=== PATIENT | female | born 1940 | race Caucasian/White ===

== ENCOUNTER 2016-07-18 15:11 | Emergency (ER) | payer OTHER ==
--- NOTE | 2016-07-18 15:25 | PDOC ---
Rapid Medical Evaluation Time Seen by Provider: 07/18/16 15:15 Medical Evaluation: Allergies Allergy/AdvReac Type Severity Reaction Status Date / Time No Known Allergies Allergy Verified 05/12/16 00:09
[2016-07-18 16:29] VITALS: BMI 23.4
[2016-07-18 17:10] LABS: BASOPHIL 0.4 % (0-2.0); EOSINOPHIL 1.1 % (0-4.5); MCH 27.4 pg (25.7-33.7); MCHC 33.3 g/dl (32.0-36.0); MEAN CELL VOLUME 82.3 fl (80-96); MEAN PLT VOLUME 9.5 fl (7.5-11.1); PLATELET COUNT 266 K/MM3 (134-434); RDW 15.1 % (11.6-15.6)
[2016-07-18 17:24] LABS: INR 0.98 (0.82-1.09); PROTHROMBIN TIME (PATIENT) 10.8 SEC (9.98-11.88)
[2016-07-18 17:31] LABS: ALBUMIN 3.9 g/dl (3.4-5.0); CALCIUM 9.6 mg/dL (8.5-10.1); MAGNESIUM 1.9 mg/dL (1.8-2.4)
[2016-07-18 17:34] VITALS: PULSE 60
[2016-07-18 17:35] LABS: BILIRUBIN,TOTAL 0.9 mg/dL (0.2-1.0); TOT PROT 7.2 g/dl (6.4-8.2); TROPONIN I 0.02 ng/ml (0.00-0.05)
--- NOTE | 2016-07-18 18:36 | PDOC ---
History of Present Illness <Daniel Kessler - Last Filed: 07/18/16 18:50> - General History Source: Patient, Spouse, Old Records Exam Limitations: No Limitations - History of Present Illness Initial Comments: 07/18/16 18:47 The patient is a 76 year old female, with a significant past medical history of hypertension, hyperlipidemia, diabetes, coronary artery disease s/p stents, kidney stones and anxiety, who presents to the emergency department not feeling well. The patient reports that she feels off today but cannot articulate a specific complaint. The patient denies shortness of breath or chest pain. The patient denies fever, chills, cough, nausea, vomiting, diarrhea, melena/bpr or dysuria. The patient denies any recent illnesses. The patients primary language is Farsi, her is at the bedside translating. Allergies: None reported. Past Surgical History: Stents (March 2016). Social History: Non smoker. Denies alcohol or drug use. PCP: Dr. Wolf <Geovanna Guillaume - Last Filed: 07/18/16 19:03> - General Chief Complaint: Blood Pressure Problem Stated Complaint: NOT WELL Time Seen by Provider: 07/18/16 15:15 Past History - Past Medical History Cardiac Disorders: Yes (angina, CAD) Diabetes: Yes HTN: Yes Hypercholesterolemia: Yes Kidney Stones: Yes Suicide Attempt (Hx): No Thyroid Disease: Yes - Psycho/Social/Smoking Cessation Hx Anxiety: Yes (NO MEDS) Suicidal Ideation: No Smoking Status: No Smoking History: Never smoked Have you smoked in the past 12 months: No Number of Cigarettes Smoked Daily: 0 Information on smoking cessation initiated: No Hx Alcohol Use: No Drug/Substance Use Hx: No Substance Use Type: None Hx Substance Use Treatment: No <Daniel Kessler - Last Filed: 07/18/16 18:50> <Geovanna Guillaume - Last Filed: 07/18/16 19:03> - Past Medical History Allergies/Adverse Reactions: Allergies Allergy/AdvReac Type Severity Reaction Status Date / Time No Known Allergies Allergy Verified 07/18/16 16:29 Home Medications: Ambulatory Orders Acetaminophen [Tactinal] 325 mg PO DAILY 07/18/16 Aspirin [ASA -] 81 mg PO DAILY 07/18/16 Atorvastatin Ca [Lipitor] 80 mg PO HS 07/18/16 Glimepiride [Amaryl] 4 mg PO DAILY 07/18/16 Methimazole 10 mg PO DAILY 07/18/16 Metoprolol Tartrate [Lopressor -] 100 mg PO DAILY 07/18/16 Sitagliptin Phosphate [Januvia] 100 mg PO DAILY 07/18/16 Spironolactone 25 mg PO DAILY 07/18/16 Ticagrelor [Brilinta] 90 mg PO BID 07/18/16 Valsartan 160 mg PO BID 07/18/16 Review of Systems - Review of Systems Able to Perform ROS?: Yes Comments:: 07/18/16 18:46 GENERAL/CONSTITUTIONAL: No fever or chills. No weakness. HEAD, EYES, EARS, NOSE AND THROAT: No change in vision. No ear pain or discharge. No sore throat. CARDIOVASCULAR: No chest pain or shortness of breath. RESPIRATORY: No cough, wheezing, or hemoptysis. GASTROINTESTINAL: No nausea, vomiting, diarrhea or constipation. GENITOURINARY: No dysuria, frequency, or change in urination. MUSCULOSKELETAL: No joint or muscle swelling or pain. No neck or back pain. SKIN: No rash. NEUROLOGIC: No headache, vertigo, loss of consciousness, or change in strength/ sensation. ENDOCRINE: No increased thirst. No abnormal weight change. HEMATOLOGIC/LYMPHATIC: No anemia, easy bleeding, or history of blood clots. ALLERGIC/IMMUNOLOGIC: No hives or skin allergy. <Geovanna Guillaume - Last Filed: 07/18/16 19:03> *Physical Exam - Vital Signs Last Vital Signs Temp Pulse Resp BP Pulse Ox 97.9 F 60 14 157/69 100 07/18/16 17:34 07/18/16 17:34 07/18/16 17:34 07/18/16 17:34 07/18/16 17:34 <Daniel Kessler - Last Filed: 07/18/16 18:50> - Vital Signs Last Vital Signs Temp Pulse Resp BP Pulse Ox 97.9 F 60 14 157/69 100 07/18/16 17:34 07/18/16 17:34 07/18/16 17:34 07/18/16 17:34 07/18/16 17:34 - Physical Exam Comments: 07/18/16 18:36 GENERAL: Awake, alert, and fully oriented, in no acute distress. HEAD: No signs of trauma. EYES: PERRLA, EOMI, sclera anicteric, conjunctiva clear. ENT: Auricles normal inspection, hearing grossly normal, nares patent, oropharynx clear without exudates. Moist mucosa. NECK: Normal ROM, supple, no lymphadenopathy, JVD, or masses. LUNGS: Breath sounds equal, clear to auscultation bilaterally. No wheezes, and no crackles. HEART: Regular rate and rhythm, normal S1 and S2, no murmurs, rubs or gallops. ABDOMEN: Soft, nontender, normoactive bowel sounds. No guarding, no rebound. No masses. EXTREMITIES: Normal range of motion, no edema. No clubbing or cyanosis. No cords, erythema, or tenderness. NEUROLOGICAL: Cranial nerves II through XII intact. Normal speech, normal gait. SKIN: Warm, dry, normal turgor, no rashes or lesions noted. <Geovanna Guillaume - Last Filed: 07/18/16 19:03> ED Treatment Course - LABORATORY CBC & Chemistry Diagram: 07/18/16 16:51 07/18/16 16:51 - ADDITIONAL ORDERS Additional order review: Laboratory Results 07/18/16 07/18/16 16:51 16:51 INR 0.98 Sodium 136 Potassium 4.4 Chloride 102 Carbon Dioxide 26 Anion Gap 8 BUN 22 H Creatinine 1.0 Creat Clearance w eGFR 54.05 Random Glucose 235 H D Calcium 9.6 Magnesium 1.9 Total Bilirubin 0.9 D AST 24 ALT 26 Alkaline Phosphatase 104 Creatine Kinase 100 Troponin I 0.02 Total Protein 7.2 Albumin 3.9 07/18/16 16:51 RBC 4.60 MCV 82.3 MCHC 33.3 RDW 15.1 MPV 9.5 Neutrophils % 75.0 Lymphocytes % 18.0 D Monocytes % 5.5 Eosinophils % 1.1 Basophils % 0.4 - RADIOLOGY Radiology Studies Ordered: Category Date Time Status CHEST PA & LAT [RAD] Stat Radiology 07/18/16 16:33 Taken <Daniel Kessler - Last Filed: 07/18/16 18:50> - LABORATORY CBC & Chemistry Diagram: 07/18/16 16:51 07/18/16 16:51 - ADDITIONAL ORDERS Additional order review: Laboratory Results 07/18/16 07/18/16 16:51 16:51 INR 0.98 Sodium 136 Potassium 4.4 Chloride 102 Carbon Dioxide 26 Anion Gap 8 BUN 22 H Creatinine 1.0 Creat Clearance w eGFR 54.05 Random Glucose 235 H D Calcium 9.6 Magnesium 1.9 Total Bilirubin 0.9 D AST 24 ALT 26 Alkaline Phosphatase 104 Creatine Kinase 100 Troponin I 0.02 Total Protein 7.2 Albumin 3.9 07/18/16 16:51 RBC 4.60 MCV 82.3 MCHC 33.3 RDW 15.1 MPV 9.5 Neutrophils % 75.0 Lymphocytes % 18.0 D Monocytes % 5.5 Eosinophils % 1.1 Basophils % 0.4 <Geovanna Guillaume - Last Filed: 07/18/16 19:03> Medical Decision Making - Medical Decision Making 07/18/16 18:[address] Wolf at 18:10. Referred to answering service, awaiting callback. Maryann Sanchez returned call at 19:00, case discussed. <Goevanna Guillaume - Last Filed: 07/18/16 19:03> *DC/Admit/Observation/Transfer - Discharge Dispostion Admit: No - Attestations Physician Attestion: 07/18/16 18:36 I, Dr. Daniel Kessler, attest that this document has been prepared under my direction and personally reviewed by me in its entirety. I further attest, that it accurately reflects all work, treatment, procedures and medical decision -making performed by me. <Daniel Kessler - Last Filed: 07/18/16 18:50> - Attestations Scribe Attestion: 07/18/16 18:36 Documentation prepared by Geovanna Guillaume, acting as medical collections specialist for Daniel Kessler MD/DO. <Geovanna Guillaume - Last Filed: 07/18/16 19:03> Diagnosis at time of Disposition: Essential hypertension - Discharge Dispostion Disposition: HOME Condition at time of disposition: Good - Referrals Referrals: Brett Wolf MD [Primary Care Provider] - - Patient Instructions Printed Discharge Instructions: DI for High Blood Pressure Additional Instructions: Return to us if any problems at all.
[2016-07-18 19:08] VITALS: BP 141/64; TEMP 98.1
--- NOTE | 2016-07-20 22:03 | EKG ---
Test Reason : Blood Pressure : / mmHG Vent. Rate : 055 BPM Atrial Rate : 055 BPM P-R Int : 178 ms QRS Dur : 080 ms QT Int : 474 ms P-R-T Axes : 050 -48 064 degrees QTc Int : 453 ms SINUS BRADYCARDIA LEFT AXIS DEVIATION MINIMAL VOLTAGE CRITERIA FOR LVH, MAY BE NORMAL VARIANT ANTERIOR INFARCT , AGE UNDETERMINED MARKED T WAVE ABNORMALITY, CONSIDER ANTEROLATERAL ISCHEMIA ABNORMAL ECG WHEN COMPARED WITH ECG OF 16-APR-2015 19:41, ANTERIOR INFARCT IS NOW PRESENT NONSPECIFIC T WAVE ABNORMALITY NOW EVIDENT IN INFERIOR LEADS T WAVE INVERSION NOW EVIDENT IN ANTEROLATERAL LEADS Confirmed by MAU MCMILLAN MD ([id number]) on 07/20/2016 10:02:23 PM Referred By: Confirmed By:MAU MCMILLAN MD
== END 2016-07-18 19:08 | disposition home or self-care (01) ==
LOC: JER 15:11
DX: I10 Essential (primary) hypertension (principal); I25.119 Atherosclerotic heart disease of native coronary artery with unspecified angina pectoris; Z95.5 Presence of coronary angioplasty implant and graft; E11.9 Type 2 diabetes mellitus without complications; Z79.84 Long term (current) use of oral hypoglycemic drugs; E78.00 Pure hypercholesterolemia, unspecified; E07.9 Disorder of thyroid, unspecified; F41.9 Anxiety disorder, unspecified
CPT/HCPCS: 36415; 71020-TC; 80053; 82550; 83735; 84484; 85025; 85610; 93005; 93010; 99284-25

== ENCOUNTER 2016-11-02 16:50 | Inpatient (IN) | payer OTHER ==
[2016-11-02 17:30] LABS: BASOPHIL 0.9 % (0-2.0); EOSINOPHIL 1.4 % (0-4.5); MCHC 32.6 g/dl (32.0-36.0); MEAN CELL VOLUME 85.8 fl (80-96); MEAN PLT VOLUME 9.2 fl (7.5-11.1); NEUTROPHILS 69.7 % (42.8-82.8); PLATELET COUNT 265 K/MM3 (134-434); RDW 15.2 % (11.6-15.6); WHITE BLOOD COUNT 10.3 K/mm3 (4.0-10.0)
--- NOTE | 2016-11-02 17:30 | PDOC ---
History of Present Illness - General History Source: Patient Exam Limitations: No Limitations - History of Present Illness Initial Comments: 11/02/16 17:40 The patient is a 76 year old female with a significant past medical history of a cardiac catheterization with 2 stents (in March 2016 which showed an EF of 45%, occluded LAD, RCA stenosis), diabetes, HTN, HLD, kidney stones, thyroid disease who presents to the Emergency Department with increasing SOB, chills, and weakness today. She states the SOB first started a few days ago. She states the SOB increases with exacerbation, but is still present at rest. Patient denies chest pain, palpitations, fever, chills, nausea, vomiting, diarrhea. ROS is limited because patient only speaks farsi PCP: Dr. Wolf <Pj Paz - Last Filed: 11/02/16 19:24> <Delfina Kim - Last Filed: 11/02/16 21:18> - General Chief Complaint: Respiratory Stated Complaint: CHEST PAIN Time Seen by Provider: 11/02/16 17:10 Past History <Pj Paz - Last Filed: 11/02/16 19:24> - Past Medical History Cardiac Disorders: Yes (angina, CAD) Diabetes: Yes HTN: Yes Hypercholesterolemia: Yes Kidney Stones: Yes Suicide Attempt (Hx): No Thyroid Disease: Yes - Psycho/Social/Smoking Cessation Hx Anxiety: No Suicidal Ideation: No Smoking Status: No Smoking History: Never smoked Have you smoked in the past 12 months: No Number of Cigarettes Smoked Daily: 0 Hx Alcohol Use: No Drug/Substance Use Hx: No Substance Use Type: None Hx Substance Use Treatment: No <Delfina Kim - Last Filed: 11/02/16 21:18> - Past Medical History Allergies/Adverse Reactions: Allergies Allergy/AdvReac Type Severity Reaction Status Date / Time No Known Allergies Allergy Verified 11/02/16 17:01 Home Medications: Ambulatory Orders Aspirin [ASA -] 81 mg PO DAILY 07/18/16 Atorvastatin Ca [Lipitor] 80 mg PO HS 07/18/16 Glimepiride [Amaryl] 4 mg PO BID 07/18/16 Methimazole 10 mg PO ASDIR 07/18/16 Spironolactone 25 mg PO DAILY 07/18/16 Ticagrelor [Brilinta] 90 mg PO BID 07/18/16 Valsartan 160 mg PO BID 07/18/16 Amlodipine Besylate 5 mg PO DAILY 11/02/16 Gabapentin 100 mg PO BID 11/02/16 Isosorbide Mononitrate [Isosorbide Mononitrate ER] 30 mg PO DAILY 11/02/16 Metoprolol Succinate [Toprol Xl] 100 mg PO DAILY 11/02/16 Multivitamin [Poly-Vitamin] 1 each PO DAILY 11/02/16 Review of Systems - Review of Systems Able to Perform ROS?: Yes Comments:: 11/02/16 17:40 CONSTITUTIONAL: Present: chills. weakness Absent: fever, diaphoresis, malaise, loss of appetite HEENT: Absent: rhinorrhea, nasal congestion, throat pain, throat swelling, difficulty swallowing, mouth swelling, ear pain, eye pain, visual Changes CARDIOVASCULAR: Absent: chest pain, syncope, palpitations, irregular heart rate, lightheadedness , peripheral edema RESPIRATORY: Prsent: SOB Absent: cough, dyspnea with exertion, orthopnea, wheezing, stridor, hemoptysis GASTROINTESTINAL: Absent: abdominal pain, abdominal distension, nausea, vomiting, diarrhea, constipation, melena, hematochezia GENITOURINARY: Absent: dysuria, frequency, urgency, hesitancy, hematuria, flank pain, genital pain MUSCULOSKELETAL: Absent: myalgia, arthralgia, joint swelling SKIN: Absent: rash, itching, pallor HEMATOLOGIC/IMMUNOLOGIC: Absent: easy bleeding, easy bruising, lymphadenopathy, frequent infections ENDOCRINE: Absent: unexplained weight gain, unexplained weight loss, heat intolerance, cold intolerance NEUROLOGIC: Absent: headache, focal weakness or paresthesias, dizziness, unsteady gait, seizure, mental status changes, bladder or bowel incontinence PSYCHIATRIC: Absent: anxiety, depression, suicidal or homicidal ideation, hallucinations. <Pj Paz - Last Filed: 11/02/16 19:24> *Physical Exam - Vital Signs Last Vital Signs Temp Pulse Resp BP Pulse Ox 97.3 F L 57 L 20 137/63 100 11/02/16 16:53 11/02/16 16:53 11/02/16 16:53 11/02/16 16:53 11/02/16 16:53 - Physical Exam Comments: 11/02/16 17:41 GENERAL: Well developed, well nourished. Awake and alert. No acute distress. HEENT: Normocephalic, atraumatic. PERRLA, EOMI. No conjunctival pallor. Sclera are non- icteric. Moist mucous membranes. Oropharynx is clear. NECK: Supple. Full ROM. No significant JVD. Carotid pulses 2+ and symmetric, without bruits. No thyromegaly. No lymphadenopathy. CARDIOVASCULAR: Regular rate and rhythm. No murmurs, rubs, or gallops. Distal pulses are 2+ and symmetric. PULMONARY: No evidence of respiratory distress. Lungs clear to auscultation bilaterally. No wheezing, rales or rhonchi. ABDOMINAL: Soft. Non-tender. Non-distended. No rebound or guarding. No organomegaly. Normoactive bowel sounds. MUSCULOSKELETAL Normal range of motion at all joints. No bony deformities or tenderness. No CVA tenderness. EXTREMITIES: No cyanosis. No clubbing. No pitting edema. No calf tenderness. SKIN: Warm and dry. Normal capillary refill. No rashes. No jaundice. NEUROLOGICAL: Alert, awake, appropriate. Cranial nerves 2-12 intact. No deficits to light touch and temperature in face, upper extremities and lower extremities. No motor deficits in the in face, upper extremities and lower extremities. Normoreflexic in the upper and lower extremities. Normal speech. Toes are down-going bilaterally. Gait is normal without ataxia. PSYCHIATRIC: Cooperative. Good eye contact. Appropriate mood and affect. <Pj Paz - Last Filed: 11/02/16 19:24> - Vital Signs Last Vital Signs Temp Pulse Resp BP Pulse Ox 97.3 F L 57 L 20 137/63 100 11/02/16 16:53 11/02/16 16:53 11/02/16 16:53 11/02/16 16:53 11/02/16 16:53 <Delfina Kim - Last Filed: 11/02/16 21:18> Heart Score/ECG Review - ECG Intrepretation Comment:: 11/02/16 17:42 Sinus bradycardia, 55 bpm. Left axis deviation. Anterior infarct, age undetermined T wave abnormality, consider lateral ischemia Abnormal ECG. <Pj Paz - Last Filed: 11/02/16 19:24> ED Treatment Course - LABORATORY CBC & Chemistry Diagram: 11/02/16 17:15 11/02/16 17:15 - ADDITIONAL ORDERS Additional order review: 11/02/16 17:15 RBC 3.82 MCV 85.8 MCHC 32.6 RDW 15.2 MPV 9.2 Neutrophils % 69.7 Lymphocytes % 21.6 D Monocytes % 6.4 Eosinophils % 1.4 Basophils % 0.9 <Pj Paz - Last Filed: 11/02/16 19:24> - LABORATORY CBC & Chemistry Diagram: 11/02/16 17:15 11/02/16 17:15 - RADIOLOGY Radiology Studies Ordered: Category Date Time Status SANJAY [CHEST X-RAY PORTABLE*] [RAD] Stat Radiology 11/02/16 17:18 Ordered <Delfina Kim - Last Filed: 11/02/16 21:18> Medical Decision Making - Medical Decision Making 11/02/16 19:[address] Forrest. 11/02/16 19:24 Dr. Kim discussed case with REAL ESTATE LOAN PROCESSOR: Iveth Pa. She agreed with admission. <Pj Paz - Last Filed: 11/02/16 19:24> - Medical Decision Making 11/02/16 21:11 76-year-old female presented with her because of 2 days of shortness of breath and palpitations. She just is generally feeling with a general malaise She denies fever but states she has episodes of feeling flushed followed by chills. -upon presentation she denied any substernal chest pain, nausea, vomiting, diarrhea, cough Past medical history significant for a STEMI in 04/08/2016. She was admitted to [facility] and had cardiac catheterization that resulted in a cardiac stent. She had echo that showed an ejection fraction of 45% in March 2016. Echo at that time showed normal LV function and size. With trace tricuspid regurg and trace pulmonic valve regurg. She had a more recent echo recently that showed ejection fraction of 52% PCP Brett Wolf ekg today showed deep inverted T waves but this is chronic. first cardiac enzyme was negative -spoke w Dr Wolf who asked to have pt admitted to Dr Forrest, when Dr Forrest' s service was called the REAL ESTATE LOAN PROCESSOR Ember called back <Delfina Kim - Last Filed: 11/02/16 21:18> *DC/Admit/Observation/Transfer - Attestations Scribe Attestion: 11/02/16 17:42 Documentation prepared by Pj Paz, acting as medical tech for Delfina Kim MD. <Pj Paz - Last Filed: 11/02/16 19:24> - Discharge Dispostion Admit: Yes <Delfina Kim - Last Filed: 11/02/16 21:18> Diagnosis at time of Disposition: Dyspnea Qualifiers: Dyspnea type: unspecified Qualified Code(s): R06.00 - Dyspnea, unspecified
[2016-11-02 17:40] LABS: INR 0.96 (0.82-1.09); PROTHROMBIN TIME (PATIENT) 10.5 SEC (9.98-11.88)
[2016-11-02 17:42] LABS: ACTIVATED PTT 26.2 SECONDS (26.9-34.4)
[2016-11-02 17:53] LABS: ALBUMIN 3.8 g/dl (3.4-5.0); ANION GAP 13 (8-16); BILIRUBIN,TOTAL 0.9 mg/dL (0.2-1.0); CALCIUM 9.7 mg/dL (8.5-10.1); CO2 21 mmol/L (21-32); CREATININE 1.3 mg/dL (0.55-1.02); GLUCOSE,RANDOM 173 mg/dL (74-106); SGOT/AST 24 U/L (15-37); SGPT/ALT 28 U/L (12-78)
[2016-11-02 17:56] LABS: ALK PHOS 94 U/L (45-117); TROPONIN I < 0.02 ng/ml (0.00-0.05)
[2016-11-02] MEDS ORDERED: ASPIRIN 81 MG CHEWABLE TABLETS PO ONE (19:09)
[2016-11-02] MEDS ORDERED: FUROSEMIDE 40 MG/4 ML INJECTABLE VIAL IVPUSH ONE (19:21)
[2016-11-02] MEDS ORDERED: FUROSEMIDE 40 MG/4 ML INJECTABLE VIAL ONE (19:26)
[2016-11-02 20:13] LABS: URINE APPEARANCE CLEAR; URINE BILIRUBIN NEGATIVE (NEGATIVE); URINE BLOOD NEGATIVE (NEGATIVE); URINE COLOR COLORLESS; URINE GLUCOSE (UA) NEGATIVE (NEGATIVE); URINE KETONE NEGATIVE (NEGATIVE); URINE NITRITE NEGATIVE (NEGATIVE); URINE PROTEIN NEGATIVE (NEGATIVE); URINE UROBILINOGEN NEGATIVE E.U./dl (0.2-1.0)
[2016-11-02 20:14] LABS: URINE LEUK ESTERASE TRACE (NEGATIVE)
[2016-11-02 20:17] LABS: URINE BACTERIA RARE /hpf (NONE SEEN); URINE MUCUS RARE; URINE RBC <1 /hpf (0-3); URINE WBC 2 /hpf (3-5)
[2016-11-03 07:37] LABS: TROPONIN I < 0.02 ng/ml (0.00-0.05)
--- NOTE | 2016-11-03 08:44 | HP ---
Admitting History and Physical - Admission History of Present Illness: 76 year old female with a significant past medical history of a cardiac catheterization with 2 stents (in March 2016 which showed an EF of 45%, occluded LAD, RCA stenosis), diabetes, HTN, HLD, kidney stones, thyroid disease who presents to the Emergency Department with increasing SOB, chills, and weakness today. She states the SOB first started a few days ago. She states the SOB increases with exacerbation, but is still present at rest. Patient denies chest pain, palpitations, fever, chills, nausea, vomiting, diarrhea. - Past Medical History Cardiovascular: Yes: CAD, HTN, Hyperlipdemia, Other (LV DYSFUNCTIO--EF 45) Gastrointestinal: Yes: GERD Renal/: Yes: Renal Calculi Endocrine: Yes: Hyperthyroidism - Smoking History Smoking history: Never smoked Have you smoked in the past 12 months: No Aproximately how many cigarettes per day: 0 - Alcohol/Substance Use Hx Alcohol Use: No Home Medications - Allergies Allergies/Adverse Reactions: Allergies Allergy/AdvReac Type Severity Reaction Status Date / Time No Known Allergies Allergy Verified 11/02/16 17:01 - Home Medications Home Medications: Ambulatory Orders Aspirin [ASA -] 81 mg PO DAILY 07/18/16 Atorvastatin Ca [Lipitor] 80 mg PO HS 07/18/16 Glimepiride [Amaryl] 4 mg PO BID 07/18/16 Methimazole 10 mg PO ASDIR 07/18/16 Spironolactone 25 mg PO DAILY 07/18/16 Ticagrelor [Brilinta] 90 mg PO BID 07/18/16 Valsartan 160 mg PO BID 07/18/16 Amlodipine Besylate 5 mg PO DAILY 11/02/16 Gabapentin 100 mg PO BID 11/02/16 Isosorbide Mononitrate [Isosorbide Mononitrate ER] 30 mg PO DAILY 11/02/16 Metoprolol Succinate [Toprol Xl] 100 mg PO DAILY 11/02/16 Multivitamin [Poly-Vitamin] 1 each PO DAILY 11/02/16 Physical Examination Vital Signs: Vital Signs Temperature 97.8 F 11/03/16 06:45 Pulse Rate 59 L 11/03/16 08:26 Respiratory Rate 16 11/03/16 08:26 Blood Pressure 132/76 11/03/16 08:26 O2 Sat by Pulse Oximetry (%) 99 11/03/16 08:26 Neck: Yes: Supple Cardiovascular: Yes: Tachycardia, Murmur, S1, S2 Respiratory: Yes: Regular, CTA Bilaterally Gastrointestinal: Yes: Normal Bowel Sounds, Soft. No: Tenderness Edema: No Imaging - Results Chest X-ray: Image Reviewed Problem List - Problems (1) Dyspnea Assessment/Plan: IV LASIX GIVEN --FEELS BETTER ECHO CARDIO Code(s): R06.00 - DYSPNEA, UNSPECIFIED Qualifiers: Dyspnea type: unspecified Qualified Code(s): R06.00 - Dyspnea, unspecified (2) CHF (congestive heart failure) Assessment/Plan: ABOVE FOLLOW LABS Code(s): I50.9 - HEART FAILURE, UNSPECIFIED (3) Essential hypertension Code(s): I10 - ESSENTIAL (PRIMARY) HYPERTENSION (4) CAD (coronary artery disease) Assessment/Plan: FOLLOW CE EKG CARDIO Code(s): I25.10 - ATHSCL HEART DISEASE OF [place] CORONARY ARTERY W/O ANG PCTRS
[2016-11-03] MEDS: FUROSEMIDE 40 MG/4 ML INJECTABLE VIAL IVPB SCH (10:49)
[2016-11-03] MEDS: MULTIVITAMINS (DAILY MVI) TABLET (FP) PO SCH (10:49)
[2016-11-03] MEDS: amLODIPine BESYLATE 5 MG TABLET (FP) PO SCH (10:49)
[2016-11-03] MEDS: ASPIRIN 81 MG CHEWABLE TABLETS PO SCH (10:49)
[2016-11-03] MEDS: METOPROLOL SUCCINATE 100 MG TAB.SR.24H (FP) PO SCH (10:49)
[2016-11-03] MEDS: SPIRONOLACTONE 25 MG TABLET (FP) PO SCH (10:49)
[2016-11-03] MEDS: ISOSORBIDE MONONITRATE 30 MG TAB.SR.24H (FP) PO SCH (10:49)
[2016-11-03] MEDS: VALSARTAN 160 MG TABLET (UD) PO SCH ×2 (10:49→21:02)
[2016-11-03] MEDS: GABAPENTIN 100 MG CAPSULE (FP) PO SCH ×2 (10:49→21:01)
[2016-11-03] MEDS: TICAGRELOR 90 MG TABLET PO SCH ×2 (10:49→21:02)
[2016-11-03] MEDS: GLIMEPIRIDE 4 MG TABLET (FP) PO SCH ×2 (10:49→17:41)
[2016-11-03 13:53] VITALS: BMI 22.1
--- NOTE | 2016-11-03 14:03 | EKG ---
Test Reason : Blood Pressure : / mmHG Vent. Rate : 058 BPM Atrial Rate : 058 BPM P-R Int : 182 ms QRS Dur : 088 ms QT Int : 456 ms P-R-T Axes : 069 -40 053 degrees QTc Int : 447 ms SINUS BRADYCARDIA LEFT AXIS DEVIATION ANTEROSEPTAL INFARCT (CITED ON OR BEFORE 18-JUL-2016) T WAVE ABNORMALITY, CONSIDER LATERAL ISCHEMIA ABNORMAL ECG WHEN COMPARED WITH ECG OF 02-NOV-2016 21:01, Confirmed by JARRET ROBERTS MD ([id number]) on 11/03/2016 2:02:49 PM Referred By: DOC DE LA CRUZ Confirmed By:JARRET ROBERTS MD
--- NOTE | 2016-11-03 14:20 | EKG ---
Test Reason : Blood Pressure : / mmHG Vent. Rate : 063 BPM Atrial Rate : 063 BPM P-R Int : 164 ms QRS Dur : 070 ms QT Int : 458 ms P-R-T Axes : 077 -37 065 degrees QTc Int : 468 ms NORMAL SINUS RHYTHM LEFT AXIS DEVIATION ANTERIOR INFARCT (CITED ON OR BEFORE 18-JUL-2016) ABNORMAL ECG WHEN COMPARED WITH ECG OF 18-JUL-2016 16:28, T WAVE VARIATION Confirmed by JARRET ROBERTS MD ([id number]) on 11/03/2016 2:20:24 PM Referred By: Confirmed By:JARRET ROBERTS MD
--- NOTE | 2016-11-03 14:21 | EKG ---
Test Reason : Blood Pressure : / mmHG Vent. Rate : 055 BPM Atrial Rate : 055 BPM P-R Int : 154 ms QRS Dur : 072 ms QT Int : 468 ms P-R-T Axes : 049 -39 052 degrees QTc Int : 447 ms SINUS BRADYCARDIA LEFT AXIS DEVIATION ANTERIOR INFARCT (CITED ON OR BEFORE 18-JUL-2016) T WAVE ABNORMALITY, CONSIDER LATERAL ISCHEMIA ABNORMAL ECG WHEN COMPARED WITH ECG OF 18-JUL-2016 16:28, T WAVE VARIATION Confirmed by JARRET ROBERTS MD ([id number]) on 11/03/2016 2:20:58 PM Referred By: Confirmed By:JARRET ROBERTS MD
--- NOTE | 2016-11-03 14:39 | CON.CARD ---
Consult Consult Specialty:: Cardiology Reason for Consultation:: CHF - History of Present Illness Chief Complaint: MANUEL History of Present Illness: This is a 76 year old female with a PMH of HTN, HLD, kidney stones, thyroid disease, and known CAD. She is S/P a STEMI and cardiac cath at [facility] on 04/08/16 which showed occlusion of the LAD and RCA. The EF was 45%. She received 2 coronary stents. A more recent echocardiogram showed an EF of 52%. She presents now with worsening SOB, MANUEL, chills, and weakness. EKG reveals chronic deeply inverted T-waves. Cardiac enzymes X 2, negative. BNP 651 CXR 11/03/16 Showed no acute pathology and no change compared with 07/18/16. Presently comfortable and in NAD. 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) Gastrointestinal: Yes: GERD Renal/: Yes: Renal Calculi Endocrine: Yes: Hyperthyroidism - Alcohol/Substance Use Hx Alcohol Use: No - Smoking History Smoking history: Never smoked Have you smoked in the past 12 months: No Aproximately how many cigarettes per day: 0 Home Medications - Allergies Allergies/Adverse Reactions: Allergies Allergy/AdvReac Type Severity Reaction Status Date / Time No Known Allergies Allergy Verified 11/02/16 17:01 - Home Medications Home Medications: Ambulatory Orders Aspirin [ASA -] 81 mg PO DAILY 07/18/16 Atorvastatin Ca [Lipitor] 80 mg PO HS 07/18/16 Glimepiride [Amaryl] 4 mg PO BID 07/18/16 Methimazole 10 mg PO ASDIR 07/18/16 Spironolactone 25 mg PO DAILY 07/18/16 Ticagrelor [Brilinta] 90 mg PO BID 07/18/16 Valsartan 160 mg PO BID 07/18/16 Amlodipine Besylate 5 mg PO DAILY 11/02/16 Gabapentin 100 mg PO BID 11/02/16 Isosorbide Mononitrate [Isosorbide Mononitrate ER] 30 mg PO DAILY 11/02/16 Metoprolol Succinate [Toprol Xl] 100 mg PO DAILY 11/02/16 Multivitamin [Poly-Vitamin] 1 each PO DAILY 11/02/16 Review of Systems Unable to obtain ROS, reason: As per HPI Vital Signs: Vital Signs Temperature 99 F 11/03/16 13:44 Pulse Rate 66 11/03/16 13:44 Respiratory Rate 16 11/03/16 13:44 Blood Pressure 126/69 11/03/16 13:44 O2 Sat by Pulse Oximetry (%) 96 11/03/16 13:07 Constitutional: Yes: No Distress Neck: Yes: WNL Respiratory: Yes: CTA Bilaterally Cardiovascular: Yes: Regular Rate and Rhythm Heart Sounds: Yes: S1, S2 (No MRHG) Edema: No Neurological: Yes: Alert (Grossly non focal), Oriented - Other Data Labs, Other Data: INR, PTT INR 0.96 (0.82-1.09) 11/02/16 17:15 Troponin, BNP 11/03/16 11/03/16 06:51 12:00 Troponin I < 0.02 Cancelled Troponin, BNP 11/03/16 11/03/16 06:51 12:00 Troponin I < 0.02 Cancelled Assessment/Plan CAD History of CAD and NM No evidence for an acute coronary syndrome presently Continue secondary prevention including: Aspirin 81 mg daily/Atorvastatin 80 mg daily/Imudr 30 mg daily/Metoprolol Succinate 100 mg daily. HTN Continue Valsartan 160 mg PO BID/Amlodipine 5 mg PO daily/Spironolactone 25 mg daily SOB/Dyspnea No evidence for CHF or ACS Her dyspnea may be a side effect of the Ticagrelor as this is a well known and fairly common side effect of this particular P2Y12 antagonist (not a class effect). Would consider changing from Ticagrelor to PLavix 75 mg daily. Would not favor Prasugrel as its use is not recommended for > 75 years old. Continue Aspirin 81 mg daily (DAPT). Will Follow with you.
[2016-11-03] MEDS: METHIMAZOLE 10 MG TABLET (FP) PO SCH (17:40)
[2016-11-03] MEDS: ATORVASTATIN CA 80 MG TABLET (FP) PO SCH (21:01)
[2016-11-04] MEDS: GLIMEPIRIDE 4 MG TABLET (FP) PO SCH ×2 (06:29→16:30)
[2016-11-04 07:47] LABS: BASOPHIL 0.6 % (0-2.0); EOSINOPHIL 1.9 % (0-4.5); MCH 28.8 pg (25.7-33.7); MEAN CELL VOLUME 84.6 fl (80-96); MEAN PLT VOLUME 8.9 fl (7.5-11.1); NEUTROPHILS 58.8 % (42.8-82.8); PLATELET COUNT 278 K/MM3 (134-434); RDW 15.5 % (11.6-15.6); WHITE BLOOD COUNT 10.7 K/mm3 (4.0-10.0)
[2016-11-04 09:10] LABS: ALBUMIN 3.9 g/dl (3.4-5.0); ALK PHOS 91 U/L (45-117); ANION GAP 11 (8-16); BILIRUBIN,TOTAL 1.3 mg/dL (0.2-1.0); CALCIUM 9.4 mg/dL (8.5-10.1); CHOLESTEROL 195 mg/dL (50-200); CO2 26 mmol/L (21-32); CREATININE 1.4 mg/dL (0.55-1.02); GLUCOSE,RANDOM 79 mg/dL (74-106); LDL CHOLESTEROL (ONLY SJRH) 121 mg/dL (5-100); SGOT/AST 24 U/L (15-37); SGPT/ALT 25 U/L (12-78); TOT PROT 6.9 g/dl (6.4-8.2)
[2016-11-04] MEDS: FUROSEMIDE 40 MG/4 ML INJECTABLE VIAL IVPB SCH (11:16)
[2016-11-04] MEDS: SPIRONOLACTONE 25 MG TABLET (FP) PO SCH (11:16)
--- NOTE | 2016-11-04 13:17 | PN ---
Progress Note, Physician Chief Complaint: PALPITATIONS History of Present Illness: ORIGINALLY CAME IN WITH PALPITATIONS, DWAYNE IS +ORTHOSTATIC - Current Medication List Current Medications: Active Medications Amlodipine Besylate (Norvasc -) 5 mg PO DAILY [facility] Last Admin: 11/03/16 10:49 Dose: 5 mg Aspirin (Asa -) 81 mg PO DAILY [facility] Last Admin: 11/03/16 10:49 Dose: 81 mg Atorvastatin Calcium (Lipitor -) 80 mg PO HS [facility] Last Admin: 11/03/16 21:01 Dose: 80 mg Clopidogrel Bisulfate (Plavix -) 75 mg PO DAILY [facility] Gabapentin (Neurontin -) 100 mg PO BID [facility] Last Admin: 11/03/16 21:01 Dose: 100 mg [facility] Admin: 11/04/16 06:29 Dose: 4 mg Isosorbide Mononitrate (Imdur -) 30 mg PO DAILY [facility] Last Admin: 11/03/16 10:49 Dose: 30 mg Methimazole (Tapazole -) 10 mg PO DAILY [facility] Last Admin: 11/03/16 17:40 Dose: 10 mg Metoprolol Succinate (Toprol Xl -) 50 mg PO DAILY [facility] Multivitamins/Minerals/Vitamin C (Tab-A-Vit -) 1 tab PO DAILY [facility] Last Admin: 11/03/16 10:49 Dose: 1 tab Valsartan (Diovan -) 80 mg PO BID [facility] - Objective Vital Signs: Vital Signs Temperature 97.4 F L 11/04/16 05:00 Pulse Rate 67 11/04/16 12:10 Respiratory Rate 18 11/04/16 12:10 Blood Pressure 119/60 11/04/16 12:10 O2 Sat by Pulse Oximetry (%) 96 11/04/16 10:00 Constitutional: Yes: Well Nourished, No Distress, Calm Cardiovascular: Yes: Regular Rate and Rhythm Respiratory: Yes: Regular Gastrointestinal: Yes: Normal Bowel Sounds Extremities: Yes: WNL Edema: No Peripheral Pulses WNL: Yes Neurological: Yes: Alert Labs: CBC, BMP 11/04/16 05:40 11/04/16 05:40 INR, PTT INR 0.96 (0.82-1.09) 11/02/16 17:15 Problem List - Problems (1) Dyspnea Assessment/Plan: BRILINTA? SWITCH TO PLAVIX NO SIGNS OF CHF Code(s): R06.00 - DYSPNEA, UNSPECIFIED Qualifiers: Dyspnea type: unspecified Qualified Code(s): R06.00 - Dyspnea, unspecified (2) Dehydration Code(s): E86.0 - DEHYDRATION (3) Essential hypertension Code(s): I10 - ESSENTIAL (PRIMARY) HYPERTENSION (4) Orthostatic hypertension Assessment/Plan: + ORTHOSTATIC DECREASE METOPROLOL AND DIOVAN DC AMLODIPINE CARDIOLOGY CONSULT Code(s): I10 - ESSENTIAL (PRIMARY) HYPERTENSION Assessment/Plan + ORTHOSTATIC DECREASE METOPROLOL, AMLODIPINE AND DIOVAN D/C FUROSEMIDE AND SPIRONOLACTONE CARDIOLOGY CONSULT BRILINTA TO PLAVIX LABS IN AM
[2016-11-04] MEDS ORDERED: CLOPIDOGREL BISULFATE 75 MG TABLET (FP) ONE (13:51)
[2016-11-04] MEDS: amLODIPine BESYLATE 5 MG TABLET (FP) PO SCH (13:55)
[2016-11-04] MEDS: MULTIVITAMINS (DAILY MVI) TABLET (FP) PO SCH (13:55)
[2016-11-04] MEDS: METOPROLOL SUCCINATE 50 MG TAB.SR.24H (FP) PO SCH (13:55)
[2016-11-04] MEDS: ASPIRIN 81 MG CHEWABLE TABLETS PO SCH (13:55)
[2016-11-04] MEDS: VALSARTAN 80 MG TABLET (UD) PO SCH ×2 (13:55→21:39)
[2016-11-04] MEDS: ISOSORBIDE MONONITRATE 30 MG TAB.SR.24H (FP) PO SCH (13:55)
[2016-11-04] MEDS: GABAPENTIN 100 MG CAPSULE (FP) PO SCH ×2 (13:55→21:38)
[2016-11-04] MEDS: METHIMAZOLE 10 MG TABLET (FP) PO SCH (13:55)
[2016-11-04] MEDS: METOPROLOL SUCCINATE 100 MG TAB.SR.24H (FP) PO SCH (14:52)
[2016-11-04] MEDS: TICAGRELOR 90 MG TABLET PO SCH (14:52)
[2016-11-04] MEDS: VALSARTAN 160 MG TABLET (UD) PO SCH (14:52)
--- NOTE | 2016-11-04 15:17 | PN ---
Progress Note, Physician Chief Complaint: Cardiology Consult No complaints Telem NSR - Current Medication List Current Medications: Active Medications Amlodipine Besylate (Norvasc -) 5 mg PO DAILY [facility] Last Admin: 11/04/16 13:55 Dose: 5 mg Aspirin (Asa -) 81 mg PO DAILY [facility] Last Admin: 11/04/16 13:55 Dose: 81 mg Atorvastatin Calcium (Lipitor -) 80 mg PO HS [facility] Last Admin: 11/03/16 21:01 Dose: 80 mg Clopidogrel Bisulfate (Plavix -) 75 mg PO DAILY [facility] Last Admin: 11/04/16 13:55 Dose: 75 mg Gabapentin (Neurontin -) 100 mg PO BID [facility] Last Admin: 11/04/16 13:55 Dose: 100 mg Glimepiride (Amaryl -) 4 mg PO BIDAC [facility] Last Admin: 11/04/16 06:29 Dose: 4 mg Isosorbide Mononitrate (Imdur -) 30 mg PO DAILY [facility] Last Admin: 11/04/16 13:55 Dose: 30 mg Methimazole (Tapazole -) 10 mg PO DAILY [facility] Last Admin: 11/04/16 13:55 Dose: 10 mg Metoprolol Succinate (Toprol Xl -) 50 mg PO DAILY [facility] Last Admin: 11/04/16 13:55 Dose: 50 mg Multivitamins/Minerals/Vitamin C (Tab-A-Vit -) 1 tab PO DAILY [facility] Last Admin: 11/04/16 13:55 Dose: 1 tab Valsartan (Diovan -) 80 mg PO BID [facility] Last Admin: 11/04/16 13:55 Dose: 80 mg - Objective Vital Signs: Vital Signs Temperature 97.6 F 11/04/16 14:45 Pulse Rate 58 L 11/04/16 14:45 Respiratory Rate 18 11/04/16 14:45 Blood Pressure 111/56 11/04/16 14:45 O2 Sat by Pulse Oximetry (%) 96 11/04/16 10:00 Constitutional: Yes: Well Nourished, No Distress Eyes: Yes: Conjunctiva Clear, EOM Intact HENT: Yes: Atraumatic, Normocephalic Neck: Yes: Supple, Trachea Midline Cardiovascular: Yes: Regular Rate and Rhythm Respiratory: Yes: Regular, CTA Bilaterally Gastrointestinal: Yes: Normal Bowel Sounds Edema: No Peripheral Pulses WNL: Yes Labs: CBC, BMP 11/04/16 05:40 11/04/16 05:40 INR, PTT INR 0.96 (0.82-1.09) 11/02/16 17:15 - ....Imaging EKG: Image Reviewed Problem List - Problems (1) CAD (coronary artery disease) Code(s): I25.10 - ATHSCL HEART DISEASE OF [place] CORONARY ARTERY W/O ANG PCTRS (2) Dyspnea Code(s): R06.00 - DYSPNEA, UNSPECIFIED Qualifiers: Dyspnea type: unspecified Qualified Code(s): R06.00 - Dyspnea, unspecified Assessment/Plan 76 F with anterior wall STEMI 03/2016 sp LAD stenting. Repeat cath 09/2016 showed residual severe distal and small vessel disease not amenable to PCI. She has normal LVEF with mild apical wall motion abnormality on cath. Has orthostatic hypotension and stable angina. Rec: 1. DC aldactone 2. Plavix 300 mg today (loading is appropriate if switching from Brilinta to plavix). Start 75mg today. She already got 75 today but I would suggest loading anyway. 3. Reduce Amlodipine 2.5mg QD 4. Increase IMDUR 60mg QD once BP stabilizes.
[2016-11-04] MEDS ORDERED: amLODIPine BESYLATE 5 MG TABLET (FP) PO SCH (18:20)
[2016-11-04] MEDS ORDERED: CLOPIDOGREL BISULFATE 75 MG TABLET (FP) PO STA (18:21)
[2016-11-04] MEDS ORDERED: CLOPIDOGREL BISULFATE 75 MG TABLET (FP) PO ONE (18:21)
[2016-11-04] MEDS: ATORVASTATIN CA 80 MG TABLET (FP) PO SCH (21:39)
--- NOTE | 2016-11-05 00:44 | CONSULT ---
Consult Consult Specialty:: endocrine Referred by:: jose lockett Reason for Consultation:: diabetes mellitus/hyperthyroid - History of Present Illness Chief Complaint: weak and low bp History of Present Illness: 76 year old female with a significant past medical history of a cardiac catheterization with 2 stents (in March 2016 which showed an EF of 45%, occluded LAD, RCA stenosis), diabetes, HTN, HLD, kidney stones, thyroid disease who presents to the Emergency Department with increasing SOB, chills, and weakness today. She states the SOB first started after brillanta,and persisted, denies hypoglycemia,cough fever or chills 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) Gastrointestinal: Yes: GERD Renal/: Yes: Renal Calculi Endocrine: Yes: Hyperthyroidism - Alcohol/Substance Use Hx Alcohol Use: No - Smoking History Smoking history: Never smoked Have you smoked in the past 12 months: No Aproximately how many cigarettes per day: 0 Home Medications - Allergies Allergies/Adverse Reactions: Allergies Allergy/AdvReac Type Severity Reaction Status Date / Time No Known Allergies Allergy Verified 11/02/16 17:01 - Home Medications Home Medications: Ambulatory Orders Aspirin [ASA -] 81 mg PO DAILY 07/18/16 Atorvastatin Ca [Lipitor] 80 mg PO HS 07/18/16 Glimepiride [Amaryl] 4 mg PO BID 07/18/16 Methimazole 10 mg PO ASDIR 07/18/16 Spironolactone 25 mg PO DAILY 07/18/16 Ticagrelor [Brilinta] 90 mg PO BID 07/18/16 Valsartan 160 mg PO BID 07/18/16 Amlodipine Besylate 5 mg PO DAILY 11/02/16 Gabapentin 100 mg PO BID 11/02/16 Isosorbide Mononitrate [Isosorbide Mononitrate ER] 30 mg PO DAILY 11/02/16 Metoprolol Succinate [Toprol Xl] 100 mg PO DAILY 11/02/16 Multivitamin [Poly-Vitamin] 1 each PO DAILY 11/02/16 Review of Systems - Review of Systems Constitutional: reports: Loss of Appetite, Unintentional Wgt. Loss, Weakness Eyes: reports: No Symptoms HENT: reports: No Symptoms Neck: reports: No Symptoms Cardiovascular: reports: No Symptoms Respiratory: reports: No Symptoms Gastrointestinal: reports: Constipation Genitourinary: reports: No Symptoms Breasts: reports: No Symptoms Reported Musculoskeletal: reports: Muscle Cramps, Muscle Weakness Integumentary: reports: No Symptoms Neurological: reports: Dizziness, Weakness Endocrine: reports: Increased Thirst Hematology/Lymphatic: reports: No Symptoms Psychiatric: reports: No Symptoms Physical Exam Vital Signs: Vital Signs Temperature 98 F 11/04/16 21:24 Pulse Rate 58 L 11/04/16 21:26 Respiratory Rate 20 11/04/16 21:24 Blood Pressure 96/49 11/04/16 21:26 O2 Sat by Pulse Oximetry (%) 98 11/04/16 20:45 Constitutional: Yes: Anxious Eyes: Yes: EOM Intact HENT: Yes: Normocephalic Neck: Yes: Trachea Midline, Thyromegaly Cardiovascular: Yes: Regular Rate and Rhythm Respiratory: Yes: CTA Bilaterally Gastrointestinal: Yes: Normal Bowel Sounds ...Rectal Exam: Yes: Deferred Renal/: Yes: WNL Breast(s): Yes: WNL Musculoskeletal: Yes: Back Pain Extremities: Yes: WNL Edema: No Integumentary: Yes: WNL Neurological: Yes: WNL, Alert, Oriented Labs: CBC, BMP 11/04/16 05:40 11/04/16 05:40 Problem List - Problems (1) CHF (congestive heart failure) Code(s): I50.9 - HEART FAILURE, UNSPECIFIED (2) Orthostatic hypertension Code(s): I10 - ESSENTIAL (PRIMARY) HYPERTENSION (3) Dehydration Code(s): E86.0 - DEHYDRATION (4) Essential hypertension Code(s): I10 - ESSENTIAL (PRIMARY) HYPERTENSION (5) Diabetes mellitus Code(s): E11.9 - TYPE 2 DIABETES MELLITUS WITHOUT COMPLICATIONS (6) Thyroid nodule, ectopic, toxic Code(s): E05.30 - THYROTXCOSIS FROM ECTOPIC THYROID TISSUE W/O THYROTXC CRISIS Assessment/Plan Current Active Problems CAD (coronary artery disease) (Acute) CHF (congestive heart failure) (Acute) Dyspnea (Acute) Orthostatic hypertension (Acute) diabetes mellitus,niddm hyperthyrodism on oral methimazole 10mg daily Abnormal Lab Results 06/20/17 06/20/17 06/20/17 05:40 05:40 05:40 WBC 10.7 H BUN 51 H D Creatinine 1.4 H Hemoglobin A1c % 8.6 H D Total Bilirubin 1.3 H D Triglycerides 230 H D Total LDL Cholesterol 121 H Laboratory Results - last 24 hr 11/04/16 11/04/16 11/04/16 05:40 05:40 05:40 WBC 10.7 H RBC 4.12 Hgb 11.9 D Hct 34.9 MCV 84.6 MCHC 34.0 RDW 15.5 Plt Count 278 MPV 8.9 Neutrophils % 58.8 Lymphocytes % 30.0 D Monocytes % 8.7 Eosinophils % 1.9 Basophils % 0.6 Sodium 138 Potassium 3.9 Chloride 101 Carbon Dioxide 26 D Anion Gap 11 BUN 51 H D Creatinine 1.4 H Creat Clearance w eGFR 36.66 POC Glucometer Random Glucose 79 D Hemoglobin A1c % 8.6 H D Calcium 9.4 Total Bilirubin 1.3 H D AST 24 ALT 25 Alkaline Phosphatase 91 Total Protein 6.9 Albumin 3.9 Triglycerides 230 H D Cholesterol 195 Total LDL Cholesterol 121 H HDL Cholesterol 45 11/04/16 11/04/16 06:24 15:37 WBC RBC Hgb Hct MCV MCHC RDW Plt Count MPV Neutrophils % Lymphocytes % Monocytes % Eosinophils % Basophils % Sodium Potassium Chloride Carbon Dioxide Anion Gap BUN Creatinine Creat Clearance w eGFR POC Glucometer 94 160 Random Glucose Hemoglobin A1c % Calcium Total Bilirubin AST ALT Alkaline Phosphatase Total Protein Albumin Triglycerides Cholesterol Total LDL Cholesterol HDL Cholesterol plan: ck tsh free t4 bgm achs novolog insulin coverage cardiac input appreciated Current Medications Generic Name Dose Route Start Last Admin Trade Name Freq PRN Reason Stop Dose Admin Amlodipine Besylate 2.5 mg 11/04/16 18:20 Norvasc - PO DAILY [facility] Aspirin 81 mg 11/03/16 10:00 11/04/16 13:55 Asa - PO 81 mg DAILY [facility] Administration Atorvastatin Calcium 80 mg 11/03/16 22:00 11/04/16 21:39 Lipitor - PO 80 mg HS [facility] Administration Gabapentin 100 mg 11/03/16 10:00 11/04/16 21:38 Neurontin - PO 100 mg BID [facility] Administration Glimepiride 4 mg 11/03/16 10:00 11/04/16 16:30 Amaryl - PO Not Given BIDAC [facility] Isosorbide Mononitrate 30 mg 11/03/16 10:00 11/04/16 13:55 Imdur - PO 30 mg DAILY [facility] Administration Methimazole 10 mg 11/03/16 17:00 11/04/16 13:55 Tapazole - PO 10 mg DAILY [facility] Administration Metoprolol Succinate 50 mg 11/04/16 11:10 11/04/16 13:55 Toprol Xl - PO 50 mg DAILY [facility] Administration Multivitamins/Minerals/Vitamin C 1 tab 11/03/16 10:00 11/04/16 13:55 Tab-A-Vit - PO 1 tab DAILY [facility] Administration Valsartan 80 mg 11/04/16 11:11 11/04/16 21:39 Diovan - PO Not Given BID [facility]
[2016-11-05] MEDS: INSULIN SLIDING SCALE (NOVOLOG) 1 VIAL SQ SCH ×4 (06:46→21:31)
[2016-11-05] MEDS: GLIMEPIRIDE 4 MG TABLET (FP) PO SCH ×2 (06:46→17:28)
[2016-11-05 07:32] LABS: BASOPHIL 0.5 % (0-2.0); EOSINOPHIL 2.3 % (0-4.5); MCH 28.8 pg (25.7-33.7); MCHC 33.8 g/dl (32.0-36.0); MEAN CELL VOLUME 85.3 fl (80-96); MEAN PLT VOLUME 9.2 fl (7.5-11.1); NEUTROPHILS 54.1 % (42.8-82.8); PLATELET COUNT 250 K/MM3 (134-434); RDW 15.1 % (11.6-15.6); WHITE BLOOD COUNT 10.4 K/mm3 (4.0-10.0)
--- NOTE | 2016-11-05 08:22 | PN ---
Progress Note, Physician History of Present Illness: FEELS BETTER TODAY MEDS ADJUSTED - Current Medication List Current Medications: Active Medications Amlodipine Besylate (Norvasc -) 2.5 mg PO DAILY [facility] Aspirin (Asa -) 81 mg PO DAILY [facility] Last Admin: 11/04/16 13:55 Dose: 81 mg Atorvastatin Calcium (Lipitor -) 80 mg PO HS [facility] Last Admin: 11/04/16 21:39 Dose: 80 mg Gabapentin (Neurontin -) 100 mg PO BID [facility] Last Admin: 11/04/16 21:38 Dose: 100 mg Glimepiride (Amaryl -) 4 mg PO BIDAC [facility] Last Admin: 11/05/16 06:46 Dose: Not Given Insulin Aspart (Novolog Vial Sliding Scale -) 1 vial SQ ACHS [facility] PRN Reason: Protocol Last Admin: 11/05/16 06:46 Dose: Not Given Isosorbide Mononitrate (Imdur -) 30 mg PO DAILY [facility] Last Admin: 11/04/16 13:55 Dose: 30 mg Methimazole (Tapazole -) 10 mg PO DAILY [facility] Last Admin: 11/04/16 13:55 Dose: 10 mg Metoprolol Succinate (Toprol Xl -) 50 mg PO DAILY [facility] Last Admin: 11/04/16 13:55 Dose: 50 mg Multivitamins/Minerals/Vitamin C (Tab-A-Vit -) 1 tab PO DAILY [facility] Last Admin: 11/04/16 13:55 Dose: 1 tab Valsartan (Diovan -) 80 mg PO BID [facility] Last Admin: 11/04/16 21:39 Dose: Not Given - Objective Vital Signs: Vital Signs Temperature 97.8 F 11/05/16 05:45 Pulse Rate 51 L 11/05/16 05:45 Respiratory Rate 18 11/05/16 05:45 Blood Pressure 109/54 11/05/16 05:45 O2 Sat by Pulse Oximetry (%) 98 11/04/16 20:45 Cardiovascular: Yes: Regular Rate and Rhythm Respiratory: Yes: Regular, CTA Bilaterally Gastrointestinal: Yes: Normal Bowel Sounds, Soft Labs: CBC, BMP 11/05/16 05:45 INR, PTT INR 0.96 (0.82-1.09) 11/02/16 17:15 Problem List - Problems (1) Dyspnea Assessment/Plan: FEELS BETTER ECHO CARDIO NOTED--ON PLAVIX Code(s): R06.00 - DYSPNEA, UNSPECIFIED Qualifiers: Dyspnea type: unspecified Qualified Code(s): R06.00 - Dyspnea, unspecified (2) CHF (congestive heart failure) Assessment/Plan: ABOVE FOLLOW LABS MONITOR ON CURRENT MEDS Code(s): I50.9 - HEART FAILURE, UNSPECIFIED (3) Essential hypertension Assessment/Plan: MEDS ADJUSTED DUE TO ORTHOSTATIC BP Code(s): I10 - ESSENTIAL (PRIMARY) HYPERTENSION (4) CAD (coronary artery disease) Assessment/Plan: CE NEGATIVE EKG CARDIO ON BOARD--ON PLAVIX Code(s): I25.10 - ATHSCL HEART DISEASE OF [place] CORONARY ARTERY W/O ANG PCTRS
[2016-11-05 09:21] LABS: ALBUMIN 3.6 g/dl (3.4-5.0); ALK PHOS 82 U/L (45-117); ANION GAP 13 (8-16); BILIRUBIN,TOTAL 0.7 mg/dL (0.2-1.0); CO2 24 mmol/L (21-32); CREATININE 1.5 mg/dL (0.55-1.02); GLUCOSE,RANDOM 64 mg/dL (74-106); SGOT/AST 22 U/L (15-37); SGPT/ALT 25 U/L (12-78); THYROID STIMULATING HORMONE 1.18 uIU/ml (0.358-3.74); TOT PROT 6.6 g/dl (6.4-8.2)
[2016-11-05] MEDS: VALSARTAN 80 MG TABLET (UD) PO SCH (09:24)
[2016-11-05] MEDS: ASPIRIN 81 MG CHEWABLE TABLETS PO SCH (09:31)
[2016-11-05] MEDS: METHIMAZOLE 10 MG TABLET (FP) PO SCH (09:31)
[2016-11-05] MEDS: GABAPENTIN 100 MG CAPSULE (FP) PO SCH ×2 (09:31→21:26)
[2016-11-05] MEDS: MULTIVITAMINS (DAILY MVI) TABLET (FP) PO SCH (09:31)
[2016-11-05] MEDS ORDERED: CLOPIDOGREL BISULFATE 75 MG TABLET (FP) PO SCH (10:00)
[2016-11-05] MEDS: ISOSORBIDE MONONITRATE 30 MG TAB.SR.24H (FP) PO SCH (10:25)
[2016-11-05] MEDS: METOPROLOL SUCCINATE 50 MG TAB.SR.24H (FP) PO SCH (10:26)
[2016-11-05] MEDS: CLOPIDOGREL BISULFATE 75 MG TABLET (FP) PO SCH (11:32)
[2016-11-05] MEDS ORDERED: INSULIN (NOVOLOG) ASPART 100 UNITS/ML 10ML VIAL ONE (12:01)
--- NOTE | 2016-11-05 16:10 | PN ---
Progress Note, Physician Chief Complaint: No new complaints History of Present Illness: This is a 76 year old female with a PMH of HTN, HLD, kidney stones, thyroid disease, and known CAD. She is S/P a STEMI and cardiac cath at [facility] on 04/08/16 which showed occlusion of the LAD and RCA. The EF was 45%. She received 2 coronary stents. A more recent echocardiogram showed an EF of 52%. She presents now with worsening SOB, MANUEL, chills, and weakness. EKG reveals chronic deeply inverted T-waves. Cardiac enzymes X 2, negative. BNP 651 CXR 11/03/16 Showed no acute pathology and no change compared with 07/18/16. Remains comfortable and in NAD. Dyspnea improved off Ticagrelor. - Current Medication List Current Medications: Active Medications Amlodipine Besylate (Norvasc -) 2.[address] [facility] Last Admin: 11/05/16 10:25 Dose: Not Given Aspirin (Asa -) [address] [facility] Last Admin: 11/05/16 09:31 Dose: 81 mg Atorvastatin Calcium (Lipitor -) [address] [facility] Last Admin: 11/04/16 21:39 Dose: 80 mg Clopidogrel Bisulfate (Plavix -) [address] [facility] Last Admin: 11/05/16 11:32 Dose: 75 mg Gabapentin (Neurontin -) [address] [facility] Last Admin: 11/05/16 09:31 Dose: 100 mg Glimepiride (Amaryl -) [address] [facility] Last Admin: 11/05/16 06:46 Dose: Not Given Insulin Aspart (Novolog Vial Sliding Scale -) [address] [facility] PRN Reason: Protocol Last Admin: 11/05/16 12:03 Dose: 3 units Isosorbide Mononitrate (Imdur -) [address] [facility] Last Admin: 11/05/16 10:25 Dose: Not Given Methimazole (Tapazole -) [address] [facility] Last Admin: 11/05/16 09:31 Dose: 10 mg Metoprolol Succinate (Toprol Xl -) [address] [facility] Last Admin: 11/05/16 10:26 Dose: Not Given Multivitamins/Minerals/Vitamin C (Tab-A-Vit -) [address] [facility] Last Admin: 11/05/16 09:31 Dose: 1 tab Valsartan (Diovan -) 80 mg PO BID [facility] Last Admin: 11/05/16 09:24 Dose: Not Given - Objective Vital Signs: Vital Signs Temperature 97.9 F 11/05/16 14:00 Pulse Rate 63 11/05/16 14:00 Respiratory Rate 20 11/05/16 14:00 Blood Pressure 107/57 11/05/16 14:00 O2 Sat by Pulse Oximetry (%) 98 11/04/16 20:45 Constitutional: Yes: Well Nourished, No Distress Neck: Yes: WNL Cardiovascular: Yes: Regular Rate and Rhythm, S1, S2 (No MRHG) Respiratory: Yes: CTA Bilaterally Gastrointestinal: Yes: Normal Bowel Sounds, Soft Extremities: Yes: WNL Edema: No Neurological: Yes: Alert, Oriented (No MRHG) Labs: CBC, BMP 11/05/16 05:45 11/05/16 05:45 INR, PTT INR 0.96 (0.82-1.09) 11/02/16 17:15 Assessment/Plan CAD History of CAD and PR No evidence for an acute coronary syndrome presently Continue secondary prevention including: Aspirin 81 mg daily/Atorvastatin 80 mg daily/Imudr 30 mg daily/Metoprolol Succinate 100 mg daily. HTN BP low would DC amlodipine Would lower Valsartan to 80 mg daily (hold for today) Lower Metoprolol Succinate to 25 mg daily Continue Spironolactone 25 mg daily SOB/Dyspnea Improving off Ticagrelor (now on Plavix 75 mg daily) Will Follow with you.
[2016-11-05] MEDS: ATORVASTATIN CA 80 MG TABLET (FP) PO SCH (21:25)
--- NOTE | 2016-11-06 00:06 | PN ---
Progress Note, Physician Chief Complaint: improving ambulating,no chest pain History of Present Illness: diabetes mellitus,hyperthyroid,chf,ashd,hypertension,now improved less dyspnea - Current Medication List Current Medications: Active Medications Aspirin (Asa -) 81 mg PO DAILY [facility] Last Admin: 11/05/16 09:31 Dose: 81 mg Atorvastatin Calcium (Lipitor -) 80 mg PO HS [facility] Last Admin: 11/05/16 21:25 Dose: 80 mg Clopidogrel Bisulfate (Plavix -) 75 mg PO DAILY [facility] Last Admin: 11/05/16 11:32 Dose: 75 mg Gabapentin (Neurontin -) 100 mg PO BID [facility] Last Admin: 11/05/16 21:26 Dose: 100 mg Insulin Aspart (Novolog Vial Sliding Scale -) 1 vial SQ ACHS [facility] PRN Reason: Protocol Last Admin: 11/05/16 21:31 Dose: 3 units Isosorbide Mononitrate (Imdur -) 30 mg PO DAILY [facility] Last Admin: 11/05/16 10:25 Dose: Not Given Methimazole (Tapazole -) 10 mg PO DAILY [facility] Last Admin: 11/05/16 09:31 Dose: 10 mg Metoprolol Succinate (Toprol Xl -) 50 mg PO DAILY [facility] Last Admin: 11/05/16 10:26 Dose: Not Given Multivitamins/Minerals/Vitamin C (Tab-A-Vit -) 1 tab PO DAILY [facility] Last Admin: 11/05/16 09:31 Dose: 1 tab Valsartan (Diovan -) 80 mg PO DAILY [facility] - Objective Vital Signs: Vital Signs Temperature 97.6 F 11/05/16 21:22 Pulse Rate 68 11/05/16 22:46 Respiratory Rate 20 11/05/16 22:46 Blood Pressure 143/67 11/05/16 22:46 O2 Sat by Pulse Oximetry (%) 99 11/05/16 21:00 Constitutional: Yes: Well Nourished Eyes: Yes: EOM Intact HENT: Yes: Normocephalic Neck: Yes: WNL Cardiovascular: Yes: WNL Respiratory: Yes: WNL Gastrointestinal: Yes: WNL ...Rectal Exam: Yes: Deferred Genitourinary: Yes: WNL Edema: No Peripheral Pulses WNL: Yes Labs: CBC, BMP 11/05/16 05:45 11/05/16 05:45 INR, PTT INR 0.96 (0.82-1.09) 11/02/16 17:15 Problem List - Problems (1) CHF (congestive heart failure) Code(s): I50.9 - HEART FAILURE, UNSPECIFIED (2) Orthostatic hypertension Code(s): I10 - ESSENTIAL (PRIMARY) HYPERTENSION (3) Dehydration Code(s): E86.0 - DEHYDRATION (4) Essential hypertension Code(s): I10 - ESSENTIAL (PRIMARY) HYPERTENSION (5) Diabetes mellitus Code(s): E11.9 - TYPE 2 DIABETES MELLITUS WITHOUT COMPLICATIONS (6) Thyroid nodule, ectopic, toxic Code(s): E05.30 - THYROTXCOSIS FROM ECTOPIC THYROID TISSUE W/O THYROTXC CRISIS Assessment/Plan Current Active Problems CAD (coronary artery disease) (Acute) CHF (congestive heart failure) (Acute) Diabetes mellitus (Acute) Dyspnea (Acute) Orthostatic hypertension (Acute) Thyroid nodule, ectopic, toxic (Acute) Abnormal Lab Results 11/05/16 11/05/16 05:45 05:45 WBC 10.4 H BUN 66 H D Creatinine 1.5 H Random Glucose 64 L Laboratory Results - last 24 hr 11/05/16 11/05/16 11/05/16 05:13 05:45 05:45 WBC 10.4 H RBC 3.87 Hgb 11.1 Hct 33.0 MCV 85.3 MCHC 33.8 RDW 15.1 Plt Count 250 MPV 9.2 Neutrophils % 54.1 Lymphocytes % 35.0 Monocytes % 8.1 Eosinophils % 2.3 Basophils % 0.5 Sodium 136 Potassium 3.8 Chloride 99 Carbon Dioxide 24 Anion Gap 13 BUN 66 H D Creatinine 1.5 H Creat Clearance w eGFR 33.85 POC Glucometer 90 Random Glucose 64 L Calcium 9.0 Total Bilirubin 0.7 D AST 22 ALT 25 Alkaline Phosphatase 82 Total Protein 6.6 Albumin 3.6 TSH 1.18 D Free T4 1.00 D 11/05/16 11/05/16 11/05/16 11:49 15:44 17:23 WBC RBC Hgb Hct MCV MCHC RDW Plt Count MPV Neutrophils % Lymphocytes % Monocytes % Eosinophils % Basophils % Sodium Potassium Chloride Carbon Dioxide Anion Gap BUN Creatinine Creat Clearance w eGFR POC Glucometer 259 125 66 Random Glucose Calcium Total Bilirubin AST ALT Alkaline Phosphatase Total Protein Albumin TSH Free T4 11/05/16 11/05/16 17:53 21:29 WBC RBC Hgb Hct MCV MCHC RDW Plt Count MPV Neutrophils % Lymphocytes % Monocytes % Eosinophils % Basophils % Sodium Potassium Chloride Carbon Dioxide Anion Gap BUN Creatinine Creat Clearance w eGFR POC Glucometer 100 273 Random Glucose Calcium Total Bilirubin AST ALT Alkaline Phosphatase Total Protein Albumin TSH Free T4 plan: tapazole 5mg daily
[2016-11-06] MEDS: INSULIN SLIDING SCALE (NOVOLOG) 1 VIAL SQ SCH ×4 (06:49→21:19)
--- NOTE | 2016-11-06 08:11 | PN ---
Progress Note, Physician History of Present Illness: FEELS WEAK MEDS ADJUSTED - Current Medication List Current Medications: Active Medications Aspirin (Asa -) 81 mg PO DAILY [facility] Last Admin: 11/05/16 09:31 Dose: 81 mg Atorvastatin Calcium (Lipitor -) 80 mg PO HS [facility] Last Admin: 11/05/16 21:25 Dose: 80 mg Clopidogrel Bisulfate (Plavix -) 75 mg PO DAILY [facility] Last Admin: 11/05/16 11:32 Dose: 75 mg Gabapentin (Neurontin -) 100 mg PO BID [facility] Last Admin: 11/05/16 21:26 Dose: 100 mg Insulin Aspart (Novolog Vial Sliding Scale -) 1 vial SQ ACHS [facility] PRN Reason: Protocol Last Admin: 11/06/16 06:49 Dose: Not Given Isosorbide Mononitrate (Imdur -) 30 mg PO DAILY [facility] Last Admin: 11/05/16 10:25 Dose: Not Given Methimazole (Tapazole -) 5 mg PO DAILY [facility] Metoprolol Succinate (Toprol Xl -) 50 mg PO DAILY [facility] Last Admin: 11/05/16 10:26 Dose: Not Given Multivitamins/Minerals/Vitamin C (Tab-A-Vit -) 1 tab PO DAILY [facility] Last Admin: 11/05/16 09:31 Dose: 1 tab Valsartan (Diovan -) 80 mg PO DAILY [facility] - Objective Vital Signs: Vital Signs Temperature 97.7 F 11/06/16 07:55 Pulse Rate 62 11/06/16 07:55 Respiratory Rate 20 11/06/16 07:55 Blood Pressure 112/49 11/06/16 07:55 O2 Sat by Pulse Oximetry (%) 99 11/05/16 21:00 Cardiovascular: Yes: Regular Rate and Rhythm Respiratory: Yes: Regular, CTA Bilaterally Gastrointestinal: Yes: Normal Bowel Sounds, Soft Labs: CBC, BMP 11/05/16 05:45 11/05/16 05:45 INR, PTT INR 0.96 (0.82-1.09) 11/02/16 17:15 Problem List - Problems (1) Dyspnea Assessment/Plan: FEELS BETTER ECHO NOTED CARDIO NOTED--ON PLAVIX Code(s): R06.00 - DYSPNEA, UNSPECIFIED Qualifiers: Dyspnea type: unspecified Qualified Code(s): R06.00 - Dyspnea, unspecified (2) CHF (congestive heart failure) Assessment/Plan: ABOVE--OFF LASIX--ON ALDACTONE FOLLOW LABS MONITOR ON CURRENT MEDS Code(s): I50.9 - HEART FAILURE, UNSPECIFIED (3) Essential hypertension Assessment/Plan: MEDS ADJUSTED DUE TO ORTHOSTATIC BP DIOVAN 80 QD OFF NORVASC Code(s): I10 - ESSENTIAL (PRIMARY) HYPERTENSION (4) CAD (coronary artery disease) Assessment/Plan: CE NEGATIVE EKG CARDIO ON BOARD--ON PLAVIX Code(s): I25.10 - ATHSCL HEART DISEASE OF [place] CORONARY ARTERY W/O ANG PCTRS (5) Acute kidney injury superimposed on CKD Assessment/Plan: COMPONENT VOLUME DEPLETION OFF LASIX OBSERVE ON ALDACTONE--MAY NEED TO DC PENDING TODAYS LABS Code(s): N17.9 - ACUTE KIDNEY FAILURE, UNSPECIFIED N18.9 - CHRONIC KIDNEY DISEASE, UNSPECIFIED
[2016-11-06 08:54] LABS: BASOPHIL 0.7 % (0-2.0); EOSINOPHIL 1.9 % (0-4.5); MCH 28.6 pg (25.7-33.7); MCHC 33.5 g/dl (32.0-36.0); MEAN CELL VOLUME 85.5 fl (80-96); MEAN PLT VOLUME 8.9 fl (7.5-11.1); NEUTROPHILS 67.2 % (42.8-82.8); PLATELET COUNT 282 K/MM3 (134-434); RDW 14.8 % (11.6-15.6); WHITE BLOOD COUNT 11.1 K/mm3 (4.0-10.0)
[2016-11-06] MEDS: METHIMAZOLE 5 MG TABLET (FP) PO SCH (09:00)
[2016-11-06] MEDS: ISOSORBIDE MONONITRATE 30 MG TAB.SR.24H (FP) PO SCH (09:00)
[2016-11-06] MEDS: METOPROLOL SUCCINATE 50 MG TAB.SR.24H (FP) PO SCH (09:00)
[2016-11-06] MEDS: VALSARTAN 80 MG TABLET (UD) PO SCH (09:00)
[2016-11-06] MEDS: MULTIVITAMINS (DAILY MVI) TABLET (FP) PO SCH (09:00)
[2016-11-06] MEDS: GABAPENTIN 100 MG CAPSULE (FP) PO SCH ×2 (09:00→21:22)
[2016-11-06] MEDS: ASPIRIN 81 MG CHEWABLE TABLETS PO SCH (09:00)
[2016-11-06] MEDS: CLOPIDOGREL BISULFATE 75 MG TABLET (FP) PO SCH (09:00)
[2016-11-06 09:18] LABS: ALBUMIN 3.9 g/dl (3.4-5.0); ALK PHOS 99 U/L (45-117); ANION GAP 9 (8-16); BILIRUBIN,TOTAL 0.7 mg/dL (0.2-1.0); CALCIUM 9.7 mg/dL (8.5-10.1); CO2 26 mmol/L (21-32); CREATININE 1.3 mg/dL (0.55-1.02); GLUCOSE,RANDOM 165 mg/dL (74-106); SGOT/AST 22 U/L (15-37); SGPT/ALT 28 U/L (12-78); TOT PROT 7.2 g/dl (6.4-8.2)
--- NOTE | 2016-11-06 16:58 | PN ---
Progress Note, Physician Chief Complaint: No new complaints History of Present Illness: This is a 76 year old female with a PMH of HTN, HLD, kidney stones, thyroid disease, and known CAD. She is S/P a STEMI and cardiac cath at [facility] on 04/08/16 which showed occlusion of the LAD and RCA. The EF was 45%. She received 2 coronary stents. A more recent echocardiogram showed an EF of 52%. She presents now with worsening SOB, MANUEL, chills, and weakness. EKG reveals chronic deeply inverted T-waves. Cardiac enzymes X 2, negative. BNP 651 CXR 11/03/16 Showed no acute pathology and no change compared with 07/18/16. Remains comfortable and in NAD. Dyspnea improved off Ticagrelor. - Current Medication List Current Medications: Active Medications Aspirin (Asa -) 81 mg PO DAILY [facility] Last Admin: 11/06/16 09:00 Dose: 81 mg Atorvastatin Calcium (Lipitor -) 80 mg PO HS [facility] Last Admin: 11/05/16 21:25 Dose: 80 mg Clopidogrel Bisulfate (Plavix -) 75 mg PO DAILY [facility] Last Admin: 11/06/16 09:00 Dose: 75 mg Gabapentin (Neurontin -) 100 mg PO BID [facility] Last Admin: 11/06/16 09:00 Dose: 100 mg Insulin Aspart (Novolog Vial Sliding Scale -) 1 vial SQ ACHS [facility] PRN Reason: Protocol Last Admin: 11/06/16 16:39 Dose: Not Given Isosorbide Mononitrate (Imdur -) 30 mg PO DAILY [facility] Last Admin: 11/06/16 09:00 Dose: 30 mg Methimazole (Tapazole -) 5 mg PO DAILY [facility] Last Admin: 11/06/16 09:00 Dose: 5 mg Metoprolol Succinate (Toprol Xl -) 50 mg PO DAILY [facility] Last Admin: 11/06/16 09:00 Dose: 50 mg Multivitamins/Minerals/Vitamin C (Tab-A-Vit -) 1 tab PO DAILY [facility] Last Admin: 11/06/16 09:00 Dose: 1 tab Valsartan (Diovan -) 80 mg PO DAILY [facility] Last Admin: 11/06/16 09:00 Dose: 80 mg - Objective Vital Signs: Vital Signs Temperature 98.0 F 11/06/16 14:55 Pulse Rate 76 11/06/16 14:55 Respiratory Rate 20 11/06/16 14:55 Blood Pressure 117/60 11/06/16 14:55 O2 Sat by Pulse Oximetry (%) 98 11/06/16 08:00 Constitutional: Yes: Well Nourished Neck: Yes: WNL Cardiovascular: Yes: Regular Rate and Rhythm, S1, S2 (No MRHG) Respiratory: Yes: CTA Bilaterally Gastrointestinal: Yes: Soft Extremities: Yes: WNL Edema: No Neurological: Yes: Alert, Oriented (Grossly nonfocal) Labs: CBC, BMP 11/06/16 08:25 11/06/16 08:25 INR, PTT INR 0.96 (0.82-1.09) 11/02/16 17:15 Assessment/Plan CAD History of CAD and CO No evidence for an acute coronary syndrome presently Continue secondary prevention including: Aspirin 81 mg daily/Atorvastatin 80 mg daily/Imudr 30 mg daily/Metoprolol Succinate 50 mg daily. HTN BP was low, now 117/60 mmHg Hemodynamically stable SOB/Dyspnea Improved off Ticagrelor (now on Plavix 75 mg daily) Encourage ambulation Will Follow with you.
[2016-11-06] MEDS: ATORVASTATIN CA 80 MG TABLET (FP) PO SCH (21:22)
[2016-11-07] MEDS: INSULIN SLIDING SCALE (NOVOLOG) 1 VIAL SQ SCH ×3 (06:08→16:06)
--- NOTE | 2016-11-07 08:53 | DS ---
Physical Examination Vital Signs: Vital Signs Temperature 97.9 F 11/07/16 07:08 Pulse Rate 69 11/07/16 07:08 Respiratory Rate 20 11/07/16 07:08 Blood Pressure 107/59 11/07/16 07:08 O2 Sat by Pulse Oximetry (%) 95 11/07/16 07:03 Findings/Remarks: FEELS BETTER NO CP OR SOB Cardiovascular: Yes: Regular Rate and Rhythm Respiratory: Yes: Regular, CTA Bilaterally Gastrointestinal: Yes: Normal Bowel Sounds, Soft Labs: CBC, BMP 11/06/16 08:25 11/06/16 08:25 Discharge Summary Reason For Visit: PALPITATIONS,ESSENTIAL HYPERTENSION,DYSPNEA Current Active Problems Acute kidney injury superimposed on CKD (Acute) CAD (coronary artery disease) (Acute) CHF (congestive heart failure) (Acute) Diabetes mellitus (Acute) Dyspnea (Acute) Orthostatic hypertension (Acute) Thyroid nodule, ectopic, toxic (Acute) Hospital Course: 76 year old female with a significant past medical history of a cardiac catheterization with 2 stents (in March 2016 which showed an EF of 45%, occluded LAD, RCA stenosis), diabetes, HTN, HLD, kidney stones, thyroid disease who presents to the Emergency Department with increasing SOB, chills, and weakness today. She states the SOB first started a few days ago. She states the SOB increases with exacerbation, but is still present at rest. Patient denies chest pain, palpitations, fever, chills, nausea, vomiting, diarrhea. - Past Medical History Cardiovascular: Yes: CAD, HTN, Hyperlipdemia, Other (LV DYSFUNCTIO--EF 45) Gastrointestinal: Yes: GERD Renal/: Yes: Renal Calculi Endocrine: Yes: Hyperthyroidism - Problems (1) Dyspnea Assessment/Plan: FEELS BETTER ECHO NOTED CARDIO NOTED--ON PLAVIX Code(s): R06.00 - DYSPNEA, UNSPECIFIED Qualifiers: Dyspnea type: unspecified Qualified Code(s): R06.00 - Dyspnea, unspecified (2) CHF (congestive heart failure) Assessment/Plan: ABOVE--OFF LASIX--OFF ALDACTONE FOLLOW LABS MONITOR ON CURRENT MEDS Code(s): I50.9 - HEART FAILURE, UNSPECIFIED (3) Essential hypertension Assessment/Plan: MEDS ADJUSTED DUE TO ORTHOSTATIC BP DIOVAN 80 QD OFF NORVASC Code(s): I10 - ESSENTIAL (PRIMARY) HYPERTENSION (4) CAD (coronary artery disease) Assessment/Plan: CE NEGATIVE EKG CARDIO ON BOARD--ON PLAVIX Code(s): I25.10 - ATHSCL HEART DISEASE OF [place] CORONARY ARTERY W/O ANG PCTRS (5) Acute kidney injury superimposed on CKD Assessment/Plan: COMPONENT VOLUME DEPLETION OFF LASIX OBSERVE OFF ALDACTONE- Code(s): N17.9 - ACUTE KIDNEY FAILURE, UNSPECIFIED N18.9 - CHRONIC KIDNEY DISEASE, UNSPECIFIED Condition: Improved - Instructions Referrals: Brett Wolf MD [Primary Care Provider] - 1 Week Disposition: HOME - Home Medications Comprehensive Discharge Medication List: Ambulatory Orders Aspirin [ASA -] 81 mg PO DAILY 07/18/16 Atorvastatin Ca [Lipitor] 80 mg PO HS 07/18/16 Gabapentin 100 mg PO BID 11/02/16 Isosorbide Mononitrate [Isosorbide Mononitrate ER] 30 mg PO DAILY 11/02/16 Multivitamin [Poly-Vitamin] 1 each PO DAILY 11/02/16 Clopidogrel Bisulfate [Plavix -] 75 mg PO DAILY #30 tablet 11/07/16 Methimazole [Tapazole -] 5 mg PO DAILY #30 tablet 11/07/16 Metoprolol Succinate [Toprol XL -] 50 mg PO DAILY #30 tab 11/07/16 Sitagliptin Phosphate [Januvia -] 50 mg PO DAILY@0700 #30 tablet 11/07/16 Valsartan [Diovan] 80 mg PO DAILY #30 tablet 11/07/16
[2016-11-07] MEDS: MULTIVITAMINS (DAILY MVI) TABLET (FP) PO SCH (09:21)
[2016-11-07] MEDS: GABAPENTIN 100 MG CAPSULE (FP) PO SCH (09:21)
[2016-11-07] MEDS: ASPIRIN 81 MG CHEWABLE TABLETS PO SCH (09:21)
[2016-11-07] MEDS: CLOPIDOGREL BISULFATE 75 MG TABLET (FP) PO SCH (09:21)
[2016-11-07] MEDS: VALSARTAN 80 MG TABLET (UD) PO SCH (09:22)
[2016-11-07] MEDS: METHIMAZOLE 5 MG TABLET (FP) PO SCH (09:22)
[2016-11-07] MEDS: ISOSORBIDE MONONITRATE 30 MG TAB.SR.24H (FP) PO SCH (09:22)
[2016-11-07] MEDS: METOPROLOL SUCCINATE 50 MG TAB.SR.24H (FP) PO SCH (10:22)
--- NOTE | 2016-11-07 15:14 | PN ---
Progress Note, Physician Chief Complaint: No new complaints History of Present Illness: This is a 76 year old female with a PMH of HTN, HLD, kidney stones, thyroid disease, and known CAD. She is S/P a STEMI and cardiac cath at [facility] on 04/08/16 which showed occlusion of the LAD and RCA. The EF was 45%. She received 2 coronary stents. A more recent echocardiogram showed an EF of 52%. She presents now with worsening SOB, MANUEL, chills, and weakness. EKG reveals chronic deeply inverted T-waves. Cardiac enzymes X 2, negative. BNP 651 CXR 11/03/16 Showed no acute pathology and no change compared with 07/18/16. Remains comfortable and in NAD. Dyspnea resolved off Ticagrelor. Ambulating without complaints. - Current Medication List Current Medications: Active Medications Aspirin (Asa -) 81 mg PO DAILY [facility] Last Admin: 11/07/16 09:21 Dose: 81 mg Atorvastatin Calcium (Lipitor -) 80 mg PO HS [facility] Last Admin: 11/06/16 21:22 Dose: 80 mg Clopidogrel Bisulfate (Plavix -) 75 mg PO DAILY [facility] Last Admin: 11/07/16 09:21 Dose: 75 mg Gabapentin (Neurontin -) 100 mg PO BID [facility] Last Admin: 11/07/16 09:21 Dose: 100 mg Insulin Aspart (Novolog Vial Sliding Scale -) 1 vial SQ ACHS [facility] PRN Reason: Protocol Last Admin: 11/07/16 11:32 Dose: Not Given Isosorbide Mononitrate (Imdur -) 30 mg PO DAILY [facility] Last Admin: 11/07/16 09:22 Dose: 30 mg Methimazole (Tapazole -) 5 mg PO DAILY [facility] Last Admin: 11/07/16 09:22 Dose: 5 mg Metoprolol Succinate (Toprol Xl -) 50 mg PO DAILY [facility] Last Admin: 11/06/16 09:00 Dose: 50 mg Multivitamins/Minerals/Vitamin C (Tab-A-Vit -) 1 tab PO DAILY [facility] Last Admin: 11/07/16 09:21 Dose: 1 tab Sitagliptin Phosphate (Januvia -) 50 mg PO DAILY@0700 [facility] Valsartan (Diovan -) 80 mg PO DAILY [facility] Last Admin: 11/07/16 09:22 Dose: 80 mg - Objective Vital Signs: Vital Signs Temperature 97.9 F 11/07/16 07:08 Pulse Rate 69 11/07/16 07:08 Respiratory Rate 20 11/07/16 07:08 Blood Pressure 107/59 11/07/16 07:08 O2 Sat by Pulse Oximetry (%) 95 11/07/16 07:03 Constitutional: Yes: Well Nourished Neck: Yes: WNL Cardiovascular: Yes: Regular Rate and Rhythm, S1, S2 (No MRHG) Respiratory: Yes: CTA Bilaterally Gastrointestinal: Yes: Soft Edema: No Neurological: Yes: Alert, Oriented (Grossly non focal) Labs: CBC, BMP 11/06/16 08:25 11/06/16 08:25 INR, PTT INR 0.96 (0.82-1.09) 11/02/16 17:15 Assessment/Plan CAD History of CAD and MS No evidence for an acute coronary syndrome presently Continue secondary prevention including: Aspirin 81 mg daily/Atorvastatin 80 mg daily/Imudr 30 mg daily/Metoprolol Succinate 50 mg daily/Valsartan 80 mg dialy HTN BP was low, now 117/60 mmHg Hemodynamically stable SOB/Dyspnea Improved off Ticagrelor (now on Plavix 75 mg daily) Encourage ambulation Call us prn
[2016-11-07 18:05] VITALS: BP 128/61; PULSE 61; TEMP 98.4
[2016-11-08] MEDS ORDERED: sitaGLIPtin PHOSPHATE 50 MG TABLET PO SCH (07:00)
== END 2016-11-07 18:46 | disposition home or self-care (01) | DRG 204 ==
LOC: JER 16:50 → JERBED 19:08 → J4W 11-03 13:28
PROVIDERS: ADMIT Family Medicine; ATTEND Family Medicine
DX: R06.02 Shortness of breath (principal); N17.9 Acute kidney failure, unspecified; I13.0 Hypertensive heart and chronic kidney disease with heart failure and stage 1 through stage 4 chronic kidney disease, or unspecified chronic kidney disease; T50.995A Adverse effect of other drugs, medicaments and biological substances, initial encounter; Y92.89 Other specified places as the place of occurrence of the external cause; Z98.61 Coronary angioplasty status; E78.5 Hyperlipidemia, unspecified; I25.10 Atherosclerotic heart disease of native coronary artery without angina pectoris; K21.9 Gastro-esophageal reflux disease without esophagitis; I25.2 Old myocardial infarction; E05.90 Thyrotoxicosis, unspecified without thyrotoxic crisis or storm; E11.22 Type 2 diabetes mellitus with diabetic chronic kidney disease; N18.9 Chronic kidney disease, unspecified; I50.9 Heart failure, unspecified; R00.2 Palpitations
CPT/HCPCS: 36415; 71010-TC; 80053; 80061; 81003; 81015; 82550; 83036; 83721; 83880; 84439; 84443; 84484; 85025; 85610; 85730; 93005; 93010; 93306-TC; 97116-GP; 97161-GP; 99285-25

== ENCOUNTER 2016-11-24 21:36 | Emergency (ER) | payer OTHER ==
[2016-11-24 21:48] VITALS: BP 144/69; PULSE 58; TEMP 97.6; BMI 22.1
--- NOTE | 2016-11-24 22:24 | PDOC ---
History of Present Illness - General History Source: Patient Exam Limitations: No Limitations - History of Present Illness Initial Comments: 11/24/16 23:17 The patient is a 76 year old female with significant past medical history of cardiac catheterization with 2 stents (in March 2016 which showed an EF of 45 %, occluded LAD, RCA stenosis), diabetes, hypertension, hyperlipidemia, kidney stones, and thyroid disease who presents to the ED for 4 days of right-sided abdominal pain and difficulty urinating. Patient reports her pain starts in the right lower quadrant radiating to the right flank region. She reports dysuria and wherever she goes to the bathroom, she notes only few drops of urine. Denies hematuria. Denies nausea, vomiting, or diarrhea. Patient also reports a few days of right foot swelling, redness and pain. States she went to a physicians office yesterday, where she was given an injection to her right foot with slight improvement. The patient denies fever, chills, diaphoresis, cough, SOB, chest pain, and palpitations. Allergies: NKDA Social History: No alcohol, tobacco, or drug use reported. Past Surgical History: s/p cardiac stents x2 (03/2016) PCP: Dr. Brett Wolf <Ani Augustin - Last Filed: 11/25/16 04:13> <Daniel Kessler - Last Filed: 11/25/16 05:03> - General Chief Complaint: Pain, Acute Stated Complaint: RIGHT SIDE PAIN Time Seen by Provider: 11/24/16 22:23 Past History <Ani Augustin - Last Filed: 11/25/16 04:13> - Past Medical History Cardiac Disorders: Yes (angina, CAD,CATH WITH STENT) CVA: Yes (STEMI, 2 cardiac stents) Diabetes: Yes HTN: Yes Hypercholesterolemia: Yes Kidney Stones: Yes Suicide Attempt (Hx): No Thyroid Disease: Yes - Psycho/Social/Smoking Cessation Hx Anxiety: No Suicidal Ideation: No Smoking Status: No Smoking History: Never smoked Have you smoked in the past 12 months: No Number of Cigarettes Smoked Daily: 0 Hx Alcohol Use: No Drug/Substance Use Hx: No Substance Use Type: None Hx Substance Use Treatment: No <Daniel Kessler - Last Filed: 11/25/16 05:03> - Past Medical History Allergies/Adverse Reactions: Allergies Allergy/AdvReac Type Severity Reaction Status Date / Time No Known Allergies Allergy Verified 11/24/16 21:48 Home Medications: Ambulatory Orders Clopidogrel Bisulfate [Plavix -] 75 mg PO DAILY #30 tablet 11/07/16 Methimazole [Tapazole -] 5 mg PO DAILY #30 tablet 11/07/16 Metoprolol Succinate [Toprol XL -] 50 mg PO DAILY #30 tab 11/07/16 Sitagliptin Phosphate [Januvia -] 50 mg PO DAILY@0700 #30 tablet 11/07/16 Valsartan [Diovan] 80 mg PO DAILY #30 tablet 11/07/16 Review of Systems - Review of Systems Able to Perform ROS?: Yes Comments:: 11/24/16 23:17 CONSTITUTIONAL: Absent: fever, no chills, no fatigue EYES: Absent: visual changes ENT: Absent: ear pain, no sore throat CARDIOVASCULAR: Absent: chest pain, no palpitations RESPIRATORY: Absent: cough, no SOB GI: +right lower quadrant pain radiating to the right flank region Absent: no nausea , no vomiting, no constipation, no diarrhea GENITOURINARY: +dysuria, difficulty urinating Absent: no frequency, no hematuria MUSCULOSKELETAL: +right foot pain, swelling, and redness Absent: back pain SKIN: Absent: rash NEURO: Absent: headache <Bharrat,Ani - Last Filed: 11/25/16 04:13> *Physical Exam - Vital Signs Last Vital Signs Temp Pulse Resp BP Pulse Ox 97.6 F 58 L 18 144/69 99 11/24/16 21:46 11/24/16 21:46 11/24/16 21:46 11/24/16 21:46 11/24/16 21:46 - Physical Exam Comments: 11/24/16 23:18 GENERAL: Well-appearing, well-nourished. No apparent distress. HEENT: Normocephalic, atraumatic. PERRL, EOM intact. CARDIOVASCULAR: Normal S1, S2. Regular rate and rhythm. PULMONARY: Clear to auscultation bilaterally. ABDOMINAL: Soft. Non-tender. Non-distended. No rebound or guarding. No organomegaly. Normoactive bowel sounds. MUSCULOSKELETAL No CVA tenderness. EXTREMITIES: Normal ROM in all four extremities. No gross deformities. No cyanosis. No clubbing. No calf tenderness. Redness to both MTP joint, clean and intact, no discharge. Swelling and tenderness to right foot. Nontender and no swelling of the left foot. SKIN: Warm, dry. No rash NEUROLOGICAL: No focal neurological deficits. <Ani Augustin - Last Filed: 11/25/16 04:13> - Vital Signs Last Vital Signs Temp Pulse Resp BP Pulse Ox 97.6 F 58 L 18 144/69 99 11/24/16 21:46 11/24/16 21:46 11/24/16 21:46 11/24/16 21:46 11/24/16 21:46 <Daniel Kessler - Last Filed: 11/25/16 05:03> ED Treatment Course - LABORATORY CBC & Chemistry Diagram: 11/24/16 23:48 11/24/16 23:48 - RADIOLOGY Radiograph Interpretation: 11/25/16 04:13 Exam: Noncontrast CT abdomen and pelvis Reviewed by Imaging production support analyst: Findings: Segmental dependent atelectatic changes are noted in the lung bases. The liver, gallbladder, spleen and pancreas all have a normal unenhanced appearance. The adrenal glands are unremarkable. Renal hypodensities are noted on the left. Perinephric stranding is noted bilaterally and is likely chronic. There is mild fullness of the left ureter. No obstructing calculus is seen. The gastrointestinal tract does not appear obstructed. No thickened or dilated bowel is seen. The appendix has a normal appearance. Colonic diverticulosis is noted without evidence of diverticulitis. The uterus is in a neutral position. No adnexal masses are seen. The urinary bladder is unremarkable. No abdominal or pelvic adenopathy is seen. No lytic or blastic destructive osseous lesions are seen. Impression: No inflammatory process identified in the abdomen or pelvis. No abdominal mass, adenopathy or collection seen. No explanation seen for this patient's abdominal pain. <Ani Augustin - Last Filed: 11/25/16 04:13> - LABORATORY CBC & Chemistry Diagram: 11/24/16 23:48 11/24/16 23:48 <Daniel Kessler - Last Filed: 11/25/16 05:03> *DC/Admit/Observation/Transfer - Attestations Scribe Attestion: 11/24/16 23:18 Documentation prepared by Ani Augustin, acting as medical receptionist for Daniel Kessler MD/DO. <Ani Augustin - Last Filed: 11/25/16 04:13> - Discharge Dispostion Admit: No - Attestations Physician Attestion: 11/24/16 22:24 I, Dr. Daniel Kessler, attest that this document has been prepared under my direction and personally reviewed by me in its entirety. I further attest, that it accurately reflects all work, treatment, procedures and medical decision -making performed by me. <Daniel Kessler - Last Filed: 11/25/16 05:03> Diagnosis at time of Disposition: Right flank pain, Cellulitis of right foot - Discharge Dispostion Disposition: HOME Condition at time of disposition: Good - Referrals Referrals: Brett Wolf MD [Primary Care Provider] - - Patient Instructions Printed Discharge Instructions: DI for Cellulitis -- Adult, DI for Dysuria -- Adult Additional Instructions: Mrs Honeycutt- Sorry that you are going through this right now. You do have an infection in your foot. Keflex is the antibiotic and it is three times a day. Return to us if worse or new symptoms. See your doctor later this week. Best- Dr. Daniel Kessler
[2016-11-25 00:12] LABS: BASOPHIL 0.7 % (0-2.0); EOSINOPHIL 1.1 % (0-4.5); MCH 28.2 pg (25.7-33.7); MCHC 32.7 g/dl (32.0-36.0); MEAN CELL VOLUME 86.2 fl (80-96); NEUTROPHILS 67.2 % (42.8-82.8); PLATELET COUNT 228 K/MM3 (134-434); RDW 14.4 % (11.6-15.6); WHITE BLOOD COUNT 8.9 K/mm3 (4.0-10.0)
[2016-11-25 00:14] LABS: URINE APPEARANCE CLEAR; URINE BILIRUBIN NEGATIVE (NEGATIVE); URINE BLOOD NEGATIVE (NEGATIVE); URINE COLOR COLORLESS; URINE GLUCOSE (UA) NEGATIVE (NEGATIVE); URINE KETONE NEGATIVE (NEGATIVE); URINE LEUK ESTERASE NEGATIVE (NEGATIVE); URINE NITRITE NEGATIVE (NEGATIVE); URINE PROTEIN NEGATIVE (NEGATIVE); URINE UROBILINOGEN NEGATIVE E.U./dl (0.2-1.0)
[2016-11-25 00:29] LABS: INR 0.93 (0.82-1.09); PROTHROMBIN TIME (PATIENT) 10.2 SEC (9.98-11.88)
[2016-11-25 00:46] LABS: ALBUMIN 3.8 g/dl (3.4-5.0); ALK PHOS 82 U/L (45-117); ANION GAP 9 (8-16); BILIRUBIN,TOTAL 0.4 mg/dL (0.2-1.0); CALCIUM 9.1 mg/dL (8.5-10.1); CO2 26 mmol/L (21-32); CREATININE 0.9 mg/dL (0.55-1.02); GLUCOSE,RANDOM 74 mg/dL (74-106); SGOT/AST 21 U/L (15-37); SGPT/ALT 19 U/L (12-78); TOT PROT 7.1 g/dl (6.4-8.2)
[2016-11-25 02:08] LABS: ERYTHROCYTE SEDIMENTATION RATE 17 mm/hr (0-30)
[2016-11-25] MEDS ORDERED: SODIUM CHLORIDE 1,000 ML IV STA (02:20)
[2016-11-25] MEDS ORDERED: CEFAZOLIN 2 GM in DEXTROSE 5%-WATER - 50 ML IVPB ONE (02:20)
[2016-11-25] MEDS ORDERED: CEFAZOLIN (PRE-DOCKED) 100 ML IVPB ONE (02:56)
== END 2016-11-25 05:14 | disposition home or self-care (01) ==
LOC: JER 21:36
PROC: 3E0337Z Introduction of Electrolytic and Water Balance Substance into Peripheral Vein, Percutaneous Approach (ICD-10-PCS; principal; 2016-11-24)
PROC: 3E03329 Introduction of Other Anti-infective into Peripheral Vein, Percutaneous Approach (ICD-10-PCS; 2016-11-24)
DX: R10.31 Right lower quadrant pain (principal); L03.115 Cellulitis of right lower limb; I25.2 Old myocardial infarction; I10 Essential (primary) hypertension; Z95.5 Presence of coronary angioplasty implant and graft; E11.9 Type 2 diabetes mellitus without complications; Z79.84 Long term (current) use of oral hypoglycemic drugs; E78.5 Hyperlipidemia, unspecified; E78.00 Pure hypercholesterolemia, unspecified; Z87.442 Personal history of urinary calculi
CPT/HCPCS: 36415; 74176-TC; 80053; 81003; 85025; 85610; 85651; 87086; 96361; 96365; 99283-25

== ENCOUNTER 2016-12-06 13:29 | Observation (INO) | payer OTHER ==
[2016-12-06 13:45] VITALS: BMI 22.3
--- NOTE | 2016-12-06 14:17 | PDOC ---
Attending Attestation - Resident Resident Name: Con Leiva - ED Attending Attestation I have performed the following: I have examined & evaluated the patient, The case was reviewed & discussed with the resident, I agree w/resident's findings & plan, Exceptions are as noted - HPI HPI: 12/06/16 13:59 76y F hx of acs s/p cath, DM2,HL, HTN, presents with episode of CP this AM lasting approx 30 minutes that was pressure like associated with diaphoresis. Pt currently asymptomatic. Pts exam unremarkable. ekg unchanged from prior based on HEART score 4-6, moderate risk will observe in telemetry will notify dr. Forrest pt took asa prior to arrival - Physicial Exam PE: 12/07/16 18:00 see above - Medical Decision Making 12/07/16 18:00 see above Heart Score/ECG Review - ECG Impressions Comment:: 12/06/16 16:22 Twelve-lead EKG was performed and reviewed by me. There is normal sinus rhythm with a Rate of 47 left axis deviation abnormal r wave progression TWI in anterior leads suspect lead placement error on precordial leads no significant changes from prior ekgs
[2016-12-06 14:37] LABS: BASOPHIL 0.5 % (0-2.0); EOSINOPHIL 1.2 % (0-4.5); MCH 28.4 pg (25.7-33.7); MCHC 33.2 g/dl (32.0-36.0); MEAN CELL VOLUME 85.6 fl (80-96); MEAN PLT VOLUME 8.9 fl (7.5-11.1); NEUTROPHILS 64.2 % (42.8-82.8); PLATELET COUNT 250 K/MM3 (134-434); RDW 13.8 % (11.6-15.6); WHITE BLOOD COUNT 8.6 K/mm3 (4.0-10.0)
--- NOTE | 2016-12-06 14:46 | PDOC ---
History of Present Illness - General Chief Complaint: Chest Pain Stated Complaint: CHEST PAIN Time Seen by Provider: 12/06/16 13:44 - History of Present Illness Initial Comments: 12/06/16 14:49 76 yo F with h/o ACS, cardiac cath ( 04/02 occluded LAD, RCA stenosis), DMII, HLD, HTN, and hypothyroid who presents with chest pain. Pt. is [place] speaking. 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 Last cardiac Echo 56.7~EF () Complains of chest pain this morning around 1000 AM described as diffuse chest pressure lasting 30 minutes. Associated with diaphoresis, and palpitations. Denies back pain, pleuritic chest pain, neck/jaw/shoulder pain, cough, wheezing, fevers/chills, N/V, new onset numbness/tingling in extremities , edema, syncope, dizziness, abdominal complaints, or urinary symptoms/flank pain. Pt. reports medication adherence, including Imdur and 81 mg ASA QD. Took ASA 81 mg today. Currently, reports improvement/resolution of symptoms since admission. Maintains adequate fluid hydration 48 oz water daily. No change in appetite, although pt. reports losing 30 pounds in 6 months. Past History - Past Medical History Allergies/Adverse Reactions: Allergies Allergy/AdvReac Type Severity Reaction Status Date / Time No Known Allergies Allergy Verified 11/24/16 21:48 Home Medications: Ambulatory Orders Clopidogrel Bisulfate [Plavix -] 75 mg PO DAILY #30 tablet 11/07/16 Metoprolol Succinate [Toprol XL -] 50 mg PO DAILY #30 tab 11/07/16 Sitagliptin Phosphate [Januvia -] 50 mg PO DAILY@0700 #30 tablet 11/07/16 Valsartan [Diovan] 80 mg PO DAILY #30 tablet 11/07/16 Aspirin [ASA -] 81 mg PO DAILY 12/06/16 Atorvastatin Calcium 80 mg PO DAILY 12/06/16 Isosorbide Mononitrate [Imdur -] 30 mg PO DAILY 12/06/16 Methimazole 5 mg PO DAILY 12/06/16 Tramadol HCl 50 mg PO DAILY 12/06/16 Cardiac Disorders: Yes (angina, CAD,CATH WITH STENT) CVA: Yes (STEMI, 2 cardiac stents) Diabetes: Yes HTN: Yes Hypercholesterolemia: Yes Kidney Stones: Yes Suicide Attempt (Hx): No Thyroid Disease: Yes - Immunization History Immunization Up to Date: Yes - Psycho/Social/Smoking Cessation Hx Anxiety: No Suicidal Ideation: No Smoking Status: No Smoking History: Never smoked Have you smoked in the past 12 months: No Number of Cigarettes Smoked Daily: 0 Hx Alcohol Use: No Drug/Substance Use Hx: No Substance Use Type: None Hx Substance Use Treatment: No Review of Systems - Review of Systems Comments:: 12/06/16 14:59 GENERAL/CONSTITUTIONAL: No fever or chills. No weakness. HEAD, EYES, EARS, NOSE AND THROAT: No change in vision. No ear pain or discharge. No sore throat. CARDIOVASCULAR: No chest pain or shortness of breath RESPIRATORY: No cough, wheezing, or hemoptysis. GASTROINTESTINAL: No nausea, vomiting, diarrhea or constipation. GENITOURINARY: No dysuria, frequency, or change in urination. MUSCULOSKELETAL: No joint or muscle swelling or pain. No neck or back pain. SKIN: No rash NEUROLOGIC: No headache, vertigo, loss of consciousness, or change in strength/ sensation. ENDOCRINE: No increased thirst. No abnormal weight change HEMATOLOGIC/LYMPHATIC: No anemia, easy bleeding, or history of blood clots. ALLERGIC/IMMUNOLOGIC: No hives or skin allergy. *Physical Exam - Vital Signs Last Vital Signs Temp Pulse Resp BP Pulse Ox 97.7 F 51 L 16 166/75 100 12/06/16 13:44 12/06/16 14:00 12/06/16 14:00 12/06/16 14:00 12/06/16 14:00 - Physical Exam Comments: 12/06/16 15:00 GENERAL: Awake, alert, and fully oriented, in no acute distress HEAD: No signs of trauma, normocephalic, atraumatic EYES: PERRLA, EOMI, sclera anicteric, conjunctiva clear ENT: Auricles normal inspection, hearing grossly normal, nares patent, oropharynx clear without exudates. Moist mucosa NECK: Normal ROM, supple, no lymphadenopathy, JVD, or masses LUNGS: No distress, speaks full sentences, clear to auscultation bilaterally HEART: Regular rate and rhythm, normal S1 and S2, no murmurs, rubs or gallops, peripheral pulses normal and equal bilaterally. ABDOMEN: Soft, nontender, normoactive bowel sounds. No guarding, no rebound. No masses EXTREMITIES: Normal inspection, Normal range of motion, no edema. No clubbing or cyanosis. NEUROLOGICAL: Cranial nerves II through XII grossly intact. Normal speech, normal gait, no focal sensorimotor deficits SKIN: Warm, Dry, normal turgor, no rashes or lesions noted. Heart Score/ECG Review - History History: Moderately suspicious - Electrocardiogram EKG: Non specific repolarization disturbance - Age Age: >/= 65 - Risk Factors Risk Factors Heart Score: Yes Hx Hypercholesterolemia, Yes Hx Hypertension, Yes Hx Diabetes Based on the list above the patient has:: >/=3 risk factors or Hx atherosclerotic disease - Troponin Troponin: </= normal limit - Score Heart Score - Total: 6 - ECG Impressions Comment:: Sinus Bradycardia LAD ED Treatment Course - LABORATORY CBC & Chemistry Diagram: 12/06/16 13:54 12/06/16 13:54 - RADIOLOGY Radiology Studies Ordered: Category Date Time Status CHEST PA & LAT [RAD] Stat Radiology 12/06/16 13:44 Ordered Medical Decision Making - Medical Decision Making 12/06/16 15:21 76 yo F with h/o ACS, DMII, HTN, HLD, and hypothyroid who presents with chest pain. Pt. reports diffuse chest pressure and palpations this AM lasting 30 minutes that has since resolved. Denies any other asx symptoms. Took ASA Physical exam unremarkable. Ddx: ACS/ND, pneumonia, PE. Ed course: CBC, CMP PT/INR Trop, CKMB EKG CXR Heart score 4-6 12/06/16 15:29 CBC unremarkable Trop Negative 12/06/16 15:30 CXR- no acute pathology. 12/06/16 15:33 CK index- 1.[address] Forrest. Agree to admit pt. observation. 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 *DC/Admit/Observation/Transfer Diagnosis at time of Disposition: Bradycardia Chest pain Qualifiers: Chest pain type: unspecified Qualified Code(s): R07.9 - Chest pain, unspecified - Discharge Dispostion Condition at time of disposition: Guarded Admit: Yes - Referrals Referrals: Brett Wolf MD [Primary Care Provider] - - Attestations Physician Attestion: 12/06/16 17:18 I, Dr. Con Leiva, attest that this document has been prepared under my direction and personally reviewed by me in its entirety. I further attest, that it accurately reflects all work, treatment, procedures and medical decision -making performed by me.
[2016-12-06 14:55] LABS: INR 0.99 (0.82-1.09); PROTHROMBIN TIME (PATIENT) 10.9 SEC (9.98-11.88)
[2016-12-06 15:08] LABS: ALBUMIN 3.5 g/dl (3.4-5.0); ANION GAP 9 (8-16); CO2 25 mmol/L (21-32); CREATININE 1.1 mg/dL (0.55-1.02); GLUCOSE,RANDOM 92 mg/dL (74-106); MAGNESIUM 2.3 mg/dL (1.8-2.4); SGOT/AST 26 U/L (15-37); SGPT/ALT 22 U/L (12-78)
[2016-12-06 15:12] LABS: ALK PHOS 80 U/L (45-117); BILIRUBIN,TOTAL 0.7 mg/dL (0.2-1.0); TOT PROT 6.5 g/dl (6.4-8.2); TROPONIN I < 0.02 ng/ml (0.00-0.05)
[2016-12-06 19:17] LABS: TROPONIN I < 0.02 ng/ml (0.00-0.05)
[2016-12-06] MEDS ORDERED: HEPARIN NA (PORCINE) 5,000 UNITS/ML 1ML VIAL ONE (21:13)
[2016-12-06] MEDS: HEPARIN NA (PORCINE) 5,000 UNITS/ML 1ML VIAL SQ SCH (21:34)
[2016-12-07] MEDS: sitaGLIPtin PHOSPHATE 50 MG TABLET PO SCH (06:42)
[2016-12-07 08:13] LABS: BASOPHIL 0.4 % (0-2.0); EOSINOPHIL 2.4 % (0-4.5); MCH 28.7 pg (25.7-33.7); MCHC 33.6 g/dl (32.0-36.0); MEAN CELL VOLUME 85.5 fl (80-96); MEAN PLT VOLUME 9.1 fl (7.5-11.1); NEUTROPHILS 54.5 % (42.8-82.8); PLATELET COUNT 222 K/MM3 (134-434); RDW 13.7 % (11.6-15.6); WHITE BLOOD COUNT 7.2 K/mm3 (4.0-10.0)
[2016-12-07 08:51] LABS: ALBUMIN 3.3 g/dl (3.4-5.0); ALK PHOS 78 U/L (45-117); ANION GAP 7 (8-16); BILIRUBIN,TOTAL 0.4 mg/dL (0.2-1.0); CHOLESTEROL 164 mg/dL (50-200); CO2 28 mmol/L (21-32); CREATININE 0.9 mg/dL (0.55-1.02); GLUCOSE,RANDOM 118 mg/dL (74-106); LDL CHOLESTEROL (ONLY SJRH) 90 mg/dL (5-100); SGOT/AST 22 U/L (15-37); SGPT/ALT 20 U/L (12-78); TOT PROT 6.2 g/dl (6.4-8.2); TROPONIN I < 0.02 ng/ml (0.00-0.05)
[2016-12-07 10:36] LABS: THYROID STIMULATING HORMONE 5.73 uIU/ml (0.358-3.74)
--- NOTE | 2016-12-07 10:42 | HP ---
Admitting History and Physical - Admission History of Present Illness: 76 yo F with h/o ACS, cardiac cath ( 04/02 occluded LAD, RCA stenosis), DMII, HLD, HTN, and hypothyroid who presents with chest pain. Pt. is German speaking. Last cardiac Echo 56.7~EF (11/03) Complains of chest pain yesterday around 1000 AM described as diffuse chest pressure lasting 30 minutes. Associated with diaphoresis, and palpitations.Pt. reports medication adherence, including Imdur and 81 mg ASA QD. Took ASA 81 mg today. 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) Gastrointestinal: Yes: GERD Renal/: Yes: Renal Calculi Endocrine: Yes: Hyperthyroidism - Smoking History Smoking history: Never smoked Have you smoked in the past 12 months: No Aproximately how many cigarettes per day: 0 - Alcohol/Substance Use Hx Alcohol Use: No Home Medications - Allergies Allergies/Adverse Reactions: Allergies Allergy/AdvReac Type Severity Reaction Status Date / Time No Known Allergies Allergy Verified 11/24/16 21:48 - Home Medications Home Medications: Ambulatory Orders Clopidogrel Bisulfate [Plavix -] 75 mg PO DAILY #30 tablet 11/07/16 Metoprolol Succinate [Toprol XL -] 50 mg PO DAILY #30 tab 11/07/16 Sitagliptin Phosphate [Januvia -] 50 mg PO DAILY@0700 #30 tablet 11/07/16 Valsartan [Diovan] 80 mg PO DAILY #30 tablet 11/07/16 Aspirin [ASA -] 81 mg PO DAILY 12/06/16 Atorvastatin Calcium 80 mg PO DAILY 12/06/16 Isosorbide Mononitrate [Imdur -] 30 mg PO DAILY 12/06/16 Methimazole 5 mg PO DAILY 12/06/16 Tramadol HCl 50 mg PO DAILY 12/06/16 Review of Systems - Review of Systems Constitutional: reports: Diaphoresis Cardiovascular: reports: Chest Pain, Palpitations, Shortness of Breath Respiratory: reports: SOB, SOB on Exertion Gastrointestinal: reports: Abdominal Pain Neurological: reports: No Symptoms Physical Examination Vital Signs: Vital Signs Temperature 97.6 F 12/07/16 06:00 Pulse Rate 46 L 12/07/16 06:00 Respiratory Rate 18 12/07/16 06:00 Blood Pressure 179/76 12/07/16 06:00 O2 Sat by Pulse Oximetry (%) 98 12/07/16 07:00 Neck: Yes: Supple Cardiovascular: Yes: Regular Rate and Rhythm Respiratory: Yes: Regular, CTA Bilaterally Gastrointestinal: Yes: Normal Bowel Sounds, Soft, Tenderness (mild rt flank) Edema: No Labs: CBC, BMP 12/07/16 05:50 12/07/16 05:50 Problem List - Problems (1) Chest pain Assessment/Plan: FOLLOW CE CARDIO STRESS TEST ON ASA/LIPITOR/B-YG/ARB Code(s): R07.9 - CHEST PAIN, UNSPECIFIED Qualifiers: Chest pain type: unspecified Qualified Code(s): R07.9 - Chest pain, unspecified (2) CAD (coronary artery disease) Assessment/Plan: ABOVE Code(s): I25.10 - ATHSCL HEART DISEASE OF [place] CORONARY ARTERY W/O ANG PCTRS (3) Diabetes mellitus Assessment/Plan: BGM ENDO Code(s): E11.9 - TYPE 2 DIABETES MELLITUS WITHOUT COMPLICATIONS (4) Right flank pain Assessment/Plan: CT SCAN UA Code(s): R10.9 - UNSPECIFIED ABDOMINAL PAIN (5) Hyperthyroidism Assessment/Plan: ON TAPAZOL TSH Code(s): E05.90 - THYROTOXICOSIS, UNSP WITHOUT THYROTOXIC CRISIS OR STORM
[2016-12-07] MEDS: ASPIRIN 81 MG CHEWABLE TABLETS PO SCH (10:54)
[2016-12-07] MEDS: ATORVASTATIN CA 40 MG TABLET (FP) PO SCH (10:55)
[2016-12-07] MEDS: VALSARTAN 80 MG TABLET (UD) PO SCH (10:55)
[2016-12-07] MEDS: CLOPIDOGREL BISULFATE 75 MG TABLET (FP) PO SCH (10:55)
[2016-12-07] MEDS: HEPARIN NA (PORCINE) 5,000 UNITS/ML 1ML VIAL SQ SCH ×2 (10:55→22:30)
[2016-12-07] MEDS: ISOSORBIDE MONONITRATE 30 MG TAB.SR.24H (FP) PO SCH (10:55)
[2016-12-07] MEDS: METOPROLOL SUCCINATE 50 MG TAB.SR.24H (FP) PO SCH ×2 (10:55→11:04)
[2016-12-07] MEDS: traMADol HCL 50 MG TABLET PO SCH (10:56)
--- NOTE | 2016-12-07 14:00 | CON.CARD ---
Consult Consult Specialty:: cardiology Referred by:: Lon Reason for Consultation:: Chest pain - History of Present Illness Chief Complaint: Chest pain History of Present Illness: The patient is a 76-year-old female, who is quite frail, we've a history of hypertension, hyperlipidemia, urolithiasis, thyroid disease, coronary artery disease and myocardial infarction, status post cardiac catheterization 04/02 and 2 stents, ejection fraction 52%, Cardiac catheterization 10/01; ejection fraction 50%, mild apical hypokinesis, diffuse severe distal LAD disease, patent proximal and ostial LAD stents, small OM to 95% (not touched) proximal RCA 50%. The patient is now readmitted with chest pains. She reports squeezing and tightness in the retrosternal area associated with shortness of breath. The symptoms lasted approximately 20-30 minutes. The patient was at rest at that time. She walks slowly and complains of low back pains. She is currently comfortable and symptom free. 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) Gastrointestinal: Yes: GERD Renal/: Yes: Renal Calculi Musculoskeletal: Yes: Chronic low back pain Endocrine: Yes: Hyperthyroidism - Alcohol/Substance Use Hx Alcohol Use: No - Smoking History Smoking history: Never smoked Have you smoked in the past 12 months: No Aproximately how many cigarettes per day: 0 Home Medications - Allergies Allergies/Adverse Reactions: Allergies Allergy/AdvReac Type Severity Reaction Status Date / Time No Known Allergies Allergy Verified 11/24/16 21:48 - Home Medications Home Medications: Ambulatory Orders Clopidogrel Bisulfate [Plavix -] 75 mg PO DAILY #30 tablet 11/07/16 Metoprolol Succinate [Toprol XL -] 50 mg PO DAILY #30 tab 11/07/16 Sitagliptin Phosphate [Januvia -] 50 mg PO DAILY@0700 #30 tablet 11/07/16 Valsartan [Diovan] 80 mg PO DAILY #30 tablet 11/07/16 Aspirin [ASA -] 81 mg PO DAILY 12/06/16 Atorvastatin Calcium 80 mg PO DAILY 12/06/16 Isosorbide Mononitrate [Imdur -] 30 mg PO DAILY 12/06/16 Methimazole 5 mg PO DAILY 12/06/16 Tramadol HCl 50 mg PO DAILY 12/06/16 Review of Systems - Review of Systems Constitutional: reports: No Symptoms Eyes: reports: No Symptoms HENT: reports: No Symptoms Neck: reports: No Symptoms Cardiovascular: reports: Chest Pain Respiratory: reports: SOB on Exertion Gastrointestinal: reports: No Symptoms Genitourinary: reports: No Symptoms Breasts: reports: No Symptoms Reported Musculoskeletal: reports: Back Pain Integumentary: reports: No Symptoms Neurological: reports: No Symptoms Endocrine: reports: No Symptoms Hematology/Lymphatic: reports: No Symptoms Psychiatric: reports: No Symptoms - Risk Factors Known Risk Factors: Yes: Hypercholesterolemia, Hypertension, Prior [place] /Emb Stroke Vital Signs: Vital Signs Temperature 98.6 F 12/07/16 10:00 Pulse Rate 68 12/07/16 10:00 Respiratory Rate 18 12/07/16 10:00 Blood Pressure 140/58 12/07/16 10:00 O2 Sat by Pulse Oximetry (%) 99 12/07/16 10:00 Constitutional: Yes: No Distress, Thin Eyes: Yes: WNL HENT: Yes: WNL Neck: Yes: WNL, Supple Respiratory: Yes: WNL Gastrointestinal: Yes: WNL Renal/: Yes: WNL Cardiovascular: Yes: Regular Rate and Rhythm JVD: No Carotid Bruit: No PMI: Non-Displaced Heart Sounds: Yes: S1, S2 Murmur: Yes: Systolic Murmur, Grade 2 Musculoskeletal: Yes: Back Pain Extremities: Yes: WNL Edema: No Integumentary: Yes: WNL Neurological: Yes: WNL ...Motor Strength: WNL Psychiatric: Yes: WNL - Other Data Labs, Other Data: CBC, BMP 12/07/16 05:50 12/07/16 05:50 INR, PTT INR 0.99 (0.82-1.09) 12/06/16 13:54 Troponin, BNP 12/06/16 12/07/16 18:33 05:50 Troponin I < 0.02 < 0.02 Troponin, BNP 12/06/16 12/07/16 18:33 05:50 Troponin I < 0.02 < 0.02 Assessment/Plan 76-year-old female with known coronary artery disease and prior LAD stents, now presenting with recurrent chest pains. There is no evidence of ischemia nor acute coronary syndrome. The patient is in sinus rhythm. The blood pressure is moderately elevated. The patient is asymptomatic. I will attempt to maximize her medical regimen at this point. Increase Diovan from 80-160 mg daily. Increase Imdur from 30-60 mg daily. Continue Toprol-XL as currently. The patient is well beta blocked. Continue to up titrate Diovan and Imdur as needed and as tolerated. There is no need for further cardiac workup at this point. There is no need for cardiac monitoring. The patient is stable. Will follow with you.
[2016-12-07 14:55] LABS: URINE APPEARANCE CLEAR; URINE BILIRUBIN NEGATIVE (NEGATIVE); URINE BLOOD NEGATIVE (NEGATIVE); URINE COLOR LTYELLOW; URINE GLUCOSE (UA) NEGATIVE (NEGATIVE); URINE KETONE NEGATIVE (NEGATIVE); URINE NITRITE NEGATIVE (NEGATIVE); URINE UROBILINOGEN NEGATIVE mg/dL (0.2-1.0)
[2016-12-07 14:59] LABS: URINE LEUK ESTERASE 2+ (NEGATIVE); URINE PROTEIN 1+ (NEGATIVE)
[2016-12-07 15:05] LABS: URINE HYALINE CAST 1 /lpf; URINE MUCUS RARE; URINE RBC 1 /hpf (0-3); URINE WBC 12 /hpf (3-5)
--- NOTE | 2016-12-07 23:30 | CONSULT ---
Consult Consult Specialty:: endocrine Reason for Consultation:: weight loss,hyperthyroid - History of Present Illness Chief Complaint: chest pain,weight loss History of Present Illness: 76 yo F with h/o ACS, cardiac cath ( 04/02 occluded LAD, RCA stenosis), DMII, HLD, HTN, and hyperthyroidism, who presents with chest pain. Complains of chest pain this morning around 1000 AM described as diffuse chest pressure lasting 30 minutes. Associated with diaphoresis, and palpitations. Denies back pain, pleuritic chest pain, neck/jaw/shoulder pain, cough, wheezing, fevers/ chills, N/V, new onset numbness/tingling in extremitie.has poor appetite,rt flank pain,nausea,constipation. 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) Gastrointestinal: Yes: GERD Renal/: Yes: Renal Calculi Musculoskeletal: Yes: Chronic low back pain Endocrine: Yes: Hyperthyroidism - Alcohol/Substance Use Hx Alcohol Use: No - Smoking History Smoking history: Never smoked Have you smoked in the past 12 months: No Aproximately how many cigarettes per day: 0 Home Medications - Allergies Allergies/Adverse Reactions: Allergies Allergy/AdvReac Type Severity Reaction Status Date / Time No Known Allergies Allergy Verified 11/24/16 21:48 - Home Medications Home Medications: Ambulatory Orders Clopidogrel Bisulfate [Plavix -] 75 mg PO DAILY #30 tablet 11/07/16 Metoprolol Succinate [Toprol XL -] 50 mg PO DAILY #30 tab 11/07/16 Sitagliptin Phosphate [Januvia -] 50 mg PO DAILY@0700 #30 tablet 11/07/16 Valsartan [Diovan] 80 mg PO DAILY #30 tablet 11/07/16 Aspirin [ASA -] 81 mg PO DAILY 12/06/16 Atorvastatin Calcium 80 mg PO DAILY 12/06/16 Isosorbide Mononitrate [Imdur -] 30 mg PO DAILY 12/06/16 Methimazole 5 mg PO DAILY 12/06/16 Tramadol HCl 50 mg PO DAILY 12/06/16 Review of Systems - Review of Systems Constitutional: reports: Lethargy, Weakness Eyes: reports: No Symptoms HENT: reports: No Symptoms Neck: reports: No Symptoms Cardiovascular: reports: No Symptoms Respiratory: reports: SOB, SOB on Exertion Gastrointestinal: reports: Bloating, Constipation Genitourinary: reports: No Symptoms Breasts: reports: No Symptoms Reported Musculoskeletal: reports: Decreased ROM, Muscle Pain, Muscle Cramps, Muscle Weakness Integumentary: reports: No Symptoms Neurological: reports: Headache Physical Exam Vital Signs: Vital Signs Temperature 98.0 F 12/07/16 17:00 Pulse Rate 51 L 12/07/16 17:00 Respiratory Rate 18 12/07/16 17:00 Blood Pressure 130/63 12/07/16 17:00 O2 Sat by Pulse Oximetry (%) 99 12/07/16 10:00 Constitutional: Yes: Anxious Eyes: Yes: EOM Intact HENT: Yes: Normocephalic Neck: Yes: Thyromegaly Cardiovascular: Yes: Regular Rate and Rhythm Respiratory: Yes: CTA Bilaterally Gastrointestinal: Yes: Normal Bowel Sounds ...Rectal Exam: Yes: Deferred Renal/: Yes: WNL Breast(s): Yes: WNL Musculoskeletal: Yes: WNL Extremities: Yes: WNL Edema: No Peripheral Pulses WNL: Yes Neurological: Yes: Alert, Oriented Labs: CBC, BMP 12/07/16 05:50 12/07/16 05:50 Problem List - Problems (1) Hyperthyroidism Code(s): E05.90 - THYROTOXICOSIS, UNSP WITHOUT THYROTOXIC CRISIS OR STORM (2) Acute kidney injury superimposed on CKD Code(s): N17.9 - ACUTE KIDNEY FAILURE, UNSPECIFIED N18.9 - CHRONIC KIDNEY DISEASE, UNSPECIFIED (3) CAD (coronary artery disease) Code(s): I25.10 - ATHSCL HEART DISEASE OF [place] CORONARY ARTERY W/O ANG PCTRS (4) Type 2 diabetes mellitus with diabetic nephropathy Code(s): E11.21 - TYPE 2 DIABETES MELLITUS WITH DIABETIC NEPHROPATHY Assessment/Plan Current Active Problems Bradycardia (Acute) Chest pain (Acute) Hyperthyroidism (Acute) Type 2 diabetes mellitus with diabetic nephropathy (Acute) Abnormal Lab Results 12/07/16 12/07/16 12/07/16 05:50 05:50 14:40 Anion Gap 7 L Random Glucose 118 H D Hemoglobin A1c % 7.0 H D Creatine Kinase 198 H D CK-MB (CK-2) 4.365 H Total Protein 6.2 L Albumin 3.3 L Triglycerides 177 H D TSH 5.73 H D Urine Protein 1+ H Ur Leukocyte Esterase 2+ H Laboratory Results - last 24 hr 12/07/16 12/07/16 12/07/16 05:45 05:50 05:50 WBC 7.2 RBC 3.79 Hgb 10.9 Hct 32.4 MCV 85.5 MCH 28.7 MCHC 33.6 RDW 13.7 Plt Count 222 MPV 9.1 Neutrophils % 54.5 Lymphocytes % 35.3 D Monocytes % 7.4 Eosinophils % 2.4 D Basophils % 0.4 Sodium 142 Potassium 3.8 Chloride 107 Carbon Dioxide 28 Anion Gap 7 L BUN 17 Creatinine 0.9 Creat Clearance w eGFR > 60 POC Glucometer 127 Random Glucose 118 H D Hemoglobin A1c % Calcium 9.0 Total Bilirubin 0.4 D AST 22 ALT 20 Alkaline Phosphatase 78 Creatine Kinase 198 H D Creatine Kinase Index 2.2 CK-MB (CK-2) 4.365 H Troponin I < 0.02 Total Protein 6.2 L Albumin 3.3 L Triglycerides 177 H D Cholesterol 164 Total LDL Cholesterol 90 HDL Cholesterol 44 TSH 5.73 H D Urine Color Urine Appearance Urine pH Ur Specific [place] Urine Protein Urine Glucose (UA) Urine Ketones Urine Blood Urine Nitrite Urine Bilirubin Urine Urobilinogen Ur Leukocyte Esterase Urine RBC Urine WBC Ur Epithelial Cells Hyaline Casts Urine Mucus 12/07/16 12/07/16 12/07/16 05:50 05:50 14:40 WBC RBC Hgb Hct MCV MCH MCHC RDW Plt Count MPV Neutrophils % Lymphocytes % Monocytes % Eosinophils % Basophils % Sodium Potassium Chloride Carbon Dioxide Anion Gap BUN Creatinine Creat Clearance w eGFR POC Glucometer Random Glucose Hemoglobin A1c % 7.0 H D Calcium Total Bilirubin AST ALT Alkaline Phosphatase Creatine Kinase Creatine Kinase Index CK-MB (CK-2) Troponin I Total Protein Albumin Triglycerides Cholesterol Total LDL Cholesterol HDL Cholesterol TSH Cancelled Urine Color Ltyellow Urine Appearance Clear Urine pH 5.0 Ur Specific [place] 1.020 Urine Protein 1+ H Urine Glucose (UA) Negative Urine Ketones Negative Urine Blood Negative Urine Nitrite Negative Urine Bilirubin Negative Urine Urobilinogen Negative Ur Leukocyte Esterase 2+ H Urine RBC 1 Urine WBC 12 Ur Epithelial Cells Rare Hyaline Casts 1 Urine Mucus Rare 12/07/16 17:47 WBC RBC Hgb Hct MCV MCH MCHC RDW Plt Count MPV Neutrophils % Lymphocytes % Monocytes % Eosinophils % Basophils % Sodium Potassium Chloride Carbon Dioxide Anion Gap BUN Creatinine Creat Clearance w eGFR POC planGlucometer 112 Random Glucose Hemoglobin A1c % Calcium Total Bilirubin AST ALT Alkaline Phosphatase Creatine Kinase Creatine Kinase Index CK-MB (CK-2) Troponin I Total Protein Albumin Triglycerides Cholesterol Total LDL Cholesterol HDL Cholesterol TSH Urine Color Urine Appearance Urine pH Ur Specific [place] Urine Protein Urine Glucose (UA) Urine Ketones Urine Blood Urine Nitrite Urine Bilirubin Urine Urobilinogen Ur Leukocyte Esterase Urine RBC Urine WBC Ur Epithelial Cells Hyaline Casts Urine Mucus plan: dc methimazole hypothyroid indice continue bgm with novolog insulin coverage januvia 50mg daily
[2016-12-08] MEDS: INSULIN SLIDING SCALE (NOVOLOG) 1 VIAL SQ SCH ×3 (06:12→17:35)
[2016-12-08] MEDS: sitaGLIPtin PHOSPHATE 50 MG TABLET PO SCH (06:12)
[2016-12-08 07:37] LABS: ANION GAP 8 (8-16); CALCIUM 9.4 mg/dL (8.5-10.1); CO2 27 mmol/L (21-32); CREATININE 0.9 mg/dL (0.55-1.02); GLUCOSE,RANDOM 125 mg/dL (74-106)
[2016-12-08 07:40] LABS: TROPONIN I < 0.02 ng/ml (0.00-0.05)
--- NOTE | 2016-12-08 08:20 | PN ---
Progress Note, Physician History of Present Illness: no cp - Current Medication List Current Medications: Active Medications Aspirin (Asa -) 81 mg PO DAILY [facility] Last Admin: 12/07/16 10:54 Dose: 81 mg Atorvastatin Calcium (Lipitor -) 80 mg PO DAILY [facility] Last Admin: 12/07/16 10:55 Dose: 80 mg Clopidogrel Bisulfate (Plavix -) 75 mg PO DAILY [facility] Last Admin: 12/07/16 10:55 Dose: 75 mg Heparin Sodium (Porcine) (Heparin -) 5,000 unit SQ BID [facility] Last Admin: 12/07/16 22:30 Dose: 5,000 unit Insulin Aspart (Novolog Vial Sliding Scale -) 1 vial SQ TIDAC [facility] PRN Reason: Protocol Last Admin: 12/08/16 06:12 Dose: Not Given Isosorbide Mononitrate (Imdur -) 30 mg PO DAILY [facility] Last Admin: 12/07/16 10:55 Dose: 30 mg Metoprolol Succinate (Toprol Xl -) 50 mg PO DAILY [facility] Last Admin: 12/07/16 11:04 Dose: 50 mg Sitagliptin Phosphate (Januvia -) 50 mg PO DAILY@0700 [facility] Last Admin: 12/08/16 06:12 Dose: Not Given Tramadol HCl (Ultram -) 50 mg PO DAILY [facility] Last Admin: 12/07/16 10:56 Dose: 50 mg Valsartan (Diovan -) 80 mg PO DAILY [facility] Last Admin: 12/07/16 10:55 Dose: 80 mg - Objective Vital Signs: Vital Signs Temperature 97.8 F 12/08/16 06:13 Pulse Rate 48 L 12/08/16 06:13 Respiratory Rate 20 12/08/16 06:13 Blood Pressure 176/48 12/08/16 06:13 O2 Sat by Pulse Oximetry (%) 99 12/07/16 21:00 Cardiovascular: Yes: Regular Rate and Rhythm Respiratory: Yes: Regular, CTA Bilaterally Gastrointestinal: Yes: Normal Bowel Sounds, Soft Labs: CBC, BMP 12/07/16 05:50 12/08/16 05:35 INR, PTT INR 0.99 (0.82-1.09) 12/06/16 13:54 Problem List - Problems (1) Chest pain Assessment/Plan: FOLLOW CE CARDIO STRESS TEST ON ASA/LIPITOR/B-YG/ARB Code(s): R07.9 - CHEST PAIN, UNSPECIFIED Qualifiers: Chest pain type: precordial pain Qualified Code(s): R07.2 - Precordial pain (2) CAD (coronary artery disease) Assessment/Plan: ABOVE Code(s): I25.10 - ATHSCL HEART DISEASE OF [place] CORONARY ARTERY W/O ANG PCTRS (3) Diabetes mellitus Assessment/Plan: BGM ENDO Code(s): E11.9 - TYPE 2 DIABETES MELLITUS WITHOUT COMPLICATIONS (4) Right flank pain Assessment/Plan: CT SCAN noted from 2 weeks ago UA Code(s): R10.9 - UNSPECIFIED ABDOMINAL PAIN (5) Hyperthyroidism Assessment/Plan: ON TAPAZOL TSH Code(s): E05.90 - THYROTOXICOSIS, UNSP WITHOUT THYROTOXIC CRISIS OR STORM
--- NOTE | 2016-12-08 09:15 | EKG ---
Test Reason : Blood Pressure : / mmHG Vent. Rate : 051 BPM Atrial Rate : 051 BPM P-R Int : 168 ms QRS Dur : 082 ms QT Int : 476 ms P-R-T Axes : 055 -44 051 degrees QTc Int : 438 ms SINUS BRADYCARDIA LEFT AXIS DEVIATION MODERATE VOLTAGE CRITERIA FOR LVH, MAY BE NORMAL VARIANT ANTEROSEPTAL INFARCT (CITED ON OR BEFORE 18-JUL-2016) T WAVE ABNORMALITY, CONSIDER LATERAL ISCHEMIA ABNORMAL ECG WHEN COMPARED WITH ECG OF 06-DEC-2016 18:26, T WAVE INVERSION MORE EVIDENT IN LATERAL LEADS Confirmed by ALLA THOMAS MD ([id number]) on 12/08/2016 9:15:19 AM Referred By: Selam TURNER Confirmed By:ALLA THOMAS MD
--- NOTE | 2016-12-08 09:24 | EKG ---
Test Reason : Blood Pressure : / mmHG Vent. Rate : 047 BPM Atrial Rate : 047 BPM P-R Int : 170 ms QRS Dur : 080 ms QT Int : 476 ms P-R-T Axes : 063 -41 022 degrees QTc Int : 421 ms SINUS BRADYCARDIA LEFT AXIS DEVIATION ANTERIOR INFARCT (CITED ON OR BEFORE 18-JUL-2016) T WAVE ABNORMALITY, CONSIDER LATERAL ISCHEMIA ABNORMAL ECG WHEN COMPARED WITH ECG OF 03-NOV-2016 09:08, QUESTIONABLE CHANGE IN INITIAL FORCES OF SEPTAL LEADS Confirmed by ALLA THOMAS MD ([id number]) on 12/08/2016 9:24:13 AM Referred By: Confirmed By:ALLA THOMAS MD
[2016-12-08] MEDS ORDERED: METHIMAZOLE 5 MG TABLET (FP) PO SCH (10:00)
[2016-12-08] MEDS ORDERED: DEXTROSE 5% IVPB ONE (10:00)
[2016-12-08] MEDS ORDERED: WATER IVPB ONE (10:00)
[2016-12-08] MEDS ORDERED: DIPYRIDAMOLE STRESS TEST IVPB ONE (10:00)
[2016-12-08] MEDS: VALSARTAN 80 MG TABLET (UD) PO SCH (11:24)
[2016-12-08] MEDS: ASPIRIN 81 MG CHEWABLE TABLETS PO SCH (11:24)
[2016-12-08] MEDS: traMADol HCL 50 MG TABLET PO SCH (11:25)
[2016-12-08] MEDS: ISOSORBIDE MONONITRATE 30 MG TAB.SR.24H (FP) PO SCH (11:27)
[2016-12-08] MEDS: ATORVASTATIN CA 40 MG TABLET (FP) PO SCH (11:27)
[2016-12-08] MEDS: CLOPIDOGREL BISULFATE 75 MG TABLET (FP) PO SCH (11:27)
[2016-12-08] MEDS: HEPARIN NA (PORCINE) 5,000 UNITS/ML 1ML VIAL SQ SCH ×2 (11:28→21:31)
[2016-12-08] MEDS: METOPROLOL SUCCINATE 50 MG TAB.SR.24H (FP) PO SCH (13:09)
[2016-12-08] MEDS ORDERED: METOPROLOL SUCCINATE 50 MG TAB.SR.24H (FP) PO SCH ×2 (14:56→14:58)
--- NOTE | 2016-12-08 14:57 | PN ---
Progress Note, Physician Chief Complaint: no new complaints tele neg History of Present Illness: The patient is a 76-year-old female, who is quite frail, we've a history of hypertension, hyperlipidemia, urolithiasis, thyroid disease, coronary artery disease and myocardial infarction, status post cardiac catheterization 04/02 and 2 stents, ejection fraction 52%, Cardiac catheterization 10/01; ejection fraction 50%, mild apical hypokinesis, diffuse severe distal LAD disease, patent proximal and ostial LAD stents, small OM to 95% (not touched) proximal RCA 50%. The patient is now readmitted with chest pains. She reports squeezing and tightness in the retrosternal area associated with shortness of breath. The symptoms lasted approximately 20-30 minutes. The patient was at rest at that time. She walks slowly and complains of low back pains. She is currently comfortable and symptom free. - Current Medication List Current Medications: Active Medications Aspirin (Asa -) 81 mg PO DAILY [facility] Last Admin: 12/08/16 11:24 Dose: 81 mg Atorvastatin Calcium (Lipitor -) 80 mg PO DAILY [facility] Last Admin: 12/08/16 11:27 Dose: 80 mg Clopidogrel Bisulfate (Plavix -) 75 mg PO DAILY [facility] Last Admin: 12/08/16 11:27 Dose: 75 mg Heparin Sodium (Porcine) (Heparin -) 5,000 unit SQ BID [facility] Last Admin: 12/08/16 11:28 Dose: 5,000 unit Insulin Aspart (Novolog Vial Sliding Scale -) 1 vial SQ TIDAC [facility] PRN Reason: Protocol Last Admin: 12/08/16 11:29 Dose: Not Given Isosorbide Mononitrate (Imdur -) 30 mg PO DAILY [facility] Last Admin: 12/08/16 11:27 Dose: 30 mg Metoprolol Succinate (Toprol Xl -) 50 mg PO DAILY [facility] Last Admin: 12/07/16 11:04 Dose: 50 mg Sitagliptin Phosphate (Januvia -) 50 mg PO DAILY@0700 [facility] Last Admin: 12/08/16 06:12 Dose: Not Given Tramadol HCl (Ultram -) 50 mg PO DAILY [facility] Last Admin: 12/08/16 11:25 Dose: 50 mg Valsartan (Diovan -) 80 mg PO DAILY [facility] Last Admin: 12/08/16 11:24 Dose: 80 mg - Objective Vital Signs: Vital Signs Temperature 98.3 F 12/08/16 10:00 Pulse Rate 52 L 12/08/16 10:00 Respiratory Rate 20 12/08/16 10:00 Blood Pressure 159/52 12/08/16 10:00 O2 Sat by Pulse Oximetry (%) 97 12/08/16 10:00 Constitutional: Yes: Well Nourished, No Distress, Calm Eyes: Yes: Conjunctiva Clear, EOM Intact HENT: Yes: Atraumatic, Normocephalic Neck: Yes: Supple, Trachea Midline Cardiovascular: Yes: Regular Rate and Rhythm Respiratory: Yes: Regular, CTA Bilaterally Gastrointestinal: Yes: Normal Bowel Sounds Musculoskeletal: Yes: WNL Extremities: Yes: WNL Edema: No Peripheral Pulses WNL: Yes Labs: CBC, BMP 12/07/16 05:50 12/08/16 05:35 INR, PTT INR 0.99 (0.82-1.09) 12/06/16 13:54 Problem List - Problems (1) Chest pain Assessment/Plan: the patient is awaiting results of a nuclear stress test. continue medical management for now. Imdur increased to 60 mg daily, metoprolol xl to 100 mg daily, valsartan to 160 mg daily. if cp recurrs add ranexa 500 mg bid. Code(s): R07.9 - CHEST PAIN, UNSPECIFIED Qualifiers: Chest pain type: precordial pain Qualified Code(s): R07.2 - Precordial pain
[2016-12-08] MEDS ORDERED: ISOSORBIDE MONONITRATE 30 MG TAB.SR.24H (FP) PO ONE (15:00)
[2016-12-08] MEDS ORDERED: VALSARTAN 80 MG TABLET (UD) PO ONE (15:15)
[2016-12-08] MEDS ORDERED: INSULIN (NOVOLOG) ASPART 100 UNITS/ML 10ML VIAL ONE (17:39)
[2016-12-09] MEDS: sitaGLIPtin PHOSPHATE 50 MG TABLET PO SCH (06:21)
--- NOTE | 2016-12-09 08:22 | DS ---
Physical Examination Vital Signs: Vital Signs Temperature 98.0 F 12/09/16 05:56 Pulse Rate 52 L 12/09/16 05:56 Respiratory Rate 20 12/09/16 05:56 Blood Pressure 142/68 12/09/16 05:56 O2 Sat by Pulse Oximetry (%) 98 12/08/16 21:00 Findings/Remarks: NO CP Cardiovascular: Yes: Regular Rate and Rhythm Respiratory: Yes: Regular, CTA Bilaterally Gastrointestinal: Yes: Normal Bowel Sounds, Soft Labs: CBC, BMP 12/07/16 05:50 12/08/16 05:35 Discharge Summary Reason For Visit: BRADYCARDIA/CHEST PAIN Current Active Problems Bradycardia (Acute) Chest pain (Acute) Hyperthyroidism (Acute) Type 2 diabetes mellitus with diabetic nephropathy (Acute) Hospital Course: 76 yo F with h/o ACS, cardiac cath ( 04/02 occluded LAD, RCA stenosis), DMII, HLD, HTN, and hypothyroid who presents with chest pain. Pt. is Irish speaking. Last cardiac Echo 56.7~EF (11/03) Complains of chest pain yesterday around 1000 AM described as diffuse chest pressure lasting 30 minutes. Associated with diaphoresis, and palpitations.Pt. reports medication adherence, including Imdur and 81 mg ASA QD. Took ASA 81 mg today. 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) Gastrointestinal: Yes: GERD Renal/: Yes: Renal Calculi Endocrine: Yes: Hyperthyroidism - Smoking History Smoking history: Never smoked - Problems (1) Chest pain Assessment/Plan: CE NEGATIVE CARDIO STRESS TEST NOTED--QUESTIONABLE SMALL AREA--PT DOING BETTER WITH MEDS ON ASA/LIPITOR/B-YG/ARB Code(s): R07.9 - CHEST PAIN, UNSPECIFIED Qualifiers: Chest pain type: precordial pain Qualified Code(s): R07.2 - Precordial pain (2) CAD (coronary artery disease) Assessment/Plan: ABOVE [place] HOME ON MEDICAL MANAGEMENT--CARDIO FOLLOW UP Code(s): I25.10 - ATHSCL HEART DISEASE OF [place] CORONARY ARTERY W/O ANG PCTRS (3) Diabetes mellitus Assessment/Plan: [facility] Code(s): E11.9 - TYPE 2 DIABETES MELLITUS WITHOUT COMPLICATIONS (4) Right flank pain Assessment/Plan: RESOLVED CT SCAN noted from 2 weeks ago UA Code(s): R10.9 - UNSPECIFIED ABDOMINAL PAIN (5) Hyperthyroidism Assessment/Plan: ON TAPAZOL TSH Code(s): E05.90 - THYROTOXICOSIS, UNSP WITHOUT THYROTOXIC CRISIS OR STORM Condition: Stable - Instructions Referrals: Brett Wolf MD [Primary Care Provider] - 1 Week Disposition: HOME - Home Medications Comprehensive Discharge Medication List: Ambulatory Orders Clopidogrel Bisulfate [Plavix -] 75 mg PO DAILY #30 tablet 11/07/16 Metoprolol Succinate [Toprol XL -] 50 mg PO DAILY #30 tab 11/07/16 Sitagliptin Phosphate [Januvia -] 50 mg PO DAILY@0700 #30 tablet 11/07/16 Aspirin [ASA -] 81 mg PO DAILY 12/06/16 Atorvastatin Calcium 80 mg PO DAILY 12/06/16 Isosorbide Mononitrate [Imdur -] 30 mg PO DAILY 12/06/16 Methimazole 5 mg PO DAILY 12/06/16 Tramadol HCl 50 mg PO DAILY 12/06/16 Isosorbide Mononitrate [Imdur -] 60 mg PO DAILY #30 tab 12/09/16 Valsartan [Diovan] 160 mg PO DAILY #30 tablet 12/09/16
[2016-12-09] MEDS: traMADol HCL 50 MG TABLET PO SCH (09:08)
[2016-12-09] MEDS: CLOPIDOGREL BISULFATE 75 MG TABLET (FP) PO SCH (09:09)
[2016-12-09] MEDS: HEPARIN NA (PORCINE) 5,000 UNITS/ML 1ML VIAL SQ SCH (09:09)
[2016-12-09] MEDS: ATORVASTATIN CA 40 MG TABLET (FP) PO SCH (09:09)
[2016-12-09] MEDS: ASPIRIN 81 MG CHEWABLE TABLETS PO SCH (09:09)
[2016-12-09] MEDS ORDERED: ISOSORBIDE MONONITRATE 60 MG TAB.SR.24H (FP) PO SCH (10:00)
[2016-12-09] MEDS ORDERED: VALSARTAN 160 MG TABLET (UD) PO SCH (10:00)
[2016-12-09 10:21] VITALS: BP 160/72; PULSE 60; TEMP 98.5
--- NOTE | 2016-12-10 12:57 | EKG ---
Test Reason : Blood Pressure : / mmHG Vent. Rate : 058 BPM Atrial Rate : 058 BPM P-R Int : 192 ms QRS Dur : 076 ms QT Int : 436 ms P-R-T Axes : 061 -46 007 degrees QTc Int : 428 ms POOR DATA QUALITY, INTERPRETATION MAY BE ADVERSELY AFFECTED SINUS BRADYCARDIA LEFT ANTERIOR FASCICULAR BLOCK MINIMAL VOLTAGE CRITERIA FOR LVH, MAY BE NORMAL VARIANT ANTERIOR INFARCT (CITED ON OR BEFORE 18-JUL-2016) T WAVE ABNORMALITY, CONSIDER LATERAL ISCHEMIA ABNORMAL ECG WHEN COMPARED WITH ECG OF 06-DEC-2016 13:48, NO SIGNIFICANT CHANGE WAS FOUND Confirmed by LUPIS DIEGO, NAA ([id number]) on 12/10/2016 12:56:50 PM Referred By: Confirmed By:ANA BAUGH MD
== END 2016-12-09 11:28 | disposition home or self-care (01) ==
LOC: JER 13:29 → JERBED 17:36 → J4W 12-07 00:29
PROVIDERS: ADMIT Family Medicine; ATTEND Family Medicine
PROC: 3E013VG Introduction of Insulin into Subcutaneous Tissue, Percutaneous Approach (ICD-10-PCS; principal; 2016-12-06)
PROC: 3E013GC Introduction of Other Therapeutic Substance into Subcutaneous Tissue, Percutaneous Approach (ICD-10-PCS; 2016-12-06)
DX: R07.9 Chest pain, unspecified (principal); R00.1 Bradycardia, unspecified; I10 Essential (primary) hypertension; I25.10 Atherosclerotic heart disease of native coronary artery without angina pectoris; I25.2 Old myocardial infarction; E11.9 Type 2 diabetes mellitus without complications; E78.5 Hyperlipidemia, unspecified; E05.90 Thyrotoxicosis, unspecified without thyrotoxic crisis or storm; K21.9 Gastro-esophageal reflux disease without esophagitis; Z95.5 Presence of coronary angioplasty implant and graft; Z79.82 Long term (current) use of aspirin; Z87.412 Personal history of vulvar dysplasia; R10.9 Unspecified abdominal pain
CPT/HCPCS: 36415; 71020-TC; 78452-TC; 80048; 80053; 80061; 81003; 81015; 82550; 82553; 83036; 83721; 83735; 84443; 84484; 85025; 85610; 93005; 93010; 93017; 99285-25; A9502; G0378; J1644

== ENCOUNTER 2017-04-08 22:38 | Emergency (ER) | payer OTHER ==
--- NOTE | 2017-04-08 23:16 | PDOC ---
History of Present Illness - General Stated Complaint: PALPITATIONS Time Seen by Provider: 04/08/17 22:53 History Source: Patient, Family, Hospital Housekeeper Used Exam Limitations: Language Barrier - History of Present Illness Initial Comments: 04/08/17 23:11 76yo Female patient w/PmHx: NIDDM, HTN, HLD, CAD s/p stents, Anxiety, Thyroid disease, Renal colic presents to ED c/o Heart palpitations, low blood sugar (106 ) per patient at home. Patient states she ate food to bring levels up. She reports symptoms began around 12 noon today and continues, so she had her niece call 911. Upon EMS arrival patient [id number]. Patient denies CP, Abd pain, back pain, n/v/d, fever, cough, congestion, rash, diff breathing or any other complaints at this time. PCP- Dr. Wolf. Presenting Symptoms: Other (Palpitations) Timing/Duration: reports: constant Severity/Quality: denies: mild, moderate, severe, aching, burning, dull, ingestion, pressure, sharp, stabbing, tearing, tightness, other Past History - Travel Traveled outside of the country in the last 30 days: No Close contact w/someone who was outside of country & ill: No - Past Medical History Allergies/Adverse Reactions: Allergies Allergy/AdvReac Type Severity Reaction Status Date / Time No Known Allergies Allergy Verified 04/08/17 23:11 Home Medications: Ambulatory Orders Clopidogrel Bisulfate [Plavix -] 75 mg PO DAILY #30 tablet 11/07/16 Metoprolol Succinate [Toprol XL -] 50 mg PO DAILY #30 tab 11/07/16 Sitagliptin Phosphate [Januvia -] 50 mg PO DAILY@0700 #30 tablet 11/07/16 Aspirin [ASA -] 81 mg PO DAILY 12/06/16 Atorvastatin Calcium 80 mg PO DAILY 12/06/16 Isosorbide Mononitrate [Imdur -] 30 mg PO DAILY 12/06/16 Methimazole 5 mg PO DAILY 12/06/16 Tramadol HCl 50 mg PO DAILY 12/06/16 Isosorbide Mononitrate [Imdur -] 60 mg PO DAILY #30 tab 12/09/16 Valsartan [Diovan] 160 mg PO DAILY #30 tablet 12/09/16 Cardiac Disorders: Yes (angina, CAD,CATH WITH STENT) CVA: Yes (STEMI, 2 cardiac stents) Diabetes: Yes HTN: Yes Hypercholesterolemia: Yes Kidney Stones: Yes Thyroid Disease: Yes - Immunization History Immunization Up to Date: Yes - Suicide/Smoking/Psychosocial Hx Smoking Status: No Smoking History: Never smoked Have you smoked in the past 12 months: No Number of Cigarettes Smoked Daily: 0 Hx Alcohol Use: No Drug/Substance Use Hx: No Substance Use Type: None Hx Substance Use Treatment: No Cardiac Specific PMH - Complaint Specific PMHX Cardiac Stent: Yes Review of Systems - Review of Systems Able to Perform ROS?: Yes Is the patient limited Chilean proficient: No Constitutional: No: Chills, Fever Respiratory: No: Cough, Shortness of Breath, Wheezing Cardiac (ROS): Yes: Palpitations. No: Chest Pain, Irregular Heart Rate, Chest Tightness ABD/GI: No: Constipated, Diarrhea, Nausea, Poor Appetite, Poor Fluid Intake, Vomiting, Abdominal cramping : No: Dysuria, Hematuria Musculoskeletal: No: Back Pain, Muscle Weakness Integumentary: No: Rash Neurological: No: Headache, Ataxia, Dizziness All Other Systems: Reviewed and Negative *Physical Exam - Vital Signs Last Vital Signs Temp Pulse Resp BP Pulse Ox 98.3 F 58 L 18 191/68 97 04/08/17 22:53 04/08/17 22:53 04/09/17 04:43 04/08/17 22:53 04/09/17 04:43 - Physical Exam General Appearance: Yes: Nourished, Appropriately Dressed. No: Apparent Distress, Mild Distress, Moderate Distress, Severe Distress Neck: positive: Trachea midline, Supple. negative: Normal Thyroid, Lymphadenopathy (R), Lymphadenopathy (L), Tender lateral, Tender midline Respiratory/Chest: positive: Lungs Clear, Normal Breath Sounds. negative: Chest Tender, Respiratory Distress, Accessory Muscle Use, Labored Respiration, Rapid RR, Rhonchi, Stridor, Wheezing Cardiovascular: positive: Regular Rhythm, Regular Rate Gastrointestinal/Abdominal: positive: Normal Bowel Sounds, Soft, Protuberent. negative: Distended, Guarding, Rebound, Tenderness Musculoskeletal: positive: Normal Inspection. negative: CVA Tenderness Extremity: positive: Normal Capillary Refill, Normal Inspection, Normal Range of Motion. 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 NML intact, Fully Oriented, Alert, Normal Mood/ Affect, Normal Response, Motor Strength 09/19 ED Treatment Course - LABORATORY CBC & Chemistry Diagram: 04/08/17 23:13 04/09/17 05:21 - ADDITIONAL ORDERS Additional order review: Laboratory Results 04/09/17 04/08/17 04/08/17 05:21 23:15 23:13 PT with INR 11.00 INR 0.97 Sodium 139 Potassium 3.2 L Chloride 102 Carbon Dioxide 28 Anion Gap 9 BUN 21 H Creatinine 1.0 Creat Clearance w eGFR 54.05 Random Glucose 159 H D Calcium 8.6 Total Bilirubin 0.7 AST 18 ALT 26 Alkaline Phosphatase 113 Creatine Kinase 111 Troponin I < 0.02 B-Natriuretic Peptide Total Protein 6.6 Albumin 3.6 TSH Urine Color Lt. yellow Urine Appearance Clear Urine pH 5.5 Ur Specific [place] 1.015 Urine Protein 1+ H Urine Glucose (UA) 1+ H Urine Ketones Negative Urine Blood Trace-inta Urine Nitrite Negative Urine Bilirubin Negative Urine Urobilinogen 0.2 Urine Bacteria Rare Urine Mucus Rare 04/08/17 23:13 PT with INR INR Sodium 138 Potassium 3.8 Chloride 102 Carbon Dioxide 27 Anion Gap 9 BUN 23 H D Creatinine 1.0 Creat Clearance w eGFR 54.05 Random Glucose 236 H D Calcium 8.9 Total Bilirubin 0.6 AST 20 D ALT 28 D Alkaline Phosphatase 119 H D Creatine Kinase 141 Troponin I < 0.02 B-Natriuretic Peptide 889.42 H Total Protein 6.9 Albumin 3.8 TSH 2.01 D Urine Color Urine Appearance Urine pH Ur Specific [place] Urine Protein Urine Glucose (UA) Urine Ketones Urine Blood Urine Nitrite Urine Bilirubin Urine Urobilinogen Urine Bacteria Urine Mucus 04/08/17 23:13 RBC 4.24 MCV 82.2 MCHC 34.0 RDW 15.1 MPV 9.9 Neutrophils % 79.9 Lymphocytes % 13.9 D Monocytes % 5.5 Eosinophils % 0.4 Basophils % 0.3 - RADIOLOGY Radiology Studies Ordered: Category Date Time Status CHEST X-RAY PORTABLE* [RAD] Stat Radiology 04/08/17 22:53 Taken - Medications Given in the ED: ED Medications Discontinued Medications Generic Name Dose Route Start Last Admin Trade Name Freq PRN Reason Stop Dose Admin Furosemide 60 mg 04/09/17 01:26 04/09/17 01:42 Lasix - PO 04/09/17 01:27 60 mg ONCE ONE Administration *DC/Admit/Observation/Transfer Diagnosis at time of Disposition: Heart palpitations, Anxiety - Discharge Dispostion Disposition: HOME Condition at time of disposition: Improved Admit: No - Referrals Referrals: Brett Wolf MD [Primary Care Provider] - - Patient Instructions Printed Discharge Instructions: DI for Arrhythmias Additional Instructions: Follow up with Dr. Wolf this week for further evaluation. Call to schedule appointment. Return if symptoms worsen or any concerns for further evaluation. Print Language: KHMER - Post Discharge Activity
[2017-04-08 23:28] VITALS: BP 191/68; PULSE 58; TEMP 98.3; BMI 20.1
[2017-04-08 23:49] LABS: ALBUMIN 3.8 g/dl (3.4-5.0); ANION GAP 9 (8-16); BILIRUBIN,TOTAL 0.6 mg/dL (0.2-1.0); CALCIUM 8.9 mg/dL (8.5-10.1); CO2 27 mmol/L (21-32); GLUCOSE,RANDOM 236 mg/dL (74-106); SGOT/AST 20 U/L (15-37); SGPT/ALT 28 U/L (12-78); TOT PROT 6.9 g/dl (6.4-8.2)
[2017-04-08 23:51] LABS: ALK PHOS 119 U/L (45-117); CPK 141 IU/L (26-192); TROPONIN I < 0.02 ng/ml (0.00-0.05)
--- NOTE | 2017-04-08 23:55 | PDOC ---
*Physical Exam - Vital Signs Last Vital Signs Temp Pulse Resp BP Pulse Ox 98.3 F 58 L 18 191/68 97 04/08/17 22:53 04/08/17 22:53 04/08/17 22:53 04/08/17 22:53 04/08/17 22:53 - Physical Exam Comments: 04/08/17 23:54 The patient was examined by [ANOOP Gonzales] under my direct supervision. I personally evaluated the patient. I concur with the above findings and the plan of care. ED Treatment Course - LABORATORY CBC & Chemistry Diagram: 04/08/17 23:13 04/08/17 23:13 - ADDITIONAL ORDERS Additional order review: Laboratory Results 04/08/17 23:13 Sodium 138 Potassium 3.8 Chloride 102 Carbon Dioxide 27 Anion Gap 9 BUN 23 H D Creatinine 1.0 Creat Clearance w eGFR 54.05 Random Glucose 236 H D Calcium 8.9 Total Bilirubin 0.6 AST 20 D ALT 28 D Alkaline Phosphatase 119 H D Creatine Kinase 141 Troponin I < 0.02 B-Natriuretic Peptide 889.42 H Total Protein 6.9 Albumin 3.8 *DC/Admit/Observation/Transfer - Referrals Referrals: Brett Wolf MD [Primary Care Provider] - - Patient Instructions - Post Discharge Activity
[2017-04-09 00:02] LABS: INR 0.97 (0.82-1.09)
[2017-04-09 00:24] LABS: BASOPHIL 0.3 % (0-2.0); EOSINOPHIL 0.4 % (0-4.5); MEAN CELL VOLUME 82.2 fl (80-96); MEAN PLT VOLUME 9.9 fl (7.5-11.1); NEUTROPHILS 79.9 % (42.8-82.8); PLATELET COUNT 214 K/MM3 (134-434); RDW 15.1 % (11.6-15.6); WHITE BLOOD COUNT 11.5 K/mm3 (4.0-10.0)
[2017-04-09 00:39] LABS: PH,URINE 5.5 (5.0-8.0); URINE APPEARANCE CLEAR; URINE BILIRUBIN NEGATIVE (NEGATIVE); URINE BLOOD TRACE-INTA (NEGATIVE); URINE COLOR LT. YELLOW; URINE GLUCOSE (UA) 1+ (NEGATIVE); URINE KETONE NEGATIVE (NEGATIVE); URINE NITRITE NEGATIVE (NEGATIVE); URINE UROBILINOGEN 0.2 mg/dL (0.2-1.0)
[2017-04-09 00:44] LABS: URINE PROTEIN 1+ (NEGATIVE)
[2017-04-09 00:46] LABS: URINE BACTERIA RARE /hpf (NONE SEEN); URINE MUCUS RARE; URINE RBC 4 /hpf (0-3); URINE WBC 1 /hpf (3-5)
[2017-04-09] MEDS ORDERED: FUROSEMIDE 20 MG TABLET (FP) PO ONE (01:26)
[2017-04-09] MEDS ORDERED: FUROSEMIDE 40 MG TABLET (FP) ONE (01:44)
[2017-04-09 02:51] LABS: THYROID STIMULATING HORMONE 2.01 uIU/ml (0.358-3.74)
[2017-04-09 06:03] LABS: ALBUMIN 3.6 g/dl (3.4-5.0); ANION GAP 9 (8-16); BILIRUBIN,TOTAL 0.7 mg/dL (0.2-1.0); CALCIUM 8.6 mg/dL (8.5-10.1); CO2 28 mmol/L (21-32); GLUCOSE,RANDOM 159 mg/dL (74-106); SGOT/AST 18 U/L (15-37); SGPT/ALT 26 U/L (12-78); TOT PROT 6.6 g/dl (6.4-8.2)
[2017-04-09 06:06] LABS: ALK PHOS 113 U/L (45-117); CPK 111 IU/L (26-192); TROPONIN I < 0.02 ng/ml (0.00-0.05)
[2017-04-09] MEDS ORDERED: POTASSIUM CHLORIDE TABS 20 MEQ TABLET.ER (FP) PO ONE ×2 (06:42→06:49)
[2017-04-09 11:10] LABS: URINE LEUK ESTERASE Negative (NEGATIVE)
--- NOTE | 2017-04-09 22:03 | EKG ---
Test Reason : Blood Pressure : / mmHG Vent. Rate : 059 BPM Atrial Rate : 059 BPM P-R Int : 148 ms QRS Dur : 078 ms QT Int : 454 ms P-R-T Axes : 021 -45 -05 degrees QTc Int : 449 ms SINUS BRADYCARDIA LEFT ANTERIOR FASCICULAR BLOCK MINIMAL VOLTAGE CRITERIA FOR LVH, MAY BE NORMAL VARIANT ANTERIOR INFARCT (CITED ON OR BEFORE 18-JUL-2016) T WAVE ABNORMALITY, CONSIDER LATERAL ISCHEMIA ABNORMAL ECG WHEN COMPARED WITH ECG OF 07-DEC-2016 09:44, QUESTIONABLE CHANGE IN INITIAL FORCES OF SEPTAL LEADS Confirmed by MAU MCMILLAN MD ([id number]) on 04/09/2017 10:02:41 PM Referred By: Confirmed By:MAU MCMILLAN MD
== END 2017-04-09 07:50 | disposition home or self-care (01) ==
LOC: JER 22:38
DX: R00.2 Palpitations (principal); F41.9 Anxiety disorder, unspecified; I25.2 Old myocardial infarction; I25.10 Atherosclerotic heart disease of native coronary artery without angina pectoris; I10 Essential (primary) hypertension; Z95.5 Presence of coronary angioplasty implant and graft; E78.00 Pure hypercholesterolemia, unspecified; Z79.84 Long term (current) use of oral hypoglycemic drugs; E07.9 Disorder of thyroid, unspecified; E87.6 Hypokalemia
CPT/HCPCS: 36415; 71010-TC; 80053; 81003; 81015; 82550; 83880; 84443; 84484; 85025; 85610; 93005; 93010; 99283-25

== ENCOUNTER 2017-05-26 14:15 | Emergency (ER) | payer OTHER ==
[2017-05-26 14:26] VITALS: BP 140/61; PULSE 60; TEMP 98.6; BMI 23.8
--- NOTE | 2017-05-26 14:29 | PDOC ---
Rapid Medical Evaluation Chief Complaint: Cold Symptoms Time Seen by Provider: 05/26/17 14:24 Medical Evaluation: Allergies Allergy/AdvReac Type Severity Reaction Status Date / Time No Known Allergies Allergy Verified 05/26/17 14:23 Vital Signs Temp Pulse Resp BP Pulse Ox 98.6 F 60 20 140/61 05/26/17 14:24 05/26/17 14:24 05/26/17 14:24 05/26/17 14:24 05/26/17 14:27 The patient presents with a chief complaint of: Cough and cold like symptoms for 3 days. States she has seen a little bit of blood when coughing. Endorses occasional bloody nose I have performed a brief in-person evaluation of this patient; Pertinent physical exam findings: CTAB, RRR I have ordered the following: CXR The patient will proceed to the ED for further evaluation. Discharge Disposition - Referrals Referrals: Brett Wolf MD [Primary Care Provider] - - Patient Instructions - Post Discharge Activity
--- NOTE | 2017-05-26 14:59 | PDOC ---
History of Present Illness - General Chief Complaint: Cold Symptoms Stated Complaint: Cold Symptoms Time Seen by Provider: 05/26/17 14:24 History Source: Patient Exam Limitations: No Limitations - History of Present Illness Initial Comments: 05/26/17 14:54 76 yr female with c/o cough for 3 days no fever no chills, no shortness of breath no chest pain. Severity: reports: mild Past History - Past Medical History Allergies/Adverse Reactions: Allergies Allergy/AdvReac Type Severity Reaction Status Date / Time No Known Allergies Allergy Verified 05/26/17 14:23 Home Medications: Ambulatory Orders Clopidogrel Bisulfate [Plavix -] 75 mg PO DAILY #30 tablet 11/07/16 Metoprolol Succinate [Toprol XL -] 50 mg PO DAILY #30 tab 11/07/16 Sitagliptin Phosphate [Januvia -] 50 mg PO DAILY@0700 #30 tablet 11/07/16 Aspirin [ASA -] 81 mg PO DAILY 12/06/16 Atorvastatin Calcium 80 mg PO DAILY 12/06/16 Isosorbide Mononitrate [Imdur -] 30 mg PO DAILY 12/06/16 Methimazole 5 mg PO DAILY 12/06/16 Tramadol HCl 50 mg PO DAILY 12/06/16 Isosorbide Mononitrate [Imdur -] 60 mg PO DAILY #30 tab 12/09/16 Valsartan [Diovan] 160 mg PO DAILY #30 tablet 12/09/16 Benzonatate [Tessalon Pearls -] 100 mg PO TID PRN #21 capsule 05/26/17 Cardiac Disorders: Yes (angina, CAD,CATH WITH STENT) CVA: Yes (STEMI, 2 cardiac stents) COPD: No Diabetes: Yes HTN: Yes Hypercholesterolemia: Yes Kidney Stones: Yes Thyroid Disease: Yes - Immunization History Immunization Up to Date: Yes - Suicide/Smoking/Psychosocial Hx Smoking Status: No Smoking History: Never smoked Have you smoked in the past 12 months: No Number of Cigarettes Smoked Daily: 0 Hx Alcohol Use: No Drug/Substance Use Hx: No Substance Use Type: None Hx Substance Use Treatment: No Respiratory Specific PMHX - Complaint Specific PMHX Angina: No Bronchitis: No Pneumonia: No Pulmonary Embolus: No TB (Tuberculosis): No Review of Systems - Review of Systems Able to Perform ROS?: Yes Is the patient limited Slovak proficient: No Constitutional: No: Symptoms Reported HEENTM: No: Symptoms Reported Respiratory: Yes: Cough *Physical Exam - Vital Signs Last Vital Signs Temp Pulse Resp BP Pulse Ox 98.6 F 60 20 140/61 05/26/17 14:24 05/26/17 14:24 05/26/17 14:24 05/26/17 14:24 - Physical Exam General Appearance: Yes: Nourished, Appropriately Dressed HEENT: positive: EOMI, BONNIE Neck: positive: Supple. negative: Tender, Lymphadenopathy (R), Lymphadenopathy (L) Respiratory/Chest: positive: Lungs Clear, Normal Breath Sounds. 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 NML intact, Fully Oriented, Alert, Normal Mood/ Affect, Normal Response, Motor Strength 09/19 ED Treatment Course - LABORATORY CBC & Chemistry Diagram: 05/26/17 13:13 05/26/17 15:13 Medical Decision Making - Medical Decision Making 05/26/17 15:00 cc: cough no fever no chills no shortness of breath or chest pain cxr ordered no wheezing or rhonchi pt is afebrile non toxic 05/26/17 16:35 labs are WNL except elevated LFT's I have discussed with pt and she will review with her doctor this week pt has no elevated WBC is afebrile will dc home with supportive care, tessalon for cough and strict follow up with PMD pt and her agree with plan of care *DC/Admit/Observation/Transfer Diagnosis at time of Disposition: Cough in adult, Viral respiratory illness - Discharge Dispostion Disposition: HOME Condition at time of disposition: Good - Prescriptions Prescriptions: Benzonatate [Tessalon Pearls -] 100 mg PO TID PRN #21 capsule PRN Reason: Cough - Referrals Referrals: Brett Wolf MD [Primary Care Provider] - - Patient Instructions Printed Discharge Instructions: DI for Viral Upper Respiratory Infection -- Adult Additional Instructions: drink pleanty of water to stay well hydrated you must follow with your doctor in 24-48hrs for follow up to have your liver enzymes re-checked take tessalon for cough as directed increase vitamin c and zinc intake in your diet to boost immune system get pleanty of rest return to ER for any worsening symptoms, chest pain shortness of breath - Post Discharge Activity
[2017-05-26 15:46] LABS: BASO % 0.5 % (0-2.0); HEMATOCRIT 32.1 % (32.4-45.2); HEMOGLOBIN 10.4 GM/dL (10.7-15.3); LYMPH % 24.1 % (8-40); MCH 27.4 pg (25.7-33.7); MCHC 32.4 g/dl (32.0-36.0); MEAN CELL VOLUME 84.6 fl (80-96); MEAN PLT VOLUME 9.4 fl (7.5-11.1); MONO % 9.9 % (3.8-10.2); NEUT % 64.5 % (42.8-82.8); PLATELET COUNT 279 K/MM3 (134-434); RBC 3.79 M/mm3 (3.60-5.2); RDW 14.8 % (11.6-15.6); WHITE BLOOD COUNT 9.4 K/mm3 (4.0-10.0)
[2017-05-26] MEDS ORDERED: CYCLOBENZAPRINE HCL 10 MG TABLET (FP) ONE (16:02)
[2017-05-26] MEDS ORDERED: KETOROLAC TROMETHAMINE 60 MG/2 ML VIAL ONE (16:02)
[2017-05-26 16:07] LABS: INR 0.9 (0.82-1.09); PROTHROMBIN TIME (PATIENT) 10.2 SEC (9.98-11.88)
[2017-05-26 16:10] LABS: ACTIVATED PTT 28.3 SECONDS (26.9-34.4)
[2017-05-26 16:16] LABS: ALBUMIN 3.3 g/dl (3.4-5.0); ALK PHOS 248 U/L (45-117); ANION GAP 9 (8-16); BILIRUBIN,TOTAL 0.4 mg/dL (0.2-1.0); BLOOD UREA NITROGEN 23 mg/dL (7-18); CALCIUM 9.2 mg/dL (8.5-10.1); CHLORIDE 101 mmol/L (98-107); CO2 29 mmol/L (21-32); CREATININE 1.1 mg/dL (0.55-1.02); GLUCOSE,RANDOM 209 mg/dL (74-106); POTASSIUM 4.1 mmol/L (3.5-5.1); SGOT/AST 52 U/L (15-37); SGPT/ALT 84 U/L (12-78); SODIUM 139 mmol/L (136-145); TOT PROT 6.8 g/dl (6.4-8.2)
== END 2017-05-26 16:42 | disposition home or self-care (01) ==
LOC: JERFT 14:15
DX: J06.9 Acute upper respiratory infection, unspecified (principal); B97.89 Other viral agents as the cause of diseases classified elsewhere; I25.2 Old myocardial infarction; I25.119 Atherosclerotic heart disease of native coronary artery with unspecified angina pectoris; I10 Essential (primary) hypertension; Z95.5 Presence of coronary angioplasty implant and graft; E11.9 Type 2 diabetes mellitus without complications; Z79.84 Long term (current) use of oral hypoglycemic drugs; E78.00 Pure hypercholesterolemia, unspecified; Z79.01 Long term (current) use of anticoagulants
CPT/HCPCS: 36415; 71046-TC; 80053; 85025; 85610; 85730; 99281-25

== ENCOUNTER 2017-06-21 13:25 | Observation (INO) | payer OTHER ==
--- NOTE | 2017-06-21 13:31 | PDOC ---
History of Present Illness - General Stated Complaint: SYNCOPE Time Seen by Provider: 06/21/17 13:31 - History of Present Illness Initial Comments: 76 y/o F with h/o ACS, cardiac cath (04/02 occluded LAD, RCA stenosis), DMII, HLD, HTN, and hypothyroidism presenting with one episode of slight nausea, diaphoresis, and blurry vision 2 hours before presentation to the ED that resolved within minutes after drinking some orange juice. Patient denies chest pain, nausea, vomiting, shoulder pain, SOB, paresthesias, or actual syncope. Denies fevers, chills, diarrhea, or recent sick symptoms. Her PCP is Dr. Brett Kearns. 06/21/17 13:36 Past History - Past Medical History Allergies/Adverse Reactions: Allergies Allergy/AdvReac Type Severity Reaction Status Date / Time No Known Allergies Allergy Verified 06/21/17 14:00 Home Medications: Ambulatory Orders Clopidogrel Bisulfate [Plavix -] 75 mg PO DAILY #30 tablet 11/07/16 Metoprolol Succinate [Toprol XL -] 50 mg PO DAILY #30 tab 11/07/16 Sitagliptin Phosphate [Januvia -] 50 mg PO DAILY@0700 #30 tablet 11/07/16 Aspirin [ASA -] 81 mg PO DAILY 12/06/16 Atorvastatin Calcium 80 mg PO DAILY 12/06/16 Valsartan [Diovan] 160 mg PO DAILY #30 tablet 12/09/16 Glimepiride 4 mg PO DAILY 06/21/17 Hydralazine HCl 25 mg PO TID 06/21/17 Isosorbide Mononitrate [Isosorbide Mononitrate ER] 120 mg PO DAILY 06/21/17 Levothyroxine Sodium [Levo-T] 25 mcg PO DAILY 06/21/17 Linaclotide [Linzess] 145 mcg PO DAILY 06/21/17 Cardiac Disorders: Yes (angina, CAD,CATH WITH STENT) CVA: Yes (STEMI, 2 cardiac stents) COPD: No Diabetes: Yes HTN: Yes Hypercholesterolemia: Yes Kidney Stones: Yes Thyroid Disease: Yes - Immunization History Immunization Up to Date: Yes - Suicide/Smoking/Psychosocial Hx Smoking Status: No Smoking History: Never smoked Have you smoked in the past 12 months: No Number of Cigarettes Smoked Daily: 0 Hx Alcohol Use: No Drug/Substance Use Hx: No Substance Use Type: None Hx Substance Use Treatment: No Review of Systems - Review of Systems Constitutional: Yes: Diaphoresis, Weakness. No: Chills, Fever HEENTM: Yes: Blurred Vision Respiratory: No: Cough, Shortness of Breath, Stridor, Wheezing, Productive cough Cardiac (ROS): No: Chest Pain, Edema, Irregular Heart Rate, Chest Tightness ABD/GI: Yes: Nausea. No: Diarrhea, Vomiting : No: Dysuria, Discharge, Frequency Musculoskeletal: Yes: Gout, Joint Pain Integumentary: No: Erythema, Flushing, Lesions, Lumps Neurological: Yes: Weakness. No: Headache, Numbness, Paresthesia, Tremors Psychiatric: No: Anxiety, Depression Endocrine: No: Excessive Sweating, Intolerance to Heat *Physical Exam - Physical Exam General Appearance: Yes: Nourished, Appropriately Dressed. No: Apparent Distress HEENT: positive: EOMI, BONNIE Neck: positive: Trachea midline, Normal Thyroid, Supple. negative: Tender, Rigid Respiratory/Chest: positive: Lungs Clear, Normal Breath Sounds. negative: Chest Tender, Respiratory Distress, Accessory Muscle Use Cardiovascular: positive: Regular Rhythm, Regular Rate Gastrointestinal/Abdominal: positive: Normal Bowel Sounds, Flat, Soft. negative : Tender Musculoskeletal: positive: Normal Inspection Extremity: positive: Normal Capillary Refill, Normal Inspection, Normal Range of Motion. negative: Tender Integumentary: positive: Normal Color, Dry, Warm Neurologic: positive: Fully Oriented, Alert, Normal Mood/Affect, Normal Response , Motor Strength 5/5 ED Treatment Course - LABORATORY CBC & Chemistry Diagram: 06/21/17 14:15 06/21/17 14:15 Medical Decision Making - Medical Decision Making 76 year old with significant cardiac history presenting 2 hours after episode of weakness, nausea, and diaphoresis that lasted one minute then resolved with orange juice administration. Given significant cardiac history ACS is of obvious concern. Will get [facility] labs, cardiac enzymes, ekg, chest xray and re- evaluate. 06/21/17 14:07 Patient's troponin still pending but Heart score 5 without troponin elevation and patient has an abdnormal myocardial perfusion scan from 12/01 demonstrating subtle inferior wall ischemia. EKg demonstrating V6 and AVF wave inversions which are new from EKG dated 04/03 but similar to EKG from 12/01 so she may have some active ischemia. 06/21/17 14:58 Labs back, troponin negative, Creatinine 1.1 slightly elevated from previous value of 0.9. Spoke to Dr. Schaefer regarding admission and will do tele obs for troponin rule out and further cardiac workup. 06/21/17 15:20 *DC/Admit/Observation/Transfer Diagnosis at time of Disposition: Anginal equivalent - Discharge Dispostion Condition at time of disposition: Stable Admit: Yes - Referrals Referrals: Brett Wolf MD [Primary Care Provider] - - Patient Instructions - Post Discharge Activity
--- NOTE | 2017-06-21 13:33 | PDOC ---
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 No loss of consciousness. Denies cp, SOB, N/V. - Physicial Exam PE: GENERAL: Awake, alert, and fully oriented, in no acute distress HEAD: No signs of trauma EYES: PERRLA, EOMI, sclera anicteric, conjunctiva clear ENT: Auricles normal inspection, hearing grossly normal, nares patent, oropharynx clear without exudates. Moist mucosa NECK: Normal ROM, supple, no lymphadenopathy, JVD, or masses LUNGS: Breath sounds equal, clear to auscultation bilaterally. No wheezes, and no crackles HEART: Regular rate and rhythm, normal S1 and S2, no murmurs, rubs or gallops ABDOMEN: Soft, nontender, normoactive bowel sounds. No guarding, no rebound. No masses EXTREMITIES: Normal range of motion, no edema. No clubbing or cyanosis. No cords, erythema, or tenderness NEUROLOGICAL: Cranial nerves II through XII grossly intact. Normal speech, normal gait SKIN: Warm, Dry, normal turgor, no rashes or lesions noted. - Medical Decision Making Pt with multiple cardiac risk factors presents with near syncopal event. Will plan for placement on obs and eval by cardio given her past history.
[2017-06-21 14:02] VITALS: BMI 21.9
[2017-06-21 14:28] LABS: BASO % 0.5 % (0-2.0); EOS % 1.4 % (0-4.5); HEMATOCRIT 31.4 % (32.4-45.2); HEMOGLOBIN 10.2 GM/dL (10.7-15.3); LYMPH % 19.1 % (8-40); MCH 26.9 pg (25.7-33.7); MCHC 32.4 g/dl (32.0-36.0); MEAN CELL VOLUME 83.2 fl (80-96); MEAN PLT VOLUME 8.5 fl (7.5-11.1); MONO % 7.1 % (3.8-10.2); NEUT % 71.9 % (42.8-82.8); PLATELET COUNT 209 K/MM3 (134-434); RBC 3.78 M/mm3 (3.60-5.2); RDW 15.4 % (11.6-15.6); WHITE BLOOD COUNT 8.6 K/mm3 (4.0-10.0)
[2017-06-21 15:12] LABS: ALBUMIN 3.4 g/dl (3.4-5.0); ANION GAP 7 (8-16); BILIRUBIN,TOTAL 0.5 mg/dL (0.2-1.0); BLOOD UREA NITROGEN 22 mg/dL (7-18); CALCIUM 8.1 mg/dL (8.5-10.1); CHLORIDE 103 mmol/L (98-107); CO2 28 mmol/L (21-32); CREATININE 1.1 mg/dL (0.55-1.02); GLUCOSE,RANDOM 182 mg/dL (74-106); SGOT/AST 32 U/L (15-37); SGPT/ALT 45 U/L (12-78); SODIUM 138 mmol/L (136-145); TOT PROT 6.5 g/dl (6.4-8.2)
[2017-06-21 15:15] LABS: ALK PHOS 132 U/L (45-117)
[2017-06-21] MEDS ORDERED: ACETAMINOPHEN 325 MG TABLET (FP) PO PRN (15:32)
[2017-06-21 16:34] LABS: URINE APPEARANCE CLEAR; URINE BILIRUBIN NEGATIVE (NEGATIVE); URINE BLOOD NEGATIVE (NEGATIVE); URINE COLOR LTYELLOW; URINE GLUCOSE (UA) NEGATIVE (NEGATIVE); URINE KETONE NEGATIVE (NEGATIVE); URINE LEUK ESTERASE NEGATIVE (NEGATIVE); URINE NITRITE NEGATIVE (NEGATIVE); URINE UROBILINOGEN NEGATIVE mg/dL (0.2-1.0)
[2017-06-21 16:42] LABS: URINE PROTEIN 1+ (NEGATIVE)
[2017-06-21 16:50] LABS: EPI CELLS RARE /HPF (FEW); URINE MUCUS RARE
[2017-06-21] MEDS: hydrALAZINE HCL 25 MG TABLET (FP) PO SCH (22:41)
[2017-06-21] MEDS: ATORVASTATIN CA 80 MG TABLET (FP) PO SCH (22:41)
[2017-06-22 06:33] LABS: HEMATOCRIT 33.2 % (32.4-45.2); HEMOGLOBIN 10.9 GM/dL (10.7-15.3); MCH 27.2 pg (25.7-33.7); MCHC 32.8 g/dl (32.0-36.0); MEAN CELL VOLUME 82.9 fl (80-96); MEAN PLT VOLUME 8.7 fl (7.5-11.1); PLATELET COUNT 249 K/MM3 (134-434); RBC 4.01 M/mm3 (3.60-5.2); RDW 14.8 % (11.6-15.6)
[2017-06-22] MEDS: LEVOTHYROXINE NA 25 MCG TABLET (FP) PO SCH (06:40)
[2017-06-22] MEDS: hydrALAZINE HCL 25 MG TABLET (FP) PO SCH ×3 (06:40→21:11)
[2017-06-22] MEDS: GLIMEPIRIDE 4 MG TABLET (FP) PO SCH (06:40)
[2017-06-22] MEDS: sitaGLIPtin PHOSPHATE 50 MG TABLET PO SCH (06:40)
[2017-06-22 07:09] LABS: ALBUMIN 3.6 g/dl (3.4-5.0); ANION GAP 10 (8-16); BLOOD UREA NITROGEN 20 mg/dL (7-18); CALCIUM 8.7 mg/dL (8.5-10.1); CHLORIDE 106 mmol/L (98-107); CHOLESTEROL 192 mg/dL (50-200); CO2 26 mmol/L (21-32); GLUCOSE,RANDOM 89 mg/dL (74-106); POTASSIUM 3.9 mmol/L (3.5-5.1); SGPT/ALT 42 U/L (12-78); SODIUM 142 mmol/L (136-145); TRIGLYCERIDES 185 mg/dL (35-160)
[2017-06-22 07:12] LABS: ALK PHOS 131 U/L (45-117); BILIRUBIN,TOTAL 0.6 mg/dL (0.2-1.0); CREATININE 0.9 mg/dL (0.55-1.02); HDL CHOLESTEROL 57 mg/dL (40-60); LDL CHOLESTEROL (ONLY SJRH) 106 mg/dL (5-100); SGOT/AST 29 U/L (15-37); TOT PROT 6.7 g/dl (6.4-8.2)
[2017-06-22] MEDS: VALSARTAN 80 MG TABLET (UD) PO SCH (09:36)
[2017-06-22] MEDS: CLOPIDOGREL BISULFATE 75 MG TABLET (FP) PO SCH (09:36)
[2017-06-22] MEDS: ASPIRIN COATED 81 MG TABLET.EC PO SCH (09:36)
[2017-06-22] MEDS: ISOSORBIDE MONONITRATE 60 MG TAB.SR.24H (FP) PO SCH (09:36)
--- NOTE | 2017-06-22 12:51 | EKG ---
Test Reason : Blood Pressure : / mmHG Vent. Rate : 055 BPM Atrial Rate : 055 BPM P-R Int : 166 ms QRS Dur : 090 ms QT Int : 474 ms P-R-T Axes : 078 -42 -23 degrees QTc Int : 453 ms SINUS BRADYCARDIA LEFT AXIS DEVIATION MINIMAL VOLTAGE CRITERIA FOR LVH, MAY BE NORMAL VARIANT POSSIBLE LATERAL INFARCT (CITED ON OR BEFORE 18-JUL-2016) T WAVE ABNORMALITY, CONSIDER ANTERIOR ISCHEMIA ABNORMAL ECG WHEN COMPARED WITH ECG OF 08-APR-2017 23:08, T WAVE VARIATION Confirmed by JARRET ROBERTS MD ([id number]) on 06/22/2017 12:51:24 PM Referred By: Confirmed By:JARRET ROBERTS MD
--- NOTE | 2017-06-22 13:47 | PN ---
Progress Note, Physician Chief Complaint: AWAKE ALERT C/O RIGHT LEG SWELLING AND PAIN ACUTE GOUT ATTACK - Current Medication List Current Medications: Active Medications Acetaminophen (Tylenol -) 650 mg PO Q6H PRN PRN Reason: SEVERE PAIN Aspirin (Ecotrin -) 81 mg PO DAILY [facility] Last Admin: 06/22/17 09:36 Dose: 81 mg Atorvastatin Calcium (Lipitor -) 80 mg PO HS [facility] Last Admin: 06/21/17 22:41 Dose: 80 mg Clopidogrel Bisulfate (Plavix -) 75 mg PO DAILY [facility] Last Admin: 06/22/17 09:36 Dose: 75 mg Glimepiride (Amaryl -) 4 mg PO DAILY@0700 [facility] Last Admin: 06/22/17 06:40 Dose: 4 mg Hydralazine HCl (Apresoline -) 25 mg PO TID [facility] Last Admin: 06/22/17 13:01 Dose: 25 mg Isosorbide Mononitrate (Imdur -) 120 mg PO DAILY [facility] Last Admin: 06/22/17 09:36 Dose: 120 mg Levothyroxine Sodium (Synthroid -) 25 mcg PO DAILY@0700 [facility] Last Admin: 06/22/17 06:40 Dose: 25 mcg Metoprolol Succinate (Toprol Xl -) 50 mg PO DAILY [facility] Last Admin: 06/22/17 09:36 Dose: 50 mg Sitagliptin Phosphate (Januvia -) 50 mg PO DAILY@0700 [facility] Last Admin: 06/22/17 06:40 Dose: 50 mg Valsartan (Diovan -) 160 mg PO DAILY [facility] Last Admin: 06/22/17 09:36 Dose: 160 mg - Objective Vital Signs: Vital Signs Temperature 97.4 F L 06/22/17 09:00 Pulse Rate 64 06/22/17 09:00 Respiratory Rate 22 06/22/17 09:00 Blood Pressure 156/72 06/22/17 09:00 O2 Sat by Pulse Oximetry (%) 96 06/22/17 09:00 Constitutional: Yes: Mild Distress Eyes: Yes: WNL HENT: Yes: WNL Neck: Yes: WNL Cardiovascular: Yes: WNL Respiratory: Yes: WNL Gastrointestinal: Yes: WNL Genitourinary: Yes: WNL Musculoskeletal: Yes: Joint Swelling Extremities: Yes: Deformity Edema: Yes Edema: RLE: 1+ Peripheral Pulses WNL: Yes Wound/Incision: Yes: Open to air Neurological: Yes: WNL ...Motor Strength: WNL Psychiatric: Yes: WNL Labs: CBC, BMP 06/22/17 06:20 06/22/17 06:20 Problem List - Problems (1) Acute gout Code(s): M10.9 - GOUT, UNSPECIFIED Qualifiers: Gout site: foot Encounter type: initial encounter Laterality: right (2) Anginal equivalent Code(s): I20.8 - OTHER FORMS OF ANGINA PECTORIS (3) CAD (coronary artery disease) Code(s): I25.10 - ATHSCL HEART DISEASE OF [place] CORONARY ARTERY W/O ANG PCTRS (4) CHF (congestive heart failure) Code(s): I50.9 - HEART FAILURE, UNSPECIFIED Qualifiers: Congestive heart failure type: unspecified Congestive heart failure chronicity: unspecified Qualified Code(s): I50.9 - Heart failure, unspecified (5) Type 2 diabetes mellitus with diabetic nephropathy Code(s): E11.21 - TYPE 2 DIABETES MELLITUS WITH DIABETIC NEPHROPATHY Qualifiers: Diabetes mellitus fdc insulin use: unspecified 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
--- NOTE | 2017-06-22 14:46 | CON.CARD ---
Consult Consult Specialty:: Cardiology Reason for Consultation:: Nausea, dizziness - History of Present Illness History of Present Illness: 76 y/o F with CAD and stable angina sp LAD and RCA stenting with residual distal disease, DMII, HLD, HTN, and hypothyroidism admitted with transient nausea and blurry vision, without diaphoresis, chest pain or syncope. symptoms resolved within minutes after drinking some orange juice. She has recent ecacerbation of her gout. Patient denies chest pain, nausea, vomiting, shoulder pain, SOB, or actual syncope. - History Source History Provided By: Patient Limitations to Obtaining History: No Limitations 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) Gastrointestinal: Yes: GERD Renal/: Yes: Renal Calculi Musculoskeletal: Yes: Chronic low back pain Endocrine: Yes: Hyperthyroidism - Alcohol/Substance Use Hx Alcohol Use: No - Smoking History Smoking history: Never smoked Have you smoked in the past 12 months: No Aproximately how many cigarettes per day: 0 Home Medications - Allergies Allergies/Adverse Reactions: Allergies Allergy/AdvReac Type Severity Reaction Status Date / Time No Known Allergies Allergy Verified 06/21/17 14:00 - Home Medications Home Medications: Ambulatory Orders Clopidogrel Bisulfate [Plavix -] 75 mg PO DAILY #30 tablet 11/07/16 Metoprolol Succinate [Toprol XL -] 50 mg PO DAILY #30 tab 11/07/16 Sitagliptin Phosphate [Januvia -] 50 mg PO DAILY@0700 #30 tablet 11/07/16 Aspirin [ASA -] 81 mg PO DAILY 12/06/16 Atorvastatin Calcium 80 mg PO DAILY 12/06/16 Valsartan [Diovan] 160 mg PO DAILY #30 tablet 12/09/16 Glimepiride 4 mg PO DAILY 06/21/17 Hydralazine HCl 25 mg PO TID 06/21/17 Isosorbide Mononitrate [Isosorbide Mononitrate ER] 120 mg PO DAILY 06/21/17 Levothyroxine Sodium [Levo-T] 25 mcg PO DAILY 06/21/17 Linaclotide [Linzess] 145 mcg PO DAILY 06/21/17 Review of Systems - Review of Systems Constitutional: reports: Unintentional Wgt. Loss Eyes: reports: No Symptoms HENT: reports: No Symptoms Neck: reports: No Symptoms Cardiovascular: reports: No Symptoms Respiratory: reports: No Symptoms Gastrointestinal: reports: No Symptoms. denies: Abdominal Pain, Bloating, Constipation, Diarrhea Genitourinary: denies: Burning, Discharge Breasts: reports: No Symptoms Reported Vital Signs: Vital Signs Temperature 97.8 F 06/22/17 14:34 Pulse Rate 67 06/22/17 14:34 Respiratory Rate 20 06/22/17 14:34 Blood Pressure 149/67 06/22/17 14:34 O2 Sat by Pulse Oximetry (%) 96 06/22/17 09:00 Constitutional: Yes: Well Nourished, No Distress Eyes: Yes: Conjunctiva Clear, EOM Intact HENT: Yes: Atraumatic, Normocephalic Neck: Yes: Supple, Trachea Midline Respiratory: Yes: Regular, CTA Bilaterally Gastrointestinal: Yes: Normal Bowel Sounds, Soft Renal/: Yes: WNL Cardiovascular: Yes: Regular Rate and Rhythm JVD: No Carotid Bruit: No PMI: Non-Displaced Heart Sounds: Yes: S1, S2 Murmur: No: Systolic Murmur, Diastolic Murmur Edema: No - Other Data Labs, Other Data: CBC, BMP 06/22/17 06:20 06/22/17 06:20 Troponin, BNP 06/21/17 14:15 Troponin I < 0.02 Troponin, BNP 06/21/17 14:15 Troponin I < 0.02 NSR LAHB old AWMI unchanged from prior. Imaging - Results Chest X-ray: Report Reviewed Problem List - Problems (1) Acute gout Code(s): M10.9 - GOUT, UNSPECIFIED Qualifiers: Gout site: foot Encounter type: initial encounter Laterality: right (2) Anxiety Code(s): F41.9 - ANXIETY DISORDER, UNSPECIFIED (3) CAD (coronary artery disease) Code(s): I25.10 - ATHSCL HEART DISEASE OF [place] CORONARY ARTERY W/O ANG PCTRS Assessment/Plan ADMITTED WITH TRANSIENT NAUSEA AND BLURRY VISION. Symptoms lasted only minutes and resolved after drinking OJ. Has active gout. ECG shows no acute changes. She has stable CAD with preserved EF and stable angina. Continue current cardiac ,medications Can DC telemetry. Possible hypoglycemic episode.
[2017-06-22 15:20] LABS: URIC ACID 6.2 mg/dL (2.6-7.2)
[2017-06-22] MEDS: INSULIN SLIDING SCALE (NOVOLOG) 1 VIAL SQ SCH ×2 (17:30→21:11)
[2017-06-22] MEDS ORDERED: COLCHICINE 0.6 MG TABLET (FP) PO SCH (19:45)
[2017-06-22] MEDS: ATORVASTATIN CA 80 MG TABLET (FP) PO SCH ×2 (21:11→21:16)
[2017-06-23] MEDS: sitaGLIPtin PHOSPHATE 50 MG TABLET PO SCH (06:37)
[2017-06-23] MEDS: hydrALAZINE HCL 25 MG TABLET (FP) PO SCH ×3 (06:37→21:17)
[2017-06-23] MEDS: LEVOTHYROXINE NA 25 MCG TABLET (FP) PO SCH (06:37)
[2017-06-23] MEDS: GLIMEPIRIDE 4 MG TABLET (FP) PO SCH (06:37)
[2017-06-23] MEDS: INSULIN SLIDING SCALE (NOVOLOG) 1 VIAL SQ SCH ×4 (06:37→21:18)
[2017-06-23] MEDS ORDERED: COLCHICINE 0.6 MG TABLET (FP) PO ONE (08:39)
--- NOTE | 2017-06-23 08:41 | PN ---
Progress Note, Physician History of Present Illness: FOOT PAIN LEG HEAVINESS - Current Medication List Current Medications: Active Medications Acetaminophen (Tylenol -) 650 mg PO Q6H PRN PRN Reason: SEVERE PAIN Last Admin: 06/22/17 19:59 Dose: 650 mg Aspirin (Ecotrin -) 81 mg PO DAILY [facility] Last Admin: 06/22/17 09:36 Dose: 81 mg Atorvastatin Calcium (Lipitor -) 80 mg PO HS [facility] Last Admin: 06/22/17 21:16 Dose: Not Given Clopidogrel Bisulfate (Plavix -) 75 mg PO DAILY [facility] Last Admin: 06/22/17 09:36 Dose: 75 mg Colchicine (Colcrys -) 1.2 mg PO ONCE ONE Stop: 06/23/17 08:40 Colchicine (Colcrys -) 0.6 mg PO DAILY [facility] Gabapentin (Neurontin -) 100 mg PO BID [facility] Glimepiride (Amaryl -) 4 mg PO DAILY@0700 [facility] Last Admin: 06/23/17 06:37 Dose: 4 mg Hydralazine HCl (Apresoline -) 25 mg PO TID [facility] Last Admin: 06/23/17 06:37 Dose: 25 mg Insulin Aspart (Novolog Vial Sliding Scale -) 1 vial SQ ACHS [facility] PRN Reason: Protocol Last Admin: 06/23/17 06:37 Dose: Not Given Isosorbide Mononitrate (Imdur -) 120 mg PO DAILY [facility] Last Admin: 06/22/17 09:36 Dose: 120 mg Levothyroxine Sodium (Synthroid -) 25 mcg PO DAILY@0700 [facility] Last Admin: 06/23/17 06:37 Dose: 25 mcg Metoprolol Succinate (Toprol Xl -) 50 mg PO DAILY [facility] Last Admin: 06/22/17 09:36 Dose: 50 mg Prednisone (Deltasone -) 40 mg PO DAILY [facility] Sitagliptin Phosphate (Januvia -) 50 mg PO DAILY@0700 [facility] Last Admin: 06/23/17 06:37 Dose: 50 mg Valsartan (Diovan -) 160 mg PO DAILY [facility] Last Admin: 06/22/17 09:36 Dose: 160 mg - Objective Vital Signs: Vital Signs Temperature 97.6 F 06/23/17 06:00 Pulse Rate 58 L 06/23/17 06:00 Respiratory Rate 18 06/23/17 06:00 Blood Pressure 148/75 06/23/17 06:00 O2 Sat by Pulse Oximetry (%) 96 06/22/17 09:00 Cardiovascular: Yes: Regular Rate and Rhythm Respiratory: Yes: Regular, CTA Bilaterally Gastrointestinal: Yes: Normal Bowel Sounds, Soft Extremities: Yes: Erythema, Other (SWELLING OF RIGHT TOE) Labs: CBC, BMP 06/22/17 06:20 06/22/17 06:20 Problem List - Problems (1) Abnormal EKG Assessment/Plan: CARDIO ON BOARD Code(s): R94.31 - ABNORMAL ELECTROCARDIOGRAM [ECG] [EKG] (2) Acute gout Assessment/Plan: COLCHICINE PREDNISONE MONITOR BGM Code(s): M10.9 - GOUT, UNSPECIFIED Qualifiers: Gout site: foot Encounter type: initial encounter Laterality: right (3) CAD (coronary artery disease) Assessment/Plan: SAME MEDS MONITOR Code(s): I25.10 - ATHSCL HEART DISEASE OF [place] CORONARY ARTERY W/O ANG PCTRS (4) Hyperthyroidism Assessment/Plan: ENDO Code(s): E05.90 - THYROTOXICOSIS, UNSP WITHOUT THYROTOXIC CRISIS OR STORM (5) Leg pain Assessment/Plan: OBSERVE ON MEDS DUPLEX Code(s): M79.606 - PAIN IN LEG, UNSPECIFIED
[2017-06-23] MEDS: GABAPENTIN 100 MG CAPSULE (FP) PO SCH ×3 (08:58→21:17)
[2017-06-23] MEDS: predniSONE 20 MG TABLET (UD) PO SCH ×2 (08:58→09:26)
[2017-06-23] MEDS: VALSARTAN 80 MG TABLET (UD) PO SCH (08:59)
[2017-06-23] MEDS: CLOPIDOGREL BISULFATE 75 MG TABLET (FP) PO SCH (08:59)
[2017-06-23] MEDS: ASPIRIN COATED 81 MG TABLET.EC PO SCH (08:59)
[2017-06-23] MEDS: ISOSORBIDE MONONITRATE 60 MG TAB.SR.24H (FP) PO SCH (08:59)
[2017-06-23] MEDS: VALSARTAN 160 MG TABLET (UD) PO SCH (09:26)
--- NOTE | 2017-06-23 10:03 | CONSULT ---
Consult Consult Specialty:: Rheumatology - History of Present Illness History of Present Illness: 76 y/o female who has poor Belgian, (she speaks Assyrian). (history from her niece and the chart). She has medical history of probable gout, CAD and stable angina, s/p angioplasty, DMII, HLD, HTN, and hypothyroidism admitted with episode of slight nausea, diaphoresis, and blurry vision 2 hours before presentation to the ED that resolved within minutes after drinking some orange juice. Patient denies chest pain, nausea, vomiting, SOB, paresthesias, or actual syncope. Gout. The patient has a 1 year history of chronic pain in the right 1st metatarsoal joint. Apparently she goes to a clinic where she gets treated with steroid injection that last about 3 weeks. She does not take analgesics. At the present time she continues having pain in the same joint. Laboratory work-up revealed ESR 27, gluicose 85, HgbA1C 8.1, creatinine 0.9, eGFR >60 and uric acid 6.2. The patient is on Plavix (not a candidate for NSAIDs) - History Source History Provided By: Family Member, Medical Record 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) Gastrointestinal: Yes: GERD Renal/: Yes: Renal Calculi Musculoskeletal: Yes: Chronic low back pain Endocrine: Yes: Hyperthyroidism - Alcohol/Substance Use Hx Alcohol Use: No - Smoking History Smoking history: Never smoked Have you smoked in the past 12 months: No Aproximately how many cigarettes per day: 0 Home Medications - Allergies Allergies/Adverse Reactions: Allergies Allergy/AdvReac Type Severity Reaction Status Date / Time No Known Allergies Allergy Verified 06/21/17 14:00 - Home Medications Home Medications: Ambulatory Orders Clopidogrel Bisulfate [Plavix -] 75 mg PO DAILY #30 tablet 11/07/16 Metoprolol Succinate [Toprol XL -] 50 mg PO DAILY #30 tab 11/07/16 Sitagliptin Phosphate [Januvia -] 50 mg PO DAILY@0700 #30 tablet 11/07/16 Aspirin [ASA -] 81 mg PO DAILY 12/06/16 Atorvastatin Calcium 80 mg PO DAILY 12/06/16 Valsartan [Diovan] 160 mg PO DAILY #30 tablet 12/09/16 Glimepiride 4 mg PO DAILY 06/21/17 Hydralazine HCl 25 mg PO TID 06/21/17 Isosorbide Mononitrate [Isosorbide Mononitrate ER] 120 mg PO DAILY 06/21/17 Levothyroxine Sodium [Levo-T] 25 mcg PO DAILY 06/21/17 Linaclotide [Linzess] 145 mcg PO DAILY 06/21/17 Review of Systems - Review of Systems Eyes: reports: No Symptoms HENT: reports: No Symptoms Neck: reports: No Symptoms Respiratory: reports: SOB Gastrointestinal: reports: No Symptoms Musculoskeletal: reports: Other (See HPI) Endocrine: reports: No Symptoms Physical Exam Vital Signs: Vital Signs Temperature 97.6 F 06/23/17 06:00 Pulse Rate 58 L 06/23/17 08:54 Respiratory Rate 18 06/23/17 08:54 Blood Pressure 150/66 06/23/17 08:54 O2 Sat by Pulse Oximetry (%) 96 06/22/17 09:00 Constitutional: Yes: Mild Distress Eyes: Yes: WNL HENT: Yes: WNL Neck: Yes: WNL Cardiovascular: Yes: WNL Respiratory: Yes: WNL Gastrointestinal: Yes: WNL Musculoskeletal: Yes: Other (Tenderness and swelling of tehright 1st MTP. 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 Rule out gout. Plan: X rays of the feet. I prescribed Prednisone 40 mg/d with tapering schedule. (the patient is on Plavix, not a candidate for NSAIDs). Continue Colchicine 0.6 mg/d. Will follow. Code(s): M10.9 - GOUT, UNSPECIFIED Qualifiers: Gout site: foot Encounter type: initial encounter Laterality: right
[2017-06-23] MEDS: ATORVASTATIN CA 80 MG TABLET (FP) PO SCH (21:17)
--- NOTE | 2017-06-24 01:21 | CONSULT ---
Consult Consult Specialty:: endocrine Referred by:: dr.annabi garcia Reason for Consultation:: thyroid disease /diabetes mellitus - History of Present Illness Chief Complaint: sudden onset weakness and nausea nearly passed out History of Present Illness: 76 y/o F with h/o ACS, cardiac cath (04/02 occluded LAD, RCA stenosis), DMII, HLD, HTN, and hypothyroidism presenting with one episode of slight nausea, diaphoresis, and blurry vision 2 hours before presentation to the ED that resolved within minutes after drinking some orange juice. Patient denies chest pain, states after [employer] th[employer] she just ate few minuet later felt this weakness and blurred vision and nausea which was relieved with food. 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) Gastrointestinal: Yes: GERD Renal/: Yes: Renal Calculi Musculoskeletal: Yes: Chronic low back pain Endocrine: Yes: Hyperthyroidism - Alcohol/Substance Use Hx Alcohol Use: No - Smoking History Smoking history: Never smoked Have you smoked in the past 12 months: No Aproximately how many cigarettes per day: 0 Home Medications - Allergies Allergies/Adverse Reactions: Allergies Allergy/AdvReac Type Severity Reaction Status Date / Time No Known Allergies Allergy Verified 06/21/17 14:00 - Home Medications Home Medications: Ambulatory Orders Clopidogrel Bisulfate [Plavix -] 75 mg PO DAILY #30 tablet 11/07/16 Metoprolol Succinate [Toprol XL -] 50 mg PO DAILY #30 tab 11/07/16 Sitagliptin Phosphate [Januvia -] 50 mg PO DAILY@0700 #30 tablet 11/07/16 Aspirin [ASA -] 81 mg PO DAILY 12/06/16 Atorvastatin Calcium 80 mg PO DAILY 12/06/16 Valsartan [Diovan] 160 mg PO DAILY #30 tablet 12/09/16 Glimepiride 4 mg PO DAILY 06/21/17 Hydralazine HCl 25 mg PO TID 06/21/17 Isosorbide Mononitrate [Isosorbide Mononitrate ER] 120 mg PO DAILY 06/21/17 Levothyroxine Sodium [Levo-T] 25 mcg PO DAILY 06/21/17 Linaclotide [Linzess] 145 mcg PO DAILY 06/21/17 Review of Systems - Review of Systems Constitutional: reports: Lethargy, Weakness Eyes: reports: Blurred Vision HENT: reports: No Symptoms Neck: reports: No Symptoms Cardiovascular: reports: Shortness of Breath Respiratory: reports: Exercise Intolerance, SOB on Exertion Gastrointestinal: reports: Bloating, Constipation Genitourinary: reports: No Symptoms Breasts: reports: No Symptoms Reported Musculoskeletal: reports: Decreased ROM, Extremity Pain, Joint Pain, Joint Swelling, Muscle Cramps, Muscle Weakness Neurological: reports: Dizziness, Numbness, Tremors, Weakness Endocrine: reports: Increased Hunger Physical Exam Vital Signs: Vital Signs Temperature 97.6 F 06/23/17 21:00 Pulse Rate 57 L 06/23/17 21:00 Respiratory Rate 20 06/23/17 21:00 Blood Pressure 135/68 06/23/17 21:00 O2 Sat by Pulse Oximetry (%) 99 06/23/17 21:00 Constitutional: Yes: Anxious Eyes: Yes: EOM Intact HENT: Yes: Normocephalic Neck: Yes: Trachea Midline Cardiovascular: Yes: Regular Rate and Rhythm Respiratory: Yes: CTA Bilaterally Gastrointestinal: Yes: Normal Bowel Sounds ...Rectal Exam: Yes: Deferred Renal/: Yes: WNL Breast(s): Yes: WNL Musculoskeletal: Yes: WNL Extremities: Yes: WNL Edema: No Neurological: Yes: Alert, Oriented ...Motor Strength: WNL Psychiatric: Yes: Alert Labs: CBC, BMP 06/22/17 06:20 06/22/17 06:20 Problem List - Problems (1) Diabetes Code(s): E11.9 - TYPE 2 DIABETES MELLITUS WITHOUT COMPLICATIONS (2) 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 Code(s): E05.20 - THYROTXCOSIS W TOXIC MULTINOD GOITER W/O THYROTOXIC CRISIS (3) Abnormal EKG Code(s): R94.31 - ABNORMAL ELECTROCARDIOGRAM [ECG] [EKG] (4) Acute gout Code(s): M10.9 - GOUT, UNSPECIFIED Qualifiers: Gout site: foot Encounter type: initial encounter Laterality: right (5) Anginal equivalent Code(s): I20.8 - OTHER FORMS OF ANGINA PECTORIS (6) Anxiety Code(s): F41.9 - ANXIETY DISORDER, UNSPECIFIED (7) Bradycardia Code(s): R00.1 - BRADYCARDIA, UNSPECIFIED Assessment/Plan Current Active Problems Abnormal EKG (Acute) Acute gout (Acute) Anginal equivalent (Acute) Leg pain (Acute) hypothyroidism sp i131 therapy diabetes mellitus hypoglycemia episode? vs tia symptoms Laboratory Results - last 24 hr 06/23/17 06/23/17 06/23/17 06:23 11:05 17:15 POC Glucometer 92 149 247 06/23/17 21:16 POC Glucometer 192 Laboratory Tests 06/22/17 06/22/17 06/22/17 06:20 06:20 17:19 Sodium 142 Potassium 3.9 Chloride 106 Carbon Dioxide 26 Anion Gap 10 BUN 20 H Creatinine 0.9 Creat Clearance w eGFR > 60 POC Glucometer 79 Hemoglobin A1c % 8.1 H Triglycerides 185 H Cholesterol 192 Total LDL Cholesterol 106 H HDL Cholesterol 57 06/22/17 06/23/17 06/23/17 20:59 06:23 11:05 Sodium Potassium Chloride Carbon Dioxide Anion Gap BUN Creatinine Creat Clearance w eGFR POC Glucometer 89 92 149 Hemoglobin A1c % Triglycerides Cholesterol Total LDL Cholesterol HDL Cholesterol 06/23/17 06/23/17 17:15 21:16 Sodium Potassium Chloride Carbon Dioxide Anion Gap BUN Creatinine Creat Clearance w eGFR POC Glucometer 247 192 Hemoglobin A1c % Triglycerides Cholesterol Total LDL Cholesterol HDL Cholesterol plan: bgm qid novolog scale check tsh,free t4 contin januvia 50mg daily
[2017-06-24 05:44] VITALS: PULSE 58
[2017-06-24] MEDS: INSULIN SLIDING SCALE (NOVOLOG) 1 VIAL SQ SCH ×2 (06:22→11:47)
[2017-06-24] MEDS: sitaGLIPtin PHOSPHATE 50 MG TABLET PO SCH (06:22)
[2017-06-24] MEDS: GLIMEPIRIDE 4 MG TABLET (FP) PO SCH (06:22)
[2017-06-24] MEDS: hydrALAZINE HCL 25 MG TABLET (FP) PO SCH (06:22)
[2017-06-24] MEDS: LEVOTHYROXINE NA 25 MCG TABLET (FP) PO SCH (06:22)
--- NOTE | 2017-06-24 08:52 | DS ---
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 (Acute) Condition: Improved - Instructions Referrals: Brett Wolf MD [Primary Care Provider] - 1 Week Disposition: HOME - Home Medications Comprehensive Discharge Medication List: Ambulatory Orders Clopidogrel Bisulfate [Plavix -] 75 mg PO DAILY #30 tablet 11/07/16 Metoprolol Succinate [Toprol XL -] 50 mg PO DAILY #30 tab 11/07/16 Sitagliptin Phosphate [Januvia -] 50 mg PO DAILY@0700 #30 tablet 11/07/16 Aspirin [ASA -] 81 mg PO DAILY 12/06/16 Atorvastatin Calcium 80 mg PO DAILY 12/06/16 Valsartan [Diovan] 160 mg PO DAILY #30 tablet 12/09/16 Glimepiride 4 mg PO DAILY 06/21/17 Hydralazine HCl 25 mg PO TID 06/21/17 Isosorbide Mononitrate [Isosorbide Mononitrate ER] 120 mg PO DAILY 06/21/17 Levothyroxine Sodium [Levo-T] 25 mcg PO DAILY 06/21/17 Linaclotide [Linzess] 145 mcg PO DAILY 06/21/17 Colchicine [Colcrys -] 0.6 mg PO DAILY #30 tablet 06/24/17 Gabapentin [Neurontin -] 100 mg PO BID #60 capsule 06/24/17 Prednisone 5 mg PO BID #15 tab.ds.pk 06/24/17
[2017-06-24] MEDS: ISOSORBIDE MONONITRATE 60 MG TAB.SR.24H (FP) PO SCH (09:47)
[2017-06-24] MEDS: GABAPENTIN 100 MG CAPSULE (FP) PO SCH (09:47)
[2017-06-24] MEDS: CLOPIDOGREL BISULFATE 75 MG TABLET (FP) PO SCH (09:47)
[2017-06-24] MEDS: VALSARTAN 160 MG TABLET (UD) PO SCH (09:48)
[2017-06-24] MEDS: ASPIRIN COATED 81 MG TABLET.EC PO SCH (09:48)
[2017-06-24] MEDS: predniSONE 20 MG TABLET (UD) PO SCH (09:48)
[2017-06-24] MEDS ORDERED: COLCHICINE 0.6 MG TABLET (FP) PO SCH (10:00)
[2017-06-24 12:00] VITALS: BP 173/72; TEMP 97.8
[2017-06-26] MEDS ORDERED: predniSONE 20 MG TABLET (UD) PO SCH (10:00)
[2017-06-29] MEDS ORDERED: predniSONE 10 MG TABLET (UD) PO SCH (10:00)
[2017-07-02] MEDS ORDERED: predniSONE 5 MG TABLET (UD) PO SCH (10:00)
--- NOTE | 2017-07-02 13:29 | EKG ---
Test Reason : Blood Pressure : / mmHG Vent. Rate : 063 BPM Atrial Rate : 063 BPM P-R Int : 168 ms QRS Dur : 086 ms QT Int : 428 ms P-R-T Axes : 067 -46 032 degrees QTc Int : 437 ms NORMAL SINUS RHYTHM LEFT ANTERIOR FASCICULAR BLOCK MINIMAL VOLTAGE CRITERIA FOR LVH, MAY BE NORMAL VARIANT ANTEROSEPTAL INFARCT , AGE UNDETERMINED T WAVE ABNORMALITY, CONSIDER LATERAL ISCHEMIA ABNORMAL ECG WHEN COMPARED WITH ECG OF 21-JUN-2017 14:09, NO SIGNIFICANT CHANGE WAS FOUND Confirmed by JARRET ROBERTS MD ([id number]) on 06/22/2017 5:36:40 PM Also confirmed by JARRET ROBERTS MD ([id number]), non linear editor NEERU HOLLIS ([id number]) on 07/02/2017 1:28:46 PM Referred By: Confirmed By:JARRET ROBERTS MD
== END 2017-06-24 12:35 | disposition home or self-care (01) ==
LOC: JER 13:25 → JERBED 15:27 → INTOOBSV 15:53 → UNDOADMOB 15:53 → JERBED 15:53 → J4W 21:57 → JERBED 21:57 → J4W 21:57
PROVIDERS: ADMIT Family Medicine; ATTEND Family Medicine
DX: I20.8 Other forms of angina pectoris (principal); I10 Essential (primary) hypertension; I25.10 Atherosclerotic heart disease of native coronary artery without angina pectoris; I50.9 Heart failure, unspecified; E11.21 Type 2 diabetes mellitus with diabetic nephropathy; E78.5 Hyperlipidemia, unspecified; E03.9 Hypothyroidism, unspecified; E05.20 Thyrotoxicosis with toxic multinodular goiter without thyrotoxic crisis or storm; M10.9 Gout, unspecified; F41.9 Anxiety disorder, unspecified; R94.31 Abnormal electrocardiogram [ECG] [EKG]; R00.1 Bradycardia, unspecified; M79.606 Pain in leg, unspecified; M54.5 Low back pain; G89.29 Other chronic pain; K21.9 Gastro-esophageal reflux disease without esophagitis; Z98.61 Coronary angioplasty status; Z79.82 Long term (current) use of aspirin; Z79.84 Long term (current) use of oral hypoglycemic drugs
CPT/HCPCS: 36415; 71045-TC-FY; 73630-TC-LT; 73630-TC-RT-FY; 80053; 80061; 81003; 81015; 82550; 82962; 83036; 83721; 84439; 84443; 84484; 84550; 85025; 85027; 85651; 86140; 87086; 93005; 93010; 93970-TC; 99285-25; G0378

== ENCOUNTER 2017-06-28 23:11 | Emergency (ER) | payer OTHER ==
[2017-06-28 23:26] VITALS: BP 129/73; PULSE 63; TEMP 97.9; BMI 23.4
== END 2017-06-29 01:18 | disposition left against medical advice (07) ==
LOC: JER 23:11
DX: Z53.21 Procedure and treatment not carried out due to patient leaving prior to being seen by health care provider (principal)
CPT/HCPCS: 99281-25

== ENCOUNTER 2017-07-05 10:07 | Inpatient (IN) | payer OTHER ==
[2017-07-05 10:29] VITALS: BMI 21.9
[2017-07-05] MEDS ORDERED: DIPHTH,PERTUSS(ACELL),TET 0.5 ML DISP.SYRIN IM ONE (11:05)
--- NOTE | 2017-07-05 11:11 | PDOC ---
History of Present Illness - General History Source: Patient Exam Limitations: No Limitations <Nirmal Pepe - Last Filed: 07/05/17 15:11> - History of Present Illness Initial Comments: 07/05/17 11:28 76 y/o F with a PMH of ACS, DM, HLD, HTN, and arthritis who presents to the ED s /p fall today. Patient slipped and fell onto her head. Patient has a laceration on the back of her head. She complains of a headache and left sided ear pain. Patient is currently on Aspirin and Plavix. Patient denies LOC or dizziness. Denies neck pain. Denies chest pain, SOB. Denies nausea, vomiting, diarrhea. Denies fever, chills. Last tetanus is unknown. PCP: Dr. Brett Wolf <Lindsey Sousa - Last Filed: 07/05/17 15:23> - General Chief Complaint: Injury Stated Complaint: HEAD INJURY Time Seen by Provider: 07/05/17 10:42 Past History - Past Medical History Cardiac Disorders: Yes (angina, CAD,CATH WITH STENT) CVA: Yes (STEMI, 2 cardiac stents) COPD: No Diabetes: Yes HTN: Yes Hypercholesterolemia: Yes Kidney Stones: Yes Thyroid Disease: Yes - Immunization History Immunization Up to Date: Yes - Suicide/Smoking/Psychosocial Hx Smoking Status: No Smoking History: Never smoked Have you smoked in the past 12 months: No Number of Cigarettes Smoked Daily: 0 Hx Alcohol Use: No Drug/Substance Use Hx: No Substance Use Type: None Hx Substance Use Treatment: No <Nirmal Pepe - Last Filed: 07/05/17 15:11> <Lindsey Sousa - Last Filed: 07/05/17 15:23> - Past Medical History Allergies/Adverse Reactions: Allergies Allergy/AdvReac Type Severity Reaction Status Date / Time No Known Allergies Allergy Verified 07/05/17 10:25 Home Medications: Ambulatory Orders Clopidogrel Bisulfate [Plavix -] 75 mg PO DAILY #30 tablet 11/07/16 Metoprolol Succinate [Toprol XL -] 50 mg PO DAILY #30 tab 11/07/16 Sitagliptin Phosphate [Januvia -] 50 mg PO DAILY@0700 #30 tablet 11/07/16 Aspirin [ASA -] 81 mg PO DAILY 12/06/16 Atorvastatin Calcium 80 mg PO DAILY 12/06/16 Valsartan [Diovan] 160 mg PO DAILY #30 tablet 12/09/16 Glimepiride 4 mg PO DAILY 06/21/17 Hydralazine HCl 25 mg PO TID 06/21/17 Isosorbide Mononitrate [Isosorbide Mononitrate ER] 120 mg PO DAILY 06/21/17 Levothyroxine Sodium [Levo-T] 25 mcg PO DAILY 06/21/17 Linaclotide [Linzess] 145 mcg PO DAILY 06/21/17 Colchicine [Colcrys -] 0.6 mg PO DAILY #30 tablet 06/24/17 Gabapentin [Neurontin -] 100 mg PO BID #60 capsule 06/24/17 Prednisone 5 mg PO BID #15 tab.ds.pk 06/24/17 Review of Systems - Review of Systems Comments:: 07/05/17 11:28 GENERAL/CONSTITUTIONAL: No fever or chills. No weakness. HEAD, EYES, EARS, NOSE AND THROAT: (+) left sided head laceration. No change in vision. No ear pain or discharge. No sore throat. CARDIOVASCULAR: No chest pain or shortness of breath. RESPIRATORY: No cough, wheezing, or hemoptysis. GASTROINTESTINAL: No nausea, vomiting, diarrhea or constipation. GENITOURINARY: No dysuria, frequency, or change in urination. MUSCULOSKELETAL: No joint or muscle swelling or pain. No neck or back pain. SKIN: No rash NEUROLOGIC: (+) headache. No vertigo, loss of consciousness, or change in strength/sensation. ENDOCRINE: No increased thirst. No abnormal weight change. HEMATOLOGIC/LYMPHATIC: No anemia, easy bleeding, or history of blood clots. ALLERGIC/IMMUNOLOGIC: No hives or skin allergy. <Lindsey Sousa - Last Filed: 07/05/17 15:23> *Physical Exam - Vital Signs Last Vital Signs Temp Pulse Resp BP Pulse Ox 98 F 60 19 154/68 99 07/05/17 10:25 07/05/17 10:25 07/05/17 10:25 07/05/17 10:25 07/05/17 10:25 <Nirmal Pepe - Last Filed: 07/05/17 15:11> - Vital Signs Last Vital Signs Temp Pulse Resp BP Pulse Ox 98 F 60 19 154/68 99 07/05/17 10:25 07/05/17 10:25 07/05/17 10:25 07/05/17 10:25 07/05/17 10:25 - Physical Exam Comments: 07/05/17 11:28 GENERAL: Patient is awake, alert and in no acute distress. Speech is clear and appropriate. HEAD: Small 0.5 cm superficial linear laceration on superior and posterior occiput. HEENT: No espinoza signs, no raccoon eyes. Left TM is clear with no blood. No ear injury or evidence of cauliflower ear. Pupils are equal round and reactive to light, extraocular movements are intact. The tympanic membranes are clear, no hemotympanum. No facial deformity. No facial bone tenderness or step-off. No nasal septal hematoma. The oropharynx is clear. NECK: The trachea is midline, there is no stridor. There is no midline cervical spine tenderness, full range of motion of neck. CHEST: Non-tender, no ecchymosis or abrasions. Equal chest wall expansion bilaterally. No flail segments. Lungs are clear to auscultation bilaterally. CARDIOVASCULAR: S1-S2, regular rate and rhythm. No murmurs or rubs. ABDOMEN: Soft, nontender, nondistended. Bowel sounds are normoactive. There is no abdominal or flank ecchymosis. BACK/PELVIS: There is no midline thoracic or lumbosacral spine tenderness or step-off. Pelvis is stable and nontender. EXTREMITIES: There is no extremity deformity or joint swelling. No focal bony tenderness throughout. 2+ distal pulses throughout. NEURO: Alert and oriented x3. Cranial nerves II through XII are intact. 5 out of 5 motor strength x4 extremities. No gross sensory deficits. Finger-nose- finger is intact. No pronator drift. Gait is stable. SKIN: No abrasions, hematomas. PSYCH: Affect is appropriate <Lindsey Sousa - Last Filed: 07/05/17 15:23> Procedures - Laceration/Wound Repair Upper Head Wound Length: to 2.5 cm Wound Explored: clean Wound's Depth, Shape: superficial Anesthesia: 1% Lidocaine Amount of Anesthetic (ccs): 1 Wound Debrided: minimal Wound Repaired With: [place] Number of Sutures: 2 Progress: 07/05/17 14:15 Wound irrigated with 400 of NS under high pressure. 1 cc of 1% lidocaine without epi infused locally. 2 kristina placed. <Nirmal Pepe - Last Filed: 07/05/17 15:11> ED Treatment Course - LABORATORY CBC & Chemistry Diagram: 07/05/17 14:42 07/05/17 14:42 - RADIOLOGY Radiology Studies Ordered: Category Date Time Status CERVICAL SPINE CT W/O CONTR [CT] Stat CT Scan 07/05/17 11:[address] WITHOUT CONTRAST [CT] Stat CT Scan 07/05/17 11:05 Ordered <MyNirmal - Last Filed: 07/05/17 15:11> - LABORATORY CBC & Chemistry Diagram: 07/05/17 14:42 07/05/17 14:42 - RADIOLOGY Radiograph Interpretation: 07/05/17 15:[address] Kenneth Ayala Impression: Small subacute subdural hematomas are seen along the left frontoparietal convexity, left posterior interhemispheric fissure and left tentorium. There is a small amount of acute subarachnoid blood along the left frontoparietal convexity laterally. A stable presumably benign 1 cm partially calcified soft tissue lesion is seen abutting the left lateral border of the septum pellucidum as discussed above. Periodic CT surveillance studies are suggested. C-spine CT reported by Dr. Kenneth Ayala Impression: NO fracture is identified. - Medications Given in the ED: ED Medications Discontinued Medications Generic Name Dose Route Start Last Admin Trade Name Freq PRN Reason Stop Dose Admin Oxycodone/Acetaminophen 1 combo 07/05/17 11:05 07/05/17 11:23 Percocet 5/325 - PO 07/05/17 11:06 1 combo ONCE ONE Administration <Lindsey Sousa - Last Filed: 07/05/17 15:23> Medical Decision Making - Critical Care Time Total Critical Care Time (minutes): 35 Critical Care Statement: The care of this patient involved high complexity decision making to prevent further life threatening deterioration of the patient 's condition and/or to evaluate & treat vital organ system(s) failure or risk of failure. - Medical Decision Making 07/05/17 11:21 A portion of this note was documented by scribe services under my direction. I have reviewed the details of the note, within reason, and agree with the documentation with the following case summary and management plan written by me. Patient treated in the ED. Nursing notes are reviewed and incorporated into the medical decision-making. Vital signs reviewed. Peripheral IV access obtained by the nurse, laboratory studies are drawn and sent, reviewed and interpreted by myself. Vital Signs Temp Pulse Resp BP Pulse Ox 98 F 60 19 154/68 99 07/05/17 10:25 07/05/17 10:25 07/05/17 10:25 07/05/17 10:25 07/05/17 10:25 76 yo F c/ pmh HTN, DM, HLD, arthritis, CAD on plavix, aspirin p/w mechanical fall. The patient had slipped on ice and fell and his back of head. Sustained a very superficial 0.5 cm superior posterior occiput. Last tetanus is unknown. Takes aspirin and plvix. Complains about headache and left ear pain. Left ear has no evidence of injury, cauliflower, hemotympanum. Patient will need a boostrix update. Head CT to r/o ICH, skull fracture. CT c-spine Pain control Likely staple repair required. 07/05/17 15:08 Small acute subdural hematoma and small amount of acute cerebral hemorrhage, secondary to trauma. CBC, BMP 07/05/17 14:[address] Chandra (neurosurgery). No platelet transfusions at this time. Repeat Head CT in 24 hours. Case discussed with Dr. Forrest. He accepts patient and requests ICU admission. Case discussed with Dr. Gomez who accepts patient to ICU. Case discussed in detail with admitting physician including history, physical exam and ancillary studies. Admitting physician has assumed care for the patient, will follow all pending diagnostics and will complete the evaluation and treatment. <Nirmal Pepe - Last Filed: 07/05/17 15:11> *DC/Admit/Observation/Transfer - Discharge Dispostion Admit: Yes <Nirmal Pepe - Last Filed: 07/05/17 15:11> - Attestations Scribe Attestion: 07/05/17 11:29 Documentation prepared by Lindsey Sousa, acting as medical dermatologist for Nirmal Pepe MD. <Lindsey Sousa - Last Filed: 07/05/17 15:23> Diagnosis at time of Disposition: Traumatic intracranial hemorrhage Qualifiers: Encounter type: initial encounter Loss of consciousness presence/duration: without LOC Qualified Code(s): S06.300A - Unspecified focal traumatic brain injury without loss of consciousness, initial encounter - Discharge Dispostion Condition at time of disposition: Stable - Referrals Referrals: Brett Wolf MD [Primary Care Provider] - - Patient Instructions - Post Discharge Activity
[2017-07-05 14:53] LABS: BASO % 0.3 % (0-2.0); EOS % 1.1 % (0-4.5); HEMATOCRIT 30.8 % (32.4-45.2); HEMOGLOBIN 9.8 GM/dL (10.7-15.3); LYMPH % 17.3 % (8-40); MCH 26.3 pg (25.7-33.7); MCHC 31.7 g/dl (32.0-36.0); MEAN PLT VOLUME 9.2 fl (7.5-11.1); MONO % 5.8 % (3.8-10.2); NEUT % 75.5 % (42.8-82.8); PLATELET COUNT 256 K/MM3 (134-434); RBC 3.71 M/mm3 (3.60-5.2); WHITE BLOOD COUNT 16.3 K/mm3 (4.0-10.0)
[2017-07-05 15:06] LABS: INR 0.81 (0.82-1.09); PROTHROMBIN TIME (PATIENT) 9.1 SEC (9.98-11.88)
[2017-07-05 15:09] LABS: ACTIVATED PTT 26.2 SECONDS (26.9-34.4)
[2017-07-05 15:18] LABS: ALBUMIN 3.1 g/dl (3.4-5.0); ANION GAP 11 (8-16); BILIRUBIN,TOTAL 0.3 mg/dL (0.2-1.0); BLOOD UREA NITROGEN 28 mg/dL (7-18); CALCIUM 8.3 mg/dL (8.5-10.1); CHLORIDE 109 mmol/L (98-107); CO2 24 mmol/L (21-32); CREATININE 0.8 mg/dL (0.55-1.02); GLUCOSE,RANDOM 75 mg/dL (74-106); POTASSIUM 3.5 mmol/L (3.5-5.1); SGOT/AST 30 U/L (15-37); SGPT/ALT 94 U/L (12-78); SODIUM 144 mmol/L (136-145); TOT PROT 5.8 g/dl (6.4-8.2)
[2017-07-05 15:19] LABS: ALK PHOS 111 U/L (45-117)
[2017-07-05 15:35] LABS: URINE APPEARANCE CLEAR; URINE BILIRUBIN NEGATIVE (NEGATIVE); URINE BLOOD NEGATIVE (NEGATIVE); URINE COLOR LTYELLOW; URINE GLUCOSE (UA) NEGATIVE (NEGATIVE); URINE KETONE NEGATIVE (NEGATIVE); URINE LEUK ESTERASE TRACE (NEGATIVE); URINE NITRITE NEGATIVE (NEGATIVE); URINE UROBILINOGEN NEGATIVE mg/dL (0.2-1.0)
[2017-07-05 15:37] LABS: URINE PROTEIN 1+ (NEGATIVE)
[2017-07-05] MEDS: SODIUM CHLORIDE 1,000 ML IV SCH (16:31)
[2017-07-06] MEDS ORDERED: ACETAMINOPHEN 325 MG TABLET (FP) PO PRN (06:58)
[2017-07-06] MEDS: sitaGLIPtin PHOSPHATE 50 MG TABLET PO SCH (07:10)
[2017-07-06] MEDS: LEVOTHYROXINE NA 25 MCG TABLET (FP) PO SCH (07:15)
[2017-07-06] MEDS: GLIMEPIRIDE 4 MG TABLET (FP) PO SCH (07:15)
[2017-07-06] MEDS ORDERED: HEMOQUE TEST 1 EACH EACH ONE (07:43)
[2017-07-06] MEDS: INSULIN SLIDING SCALE (NOVOLOG) 1 VIAL SQ SCH ×4 (07:48→21:09)
[2017-07-06 08:30] LABS: BASO % 0.6 % (0-2.0); HEMATOCRIT 33.3 % (32.4-45.2); HEMOGLOBIN 10.5 GM/dL (10.7-15.3); LYMPH % 21.7 % (8-40); MCH 26.2 pg (25.7-33.7); MCHC 31.5 g/dl (32.0-36.0); MEAN CELL VOLUME 83.3 fl (80-96); MEAN PLT VOLUME 8.7 fl (7.5-11.1); MONO % 7.4 % (3.8-10.2); NEUT % 69.3 % (42.8-82.8); PLATELET COUNT 270 K/MM3 (134-434); RBC 3.99 M/mm3 (3.60-5.2); RDW 15.2 % (11.6-15.6); WHITE BLOOD COUNT 15.9 K/mm3 (4.0-10.0)
[2017-07-06 08:55] LABS: ALBUMIN 3.4 g/dl (3.4-5.0); ANION GAP 8 (8-16); BLOOD UREA NITROGEN 19 mg/dL (7-18); CALCIUM 8.7 mg/dL (8.5-10.1); CHLORIDE 108 mmol/L (98-107); CO2 28 mmol/L (21-32); CREATININE 0.8 mg/dL (0.55-1.02); GLUCOSE,RANDOM 73 mg/dL (74-106); POTASSIUM 3.4 mmol/L (3.5-5.1); SGOT/AST 46 U/L (15-37); SGPT/ALT 116 U/L (12-78); SODIUM 144 mmol/L (136-145)
[2017-07-06 08:59] LABS: ALK PHOS 128 U/L (45-117); BILIRUBIN,TOTAL 0.7 mg/dL (0.2-1.0); TOT PROT 6.5 g/dl (6.4-8.2)
[2017-07-06] MEDS: predniSONE 5 MG TABLET (UD) PO SCH ×2 (09:13→22:06)
[2017-07-06] MEDS: ISOSORBIDE MONONITRATE 60 MG TAB.SR.24H (FP) PO SCH (09:13)
[2017-07-06] MEDS: COLCHICINE 0.6 MG TABLET (FP) PO SCH (09:13)
[2017-07-06] MEDS: GABAPENTIN 100 MG CAPSULE (FP) PO SCH ×2 (09:14→21:15)
[2017-07-06] MEDS ORDERED: PATIENT'S OWN MEDICATION (NON-FORMULARY) (Linaclotide [Linzess] 145 MCG) PO SCH (10:00)
[2017-07-06] MEDS: VALSARTAN 160 MG TABLET (UD) PO SCH (11:02)
--- NOTE | 2017-07-06 12:58 | HP ---
Admitting History and Physical - Primary Care Physician PCP: Brett Wolf - Admission History of Present Illness: 76 y/o F with a PMH of ACS, DM, HLD, HTN, and arthritis who presents to the ED s /p fall today. Patient slipped and fell onto her head. Patient has a laceration on the back of her head. She complains of a headache and left sided ear pain. Patient is currently on Aspirin and Plavix. Patient denies LOC or dizziness. Denies neck pain. Denies chest pain, SOB. Denies nausea, vomiting, diarrhea. Denies fever, chills. Last tetanus is unknown. 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) Gastrointestinal: Yes: GERD Renal/: Yes: Renal Calculi Musculoskeletal: Yes: Chronic low back pain Endocrine: Yes: Hyperthyroidism - Smoking History Smoking history: Never smoked Have you smoked in the past 12 months: No Aproximately how many cigarettes per day: 0 - Alcohol/Substance Use Hx Alcohol Use: No Home Medications - Allergies Allergies/Adverse Reactions: Allergies Allergy/AdvReac Type Severity Reaction Status Date / Time No Known Allergies Allergy Verified 07/05/17 10:25 - Home Medications Home Medications: Ambulatory Orders Clopidogrel Bisulfate [Plavix -] 75 mg PO DAILY #30 tablet 11/07/16 Metoprolol Succinate [Toprol XL -] 50 mg PO DAILY #30 tab 11/07/16 Sitagliptin Phosphate [Januvia -] 50 mg PO DAILY@0700 #30 tablet 11/07/16 Aspirin [ASA -] 81 mg PO DAILY 12/06/16 Atorvastatin Calcium 80 mg PO DAILY 12/06/16 Valsartan [Diovan] 160 mg PO DAILY #30 tablet 12/09/16 Glimepiride 4 mg PO DAILY 06/21/17 Hydralazine HCl 25 mg PO TID 06/21/17 Isosorbide Mononitrate [Isosorbide Mononitrate ER] 120 mg PO DAILY 06/21/17 Levothyroxine Sodium [Levo-T] 25 mcg PO DAILY 06/21/17 Linaclotide [Linzess] 145 mcg PO DAILY 06/21/17 Colchicine [Colcrys -] 0.6 mg PO DAILY #30 tablet 06/24/17 Gabapentin [Neurontin -] 100 mg PO BID #60 capsule 06/24/17 Prednisone 5 mg PO BID #15 tab.ds.pk 06/24/17 Review of Systems - Review of Systems Neurological: reports: Headache (left sided) Physical Examination Vital Signs: Vital Signs Temperature 98 F 07/06/17 07:39 Pulse Rate 75 07/06/17 12:00 Respiratory Rate 18 07/06/17 12:00 Blood Pressure 145/69 07/06/17 12:00 O2 Sat by Pulse Oximetry (%) 99 07/06/17 12:00 Constitutional: Yes: Calm HENT: Yes: Other (kristina seen in left occipital area) Cardiovascular: Yes: Regular Rate and Rhythm, S1, S2 Respiratory: Yes: CTA Bilaterally Gastrointestinal: Yes: Normal Bowel Sounds, Soft Edema: No Neurological: Yes: Alert, Oriented Labs: CBC, BMP 07/06/17 08:20 07/06/17 08:20 Imaging - Results Cat Scan: Report Reviewed (left tentorial acute sudural hematoma) Problem List - Problems (1) Traumatic intracranial hemorrhage Assessment/Plan: neurochecks icu monitiring POLO consult aspirin and plavix held PT eval Code(s): S06.309A - UNSP FOCAL TBI W LOC OF UNSP DURATION, INIT Qualifiers: Encounter type: initial encounter Loss of consciousness presence/duration: without LOC Qualified Code(s): S06.300A - Unspecified focal traumatic brain injury without loss of consciousness, initial encounter (2) CAD (coronary artery disease) Assessment/Plan: hold blood thinner for now BB and statin Code(s): I25.10 - ATHSCL HEART DISEASE OF [place] CORONARY ARTERY W/O ANG PCTRS (3) Diabetes mellitus Assessment/Plan: bgm [id number] diabetic diet amaryl Code(s): E11.9 - TYPE 2 DIABETES MELLITUS WITHOUT COMPLICATIONS Qualifiers: Diabetes mellitus type: type 2 (4) CHF (congestive heart failure) Assessment/Plan: BB and ARB Code(s): I50.9 - HEART FAILURE, UNSPECIFIED Qualifiers: Qualified Code(s): I50.9 - Heart failure, unspecified
[2017-07-06] MEDS ORDERED: POTASSIUM CHLORIDE TABS 20 MEQ TABLET.ER (FP) PO ONE ×2 (13:00→14:08)
[2017-07-06] MEDS: POTASSIUM CHLORIDE TABS 20 MEQ TABLET.ER (FP) PO ONE ×2 (13:02→14:11)
[2017-07-06] MEDS ORDERED: hydrALAZINE HCL 25 MG TABLET (FP) ONE (14:08)
[2017-07-06] MEDS: hydrALAZINE HCL 25 MG TABLET (FP) PO SCH ×2 (14:11→21:15)
--- NOTE | 2017-07-06 16:39 | PN ---
Progress Note (short form) - Note Progress Note: Patient seen and examined on arrival in the ICU. Patient arrived to ICU after mechanically slipping on ice. On ASA/Plavix. She was found to have acute SAH in the frontal sulci, as well as L posterior subdural hematoma. She currently has no complaints, denies headache, N, V, CP, SOB, or weakness. Patient is hemodynamically stable. Full neurological exam performed and shows no deficits. Full ICU consult to follow. Will monitor.
[2017-07-06] MEDS: SODIUM CHLORIDE 1,000 ML IV SCH (17:15)
[2017-07-06] MEDS ORDERED: PT OWN MED DRAWER 7, Y5N ONE ×2 (20:49→21:12)
[2017-07-06] MEDS ORDERED: ATORVASTATIN CA 80 MG TABLET (FP) PO SCH (22:00)
--- NOTE | 2017-07-06 23:23 | EKG ---
Test Reason : Blood Pressure : / mmHG Vent. Rate : 056 BPM Atrial Rate : 056 BPM P-R Int : 150 ms QRS Dur : 090 ms QT Int : 456 ms P-R-T Axes : 068 -46 030 degrees QTc Int : 440 ms SINUS BRADYCARDIA LEFT ANTERIOR FASCICULAR BLOCK MINIMAL VOLTAGE CRITERIA FOR LVH, MAY BE NORMAL VARIANT T WAVE ABNORMALITY, CONSIDER ANTEROLATERAL ISCHEMIA ABNORMAL ECG WHEN COMPARED WITH ECG OF 22-JUN-2017 13:59, NO SIGNIFICANT CHANGE WAS FOUND Confirmed by JARRET ROBERTS MD ([id number]) on 07/06/2017 11:23:12 PM Referred By: Confirmed By:JARRET ROBERTS MD
[2017-07-07] MEDS ORDERED: QUEtiapine FUMARATE 25 MG TABLET (FP) PO ONE (00:09)
--- NOTE | 2017-07-07 05:52 | CONSULT ---
Consult Consult Specialty:: pulm crititcal care Referred by:: jose biswas Reason for Consultation:: SAH - History of Present Illness Chief Complaint: s/p fall History of Present Illness: This is a 76 y/o F with a PMH of CHF, CAD, angina s/p stentx2 (on home Aspirin and Plavix), DM, HLD, HTN, and arthritis who presented to the ED s/p fall on . Patient slipped and fell onto her head. Patient has a laceration on the back of her head. She complained of a headache and left sided ear pain. Patient denied LOC or dizziness, neck pain, chest pain, SOB. No nausea, vomiting, diarrhea, fever, chills. PCP is Dr. Brett Wolf. Head CT:small acute SDHs seen along left frontoparietal convexity laterally and L posterior interhemispheric fissure and left tenorium, C-spine: negative, Repeat H CT unchanged. Upon arrival to ICU pt is alert oriented x4, but restless and trying to get up out of bed frequently with difficulty sleeping. Neuro exams are unremarkable and pt is without deficits. - History Source History Provided By: Medical Record Limitations to Obtaining History: Other (questionable dmentia) - Past Medical History IMPREGNATOR HELPER: No: Alzheimer's, CVA, Dementia, Migraine, Multiple Sclerosis, Peripheral Neuropathy, Parkinson's, Seizure, Syncope, TIA, Vertigo, Other Cardio/Vascular: Yes: CAD, HTN, Hyperlipdemia, Other (LV DYSFUNCTIO--EF 45) Gastrointestinal: Yes: GERD Hepatobiliary: No: Cirrhosis, Cholelithiasis, Cholecystitis, Choledocholithiasis , Hepatitis A, Hepatitis B, Hepatitis C, Other Renal/: Yes: Renal Calculi Reproductive: No: Ectopic , Endometriosis, Fibroids, PID, Polycystic Ovary Syndrome, Postmenopausal, Other Heme/Onc: No: Anemia, B12 Deficiency, Bleeding Disorder, Cancer, Current Chemotherapy, Current Radiation Therapy, Hemochromatosis, Hypercoaguable State, Myeloproliferative Synd, Sickle Cell Disease, Sickle Cell Trait, Thrombocytopenia, Other Infectious Disease: No: AIDS, C-Diff, Herpes Zoster, HIV, MRSA, STD's, Tuberculosis, VREF, Other Psych: No: Addictions, Anxiety, Bipolar, Depression, Panic, Psychosis, Schizophrenia, Other Musculoskeletal: Yes: Chronic low back pain Rheumatology: No: Fibromyalgia, Gout, Lupus, Rheumatoid Arthritis, Sarcoidosis, Vasculitis, Other ENT: No: Allergic Rhinitis, Sinusitis, Other Endocrine: Yes: Hyperthyroidism. No: [place]'s Disease, [place]'s Disease, Diabetes Insipidus, Diabetes Mellitus, Hyperparathyroidism, Hypothyroidism, Osteopenia, SIADH, Other Dermatology: No: Basal Cell, Cellulitis, Eczema, Melanoma, Psoriasis, Squamous Cell, Other - Past Surgical History Past Surgical History: No: None, AAA Repair, AICD, Amputation, Appendectomy, Arthrosocopy, AV Fistula/Graft, Bariatric Surgery, Breast Biopsy, Bypass, CABG, Carotid Endarterectomy, Cataract Removal, Cholecystectomy, Colectomy, Colonoscopy, Colostomy, Craniotomy, , Cystectomy, Hernia Repair, Hysterectomy, Ileal Conduit, Ileosotomy, Joint Replacement, Kidney Transplant, Laminectomy, Liver Transplant, Mastectomy, Nephrectomy, Oopherectomy, Orchiectomy, Permanent Pacemaker, Prostatectomy, Splenectomy, Stent, Thoracotomy , TURP, Tonsillectomy, Tubal Ligation, Upper Endoscopy, Valve Replacement, Vasectomy, Vein Stripping/Ligation - Alcohol/Substance Use Hx Alcohol Use: No History of Substance Use: reports: None - Smoking History Smoking history: Never smoked Have you smoked in the past 12 months: No Aproximately how many cigarettes per day: 0 - Social History Usual Living Arrangement: With Spouse ADL: Family Assistance Occupation: retired History of Recent Travel: No Home Medications - Allergies Allergies/Adverse Reactions: Allergies Allergy/AdvReac Type Severity Reaction Status Date / Time No Known Allergies Allergy Verified 07/05/17 10:25 - Home Medications Home Medications: Ambulatory Orders Clopidogrel Bisulfate [Plavix -] 75 mg PO DAILY #30 tablet 11/07/16 Metoprolol Succinate [Toprol XL -] 50 mg PO DAILY #30 tab 11/07/16 Sitagliptin Phosphate [Januvia -] 50 mg PO DAILY@0700 #30 tablet 11/07/16 Aspirin [ASA -] 81 mg PO DAILY 12/06/16 Atorvastatin Calcium 80 mg PO DAILY 12/06/16 Valsartan [Diovan] 160 mg PO DAILY #30 tablet 12/09/16 Glimepiride 4 mg PO DAILY 06/21/17 Isosorbide Mononitrate [Isosorbide Mononitrate ER] 120 mg PO DAILY 06/21/17 Levothyroxine Sodium [Levo-T] 25 mcg PO DAILY 06/21/17 Linaclotide [Linzess] 145 mcg PO DAILY 06/21/17 Colchicine [Colcrys -] 0.6 mg PO DAILY #30 tablet 06/24/17 Gabapentin [Neurontin -] 100 mg PO BID #60 capsule 06/24/17 Family Disease History - Family Disease History Family History: Unremarkable Review of Systems - Review of Systems Constitutional: reports: No Symptoms Eyes: reports: No Symptoms HENT: reports: No Symptoms Neck: reports: No Symptoms Cardiovascular: reports: No Symptoms Respiratory: reports: No Symptoms Gastrointestinal: reports: No Symptoms Genitourinary: reports: No Symptoms Breasts: reports: No Symptoms Reported Musculoskeletal: reports: No Symptoms Integumentary: reports: No Symptoms Neurological: reports: No Symptoms Endocrine: reports: No Symptoms Hematology/Lymphatic: reports: No Symptoms Psychiatric: reports: No Symptoms Physical Exam Vital Signs: Vital Signs Temperature 98.4 F 07/07/17 02:00 Pulse Rate 61 07/07/17 02:00 Respiratory Rate 18 07/07/17 02:00 Blood Pressure 130/61 07/07/17 02:00 O2 Sat by Pulse Oximetry (%) 95 07/06/17 20:31 Constitutional: Yes: Well Nourished, No Distress, Calm, Other (poor attention span) Eyes: Yes: WNL, Conjunctiva Clear, EOM Intact, PERRL HENT: No: WNL, Atraumatic, Normocephalic, Drooling, Epistaxis, Hoarseness, Nasal Congestion (head lac), Pharyngeal Erythema, Rhinnorhea, Thrush, Tonsillar Exudate, Other Neck: Yes: WNL, Supple, Trachea Midline. No: Decreased ROM, Lymphadenopathy, Rigid, Tenderness, Thyromegaly, Other Cardiovascular: Yes: WNL, Regular Rate and Rhythm Respiratory: Yes: WNL, Regular, CTA Bilaterally Gastrointestinal: Yes: WNL, Normal Bowel Sounds, Soft ...Rectal Exam: Yes: Deferred Renal/: Yes: WNL Breast(s): Yes: WNL Musculoskeletal: Yes: WNL Extremities: Yes: WNL Edema: No Peripheral Pulses WNL: Yes Integumentary: Yes: WNL Wound/Incision: Yes: Clean/Dry Neurological: Yes: WNL, Alert, Oriented (restless and has short attention span) ...Motor Strength: WNL Psychiatric: Yes: WNL, Alert, Oriented, Other (? dementia) Labs: CBC, BMP 07/06/17 08:20 07/06/17 08:20 Imaging - Results Chest X-ray: Report Reviewed (clear) Cat Scan: Report Reviewed (Head CT:small acute SDHs seen along left frontoparietal convexity laterally and L posterior interhemispheric fissure and left tenorium C-spine: negative) EKG: Report Reviewed (NSR no ST changes) Problem List - Problems (1) Traumatic intracranial hemorrhage Code(s): S06.309A - UNSP FOCAL TBI W LOC OF UNSP DURATION, INIT Qualifiers: Encounter type: initial encounter Loss of consciousness presence/duration: without LOC Qualified Code(s): S06.300A - Unspecified focal traumatic brain injury without loss of consciousness, initial encounter (2) Anxiety Code(s): F41.9 - ANXIETY DISORDER, UNSPECIFIED (3) CAD (coronary artery disease) Code(s): I25.10 - ATHSCL HEART DISEASE OF [place] CORONARY ARTERY W/O ANG PCTRS Assessment/Plan this is a 76 y/o F with a PMH of CHF, CAD, angina s/p stentx2 (on home Aspirin and Plavix), DM, HLD, HTN, and arthritis who presented to the ED s/p mechanical fall on 07/06/17. Patient slipped and fell onto her head. Patient has a laceration on the back of her head. She complained of a headache and left sided ear pain. Patient denied LOC or dizziness, neck pain, chest pain, SOB. No nausea , vomiting, diarrhea, fever, chills. PCP is Dr. Brett Wolf. Head CT: small acute SDHs seen along left frontoparietal convexity laterally and L posterior interhemispheric fissure and left tenorium, C-spine: negative, Repeat H CT unchanged. Upon arrival to ICU pt is alert oriented x4, but restless and trying to get up out of bed frequently with difficulty sleeping. Neuro checks are unremarkable and pt is without deficits. small acute SDHs CHF CAD s/p Stents DM type 2 Plan -frequent neurochecks -NeuroSrgy consult -Repeat Head CT -aspirin and plavix held for now -PT eval -BB, ARB and statin -bgm -hgba1c -diabetic diet -amaryl -Eval for baseline dementia Anuradha Biswas, ACNP-BC Pulm Critical Care
[2017-07-07] MEDS ORDERED: PT OWN MED DRAWER 7, Y5N ONE (06:33)
[2017-07-07] MEDS: INSULIN SLIDING SCALE (NOVOLOG) 1 VIAL SQ SCH ×4 (06:34→21:37)
[2017-07-07] MEDS: LEVOTHYROXINE NA 25 MCG TABLET (FP) PO SCH (06:34)
[2017-07-07] MEDS: sitaGLIPtin PHOSPHATE 50 MG TABLET PO SCH (06:34)
[2017-07-07] MEDS: hydrALAZINE HCL 25 MG TABLET (FP) PO SCH ×3 (06:34→21:37)
[2017-07-07 06:49] LABS: CHOLESTEROL 154 mg/dL (50-200); LDL CHOLESTEROL (ONLY SJRH) 75 mg/dL (5-100); TRIGLYCERIDES 65 mg/dL (35-160)
[2017-07-07 06:50] LABS: CHLORIDE 108 mmol/L (98-107); POTASSIUM 4.2 mmol/L (3.5-5.1); SODIUM 143 mmol/L (136-145)
[2017-07-07 06:51] LABS: HDL CHOLESTEROL 63 mg/dL (40-60)
[2017-07-07 07:05] LABS: ALBUMIN 3.1 g/dl (3.4-5.0); ALK PHOS 126 U/L (45-117); ANION GAP 8 (8-16); BILIRUBIN,TOTAL 0.7 mg/dL (0.2-1.0); BLOOD UREA NITROGEN 20 mg/dL (7-18); CALCIUM 8.2 mg/dL (8.5-10.1); CO2 27 mmol/L (21-32); CREATININE 0.9 mg/dL (0.55-1.02); GLUCOSE,RANDOM 95 mg/dL (74-106); SGOT/AST 49 U/L (15-37); SGPT/ALT 106 U/L (12-78); TOT PROT 5.7 g/dl (6.4-8.2)
--- NOTE | 2017-07-07 07:51 | EKG ---
Test Reason : Blood Pressure : / mmHG Vent. Rate : 061 BPM Atrial Rate : 061 BPM P-R Int : 172 ms QRS Dur : 090 ms QT Int : 416 ms P-R-T Axes : 064 -42 027 degrees QTc Int : 418 ms NORMAL SINUS RHYTHM LEFT AXIS DEVIATION MINIMAL VOLTAGE CRITERIA FOR LVH, MAY BE NORMAL VARIANT ANTERIOR INFARCT , AGE UNDETERMINED ABNORMAL ECG WHEN COMPARED WITH ECG OF 05-JUL-2017 16:11, T WAVE VARIATION Confirmed by JARRET ROBERTS MD ([id number]) on 07/06/2017 11:15:32 PM Referred By: Confirmed By:JARRET ROBERTS MD
--- NOTE | 2017-07-07 08:07 | PN ---
Progress Note, Physician History of Present Illness: 76 y/o F with a PMH of ACS (STEMI s/p cath and stent x2, on ASA and Plavix), DM , HLD, HTN, thyroid disease, and arthritis who slipped and fell on 07/06 and hit her head, no LOC or subsequent sxs except RESENDIZ and ear pain, CT showed small acute subdural hematoma and small amount of acute cerebral hemorrhage, secondary to trauma, also laceration on the back of her head. Last tetanus is unknown. SUBJECTIVE: Patient feeling well, no longer has headache, notes only right toe pain (from stated gout) and bilateral leg pain (from SCDs). 24 HOUR IN/OUT: Intake: 750cc Output: 500cc Net: 250cc BM: None - Current Medication List Current Medications: Active Medications Acetaminophen (Tylenol -) 650 mg PO Q4H PRN PRN Reason: PAIN LEVEL 4 - 6 Atorvastatin Calcium (Lipitor -) 80 mg PO HS [facility] Last Admin: 07/06/17 21:15 Dose: 80 mg Chlorhexidine Gluconate (Hibiclens For Decolonization -) 1 applic TP [facility] Colchicine (Colcrys -) 0.6 mg PO DAILY [facility] Last Admin: 07/06/17 09:13 Dose: 0.6 mg Gabapentin (Neurontin -) 100 mg PO BID [facility] Last Admin: 07/06/17 21:15 Dose: 100 mg Glimepiride (Amaryl -) 4 mg PO DAILY@0700 [facility] Last Admin: 07/06/17 07:15 Dose: 4 mg Hydralazine HCl (Apresoline -) 25 mg PO TID [facility] Last Admin: 07/07/17 06:34 Dose: 25 mg Insulin Aspart (Novolog Vial Sliding Scale -) 1 vial SQ ACHS [facility] PRN Reason: Protocol Last Admin: 07/07/17 06:34 Dose: Not Given Isosorbide Mononitrate (Imdur -) 120 mg PO DAILY [facility] Last Admin: 07/06/17 09:13 Dose: 120 mg Levothyroxine Sodium (Synthroid -) 25 mcg PO DAILY@0700 [facility] Last Admin: 07/07/17 06:34 Dose: 25 mcg Metoprolol Succinate (Toprol Xl -) 50 mg PO DAILY [facility] Last Admin: 07/06/17 09:14 Dose: 50 mg Mupirocin (Bactroban Ointment (For Decolonization) -) 1 applic NS BID [facility] Stop: 07/12/17 09:59 Non-Formulary Medication (Linaclotide [Linzess]) 145 mcg PO DAILY [facility] Prednisone (Deltasone -) 5 mg PO BID [facility] Stop: 07/08/17 09:59 Last Admin: 07/06/17 22:06 Dose: 5 mg Prednisone (Deltasone -) 5 mg PO DAILY [facility] Stop: 07/11/17 09:59 Sitagliptin Phosphate (Januvia -) 50 mg PO DAILY@0700 [facility] Last Admin: 07/07/17 06:34 Dose: 50 mg Valsartan (Diovan -) 160 mg PO DAILY [facility] Last Admin: 07/06/17 11:02 Dose: Not Given - Objective Vital Signs: Vital Signs Temperature 98.4 F 07/07/17 02:00 Pulse Rate 56 L 07/07/17 06:00 Respiratory Rate 14 07/07/17 06:00 Blood Pressure 133/53 07/07/17 06:00 O2 Sat by Pulse Oximetry (%) 95 07/06/17 20:31 Constitutional: Yes: Well Nourished, No Distress, Calm Eyes: Yes: Conjunctiva Clear, EOM Intact HENT: Yes: Normocephalic, Other (0.5 cm occipital scalp laceration which is CDI with kristina) Neck: Yes: Supple, Trachea Midline Cardiovascular: Yes: Regular Rate and Rhythm Respiratory: Yes: Regular, CTA Bilaterally Gastrointestinal: Yes: Normal Bowel Sounds, Soft Musculoskeletal: Yes: Joint Swelling (right hallux MTP mild swelling and pain on ROM which patient states is consistent with her normal gout). No: Back Pain Extremities: Yes: Other (mild pain on ROM of right shoulder). No: Cold, Cyanosis, Deformity, Erythema Edema: No Peripheral Pulses: Left Radial: 2+, Right Radial: 2+, Left Doralis Pedis: 2+, Right Dorsalis Pedis: 2+ Integumentary: Yes: WNL Neurological: Yes: Alert, Oriented, Tingling (stated unchanged chronic). No: Aphasia, Confusion, Dysarthria, Facial Droop, Loss of Sensation, Numbness, Tremors, Unsteady Gait, Weakness ...Motor Strength: WNL Psychiatric: Yes: WNL, Alert, Oriented Labs: CBC, BMP 07/07/17 05:30 INR, PTT INR 0.81 (0.82-1.09) L 07/05/17 14:42 - ....Imaging X-ray: Report Reviewed, Image Reviewed, Other (No acutre fracture, subluxation, or other bony deformity. Humeral head is positioned more superiorly in the glenoid fossa than prior XR which could indicate rotator cuff injury.) Assessment/Plan This is a 76 y/o F with a PMH of CHF, CAD, angina s/p stentx2 (on home Aspirin and Plavix), DM, HLD, HTN, and arthritis who presented to the ED s/p mechanical fall on 07/06/17. Patient slipped and fell onto her head. Patient has a laceration on the back of her head. She complained of a headache and left sided ear pain. Patient denied LOC or dizziness, neck pain, chest pain, SOB. No nausea , vomiting, diarrhea, fever, chills. PCP is Dr. Brett Wolf. Head CT: small acute SDHs seen along left frontoparietal convexity laterally and L posterior interhemispheric fissure and left tenorium, C-spine: negative, Repeat Head CT unchanged. Upon arrival to ICU pt is alert oriented x4, but restless and trying to get up out of bed frequently with difficulty sleeping. Neuro checks are unremarkable and pt is without deficits. NEURO #Traumatic ICH. Small SDH with possible small SAH. Asymptomatic except stated chronic BLE tingling -Frequent neurochecks -If change in neuro status repeat head CT -Neurosurgery and neurology consulting -Hold aspirin and plavix (patient's RANJIT stents placed in 09/2016) -Consider evaluation for baseline dementia CARDIAC #CAD, h/o stents and cardiac cath. -Beta litzy, ARB, statin -Cardiology consulting #CHF, stable. -Avoid fluid overload GI #Abnormal LFTs. Improving today. GGT 224. -Avoid Tylenol -Continue to monitor CMP -Abdominal US ENDO #Diabetes mellitus. -BGM -HbA1c -Diabetic diet ID #Leukocytosis, improving. Most likely stress response or glucocorticoids. -Monitor CBCD PPX -PT eval, order is in -SCDs DISPO Patient appropriate for transfer to floor
[2017-07-07 08:10] LABS: BASO % 0.4 % (0-2.0); EOS % 0.2 % (0-4.5); HEMATOCRIT 30.2 % (32.4-45.2); HEMOGLOBIN 9.9 GM/dL (10.7-15.3); LYMPH % 14.1 % (8-40); MCH 26.7 pg (25.7-33.7); MCHC 32.6 g/dl (32.0-36.0); MEAN CELL VOLUME 81.9 fl (80-96); MEAN PLT VOLUME 9.4 fl (7.5-11.1); MONO % 4.2 % (3.8-10.2); NEUT % 81.1 % (42.8-82.8); PLATELET COUNT 232 K/MM3 (134-434); RBC 3.68 M/mm3 (3.60-5.2); RDW 14.7 % (11.6-15.6); WHITE BLOOD COUNT 15.8 K/mm3 (4.0-10.0)
--- NOTE | 2017-07-07 08:12 | PN ---
Progress Note, Physician History of Present Illness: pt states felt confused yesterday better this am - Current Medication List Current Medications: Active Medications Acetaminophen (Tylenol -) 650 mg PO Q4H PRN PRN Reason: PAIN LEVEL 4 - 6 Atorvastatin Calcium (Lipitor -) 80 mg PO HS [facility] Last Admin: 07/06/17 21:15 Dose: 80 mg Chlorhexidine Gluconate (Hibiclens For Decolonization -) 1 applic TP HS [facility] Colchicine (Colcrys -) 0.6 mg PO DAILY [facility] Last Admin: 07/06/17 09:13 Dose: 0.6 mg Gabapentin (Neurontin -) 100 mg PO BID [facility] Last Admin: 07/06/17 21:15 Dose: 100 mg Glimepiride (Amaryl -) 4 mg PO DAILY@0700 [facility] Last Admin: 07/06/17 07:15 Dose: 4 mg Hydralazine HCl (Apresoline -) 25 mg PO TID [facility] Last Admin: 07/07/17 06:34 Dose: 25 mg Insulin Aspart (Novolog Vial Sliding Scale -) 1 vial SQ ACHS [facility] PRN Reason: Protocol Last Admin: 07/07/17 06:34 Dose: Not Given Isosorbide Mononitrate (Imdur -) 120 mg PO DAILY [facility] Last Admin: 07/06/17 09:13 Dose: 120 mg Levothyroxine Sodium (Synthroid -) 25 mcg PO DAILY@0700 [facility] Last Admin: 07/07/17 06:34 Dose: 25 mcg Metoprolol Succinate (Toprol Xl -) 50 mg PO DAILY [facility] Last Admin: 07/06/17 09:14 Dose: 50 mg Mupirocin (Bactroban Ointment (For Decolonization) -) 1 applic NS BID [facility] Stop: 07/12/17 09:59 Non-Formulary Medication (Linaclotide [Linzess]) 145 mcg PO DAILY [facility] Prednisone (Deltasone -) 5 mg PO BID [facility] Stop: 07/08/17 09:59 Last Admin: 07/06/17 22:06 Dose: 5 mg Prednisone (Deltasone -) 5 mg PO DAILY [facility] Stop: 07/11/17 09:59 Sitagliptin Phosphate (Januvia -) 50 mg PO DAILY@0700 [facility] Last Admin: 07/07/17 06:34 Dose: 50 mg Valsartan (Diovan -) 160 mg PO DAILY [facility] Last Admin: 07/06/17 11:02 Dose: Not Given - Objective Vital Signs: Vital Signs Temperature 98.4 F 07/07/17 02:00 Pulse Rate 56 L 07/07/17 06:00 Respiratory Rate 14 07/07/17 06:00 Blood Pressure 133/53 07/07/17 06:00 O2 Sat by Pulse Oximetry (%) 95 07/06/17 20:31 Cardiovascular: Yes: Regular Rate and Rhythm Respiratory: Yes: Regular, CTA Bilaterally Gastrointestinal: Yes: Normal Bowel Sounds, Soft Neurological: Yes: Alert, Oriented. No: Pre-Existing Deficit Labs: CBC, BMP 07/07/17 05:30 INR, PTT INR 0.81 (0.82-1.09) L 07/05/17 14:42 Problem List - Problems (1) Traumatic intracranial hemorrhage Assessment/Plan: neurochecks icu monitiring POLO consult aspirin and plavix held PT eval ct of head Code(s): S06.309A - UNSP FOCAL TBI W LOC OF UNSP DURATION, INIT Qualifiers: Encounter type: initial encounter Loss of consciousness presence/duration: without LOC Qualified Code(s): S06.300A - Unspecified focal traumatic brain injury without loss of consciousness, initial encounter (2) Abnormal LFTs Assessment/Plan: dc tylenol monitor us Code(s): R94.5 - ABNORMAL RESULTS OF LIVER FUNCTION STUDIES (3) Leukocytosis Assessment/Plan: maybe steroid/stress monitor Code(s): D72.829 - ELEVATED WHITE BLOOD CELL COUNT, UNSPECIFIED (4) CAD (coronary artery disease) Assessment/Plan: off asa and plavix cardio Code(s): I25.10 - ATHSCL HEART DISEASE OF [place] CORONARY ARTERY W/O ANG PCTRS (5) CHF (congestive heart failure) Assessment/Plan: stable Code(s): I50.9 - HEART FAILURE, UNSPECIFIED Qualifiers: Qualified Code(s): I50.9 - Heart failure, unspecified (6) Diabetes mellitus Assessment/Plan: bgm with ss Code(s): E11.9 - TYPE 2 DIABETES MELLITUS WITHOUT COMPLICATIONS Qualifiers: Diabetes mellitus type: type 2
[2017-07-07] MEDS: COLCHICINE 0.6 MG TABLET (FP) PO SCH (09:32)
[2017-07-07] MEDS: GABAPENTIN 100 MG CAPSULE (FP) PO SCH ×2 (09:32→21:37)
[2017-07-07] MEDS: ISOSORBIDE MONONITRATE 60 MG TAB.SR.24H (FP) PO SCH (09:33)
[2017-07-07] MEDS: predniSONE 5 MG TABLET (UD) PO SCH (09:35)
[2017-07-07] MEDS ORDERED: QUEtiapine FUMARATE 25 MG TABLET (FP) PO SCH (10:00)
[2017-07-07] MEDS ORDERED: MUPIROCIN 2% TOPICAL OINTMENT FOR DECOLONIZATION NS SCH ×2 (10:00→22:00)
[2017-07-07] MEDS: GLIMEPIRIDE 4 MG TABLET (FP) PO SCH (10:52)
[2017-07-07] MEDS: VALSARTAN 160 MG TABLET (UD) PO SCH (10:57)
--- NOTE | 2017-07-07 11:50 | CON.CARD ---
Consult Consult Specialty:: Cardiology Referred by:: Dr Forrest Reason for Consultation:: cad sdh - History of Present Illness Chief Complaint: fall History of Present Illness: She is a 76 y/o F with a PMH of CHF, CAD, angina s/p stentx2 (on home Aspirin and Plavix), DM, HLD, HTN, and arthritis who presented to the ED s/p fall on . Patient slipped and fell onto her head. She denied LOC or dizziness, neck pain, chest pain, SOB. No nausea, vomiting, diarrhea, fever, chills. Head CT:small acute SDHs seen along left frontoparietal convexity laterally and L posterior interhemispheric fissure and left tenorium, C-spine: negative, Repeat Head CT unchanged. Asa and Plavix have been held. 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 No: [place]'s Disease, [place]'s Disease, Diabetes Insipidus, Diabetes Mellitus, Hyperparathyroidism, Hypothyroidism, Osteopenia, SIADH, Other Dermatology: No: Basal Cell, Cellulitis, Eczema, Melanoma, Psoriasis, Squamous Cell, Other - Past Surgical History Past Surgical History: No: None, AAA Repair, AICD, Amputation, Appendectomy, Arthrosocopy, AV Fistula/Graft, Bariatric Surgery, Breast Biopsy, Bypass, CABG, Carotid Endarterectomy, Cataract Removal, Cholecystectomy, Colectomy, Colonoscopy, Colostomy, Craniotomy, , Cystectomy, Hernia Repair, Hysterectomy, Ileal Conduit, Ileosotomy, Joint Replacement, Kidney Transplant, Laminectomy, Liver Transplant, Mastectomy, Nephrectomy, Oopherectomy, Orchiectomy, Permanent Pacemaker, Prostatectomy, Splenectomy, Stent, Thoracotomy , TURP, Tonsillectomy, Tubal Ligation, Upper Endoscopy, Valve Replacement, Vasectomy, Vein Stripping/Ligation - Alcohol/Substance Use Hx Alcohol Use: No History of Substance Use: reports: None - Smoking History Smoking history: Never smoked Have you smoked in the past 12 months: No Aproximately how many cigarettes per day: 0 - Social History Usual Living Arrangement: With Spouse ADL: Family Assistance Occupation: retired History of Recent Travel: No Home Medications - Allergies Allergies/Adverse Reactions: Allergies Allergy/AdvReac Type Severity Reaction Status Date / Time No Known Allergies Allergy Verified 07/05/17 10:25 - Home Medications Home Medications: Ambulatory Orders Clopidogrel Bisulfate [Plavix -] 75 mg PO DAILY #30 tablet 11/07/16 Metoprolol Succinate [Toprol XL -] 50 mg PO DAILY #30 tab 11/07/16 Sitagliptin Phosphate [Januvia -] 50 mg PO DAILY@0700 #30 tablet 11/07/16 Aspirin [ASA -] 81 mg PO DAILY 12/06/16 Atorvastatin Calcium 80 mg PO DAILY 12/06/16 Valsartan [Diovan] 160 mg PO DAILY #30 tablet 12/09/16 Glimepiride 4 mg PO DAILY 06/21/17 Isosorbide Mononitrate [Isosorbide Mononitrate ER] 120 mg PO DAILY 06/21/17 Levothyroxine Sodium [Levo-T] 25 mcg PO DAILY 06/21/17 Linaclotide [Linzess] 145 mcg PO DAILY 06/21/17 Colchicine [Colcrys -] 0.6 mg PO DAILY #30 tablet 06/24/17 Gabapentin [Neurontin -] 100 mg PO BID #60 capsule 06/24/17 Vital Signs: Vital Signs Temperature 98.5 F 07/07/17 10:00 Pulse Rate 65 07/07/17 10:00 Respiratory Rate 14 07/07/17 10:00 Blood Pressure 153/65 07/07/17 10:00 O2 Sat by Pulse Oximetry (%) 95 02/19/18 20:31 Constitutional: Yes: Well Nourished, No Distress Eyes: Yes: Conjunctiva Clear, EOM Intact HENT: Yes: Atraumatic, Normocephalic Neck: Yes: Supple, Trachea Midline Respiratory: Yes: CTA Bilaterally Gastrointestinal: Yes: Normal Bowel Sounds, Soft - Other Data Labs, Other Data: CBC, BMP 07/07/17 05:30 07/07/17 05:30 INR, PTT INR 0.81 (0.82-1.09) L 07/05/17 14:42 Imaging - Results EKG: Report Reviewed (nsr lvh by voltage. no st or t wave changes.) Problem List - Problems (1) CAD (coronary artery disease) Assessment/Plan: She has known CAD but is stable without symptoms and has a traumatic SDH that is being managed conservatively. Hold dual antiplatelet therapy until stable from neurologic point of view, would restart asa without plavix if last stent was greater than 6-12 months ago. No need for inpatient cardiac workup at this point. Continue her other cardiac medications. follow as outpatient with her outpatient elastic yarn twister helper. Code(s): I25.10 - ATHSCL HEART DISEASE OF [place] CORONARY ARTERY W/O ANG PCTRS Qualifiers: Coronary Disease-Associated Artery/Lesion type: [place] artery [place] vs. transplanted heart: [place] heart Associated angina: without angina Qualified Code(s): I25.10 - Atherosclerotic heart disease of [place] coronary artery without angina pectoris
--- NOTE | 2017-07-07 12:58 | EKG ---
Test Reason : Blood Pressure : / mmHG Vent. Rate : 060 BPM Atrial Rate : 060 BPM P-R Int : 160 ms QRS Dur : 090 ms QT Int : 426 ms P-R-T Axes : 066 -41 044 degrees QTc Int : 426 ms NORMAL SINUS RHYTHM LEFT AXIS DEVIATION MINIMAL VOLTAGE CRITERIA FOR LVH, MAY BE NORMAL VARIANT ANTEROSEPTAL INFARCT (CITED ON OR BEFORE 06-JUL-2017) T WAVE ABNORMALITY, CONSIDER LATERAL ISCHEMIA ABNORMAL ECG Confirmed by Jonathan Kessler MD ([id number]) on 07/07/2017 12:57:38 PM Referred By: Nathaniel VALDOVINOS Confirmed By:Jonathan Kessler MD
[2017-07-07] MEDS ORDERED: INSULIN (NOVOLOG) ASPART 100 UNITS/ML 10ML VIAL ONE (21:20)
[2017-07-07] MEDS ORDERED: CHLORHEXIDINE GLUCONATE 4% CLEANSER FOR DECOLONIZATION TP SCH ×2 (22:00)
[2017-07-07] MEDS ORDERED: predniSONE 5 MG TABLET (UD) PO SCH (22:00)
[2017-07-07] MEDS ORDERED: ATORVASTATIN CA 80 MG TABLET (FP) PO SCH (22:00)
[2017-07-08] MEDS ORDERED: PT OWN MED DRAWER 7, Y5N ONE (06:28)
[2017-07-08] MEDS: hydrALAZINE HCL 25 MG TABLET (FP) PO SCH (06:43)
[2017-07-08] MEDS: INSULIN SLIDING SCALE (NOVOLOG) 1 VIAL SQ SCH ×2 (06:44→11:58)
[2017-07-08] MEDS ORDERED: LEVOTHYROXINE NA 25 MCG TABLET (FP) PO SCH (07:00)
[2017-07-08] MEDS ORDERED: GLIMEPIRIDE 4 MG TABLET (FP) PO SCH (07:00)
[2017-07-08] MEDS ORDERED: sitaGLIPtin PHOSPHATE 50 MG TABLET PO SCH (07:00)
[2017-07-08 08:31] LABS: HEMATOCRIT 30.1 % (32.4-45.2); HEMOGLOBIN 9.7 GM/dL (10.7-15.3); MCH 26.3 pg (25.7-33.7); MCHC 32.1 g/dl (32.0-36.0); MEAN PLT VOLUME 9.4 fl (7.5-11.1); PLATELET COUNT 230 K/MM3 (134-434); RBC 3.67 M/mm3 (3.60-5.2); RDW 14.8 % (11.6-15.6); WHITE BLOOD COUNT 12.9 K/mm3 (4.0-10.0)
[2017-07-08 09:00] LABS: ANION GAP 15 (8-16); BLOOD UREA NITROGEN 22 mg/dL (7-18); CALCIUM 9.1 mg/dL (8.5-10.1); CHLORIDE 105 mmol/L (98-107); CO2 22 mmol/L (21-32); GLUCOSE,RANDOM 179 mg/dL (74-106); MAGNESIUM 2.5 mg/dL (1.8-2.4); POTASSIUM 3.8 mmol/L (3.5-5.1); SODIUM 142 mmol/L (136-145)
[2017-07-08 09:04] LABS: ALK PHOS 116 U/L (45-117); BILIRUBIN,TOTAL 0.7 mg/dL (0.2-1.0); PHOSPHOROUS 4.5 mg/dL (2.5-4.9); SGOT/AST 33 U/L (15-37); SGPT/ALT 82 U/L (12-78); TOT PROT 5.9 g/dl (6.4-8.2)
[2017-07-08 09:50] VITALS: BP 131/51; PULSE 58; TEMP 98
[2017-07-08] MEDS ORDERED: ISOSORBIDE MONONITRATE 60 MG TAB.SR.24H (FP) PO SCH (10:00)
[2017-07-08] MEDS ORDERED: VALSARTAN 160 MG TABLET (UD) PO SCH (10:00)
[2017-07-08] MEDS ORDERED: COLCHICINE 0.6 MG TABLET (FP) PO SCH (10:00)
[2017-07-08] MEDS ORDERED: PATIENT'S OWN MEDICATION (NON-FORMULARY) (Linaclotide [Linzess] 145 MCG) PO SCH (10:00)
--- NOTE | 2017-07-08 10:02 | CONSULT ---
Consult - text type - Consultation Consultation Note: Neurology History of Present Illness 76 y/o F with a PMH of ACS, DM, HLD, HTN, and arthritis who presents to the ED s /p fall. Patient slipped and fell onto her head. Patient has a laceration on the back of her head. She complained of a headache and left sided ear pain. Patient denied LOC or dizziness. Denies neck pain. Denies chest pain, SOB. Denies nausea, vomiting, diarrhea. Denies fever, chills. Last tetanus is unknown. She was seen in the ER and found to have SDH on the L. Dr. Stewart consulted but not available. I received consult request and covering. Repeat CT head X 2 reviewed and SDH stable. Clinically, she is awake, alert, interactive, no focal deficits. Past History - Past Medical History Cardiac Disorders: Yes (angina, CAD,CATH WITH STENT) CVA: Yes (STEMI, 2 cardiac stents) COPD: No Diabetes: Yes HTN: Yes Hypercholesterolemia: Yes Kidney Stones: Yes Thyroid Disease: Yes - Immunization History Immunization Up to Date: Yes - Suicide/Smoking/Psychosocial Hx Smoking Status: No Smoking History: Never smoked Have you smoked in the past 12 months: No Number of Cigarettes Smoked Daily: 0 Hx Alcohol Use: No Drug/Substance Use Hx: No Substance Use Type: None Hx Substance Use Treatment: No - Past Medical History Allergies/Adverse Reactions: Allergies Allergy/AdvReac Type Severity Reaction Status Date / Time No Known Allergies Allergy Verified 07/05/17 10:25 Active Medications Atorvastatin Calcium (Lipitor -) 80 mg PO HS [facility] Last Admin: 07/07/17 21:36 Dose: 80 mg Colchicine (Colcrys -) 0.6 mg PO DAILY [facility] Gabapentin (Neurontin -) 100 mg PO BID [facility] Last Admin: 07/07/17 21:37 Dose: 100 mg Glimepiride (Amaryl -) 4 mg PO DAILY@0700 [facility] Last Admin: 07/08/17 06:43 Dose: 4 mg Hydralazine HCl (Apresoline -) 25 mg PO TID [facility] Last Admin: 07/08/17 06:43 Dose: 25 mg Insulin Aspart (Novolog Vial Sliding Scale -) 1 vial SQ ACHS [facility] PRN Reason: Protocol Last Admin: 07/08/17 06:44 Dose: Not Given Isosorbide Mononitrate (Imdur -) 120 mg PO DAILY [facility] Levothyroxine Sodium (Synthroid -) 25 mcg PO DAILY@0700 [facility] Last Admin: 07/08/17 06:43 Dose: 25 mcg Metoprolol Succinate (Toprol Xl -) 50 mg PO DAILY [facility] Non-Formulary Medication (Linaclotide [Linzess]) 145 mcg PO DAILY [facility] Prednisone (Deltasone -) 5 mg PO BID [facility] Stop: 07/08/17 09:59 Last Admin: 07/07/17 21:37 Dose: 5 mg Prednisone (Deltasone -) 5 mg PO DAILY [facility] Stop: 07/11/17 09:59 Sitagliptin Phosphate (Januvia -) 50 mg PO DAILY@0700 [facility] Last Admin: 07/08/17 06:43 Dose: 50 mg Valsartan (Diovan -) 160 mg PO DAILY [facility] Review of Systems GENERAL/CONSTITUTIONAL: No fever or chills. No weakness. HEAD, EYES, EARS, NOSE AND THROAT: (+) left sided head laceration. No change in vision. No ear pain or discharge. No sore throat. CARDIOVASCULAR: No chest pain or shortness of breath. RESPIRATORY: No cough, wheezing, or hemoptysis. GASTROINTESTINAL: No nausea, vomiting, diarrhea or constipation. GENITOURINARY: No dysuria, frequency, or change in urination. MUSCULOSKELETAL: No joint or muscle swelling or pain. No neck or back pain. SKIN: No rash NEUROLOGIC: (+) headache. No vertigo, loss of consciousness, or change in strength/sensation. ENDOCRINE: No increased thirst. No abnormal weight change. HEMATOLOGIC/LYMPHATIC: No anemia, easy bleeding, or history of blood clots. ALLERGIC/IMMUNOLOGIC: No hives or skin allergy. *Physical Exam Vital Signs Temperature 98 F 07/08/17 09:49 Pulse Rate 58 L 07/08/17 09:49 Respiratory Rate 16 07/08/17 09:49 Blood Pressure 131/51 07/08/17 09:49 O2 Sat by Pulse Oximetry (%) 97 07/07/17 22:00 GENERAL: Patient is awake, alert and in no acute distress. Speech is clear and appropriate. HEAD: Small 0.5 cm superficial linear laceration on superior and posterior occiput. HEENT: No espinoza signs, no raccoon eyes. Left TM is clear with no blood. No ear injury or evidence of cauliflower ear. Pupils are equal round and reactive to light, extraocular movements are intact. The tympanic membranes are clear, no hemotympanum. No facial deformity. No facial bone tenderness or step-off. No nasal septal hematoma. The oropharynx is clear. NECK: The trachea is midline, there is no stridor. There is no midline cervical spine tenderness, full range of motion of neck. CHEST: Non-tender, no ecchymosis or abrasions. Equal chest wall expansion bilaterally. No flail segments. Lungs are clear to auscultation bilaterally. CARDIOVASCULAR: S1-S2, regular rate and rhythm. No murmurs or rubs. ABDOMEN: Soft, nontender, nondistended. Bowel sounds are normoactive. There is no abdominal or flank ecchymosis. BACK/PELVIS: There is no midline thoracic or lumbosacral spine tenderness or step-off. Pelvis is stable and nontender. EXTREMITIES: There is no extremity deformity or joint swelling. No focal bony tenderness throughout. 2+ distal pulses throughout. NEURO: Alert and oriented x3. Cranial nerves II through XII are intact. 5 out of 5 motor strength x4 extremities. No gross sensory deficits. Finger-nose- finger is intact. No pronator drift. Gait is stable. PSYCH: Affect is appropriate CBCD WBC 12.9 K/mm3 (4.0-10.0) H 07/08/17 08:10 RBC 3.67 M/mm3 (3.60-5.2) 07/08/17 08:10 Hgb 9.7 GM/dL (10.7-15.3) L 07/08/17 08:10 Hct 30.1 % (32.4-45.2) L 07/08/17 08:10 MCV 82.0 fl (80-96) 07/08/17 08:10 MCHC 32.1 g/dl (32.0-36.0) 07/08/17 08:10 RDW 14.8 % (11.6-15.6) 07/08/17 08:10 Plt Count 230 K/MM3 (134-434) 07/08/17 08:10 MPV 9.4 fl (7.5-11.1) 07/08/17 08:10 CMP Sodium 142 mmol/L (136-145) 07/08/17 08:10 Potassium 3.8 mmol/L (3.5-5.1) 07/08/17 08:10 Chloride 105 mmol/L (98-107) 07/08/17 08:10 Carbon Dioxide 22 mmol/L (21-32) 07/08/17 08:10 Anion Gap 15 (8-16) 07/08/17 08:10 BUN 22 mg/dL (7-18) H 07/08/17 08:10 Creatinine 1.0 mg/dL (0.55-1.02) 07/08/17 08:10 Creat Clearance w eGFR 54.05 (>60) 07/08/17 08:10 Calcium 9.1 mg/dL (8.5-10.1) 07/08/17 08:10 Total Bilirubin 0.7 mg/dL (0.2-1.0) 07/08/17 08:10 AST 33 U/L (15-37) 07/08/17 08:10 ALT 82 U/L (12-78) H 07/08/17 08:10 Alkaline Phosphatase 116 U/L (45-117) 07/08/17 08:10 Total Protein 5.9 g/dl (6.4-8.2) L 07/08/17 08:10 Albumin 3.0 g/dl (3.4-5.0) L 07/08/17 08:10 - RADIOLOGY Radiograph Interpretation: Head CT Impression: Small subacute subdural hematomas are seen along the left frontoparietal convexity, left posterior interhemispheric fissure and left tentorium. There is a small amount of acute subarachnoid blood along the left frontoparietal convexity laterally. A stable presumably benign 1 cm partially calcified soft tissue lesion is seen abutting the left lateral border of the septum pellucidum as discussed above. Periodic CT surveillance studies are suggested. C-spine CT Impression: NO fracture is identified. Medical Decision Making 76 y/o F with a PMH of ACS, DM, HLD, HTN, and arthritis who presents to the ED s /p fall. Patient slipped and fell onto her head. Patient has a laceration on the back of her head. She complained of a headache and left sided ear pain. Patient denied LOC or dizziness. Denies neck pain. Denies chest pain, SOB. Denies nausea, vomiting, diarrhea. Denies fever, chills. Last tetanus is unknown. She was seen in the ER and found to have SDH on the L. Dr. Stewart consulted but not available. I received consult request and covering. Repeat CT head X 2 reviewed and SDH stable. Clinically, she is awake, alert, interactive, no focal deficits. At this time remains stable, recommend tight blood pressure control to avoid any further progression of bleeding, continue Imdur and Diovan. Blood products will resorb with time. Not currently on antiplatelet regiment. Would hold for 1 week and then can restart. Do not want to expose her to increased risk of NC, CVA, etc. and therefore do not want to hold for extended period of time. Discussed with her fall precautions in detail. She was in agreement.
[2017-07-08] MEDS: GABAPENTIN 100 MG CAPSULE (FP) PO SCH (10:46)
--- NOTE | 2017-07-08 11:00 | DS ---
Physical Examination Vital Signs: Vital Signs Temperature 98 F 07/08/17 09:49 Pulse Rate 58 L 07/08/17 09:49 Respiratory Rate 16 07/08/17 09:49 Blood Pressure 131/51 07/08/17 09:49 O2 Sat by Pulse Oximetry (%) 97 07/07/17 22:00 Findings/Remarks: AWAKE ALERT CHART REVIEWED READY TO GO HOME WITH HOME HEALTH AID Constitutional: Yes: No Distress Eyes: Yes: WNL HENT: Yes: WNL Neck: Yes: WNL Cardiovascular: Yes: WNL Respiratory: Yes: WNL Gastrointestinal: Yes: WNL Renal/: Yes: WNL Musculoskeletal: Yes: WNL Extremities: Yes: WNL Edema: No Peripheral Pulses WNL: Yes Integumentary: Yes: WNL Wound/Incision: Yes: Clean/Dry Neurological: Yes: WNL ...Motor Strength: WNL Psychiatric: Yes: WNL Labs: CBC, BMP 07/08/17 08:10 07/08/17 08:10 Discharge Summary Reason For Visit: INTRACRANIAL HEMMORRAGE Current Active Problems Abnormal LFTs (Acute) Leukocytosis (Acute) Traumatic intracranial hemorrhage (Acute) Procedures: Principal: CT HEAD X 2 Hospital Course: ADMITTED WITH SDH, MONITORED AND WORKED UP WITH NEURO AND CARDIO PT EVAL DONE DC HOME STRICT FOLLOW UP UA AND C+S NOW, F/U OUTPATIENT NO FEVERS Condition: Stable - Instructions Diet, Activity, Other Instructions: LOW SALT LOW FAT PT OUTPATIENT [facility] FOLLOW URINE C+S OUTPATIENT SEE DR MANCIA IN 3 DAYS HOLD PLAVIX AND ASA FOR 7 DAYS THEN RESTART Referrals: Brett Wolf MD [Primary Care Provider] - Disposition: VNS/HOME HEALTH CARE - Home Medications Comprehensive Discharge Medication List: Ambulatory Orders Clopidogrel Bisulfate [Plavix -] 75 mg PO DAILY #30 tablet 11/07/16 Metoprolol Succinate [Toprol XL -] 50 mg PO DAILY #30 tab 11/07/16 Sitagliptin Phosphate [Januvia -] 50 mg PO DAILY@0700 #30 tablet 11/07/16 Aspirin [ASA -] 81 mg PO DAILY 12/06/16 Atorvastatin Calcium 80 mg PO DAILY 12/06/16 Valsartan [Diovan] 160 mg PO DAILY #30 tablet 12/09/16 Glimepiride 4 mg PO DAILY 06/21/17 Isosorbide Mononitrate [Isosorbide Mononitrate ER] 120 mg PO DAILY 06/21/17 Levothyroxine Sodium [Levo-T] 25 mcg PO DAILY 06/21/17 Linaclotide [Linzess] 145 mcg PO DAILY 06/21/17 Colchicine [Colcrys -] 0.6 mg PO DAILY #30 tablet 06/24/17 Gabapentin [Neurontin -] 100 mg PO BID #60 capsule 06/24/17
[2017-07-09] MEDS ORDERED: predniSONE 5 MG TABLET (UD) PO SCH ×2 (10:00)
== END 2017-07-08 13:47 | disposition home health service (06) | DRG 87 ==
LOC: JER 10:07 → JERBED 15:43 → JICU 07-06 15:20 → J5S 07-07 18:30
PROVIDERS: ADMIT Family Medicine; ATTEND Family Medicine
PROC: 0HQ0XZZ Repair Scalp Skin, External Approach (ICD-10-PCS; principal; 2017-07-05)
DX: S06.6X0A Traumatic subarachnoid hemorrhage without loss of consciousness, initial encounter (principal); S06.5X0A Traumatic subdural hemorrhage without loss of consciousness, initial encounter; I25.10 Atherosclerotic heart disease of native coronary artery without angina pectoris; E11.9 Type 2 diabetes mellitus without complications; I50.9 Heart failure, unspecified; I11.0 Hypertensive heart disease with heart failure; M19.90 Unspecified osteoarthritis, unspecified site; S01.01XA Laceration without foreign body of scalp, initial encounter; W00.0XXA Fall on same level due to ice and snow, initial encounter; Y93.29 Activity, other involving ice and snow; Y92.89 Other specified places as the place of occurrence of the external cause; Y99.8 Other external cause status; E78.5 Hyperlipidemia, unspecified; I25.2 Old myocardial infarction; Z95.5 Presence of coronary angioplasty implant and graft; M54.5 Low back pain; E05.90 Thyrotoxicosis, unspecified without thyrotoxic crisis or storm; D72.829 Elevated white blood cell count, unspecified; R74.8 Abnormal levels of other serum enzymes; Z79.84 Long term (current) use of oral hypoglycemic drugs
CPT/HCPCS: 36415; 70450-TC; 71045-TC-FY; 72125-TC; 73030-TC-LT-FY; 76705-TC; 80053; 80061; 81003; 81015; 82550; 82962; 82977; 83036; 83721; 83735; 84100; 84443; 84484; 85025; 85027; 85610; 85730; 86850; 86900; 86901; 87086; 90715; 93005; 93010; 97116-GP; 97161-GP; 99285-25

== ENCOUNTER 2017-10-08 12:11 | Observation (INO) | payer OTHER ==
[2017-10-08 12:31] VITALS: BMI 25.5
[2017-10-08] MEDS ORDERED: ASPIRIN 81 MG CHEWABLE TABLETS PO ONE (12:44)
--- NOTE | 2017-10-08 12:45 | PDOC ---
Attending Attestation - Resident Resident Name: Julio Griffin - ED Attending Attestation I have performed the following: I have examined & evaluated the patient, The case was reviewed & discussed with the resident, I agree w/resident's findings & plan, Exceptions are as noted - HPI HPI: 10/08/17 12:46 77y F hx of CAD s/p pci, dm, htn, gout, presents with chest pain that started last night, resolved this morning with sl NTG by EMS, also gien ASA by EMS. No associated sob leg swelling. EMS reports pts vitals noted for bradycardia to the 40s with slightly hypertensive bp and normal mentation. exam: generally: no acute distress, alert cardiac: bradycardic, no m/r/g pulm: cta, no wheezing/rales/rhonchi, speaking complete setnences abd: soft nontender ddx includes acs, pt als onotably darin down to low 40s but mentating well and with htn - pt on monitor, pacer at the ready ekg noted for TWI in [place] lateral leads, unchanged form prior. will ck labs, will r/o acs anticipate observation for further monitoring and card eval for bradycardia and chest pain risk stratification - Physicial Exam PE: 10/26/17 17:27 see above - Medical Decision Making 10/26/17 17:27 see above
[2017-10-08 13:36] LABS: BASO % 0.6 % (0-2.0); HEMATOCRIT 30.6 % (32.4-45.2); LYMPH % 23.7 % (8-40); MCHC 32.8 g/dl (32.0-36.0); MEAN CELL VOLUME 79.2 fl (80-96); MEAN PLT VOLUME 8.9 fl (7.5-11.1); MONO % 5.5 % (3.8-10.2); NEUT % 69.2 % (42.8-82.8); PLATELET COUNT 222 K/MM3 (134-434); RBC 3.86 M/mm3 (3.60-5.2); RDW 17.7 % (11.6-15.6); WHITE BLOOD COUNT 7.5 K/mm3 (4.0-10.0)
--- NOTE | 2017-10-08 13:41 | PDOC ---
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 Onset was at rest last night. Patient is not aware of any modifying factors. Endorses associated shortness of breath. Patient was given 4 baby aspirin and SL nitro by EMS, and pain resolved. EMS reports bradycardia to the 40s in the field, but patient's BP was stable and not altered. Patient denies recent travel, leg swelling, and history of blood clots. Patient reports no pain at this time. <Julio Griffin - Last Filed: 10/08/17 15:43> - General Chief Complaint: Chest Pain Stated Complaint: CHEST PAIN Time Seen by Provider: 10/08/17 12:32 Past History <Lexii Ceballos - Last Filed: 10/08/17 15:25> - Past Medical History Cardiac Disorders: Yes (angina, CAD,CATH WITH STENT) CVA: Yes (STEMI, 2 cardiac stents) COPD: No Diabetes: Yes HTN: Yes Hypercholesterolemia: Yes Kidney Stones: Yes Thyroid Disease: Yes - Immunization History Immunization Up to Date: Yes - Suicide/Smoking/Psychosocial Hx Smoking Status: No Smoking History: Never smoked Have you smoked in the past 12 months: No Number of Cigarettes Smoked Daily: 0 Information on smoking cessation initiated: No Hx Alcohol Use: No Drug/Substance Use Hx: No Substance Use Type: None Hx Substance Use Treatment: No <Julio Griffin - Last Filed: 10/08/17 15:43> - Past Medical History Allergies/Adverse Reactions: Allergies Allergy/AdvReac Type Severity Reaction Status Date / Time No Known Allergies Allergy Verified 07/05/17 10:25 Home Medications: Ambulatory Orders Metoprolol Succinate [Toprol XL -] 50 mg PO DAILY #30 tab 11/07/16 Sitagliptin Phosphate [Januvia -] 50 mg PO DAILY@0700 #30 tablet 11/07/16 Atorvastatin Calcium 80 mg PO DAILY 12/06/16 Valsartan [Diovan] 160 mg PO DAILY #30 tablet 12/09/16 Glimepiride 4 mg PO DAILY 06/21/17 Isosorbide Mononitrate [Isosorbide Mononitrate ER] 120 mg PO DAILY 06/21/17 Levothyroxine Sodium [Levo-T] 25 mcg PO DAILY 06/21/17 Linaclotide [Linzess] 145 mcg PO DAILY 06/21/17 Colchicine [Colcrys -] 0.6 mg PO DAILY #30 tablet 06/24/17 Gabapentin [Neurontin -] 100 mg PO BID #60 capsule 06/24/17 Acetaminophen [Tylenol .Regular Strength -] 650 mg PO Q4H PRN tablet 07/08/17 Aspirin [ASA -] 81 mg PO DAILY #0 tablet 07/08/17 Clopidogrel Bisulfate [Plavix -] 75 mg PO DAILY #30 tablet 07/08/17 Mupirocin Ointment [Bactroban Ointment (For Decolonization) -] 1 applic NS BID # 90 applic 07/08/17 predniSONE [Deltasone -] 5 mg PO DAILY tablet 07/08/17 Review of Systems - Review of Systems Comments:: 10/08/17 13:38 GENERAL/CONSTITUTIONAL: No fever or chills. No weakness. HEAD, EYES, EARS, NOSE AND THROAT: No change in vision. No sore throat. CARDIOVASCULAR: Positive for chest pain and shortness of breath RESPIRATORY: No cough, wheezing, or hemoptysis. GASTROINTESTINAL: No nausea, vomiting, diarrhea or constipation. GENITOURINARY: No dysuria, frequency, or change in urination. MUSCULOSKELETAL: No joint or muscle swelling or pain. No neck or back pain. SKIN: No rash NEUROLOGIC: No headache, vertigo, loss of consciousness, or change in strength/ sensation. HEMATOLOGIC/LYMPHATIC: No anemia, easy bleeding, or history of blood clots. ALLERGIC/IMMUNOLOGIC: No hives or skin allergy. <Julio Griffin - Last Filed: 10/08/17 15:43> *Physical Exam - Vital Signs Last Vital Signs Temp Pulse Resp BP Pulse Ox 97.9 F 44 L 20 172/63 100 10/08/17 12:22 10/08/17 12:22 10/08/17 12:22 10/08/17 12:22 10/08/17 12:22 <Lexii Ceballos - Last Filed: 10/08/17 15:25> - Vital Signs Last Vital Signs Temp Pulse Resp BP Pulse Ox 97.9 F 44 L 20 172/63 100 10/08/17 12:22 10/08/17 12:22 10/08/17 12:22 10/08/17 12:22 10/08/17 12:22 - Physical Exam Comments: 10/08/17 13:39 GENERAL: Awake, alert, and fully oriented, in no acute distress HEAD: No signs of trauma, normocephalic, atraumatic EYES: PERRLA, EOMI, sclera anicteric, conjunctiva clear ENT: Auricles normal inspection, hearing grossly normal, nares patent, oropharynx clear without exudates. Moist mucosa NECK: Normal ROM, supple, no lymphadenopathy, JVD, or masses LUNGS: No distress, speaks full sentences, clear to auscultation bilaterally HEART: Bradycardic, normal S1 and S2, no murmurs, rubs or gallops, peripheral pulses normal and equal bilaterally. ABDOMEN: Soft, nontender, normoactive bowel sounds. No guarding, no rebound. No masses EXTREMITIES: Normal inspection, Normal range of motion, no edema. No clubbing or cyanosis. NEUROLOGICAL: Cranial nerves II through XII grossly intact. Normal speech, no focal sensorimotor deficits SKIN: Warm, Dry, normal turgor, no rashes or lesions noted. <Julio Griffin - Last Filed: 10/08/17 15:43> Heart Score/ECG Review - History History: Moderately suspicious - Electrocardiogram EKG: Non specific repolarization disturbance - Age Age: >/= 65 - Risk Factors Risk Factors Heart Score: Yes Hx Hypercholesterolemia, Yes Hx Hypertension, Yes Hx Diabetes Based on the list above the patient has:: >/=3 risk factors or Hx atherosclerotic disease - Troponin Troponin: </= normal limit - Score Heart Score - Total: 6 <Julio Griffin - Last Filed: 10/08/17 15:43> ED Treatment Course - LABORATORY CBC & Chemistry Diagram: 10/08/17 13:25 10/08/17 13:24 - ADDITIONAL ORDERS Additional order review: Laboratory Results 10/08/17 10/08/17 13:25 13:24 PT with INR 10.20 INR 0.90 Sodium 136 Potassium 4.1 Chloride 103 Carbon Dioxide 25 Anion Gap 8 BUN 19 H Creatinine 1.0 Creat Clearance w eGFR 53.91 Random Glucose 212 H Calcium 8.5 Magnesium 2.1 Total Bilirubin 0.6 AST 16 ALT 20 Alkaline Phosphatase 73 Creatine Kinase 142 Troponin I < 0.02 Total Protein 6.0 L Albumin 3.2 L 10/08/17 13:25 RBC 3.86 MCV 79.2 L MCHC 32.8 RDW 17.7 H MPV 8.9 Neutrophils % 69.2 Lymphocytes % 23.7 Monocytes % 5.5 Eosinophils % 1.0 Basophils % 0.6 - Medications Given in the ED: ED Medications Discontinued Medications Generic Name Dose Route Start Last Admin Trade Name Verna PRN Reason Stop Dose Admin Aspirin 162 mg 10/08/17 12:44 10/08/17 13:44 Asa - PO 10/08/17 12:45 Not Given ONCE ONE <Lexii Ceballos - Last Filed: 10/08/17 15:25> - LABORATORY CBC & Chemistry Diagram: 10/08/17 13:25 10/08/17 13:24 - RADIOLOGY Radiology Studies Ordered: Category Date Time Status CXRPORT [CHEST X-RAY PORTABLE*] [RAD] Stat Radiology 10/08/17 12:45 Taken <Julio Griffin - Last Filed: 10/08/17 15:43> Medical Decision Making - Medical Decision Making 10/08/17 15:00 Dr. Zazueta was paged and notified via phone service. Second page was placed at 15: 26. <Lexii Ceballos - Last Filed: 10/08/17 15:25> - Medical Decision Making 10/08/17 13:39 Patient is 77F with history of CAD s/p stenting, DM, HTN here today complaining of chest pain. Vital signs notable for bradycardia. EKG shows sinus bradycardia with rate of 44. No st elevations/depressions. T wave inversions in II, III, aVF, V3-V6. Similar t wave inversions noted in prior EKGs. Left axis deviation. Normal MI/QRS/QTc intervals. History and bradycardia concerning for ischemia. Do not suspect PE at this time given history, EKG and exam. Will evaluate with cardiac workup. Patient will be admitted. 10/08/17 14:18 CXR shows no acute cardiopulmonary process. 10/08/17 14:19 Laboratory Tests 10/08/17 10/08/17 13:24 13:25 WBC 7.5 Hgb 10.0 L D Plt Count 222 Random Glucose 212 H Troponin I < 0.02 CBC normal. Trop undetectable. CMP shows elevated glucose. 10/08/17 15:42 Admitted to tele via Dr Zazueta <Julio Griffin - Last Filed: 10/08/17 15:43> *DC/Admit/Observation/Transfer <Lexii Ceballos - Last Filed: 10/08/17 15:25> - Discharge Dispostion Decision to Admit order: Yes <Julio Griffin - Last Filed: 10/08/17 15:43> Diagnosis at time of Disposition: Chest pain - Discharge Dispostion Condition at time of disposition: Stable - Referrals Referrals: Brett Wolf MD [Primary Care Provider] - - Patient Instructions - Post Discharge Activity
[2017-10-08 14:03] LABS: ALBUMIN 3.2 g/dl (3.4-5.0); ANION GAP 8 (8-16); BLOOD UREA NITROGEN 19 mg/dL (7-18); CALCIUM 8.5 mg/dL (8.5-10.1); CHLORIDE 103 mmol/L (98-107); CO2 25 mmol/L (21-32); GLUCOSE,RANDOM 212 mg/dL (74-106); MAGNESIUM 2.1 mg/dL (1.8-2.4); POTASSIUM 4.1 mmol/L (3.5-5.1); SGOT/AST 16 U/L (15-37); SGPT/ALT 20 U/L (12-78); SODIUM 136 mmol/L (136-145)
[2017-10-08 14:07] LABS: ALK PHOS 73 U/L (45-117); BILIRUBIN,TOTAL 0.6 mg/dL (0.2-1.0)
[2017-10-08 14:55] LABS: INR 0.9 (0.82-1.09); PROTHROMBIN TIME (PATIENT) 10.2 SEC (9.7-13.0)
--- NOTE | 2017-10-08 16:21 | HP ---
Admitting History and Physical - Primary Care Physician PCP: Brett Wolf - Admission Chief Complaint: chest pain History of Present Illness: 77y F hx of CAD s/p pci, dm, htn, gout, presents with chest pain that started last night, resolved this morning with sl NTG by EMS, also gien ASA by EMS. No associated sob leg swelling. 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 No: Pablo's Disease, Marlin's Disease, Diabetes Insipidus, Diabetes Mellitus, Hyperparathyroidism, Hypothyroidism, Osteopenia, SIADH, Other - Smoking History Smoking history: Never smoked Have you smoked in the past 12 months: No Aproximately how many cigarettes per day: 0 - Alcohol/Substance Use Hx Alcohol Use: No History of Substance Use: reports: None - Social History ADL: Family Assistance Occupation: retired History of Recent Travel: No Home Medications - Allergies Allergies/Adverse Reactions: Allergies Allergy/AdvReac Type Severity Reaction Status Date / Time No Known Allergies Allergy Verified 07/05/17 10:25 - Home Medications Home Medications: Ambulatory Orders Metoprolol Succinate [Toprol XL -] 50 mg PO DAILY #30 tab 11/07/16 Sitagliptin Phosphate [Januvia -] 50 mg PO DAILY@0700 #30 tablet 11/07/16 Atorvastatin Calcium 80 mg PO DAILY 12/06/16 Valsartan [Diovan] 160 mg PO DAILY #30 tablet 12/09/16 Glimepiride 4 mg PO DAILY 06/21/17 Isosorbide Mononitrate [Isosorbide Mononitrate ER] 120 mg PO DAILY 06/21/17 Levothyroxine Sodium [Levo-T] 25 mcg PO DAILY 06/21/17 Linaclotide [Linzess] 145 mcg PO DAILY 06/21/17 Colchicine [Colcrys -] 0.6 mg PO DAILY #30 tablet 06/24/17 Gabapentin [Neurontin -] 100 mg PO BID #60 capsule 06/24/17 Acetaminophen [Tylenol .Regular Strength -] 650 mg PO Q4H PRN tablet 07/08/17 Aspirin [ASA -] 81 mg PO DAILY #0 tablet 07/08/17 Clopidogrel Bisulfate [Plavix -] 75 mg PO DAILY #30 tablet 07/08/17 Mupirocin Ointment [Bactroban Ointment (For Decolonization) -] 1 applic NS BID # 90 applic 07/08/17 predniSONE [Deltasone -] 5 mg PO DAILY tablet 07/08/17 Physical Examination Vital Signs: Vital Signs Temperature 97.9 F 10/08/17 12:22 Pulse Rate 44 L 10/08/17 12:22 Respiratory Rate 20 10/08/17 12:22 Blood Pressure 172/63 10/08/17 12:22 O2 Sat by Pulse Oximetry (%) 100 10/08/17 12:22 Labs: CBC, BMP 10/08/17 13:25 10/08/17 13:24 Problem List - Problems (1) Chest pain Assessment/Plan: tele trend CE echo r/o wall motion abnormality asa,plavix given bradycardia will hold metoprolol stress test Code(s): R07.9 - CHEST PAIN, UNSPECIFIED Qualifiers: (2) Abnormal EKG Assessment/Plan: cardiac monitoring trend CE serial EKG Code(s): R94.31 - ABNORMAL ELECTROCARDIOGRAM [ECG] [EKG] (3) Bradycardia Assessment/Plan: hold BB for now Code(s): R00.1 - BRADYCARDIA, UNSPECIFIED (4) CAD (coronary artery disease) Assessment/Plan: s/p stents asa plavix Code(s): I25.10 - ATHSCL HEART DISEASE OF [place] CORONARY ARTERY W/O ANG PCTRS Qualifiers: Coronary Disease-Associated Artery/Lesion type: redding artery [place] vs. transplanted heart: redding heart Associated angina: without angina Qualified Code(s): I25.10 - Atherosclerotic heart disease of [place] coronary artery without angina pectoris (5) Diabetes Assessment/Plan: glimerpiride sliding scale [id number] Code(s): E11.9 - TYPE 2 DIABETES MELLITUS WITHOUT COMPLICATIONS Qualifiers: Diabetes mellitus type: type 2 (6) CHF (congestive heart failure) Assessment/Plan: diovan and imdur Code(s): I50.9 - HEART FAILURE, UNSPECIFIED Qualifiers: Qualified Code(s): I50.9 - Heart failure, unspecified
[2017-10-08] MEDS ORDERED: ATORVASTATIN CA 80 MG TABLET (FP) PO SCH (22:00)
[2017-10-09] MEDS: INSULIN SLIDING SCALE (NOVOLOG) 1 VIAL SQ SCH ×3 (02:07→12:18)
[2017-10-09] MEDS: HEPARIN NA (PORCINE) 5,000 UNITS/ML 1ML VIAL SQ SCH ×2 (02:10→09:54)
[2017-10-09 06:26] VITALS: TEMP 98.1
[2017-10-09 06:28] LABS: HEMATOCRIT 30.8 % (32.4-45.2); HEMOGLOBIN 10.1 GM/dL (10.7-15.3); MCH 25.9 pg (25.7-33.7); MCHC 32.8 g/dl (32.0-36.0); PLATELET COUNT 212 K/MM3 (134-434); RBC 3.91 M/mm3 (3.60-5.2); WHITE BLOOD COUNT 6.6 K/mm3 (4.0-10.0)
[2017-10-09] MEDS ORDERED: sitaGLIPtin PHOSPHATE 50 MG TABLET PO SCH (07:00)
[2017-10-09] MEDS ORDERED: LEVOTHYROXINE NA 25 MCG TABLET (FP) PO SCH (07:00)
[2017-10-09] MEDS ORDERED: GLIMEPIRIDE 4 MG TABLET (FP) PO SCH (07:00)
[2017-10-09] MEDS ORDERED: LEVOTHYROXINE NA 75 MCG TABLET (FP) PO SCH (07:00)
[2017-10-09 07:05] LABS: ALBUMIN 3.2 g/dl (3.4-5.0); ANION GAP 6 (8-16); BLOOD UREA NITROGEN 19 mg/dL (7-18); CALCIUM 8.4 mg/dL (8.5-10.1); CHLORIDE 108 mmol/L (98-107); CO2 28 mmol/L (21-32); GLUCOSE,RANDOM 145 mg/dL (74-106); MAGNESIUM 2.1 mg/dL (1.8-2.4); POTASSIUM 3.7 mmol/L (3.5-5.1); SGOT/AST 15 U/L (15-37); SODIUM 142 mmol/L (136-145)
[2017-10-09 07:12] LABS: ALK PHOS 69 U/L (45-117); BILIRUBIN,TOTAL 0.5 mg/dL (0.2-1.0); N-TERMINAL BNP 678.45 pg/ml (5-450); PHOSPHOROUS 3.5 mg/dL (2.5-4.9); SGPT/ALT 18 U/L (12-78); TOT PROT 5.7 g/dl (6.4-8.2)
--- NOTE | 2017-10-09 08:18 | CON.CARD ---
Consult Consult Specialty:: Cardiology Referred by:: Dr. Bean Reason for Consultation:: Chest pain - History of Present Illness Chief Complaint: Chest pain History of Present Illness: 77 year old woman h/o CAD with chronic angina s/p stent x 2 in past LAD and RCA , CHF, HTN, DMII, HLD h/o fall 07/06/17 with resultant SDH admitted with chest pain and sob and sinus bradycardia. Pt seen and examined today in nad. denies any current symptoms. states she had an episode of chest pain and sob yesterday prompting her to come to the ED. denies any pnd, orthopnea, or LE edema. No lightheadedness, dizziness, syncope, or near syncope. 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 No: Pablo's Disease, [place]'s Disease, Diabetes Insipidus, Diabetes Mellitus, Hyperparathyroidism, Hypothyroidism, Osteopenia, SIADH, Other - Past Surgical History Past Surgical History: Yes: Stent - Alcohol/Substance Use Hx Alcohol Use: No History of Substance Use: reports: None - Smoking History Smoking history: Never smoked Have you smoked in the past 12 months: No Aproximately how many cigarettes per day: 0 - Social History Usual Living Arrangement: With Spouse ADL: Family Assistance Occupation: retired History of Recent Travel: No Home Medications - Allergies Allergies/Adverse Reactions: Allergies Allergy/AdvReac Type Severity Reaction Status Date / Time No Known Allergies Allergy Verified 07/05/17 10:25 - Home Medications Home Medications: Ambulatory Orders Metoprolol Succinate [Toprol XL -] 50 mg PO DAILY #30 tab 11/07/16 Sitagliptin Phosphate [Januvia -] 50 mg PO DAILY@0700 #30 tablet 11/07/16 Atorvastatin Calcium 80 mg PO DAILY 12/06/16 Valsartan [Diovan] 160 mg PO DAILY #30 tablet 12/09/16 Levothyroxine Sodium [Levo-T] 25 mcg PO DAILY 06/21/17 Acetaminophen [Tylenol .Regular Strength -] 650 mg PO Q4H PRN tablet 07/08/17 Aspirin [ASA -] 81 mg PO DAILY #0 tablet 07/08/17 Clopidogrel Bisulfate [Plavix -] 75 mg PO DAILY #30 tablet 07/08/17 Family Disease History - Family Disease History Family History: Denies Review of Systems - Review of Systems Constitutional: denies: No Symptoms, Chills, Diaphoresis, Fever, Lethargy, Loss of Appetite, Malaise, Night Sweats, Unintentional Wgt. Loss, Weakness, Other Eyes: denies: No Symptoms, Blind Spots, Blurred Vision, Double Vision, Eye Pain , Floaters, Photophobia, Recent Change in Vision, Other HENT: denies: No Symptoms, Difficult Swallowing, Ear Discharge, Ear Pain, Epistaxis, Gingival Bleeding, Hearing Loss, Mouth Swelling, Nasal Congestion, Ocular Prosthesis, Throat Pain, Toothache, Ringing in Ears, Other Neck: denies: No Symptoms, Decreased ROM, Lumps, Pain on Movement, Stiffness, Swollen Glands, Tenderness, Other Cardiovascular: reports: Chest Pain, Shortness of Breath. denies: No Symptoms, Edema, Palpitations, Other Respiratory: reports: SOB, SOB on Exertion. denies: No Symptoms, Cough, Exercise Intolerance, Hemoptysis, Orthopnea, PND, Snoring, Wheezing, Other Gastrointestinal: denies: No Symptoms, Abdominal Pain, Bloating, Constipation, Diarrhea, Dysphagia, Indigestion, Melena, Nausea, Rectal Bleeding, Vomiting, Vomiting Blood, Other Genitourinary: denies: No Symptoms, Burning, Discharge, Dysuria, Flank Pain, Frequency, Hematuria, Incontinence, Lesions, Menses, Pain, Testicular Mass, Testicular Pain, Testicular Swelling, Urgency, Vaginal Bleeding, Other Breasts: denies: No Symptoms Reported, See HPI, Breast Implants, Discharge from Nipple, Lumps, Pain, Skin Changes, Other Musculoskeletal: denies: No Symptoms, Back Pain, Crepitus, Decreased ROM, Extremity Pain, Joint Pain, Joint Swelling, Muscle Pain, Muscle Cramps, Muscle Weakness, Other Integumentary: denies: No Symptoms, Blister, Bruising, Change in Color, Eczema, Erythema, Incision, Lesions, Lump, Pallor, Pruritis, Rash, Wound, Other Neurological: denies: No Symptoms, Change in LOC, Change in Speech, Confusion, Dizziness, Headache, Incoordination, Numbness, Parasthesia, Pre-Existing Deficit , Seizure, Syncope, Tremors, Unsteady Gait, Weakness, Other Endocrine: denies: No Symptoms, Excessive Sweating, Flushing, Increased Hunger, Increased Thirst, Intolerance to Cold, Intolerance to Heat, Unexplained Weight Gain, Unexplained Weight Loss, Other Hematology/Lymphatic: denies: No Symptoms, Easily Bruised, Excessive Bleeding, Swollen Glands, Other Psychiatric: denies: No Symptoms, Altered Sleep Pattern, Anxiety, Depression, Hallucinations, Panic, Paranoia, Suicidal, Other - Risk Factors Known Risk Factors: Yes: Diabetes Mellitus, Hypercholesterolemia, Hypertension Vital Signs: Vital Signs Temperature 98.1 F 10/09/17 06:03 Pulse Rate 56 L 10/09/17 06:03 Respiratory Rate 16 10/09/17 06:03 Blood Pressure 159/68 10/09/17 06:03 O2 Sat by Pulse Oximetry (%) 97 10/09/17 02:03 Constitutional: Yes: Well Nourished, No Distress, Calm Eyes: Yes: WNL, Conjunctiva Clear, EOM Intact, PERRL HENT: Yes: WNL, Atraumatic, Normocephalic Neck: Yes: WNL, Supple, Trachea Midline Respiratory: Yes: WNL, Regular, CTA Bilaterally. No: Wheezes Gastrointestinal: Yes: WNL, Normal Bowel Sounds, Soft. No: Distention, Tenderness Renal/: Yes: WNL Cardiovascular: Yes: Bradycardia. No: Regular Rate and Rhythm, Tachycardia, Pulse Irregular, Gallop, Rub, Varicosities JVD: No Carotid Bruit: No PMI: Non-Displaced Heart Sounds: Yes: S1, S2. No: Split S2, S3, S4, Clicks, Rub Murmur: No: Systolic Murmur, Diastolic Murmur Musculoskeletal: Yes: WNL Extremities: Yes: WNL Edema: No Peripheral Pulses WNL: Yes Peripheral Pulses: 2+ Right Dorsalis Pedis Integumentary: Yes: WNL Neurological: Yes: WNL, Alert, Oriented, Cran Nerves II-XII Intact ...Motor Strength: WNL Psychiatric: Yes: WNL, Alert, Oriented - Other Data Labs, Other Data: CBC, BMP 10/09/17 06:00 10/09/17 06:00 INR, PTT INR 0.90 (0.82-1.09) 10/08/17 13:25 Troponin, BNP 10/08/17 10/08/17 10/09/17 13:24 20:20 06:00 Troponin I < 0.02 < 0.02 < 0.02 B-Natriuretic Peptide 678.45 H Troponin, BNP 10/08/17 10/08/17 10/09/17 13:24 20:20 06:00 Troponin I < 0.02 < 0.02 < 0.02 B-Natriuretic Peptide 678.45 H EKG-Sinus bradycardia 44bpm, LAD, LVH, T inversions V3-V6, III, AVF, no sig changes from past EKGS Echo: Report Reviewed Prior Cardiac Procedures: PTCA with Stent Imaging - Results Chest X-ray: Report Reviewed, Image Reviewed EKG: Report Reviewed, Image Reviewed Other: Report Reviewed, Image Reviewed (tele-sinus darin 40-50s, no other sig arrhythmias recorded) Assessment/Plan 77 year old woman h/o CAD with chronic angina s/p stent x 2 in past LAD and RCA , CHF, HTN, DMII, HLD h/o fall 07/06/17 with resultant SDH admitted with chest pain and sob. Pt seen and examined today in nad. denies any current symptoms. states she had an episode of chest pain and sob yesterday prompting her to come to the ED. denies any pnd, orthopnea, or LE edema. No lightheadedness, dizziness , syncope, or near syncope. Chest pain/SOB -h/o CAD and stents LAD and RCA -cardiac enzymes wnl -ekg not significantly changed from past ekgs -echo today 10/09/17 showed apical and apical anterior mild to moderate hypokinesis with low normal overall LV function LVEF 50%, mild mr -wall motion abnl on echo c/ow scar seen on nuclear stress test 11/2016 -Nuclear stress test 12/08/16-apical scar, no ischemia, normal LVEF -would favor optimizing medical management for known underlying CAD and chronic angina -cont ASA and Plavix and statin -Imdur was added for antianginal therapy -plan to resume bblocker at reduced dose and close outpatient f/up for HR monitoring -HTN control -there is low utility in repeating a stress test at this time as the one above was done less than a year ago and showed apical infarct with no clear ischemia, would favor medical management for now and likely close outpatient f/up Bradycardia-sinus bradycardia, does not appear symptomatic -reduce Metoprolol dose -monitor TFTs -close outpatient fup with event monitor
[2017-10-09] MEDS ORDERED: PT OWN MED DRAWER 7, Y5N ONE (09:19)
[2017-10-09] MEDS ORDERED: CLOPIDOGREL BISULFATE 75 MG TABLET (FP) PO SCH (10:00)
[2017-10-09] MEDS ORDERED: VALSARTAN 160 MG TABLET (UD) PO SCH (10:00)
[2017-10-09] MEDS ORDERED: ISOSORBIDE MONONITRATE 60 MG TAB.SR.24H (FP) PO SCH (10:00)
[2017-10-09] MEDS ORDERED: ASPIRIN 81 MG CHEWABLE TABLETS PO SCH (10:00)
--- NOTE | 2017-10-09 10:54 | DS ---
Physical Examination Vital Signs: Vital Signs Temperature 98.1 F 10/09/17 06:03 Pulse Rate 56 L 10/09/17 06:03 Respiratory Rate 16 10/09/17 06:03 Blood Pressure 159/68 10/09/17 06:03 O2 Sat by Pulse Oximetry (%) 97 10/09/17 02:03 Constitutional: Yes: No Distress Eyes: Yes: WNL HENT: Yes: WNL Neck: Yes: WNL Cardiovascular: Yes: Bradycardia Respiratory: Yes: WNL Gastrointestinal: Yes: WNL Renal/: Yes: WNL Musculoskeletal: Yes: WNL Extremities: Yes: WNL Edema: No Peripheral Pulses WNL: Yes Integumentary: Yes: WNL Wound/Incision: Yes: Clean/Dry Neurological: Yes: WNL ...Motor Strength: WNL Psychiatric: Yes: WNL Labs: CBC, BMP 10/09/17 06:00 10/09/17 06:00 Discharge Summary Reason For Visit: CHEST PAIN Current Active Problems Chest pain (Acute) BRADYCARDIA DM Procedures: Principal: ECHO Hospital Course: ADMITTED CHEST PAIN.ANGINA,BRADYCARDIA, CARDIAC WORKUP COMPLETED WILL NEED OUTPATIENT HOLTER PER CARDIO Condition: Stable - Instructions Diet, Activity, Other Instructions: SEE DR JONO MARTINEZ NEEDS HOLTER MONITOR OUTPATIENT LOW SALT/ADA Referrals: Brett Wolf MD [Primary Care Provider] - Disposition: VNS/HOME HEALTH CARE - Home Medications Comprehensive Discharge Medication List: Ambulatory Orders Metoprolol Succinate [Toprol XL -] 50 mg PO DAILY #30 tab 11/07/16 Sitagliptin Phosphate [Januvia -] 50 mg PO DAILY@0700 #30 tablet 11/07/16 Atorvastatin Calcium 80 mg PO DAILY 12/06/16 Valsartan [Diovan] 160 mg PO DAILY #30 tablet 12/09/16 Levothyroxine Sodium [Levo-T] 25 mcg PO DAILY 06/21/17 Acetaminophen [Tylenol .Regular Strength -] 650 mg PO Q4H PRN tablet 07/08/17 Aspirin [ASA -] 81 mg PO DAILY #0 tablet 07/08/17 Clopidogrel Bisulfate [Plavix -] 75 mg PO DAILY #30 tablet 07/08/17
[2017-10-09] MEDS ORDERED: METOPROLOL TARTRATE 25 MG TABLET (FP) PO SCH (11:00)
--- NOTE | 2017-10-09 11:20 | EKG ---
Test Reason : Blood Pressure : / mmHG Vent. Rate : 044 BPM Atrial Rate : 044 BPM P-R Int : 180 ms QRS Dur : 082 ms QT Int : 488 ms P-R-T Axes : 074 -40 006 degrees QTc Int : 417 ms MARKED SINUS BRADYCARDIA LEFT AXIS DEVIATION MINIMAL VOLTAGE CRITERIA FOR LVH, MAY BE NORMAL VARIANT ANTERIOR INFARCT (CITED ON OR BEFORE 06-JUL-2017) MARKED T WAVE ABNORMALITY, CONSIDER LATERAL ISCHEMIA ABNORMAL ECG WHEN COMPARED WITH ECG OF 07-JUL-2017 09:03, QUESTIONABLE CHANGE IN INITIAL FORCES OF SEPTAL LEADS T WAVE INVERSION NOW EVIDENT IN INFERIOR LEADS Confirmed by TRACI MURGUIA MD ([id number]) on 10/09/2017 11:20:05 AM Referred By: Confirmed By:TRACI MURGUIA MD
[2017-10-09 14:28] VITALS: BP 173/63; PULSE 51
[2017-10-10 06:06] LABS: SERUM IRON SATURATION 8 % (15-55); TOTAL IRON BINDING CAPACITY 326 ug/dL (250-450); UIBC 299 ug/dL (118-369)
--- NOTE | 2017-10-10 08:53 | EKG ---
Test Reason : Blood Pressure : / mmHG Vent. Rate : 052 BPM Atrial Rate : 052 BPM P-R Int : 150 ms QRS Dur : 092 ms QT Int : 448 ms P-R-T Axes : -07 -48 017 degrees QTc Int : 416 ms SINUS BRADYCARDIA LEFT ANTERIOR FASCICULAR BLOCK MODERATE VOLTAGE CRITERIA FOR LVH, MAY BE NORMAL VARIANT ANTEROSEPTAL INFARCT (CITED ON OR BEFORE 06-JUL-2017) T WAVE ABNORMALITY, CONSIDER LATERAL ISCHEMIA ABNORMAL ECG WHEN COMPARED WITH ECG OF 08-OCT-2017 12:26, QUESTIONABLE CHANGE IN INITIAL FORCES OF SEPTAL LEADS Confirmed by ANA BAUGH MD ([id number]) on 10/10/2017 8:53:18 AM Referred By: Confirmed By:ANA BAUGH MD
== END 2017-10-09 17:10 | disposition home or self-care (01) ==
LOC: JER 12:11 → JERBED 15:43 → INTOOBSV 15:43 → UNDOADMOB 15:43 → JERBED 16:41 → J4S 10-09 00:47 → JERBED 10-09 00:47
PROVIDERS: ADMIT Student in an Organized Health Care Education/Training Program; ATTEND Student in an Organized Health Care Education/Training Program
PROC: 3E013GC Introduction of Other Therapeutic Substance into Subcutaneous Tissue, Percutaneous Approach (ICD-10-PCS; principal; 2017-10-08)
DX: R07.9 Chest pain, unspecified (principal); R94.31 Abnormal electrocardiogram [ECG] [EKG]; R00.1 Bradycardia, unspecified; I10 Essential (primary) hypertension; I50.9 Heart failure, unspecified; I25.10 Atherosclerotic heart disease of native coronary artery without angina pectoris; I25.2 Old myocardial infarction; E11.9 Type 2 diabetes mellitus without complications; E78.5 Hyperlipidemia, unspecified; K21.9 Gastro-esophageal reflux disease without esophagitis; M10.9 Gout, unspecified; Z79.82 Long term (current) use of aspirin; Z79.84 Long term (current) use of oral hypoglycemic drugs; Z95.5 Presence of coronary angioplasty implant and graft; Z87.442 Personal history of urinary calculi
CPT/HCPCS: 36415; 71045-TC-FY; 80053; 82550; 82728; 82962; 83036; 83540; 83550; 83735; 83880; 84100; 84443; 84484; 85025; 85027; 85610; 93005; 93010; 93306-TC; 96372; 99285-25; G0378; J1644

== ENCOUNTER 2017-10-26 19:53 | Emergency (ER) | payer OTHER ==
--- NOTE | 2017-10-26 19:59 | PDOC ---
Rapid Medical Evaluation Chief Complaint: Chest Pain Time Seen by Provider: 10/26/17 19:56 Medical Evaluation: Allergies Allergy/AdvReac Type Severity Reaction Status Date / Time No Known Allergies Allergy Verified 07/05/17 10:25 10/26/17 19:56 I have performed a brief in-person evaluation of this patient. The patient presents with a chief complaint of: chest pain since yesterday, states worse today. Reports pain with shortness of breath Pertinent physical exam findings: NAD lungs clear bilaterally, non tender mid chest mild tenderness in mid epigastric area I have ordered the following: ekg, labs The patient will proceed to the ED for further evaluation
[2017-10-26 20:01] VITALS: TEMP 98.2; BMI 17.9
--- NOTE | 2017-10-26 20:34 | PDOC ---
History of Present Illness - General Chief Complaint: Chest Pain Stated Complaint: CHEST PAIN Time Seen by Provider: 10/26/17 19:56 - History of Present Illness Initial Comments: 10/26/17 20:44 Ms. Honeycutt is a 77 yo female w/ pmh of CAD (s/p stenting), DM, HTN, HLD who presents to ED for evaluation of elevated blood pressure at home earlier today. She reports she otherwise feels her normal self however checked her blood pressure at home and saw that it was elevated to 280's. She is here for evaluation of this blood pressure. The patient denies chest pain, shortness of breath, headache and dizziness. Denies fever, chills, nausea, vomit, diarrhea and constipation. Denies dysuria, frequency, urgency and hematuria. Allergies: NKDA Past History - Past Medical History Allergies/Adverse Reactions: Allergies Allergy/AdvReac Type Severity Reaction Status Date / Time No Known Allergies Allergy Verified 10/26/17 20:00 Home Medications: Ambulatory Orders Sitagliptin Phosphate [Januvia -] 50 mg PO DAILY@0700 #30 tablet 11/07/16 Atorvastatin Calcium 80 mg PO DAILY 12/06/16 Valsartan [Diovan] 160 mg PO DAILY #30 tablet 12/09/16 Levothyroxine Sodium [Levo-T] 25 mcg PO DAILY 06/21/17 Acetaminophen [Tylenol .Regular Strength -] 650 mg PO Q4H PRN tablet 07/08/17 Aspirin [ASA -] 81 mg PO DAILY #0 tablet 07/08/17 Clopidogrel Bisulfate [Plavix -] 75 mg PO DAILY #30 tablet 07/08/17 Aspirin [ASA -] 81 mg PO DAILY tab.chew 10/09/17 Atorvastatin Ca [Lipitor] 80 mg PO HS tablet 10/09/17 Clopidogrel Bisulfate [Plavix -] 75 mg PO DAILY tablet 10/09/17 Glimepiride [Amaryl -] 4 mg PO DAILY@0700 tablet 10/09/17 Isosorbide Mononitrate [Imdur -] 120 mg PO DAILY #30 tab.sr.24h 10/09/17 Levothyroxine [Synthroid -] 25 mcg PO DAILY@0700 tablet 10/09/17 Levothyroxine [Synthroid -] 50 mcg PO DAILY@0700 tablet 10/09/17 Metoprolol Tartrate [Lopressor -] 12.5 mg PO BID #60 tablet 10/09/17 Sitagliptin Phosphate [Januvia -] 50 mg PO DAILY@0700 tablet 10/09/17 Valsartan [Diovan] 160 mg PO DAILY tablet 10/09/17 Anemia: No Asthma: No Cancer: Yes Cardiac Disorders: Yes (angina, CAD,CATH WITH STENT) CVA: Yes (STEMI, 2 cardiac stents) COPD: No CHF: No Diabetes: Yes HTN: Yes Hypercholesterolemia: Yes Kidney Stones: Yes Thyroid Disease: Yes - Surgical History Abdominal Surgery: Yes Appendectomy: No Cardiac Surgery: No Neurologic Surgery: No - Immunization History Immunization Up to Date: Yes - Suicide/Smoking/Psychosocial Hx Smoking Status: No Smoking History: Never smoked Have you smoked in the past 12 months: No Number of Cigarettes Smoked Daily: 0 Information on smoking cessation initiated: No Hx Alcohol Use: No Drug/Substance Use Hx: No Substance Use Type: None Hx Substance Use Treatment: No Review of Systems - Review of Systems Comments:: 10/26/17 20:46 GENERAL/CONSTITUTIONAL: No fever or chills. No weakness. HEAD, EYES, EARS, NOSE AND THROAT: No change in vision. No ear pain or discharge. No sore throat. CARDIOVASCULAR: No chest pain or shortness of breath RESPIRATORY: No cough, wheezing, or hemoptysis. GASTROINTESTINAL: No nausea, vomiting, diarrhea or constipation. GENITOURINARY: No dysuria, frequency, or change in urination. MUSCULOSKELETAL: No joint or muscle swelling or pain. No neck or back pain. SKIN: No rash NEUROLOGIC: No headache, vertigo, loss of consciousness, or change in strength/ sensation. ENDOCRINE: No increased thirst. No abnormal weight change HEMATOLOGIC/LYMPHATIC: No anemia, easy bleeding, or history of blood clots. ALLERGIC/IMMUNOLOGIC: No hives or skin allergy. *Physical Exam - Vital Signs Last Vital Signs Temp Pulse Resp BP Pulse Ox 98.2 F 48 L 15 189/76 98 10/26/17 19:56 10/26/17 19:56 10/26/17 19:56 10/26/17 19:56 10/26/17 19:56 - Physical Exam Comments: 10/26/17 20:46 GENERAL: Awake, alert, and fully oriented, in no acute distress HEAD: No signs of trauma, normocephalic, atraumatic EYES: PERRLA, EOMI, sclera anicteric, conjunctiva clear ENT: Auricles normal inspection, hearing grossly normal, nares patent, oropharynx clear without exudates. Moist mucosa NECK: Normal ROM, supple, no lymphadenopathy, JVD, or masses LUNGS: No distress, speaks full sentences, clear to auscultation bilaterally HEART: Regular rate and rhythm, normal S1 and S2, no murmurs, rubs or gallops, peripheral pulses normal and equal bilaterally. ABDOMEN: Soft, nontender, normoactive bowel sounds. No guarding, no rebound. No masses EXTREMITIES: Normal inspection, Normal range of motion, no edema. No clubbing or cyanosis. NEUROLOGICAL: Cranial nerves II through XII grossly intact. Normal speech, normal gait, no focal sensorimotor deficits SKIN: Warm, Dry, normal turgor, no rashes or lesions noted. ED Treatment Course - LABORATORY CBC & Chemistry Diagram: 10/26/17 20:17 10/26/17 20:17 Medical Decision Making - Medical Decision Making 10/26/17 21:50 Ms. Honeycutt is a 77 yo female w/ pmh as described who presents for evaluation of elevated BP at home. Patient labs grossly unconcerning as below. Patient reportedly feels at baseline. EKG unconcerning. BP in ER remains steady at 150' s systolic. Discussed need to have home BP cuff checked. No concern for acute process at this time. Discharging with instructions to f/u with PCP for further evaluation. Laboratory Results - last 24 hr 10/26/17 10/26/17 10/26/17 20:17 20:17 20:17 WBC 9.5 D RBC 4.25 Hgb 11.2 D Hct 34.0 MCV 80.1 MCH 26.3 MCHC 32.9 RDW 17.9 H Plt Count 287 D MPV 8.9 Absolute Neuts (auto) 5.8 Neutrophils % 60.8 Lymphocytes % 28.1 Monocytes % 8.2 Eosinophils % 2.3 D Basophils % 0.6 Nucleated RBC % 0 PT with INR 10.40 INR 0.92 PTT (Actin FS) 26.5 L Sodium 136 Potassium 3.9 Chloride 101 Carbon Dioxide 28 Anion Gap 7 L BUN 20 H Creatinine 1.0 Creat Clearance w eGFR 53.91 Random Glucose 103 Calcium 8.7 Total Bilirubin 0.7 D AST 23 ALT 31 Alkaline Phosphatase 106 Troponin I < 0.02 Total Protein 6.9 Albumin 3.6 *DC/Admit/Observation/Transfer Diagnosis at time of Disposition: Hypertension Qualifiers: Hypertension type: unspecified Qualified Code(s): I10 - Essential (primary) hypertension - Discharge Dispostion Disposition: HOME - Referrals Referrals: Brett Wolf MD [Primary Care Provider] - - Patient Instructions Printed Discharge Instructions: High Blood Pressure Additional Instructions: Please follow-up with primary care provider for further evaluation. You may need to have your home Blood pressure cuff checked for accuracy. Return to ER if any headache, fever, chills, altered mental status, or other concerning symptoms. - Post Discharge Activity
[2017-10-26 20:41] VITALS: BP 146/60; PULSE 51
[2017-10-26 20:44] LABS: ALBUMIN 3.6 g/dl (3.4-5.0); ANION GAP 7 (8-16); BILIRUBIN,TOTAL 0.7 mg/dL (0.2-1.0); BLOOD UREA NITROGEN 20 mg/dL (7-18); CALCIUM 8.7 mg/dL (8.5-10.1); CHLORIDE 101 mmol/L (98-107); CO2 28 mmol/L (21-32); GLUCOSE,RANDOM 103 mg/dL (74-106); POTASSIUM 3.9 mmol/L (3.5-5.1); SGOT/AST 23 U/L (15-37); SGPT/ALT 31 U/L (12-78); SODIUM 136 mmol/L (136-145); TOT PROT 6.9 g/dl (6.4-8.2)
[2017-10-26 20:45] LABS: BASO % 0.6 % (0-2.0); EOS % 2.3 % (0-4.5); HEMOGLOBIN 11.2 GM/dL (10.7-15.3); LYMPH % 28.1 % (8-40); MCH 26.3 pg (25.7-33.7); MCHC 32.9 g/dl (32.0-36.0); MEAN CELL VOLUME 80.1 fl (80-96); MEAN PLT VOLUME 8.9 fl (7.5-11.1); MONO % 8.2 % (3.8-10.2); NEUT % 60.8 % (42.8-82.8); PLATELET COUNT 287 K/MM3 (134-434); RBC 4.25 M/mm3 (3.60-5.2); RDW 17.9 % (11.6-15.6); WHITE BLOOD COUNT 9.5 K/mm3 (4.0-10.0)
[2017-10-26 20:47] LABS: ALK PHOS 106 U/L (45-117)
[2017-10-26 20:55] LABS: INR 0.92 (0.82-1.09); PROTHROMBIN TIME (PATIENT) 10.4 SEC (9.7-13.0)
[2017-10-26 20:58] LABS: ACTIVATED PTT 26.5 SECONDS (26.9-34.4)
--- NOTE | 2017-10-26 21:52 | PDOC ---
Attending Attestation - Resident Resident Name: Anatoliy Mccormick - ED Attending Attestation I have performed the following: I have examined & evaluated the patient, The case was reviewed & discussed with the resident, I agree w/resident's findings & plan, Exceptions are as noted - Physicial Exam PE: 10/26/17 21:51 Physical Exam General Appearance: Yes: Appropriately Dressed. No: Apparent Distress, Intoxicated HEENT: positive: EOMI, BONNIE, Normal ENT Inspection, Normal Voice, TMs Normal, Pharynx Normal. negative: Pale Conjunctivae, Photophobia, Scleral Icterus (R), Scleral Icterus (L) Neck: positive: Trachea midline, Normal Thyroid, Supple. negative: Tender, Rigid, Carotid bruit, Stridor, Lymphadenopathy (R), Lymphadenopathy (L), Thyromegaly Respiratory/Chest: positive: Lungs Clear, Normal Breath Sounds. negative: Chest Tender, Respiratory Distress, Accessory Muscle Use, Labored Respiration, RES, Crackles, Rales, Rhonchi, Stridor, Wheezing, Dullness Cardiovascular: positive: Regular Rhythm, Regular Rate, S1, S2. negative: Edema , JVD, Murmur, Bradycardia, Tachycardia Vascular Pulses: Dorsalis-Pedis (R): 2+, Doralis-Pedis (L): 2+ Gastrointestinal/Abdominal: positive: Normal Bowel Sounds, Flat, Soft. negative : Tender, Organomegaly, Pulsatile Mass, Increased Bowel Sounds, Decreased BS, Distended, Guarding, Rebound, Hernia, Hepatomegaly, Spleenomegaly Lymphatic: negative: Adenopathy, Tenderness Musculoskeletal: positive: Normal Inspection. negative: CVA Tenderness, Decreased Range of Motion Extremity: positive: Normal Capillary Refill, Normal Inspection, Normal Range of Motion, Pelvis Stable. negative: Tender, Pedal Edema, Swelling, Erythema Integumentary: positive: Normal Color, Dry, Warm. negative: Cyanotic, Erythema , Jaundice, Rash Neurologic: positive: script reader II-XII NML intact, Fully Oriented, Alert, Normal Mood/ Affect, Motor Strength 5/5. negative: EOM Palsy, Facial Droop, Sensory Deficit <Eduardo Dan - Last Filed: 10/26/17 21:51> - HPI HPI: 10/26/17 21:56 The patient is a a 77 year old female with a past medical history of CAD (s/p stenting), DM, HTN, HLD who presents to ED for evaluation of elevated blood pressure at home earlier today. She reports she otherwise feels her normal self however, checked her blood pressure at home and saw that it was elevated to 280' s. She is here for evaluation of this blood pressure. - Medical Decision Making Documentation prepared by Bakari Pappas, acting as medical policy specialist for Eduardo Dan DO. <Bakari Pappas - Last Filed: 10/26/17 21:57>
--- NOTE | 2017-10-27 12:18 | EKG ---
Test Reason : Blood Pressure : / mmHG Vent. Rate : 051 BPM Atrial Rate : 051 BPM P-R Int : 174 ms QRS Dur : 080 ms QT Int : 456 ms P-R-T Axes : 061 -49 -28 degrees QTc Int : 420 ms SINUS BRADYCARDIA LEFT ANTERIOR FASCICULAR BLOCK MODERATE VOLTAGE CRITERIA FOR LVH, MAY BE NORMAL VARIANT ANTEROSEPTAL INFARCT (CITED ON OR BEFORE 06-JUL-2017) T WAVE ABNORMALITY, CONSIDER INFEROLATERAL ISCHEMIA ABNORMAL ECG Confirmed by MD ROMI, JESSICA ([id number]) on 10/27/2017 12:17:56 PM Referred By: Confirmed By:JESSICA LLANOS MD
== END 2017-10-26 22:19 | disposition home or self-care (01) ==
LOC: JER 19:53
DX: I10 Essential (primary) hypertension (principal); E11.9 Type 2 diabetes mellitus without complications; E78.00 Pure hypercholesterolemia, unspecified; E07.9 Disorder of thyroid, unspecified; Z86.73 Personal history of transient ischemic attack (TIA), and cerebral infarction without residual deficits; I20.9 Angina pectoris, unspecified
CPT/HCPCS: 36415; 71045-TC-FY; 80053; 84484; 85025; 85610; 85730; 93005; 93010; 99282-25

== ENCOUNTER 2017-10-28 12:02 | Emergency (ER) | payer OTHER ==
[2017-10-28 12:16] VITALS: BMI 24.7
[2017-10-28] MEDS ORDERED: VALSARTAN 160 MG TABLET (UD) PO ONE (15:01)
--- NOTE | 2017-10-28 15:05 | PDOC ---
History of Present Illness <Nirmal Stevenson - Last Filed: 10/28/17 15:16> - History of Present Illness Initial Comments: 10/28/17 14:59 "The patient is a 77 year old female with a significant PMH of NIDDM, CAD, STEMI (s/p cath & stents x3), HTN and hyperlipidemia who presents to the emergency department for evaluation of blood sugar and an episode of palpitations earlier today. She reports checking her blood sugar today and noting it to be 199, which concerned her. At the same time, pt began to feel her heart race. She denies CP/SOB. States that the palpitations have since resolved. The patient denies any palpitations or pain at presentation. The patient states she has been compliant with her medications. Pt does not use insulin. The patient denies chest pain, shortness of breath, headache and dizziness. Denies fever, chills, nausea, vomit, diarrhea and constipation. Denies dysuria, frequency, urgency and hematuria. Allergies: NKA Past surgical history: Abdominal surgery. Stent placement. Social history: No reported cigarette, alcohol, or drug use. PCP: Dr. Wolf " <Chadd Moreland - Last Filed: 10/28/17 16:43> - General Chief Complaint: Palpitations Stated Complaint: PALPITATIONS Time Seen by Provider: 10/28/17 13:54 Past History <Nirmal Stevenson - Last Filed: 10/28/17 15:16> - Past Medical History Anemia: No Asthma: No Cancer: Yes Cardiac Disorders: Yes (angina, CAD,CATH WITH STENT) CVA: Yes (STEMI, 2 cardiac stents) COPD: No CHF: No Diabetes: Yes HTN: Yes Hypercholesterolemia: Yes Kidney Stones: Yes Thyroid Disease: Yes - Surgical History Abdominal Surgery: Yes Appendectomy: No Cardiac Surgery: No Neurologic Surgery: No - Immunization History Immunization Up to Date: Yes - Suicide/Smoking/Psychosocial Hx Smoking Status: No Smoking History: Never smoked Have you smoked in the past 12 months: No Number of Cigarettes Smoked Daily: 0 Hx Alcohol Use: No Drug/Substance Use Hx: No Substance Use Type: None Hx Substance Use Treatment: No <Chadd Moreland - Last Filed: 10/28/17 16:43> - Past Medical History Allergies/Adverse Reactions: Allergies Allergy/AdvReac Type Severity Reaction Status Date / Time No Known Allergies Allergy Verified 10/26/17 20:00 Home Medications: Ambulatory Orders Sitagliptin Phosphate [Januvia -] 50 mg PO DAILY@0700 #30 tablet 11/07/16 Atorvastatin Calcium 80 mg PO DAILY 12/06/16 Valsartan [Diovan] 160 mg PO DAILY #30 tablet 12/09/16 Levothyroxine Sodium [Levo-T] 25 mcg PO DAILY 06/21/17 Acetaminophen [Tylenol .Regular Strength -] 650 mg PO Q4H PRN tablet 07/08/17 Aspirin [ASA -] 81 mg PO DAILY #0 tablet 07/08/17 Clopidogrel Bisulfate [Plavix -] 75 mg PO DAILY #30 tablet 07/08/17 Aspirin [ASA -] 81 mg PO DAILY tab.chew 10/09/17 Atorvastatin Ca [Lipitor] 80 mg PO HS tablet 10/09/17 Clopidogrel Bisulfate [Plavix -] 75 mg PO DAILY tablet 10/09/17 Glimepiride [Amaryl -] 4 mg PO DAILY@0700 tablet 10/09/17 Isosorbide Mononitrate [Imdur -] 120 mg PO DAILY #30 tab.sr.24h 10/09/17 Levothyroxine [Synthroid -] 25 mcg PO DAILY@0700 tablet 10/09/17 Levothyroxine [Synthroid -] 50 mcg PO DAILY@0700 tablet 10/09/17 Metoprolol Tartrate [Lopressor -] 12.5 mg PO BID #60 tablet 10/09/17 Sitagliptin Phosphate [Januvia -] 50 mg PO DAILY@0700 tablet 10/09/17 Valsartan [Diovan] 160 mg PO DAILY tablet 10/09/17 Review of Systems - Review of Systems Comments:: 10/28/17 15:01 "GENERAL/CONSTITUTIONAL: No fever or chills. No weakness. HEAD, EYES, EARS, NOSE AND THROAT: No change in vision. No ear pain or discharge. No sore throat. CARDIOVASCULAR: + palpitations, No chest pain or shortness of breath. RESPIRATORY: No cough, wheezing, or hemoptysis. GASTROINTESTINAL: No nausea, vomiting, diarrhea or constipation. GENITOURINARY: No dysuria, frequency, or change in urination. MUSCULOSKELETAL: No joint or muscle swelling or pain. No neck or back pain. SKIN: No rash NEUROLOGIC: No headache, vertigo, loss of consciousness, or change in strength/ sensation. ENDOCRINE: No increased thirst. No abnormal weight change. HEMATOLOGIC/LYMPHATIC: No anemia, easy bleeding, or history of blood clots. ALLERGIC/IMMUNOLOGIC: No hives or skin allergy. " <Chadd Moreland - Last Filed: 10/28/17 16:43> *Physical Exam - Vital Signs Last Vital Signs Temp Pulse Resp BP Pulse Ox 98.3 F 48 L 20 167/69 99 10/28/17 12:10 10/28/17 12:10 10/28/17 12:10 10/28/17 15:07 10/28/17 12:10 <Nirmal Stevenson - Last Filed: 10/28/17 15:16> - Vital Signs Last Vital Signs Temp Pulse Resp BP Pulse Ox 98.3 F 48 L 20 194/71 99 10/28/17 12:10 10/28/17 12:10 10/28/17 12:10 10/28/17 12:10 10/28/17 12:10 - Physical Exam Comments: 10/28/17 15:04 "GENERAL: Awake, alert, and fully oriented, in no acute distress. HEAD: No signs of trauma EYES: PERRLA, EOMI, sclera anicteric, conjunctiva clear ENT: Auricles normal inspection, hearing grossly normal, nares patent, oropharynx clear without exudates. Moist mucosa NECK: Nontender, no stepoffs, Normal ROM, supple, no lymphadenopathy, JVD, or masses LUNGS: Breath sounds equal, clear to auscultation bilaterally. No wheezes, and no crackles HEART: Regular rate and rhythm, normal S1 and S2, no murmurs, rubs or gallops ABDOMEN: Soft, nontender, normoactive bowel sounds. No guarding, no rebound. No masses EXTREMITIES: Normal range of motion, no edema. No clubbing or cyanosis. No cords , erythema, or tenderness NEUROLOGICAL: Cranial nerves II through XII intact. 5/5 strength and sensation in all extremities, Normal speech, normal gait, normal cerebellar function SKIN: Warm, Dry, normal turgor, no rashes or lesions noted. " <Chadd Moreland - Last Filed: 10/28/17 16:43> Heart Score/ECG Review - ECG Impressions Comment:: 10/28/17 16:41 NSR, no MARIO/STDs, TWI in leads V3-V6 seen on prior EKG, intervals wnl, rate 46 <Chadd Moreland - Last Filed: 10/28/17 16:43> ED Treatment Course - LABORATORY CBC & Chemistry Diagram: 10/28/17 14:55 10/28/17 14:55 - Medications Given in the ED: ED Medications Discontinued Medications Generic Name Dose Route Start Last Admin Trade Name Verna PRN Reason Stop Dose Admin Valsartan 160 mg 10/28/17 15:01 10/28/17 15:09 Diovan - PO 10/28/17 15:02 160 mg ONCE ONE Administration <Nirmal Stevenson - Last Filed: 10/28/17 15:16> - LABORATORY CBC & Chemistry Diagram: 10/28/17 14:55 10/28/17 14:55 <Chadd Moreland - Last Filed: 10/28/17 16:43> Medical Decision Making - Medical Decision Making 10/28/17 15:04 77 F with palpitations, now resolved, in the context of having a mildly elevated fingerstick of 199 at home. Pt does not have any complaints currently, though her BP was elevated in triage. Suspect anxiety related, though will check labs to r/o end organ damage. BP now improved to 160s systolic without intervention. - Labs, trop - EKG 10/28/17 16:41 Labs wnl EKG unchanged. Pt's BP improved. Pt is well appearing, with normal vitals. Clinically stable for DC at this time. I discussed the physical exam findings, ancillary test results and final diagnoses with the patient. I answered all of the patient's questions. The patient was satisfied with the care received and felt comfortable with the discharge plan and treatment plan. The patient agrees to follow up with the primary care physician within 24-72 hours. <Chadd Moreland - Last Filed: 10/28/17 16:43> *DC/Admit/Observation/Transfer - Attestations Scribe Attestion: 10/28/17 15:16 Documentation prepared by Nirmal Stevensno, acting as caregivers non medical for Chadd Moreland MD. <Nirmal Stevenson - Last Filed: 10/28/17 15:16> - Attestations Physician Attestion: 10/28/17 16:43 I, Dr. Chadd Moreland MD, attest that this document has been prepared under my direction and personally reviewed by me in its entirety. I further attest, that it accurately reflects all work, treatment, procedures and medical decision -making performed by me. <Chadd Moreland - Last Filed: 10/28/17 16:43> Diagnosis at time of Disposition: Hypertension - Discharge Dispostion Disposition: HOME - Referrals Referrals: Brett Wolf MD [Primary Care Provider] - - Patient Instructions Printed Discharge Instructions: High Blood Pressure Additional Instructions: Your blood pressure was high today. Please follow up with your primary doctor to have this re-checked. Uncontrolled blood pressure can lead to severe kidney or heart disease. If you experience any chest pain, shortness of breath, or any other concerning symptoms, return to the ER immediately. - Post Discharge Activity
[2017-10-28] MEDS ORDERED: VALSARTAN 80 MG TABLET (UD) ONE (15:08)
[2017-10-28 15:11] LABS: BASO % 0.8 % (0-2.0); EOS % 1.9 % (0-4.5); HEMATOCRIT 33.6 % (32.4-45.2); LYMPH % 32.8 % (8-40); MCH 26.3 pg (25.7-33.7); MCHC 32.7 g/dl (32.0-36.0); MEAN CELL VOLUME 80.3 fl (80-96); MEAN PLT VOLUME 8.4 fl (7.5-11.1); MONO % 7.4 % (3.8-10.2); NEUT % 57.1 % (42.8-82.8); PLATELET COUNT 259 K/MM3 (134-434); RBC 4.19 M/mm3 (3.60-5.2); WHITE BLOOD COUNT 6.1 K/mm3 (4.0-10.0)
--- NOTE | 2017-10-28 16:21 | EKG ---
Test Reason : Blood Pressure : / mmHG Vent. Rate : 046 BPM Atrial Rate : 046 BPM P-R Int : 192 ms QRS Dur : 080 ms QT Int : 484 ms P-R-T Axes : 070 -44 030 degrees QTc Int : 423 ms SINUS BRADYCARDIA LEFT AXIS DEVIATION MINIMAL VOLTAGE CRITERIA FOR LVH, MAY BE NORMAL VARIANT ANTERIOR INFARCT (CITED ON OR BEFORE 06-JUL-2017) MARKED T WAVE ABNORMALITY, CONSIDER LATERAL ISCHEMIA ABNORMAL ECG WHEN COMPARED WITH ECG OF 26-OCT-2017 20:00, QUESTIONABLE CHANGE IN INITIAL FORCES OF SEPTAL LEADS T WAVE INVERSION LESS EVIDENT IN INFERIOR LEADS T WAVE INVERSION MORE EVIDENT IN LATERAL LEADS Confirmed by ANA BAUGH MD ([id number]) on 10/28/2017 4:20:35 PM Referred By: Confirmed By:ANA BAUGH MD
[2017-10-28 16:28] LABS: ALBUMIN 3.3 g/dl (3.4-5.0); ANION GAP 10 (8-16); BILIRUBIN,TOTAL 0.8 mg/dL (0.2-1.0); BLOOD UREA NITROGEN 19 mg/dL (7-18); CALCIUM 9.1 mg/dL (8.5-10.1); CHLORIDE 103 mmol/L (98-107); CO2 27 mmol/L (21-32); GLUCOSE,RANDOM 187 mg/dL (74-106); LIPASE 163 U/L (73-393); POTASSIUM 3.6 mmol/L (3.5-5.1); SGOT/AST 16 U/L (15-37); SGPT/ALT 24 U/L (12-78); SODIUM 140 mmol/L (136-145); TOT PROT 6.4 g/dl (6.4-8.2)
[2017-10-28 16:29] LABS: ALK PHOS 92 U/L (45-117)
[2017-10-28 17:19] VITALS: BP 166/67; PULSE 52; TEMP 98.4
== END 2017-10-28 17:19 | disposition home or self-care (01) ==
LOC: JER 12:02
DX: I10 Essential (primary) hypertension (principal)
CPT/HCPCS: 36415; 80053; 82550; 83690; 84484; 85025; 93005; 93010; 99284-25

== ENCOUNTER 2017-11-04 21:57 | Inpatient (IN) | payer OTHER ==
[2017-11-04 22:09] VITALS: BMI 25.6
--- NOTE | 2017-11-04 22:41 | PDOC ---
History of Present Illness - General History Source: Patient <JarretEduardo espinoza - Last Filed: 11/05/17 00:21> - General History Source: Patient, Old Records Exam Limitations: No Limitations - History of Present Illness Initial Comments: 11/04/17 22:46 The patient is a 77 year old male with a past medical history of NIDDM, CAD, STEMI (s/p cath & stents x3), HTN, hyperlipidemia, and recent discharge from [facility] (today) after 2 day admission for cardiac cath who presents with chest pain, dizziness, and abdominal discomfort for 1 day. The patient states that she was discharged from [facility] today and began to experience her symptoms once she got home this afternoon. She endorses association decreased appetite, nausea, and vomiting but denies syncope, headache or shortness of breath. She reports that she is not currently experiencing any symptoms. <Bakari Pappas - Last Filed: 11/05/17 00:25> - General Chief Complaint: Pain, Acute Stated Complaint: ABD PAIN Time Seen by Provider: 11/04/17 22:40 Past History - Past Medical History Anemia: No Asthma: No Cancer: Yes Cardiac Disorders: Yes (angina, CAD,CATH WITH STENT) CVA: Yes (STEMI, 2 cardiac stents) COPD: No CHF: No Diabetes: Yes HTN: Yes Hypercholesterolemia: Yes Kidney Stones: Yes Thyroid Disease: Yes - Surgical History Abdominal Surgery: Yes Appendectomy: No Cardiac Surgery: No Neurologic Surgery: No - Immunization History Immunization Up to Date: Yes - Suicide/Smoking/Psychosocial Hx Smoking Status: No Smoking History: Never smoked Have you smoked in the past 12 months: No Number of Cigarettes Smoked Daily: 0 Information on smoking cessation initiated: No Hx Alcohol Use: No Drug/Substance Use Hx: No Substance Use Type: None Hx Substance Use Treatment: No <Eduardo Dan - Last Filed: 11/05/17 00:21> <Bakari Pappas - Last Filed: 11/05/17 00:25> - Past Medical History Allergies/Adverse Reactions: Allergies Allergy/AdvReac Type Severity Reaction Status Date / Time No Known Allergies Allergy Verified 11/04/17 22:07 Home Medications: Ambulatory Orders Aspirin 81 mg PO DAILY 11/04/17 Atorvastatin Ca [Lipitor] 80 mg PO HS 11/04/17 Duloxetine HCl [Cymbalta] 30 mg PO BID 11/04/17 Ergocalciferol (Vitamin D2) [Vitamin D2] 50,000 unit PO WEEKLY 11/04/17 Glimepiride [Amaryl -] 4 mg PO BID 11/04/17 Isosorbide Mononitrate [Imdur -] 120 mg PO DAILY 11/04/17 Methimazole [Tapazole -] 10 mg PO DAILY 11/04/17 Metoprolol Succinate [Toprol Xl] 100 mg PO DAILY 11/04/17 Nitroglycerin 0.4 mg SL PRN 11/04/17 Ranolazine [Ranexa] 1,000 mg PO BID 11/04/17 Sitagliptin Phosphate [Januvia] 100 mg PO DAILY 11/04/17 Spironolactone [Aldactone] 25 mg PO DAILY 11/04/17 Ticagrelor [Brilinta] 90 mg PO BID 11/04/17 Valsartan [Diovan] 160 mg PO BID 11/04/17 Review of Systems - Review of Systems Able to Perform ROS?: Yes Comments:: 11/04/17 22:46 CONSTITUTIONAL: (+) Nausea, vomiting, decreased appetite Absent: fever, no chills, no fatigue EYES: Absent: visual changes ENT: Absent: ear pain, no sore throat CARDIOVASCULAR: (+) Chest pain Absent: no palpitations RESPIRATORY: Absent: cough, no SOB GI: (+) Abdominal pain Absent: no nausea, no vomiting, no constipation, no diarrhea GENITOURINARY: Absent: dysuria, no frequency, no hematuria MUSCULOSKELETAL: Absent: back pain, no arthralgia, no myalgia SKIN: Absent: rash NEURO: (+) Dizziness <Bakari Pappas - Last Filed: 11/05/17 00:25> *Physical Exam - Vital Signs Last Vital Signs Temp Pulse Resp BP Pulse Ox 97.6 F 47 L 18 115/65 99 11/04/17 22:07 11/04/17 22:07 11/04/17 22:07 11/04/17 22:07 11/04/17 22:07 <Eduardo Dan - Last Filed: 11/05/17 00:21> - Vital Signs Last Vital Signs Temp Pulse Resp BP Pulse Ox 97.6 F 47 L 18 115/65 99 11/04/17 22:07 11/04/17 22:07 11/04/17 22:07 11/04/17 22:07 11/04/17 22:07 - Physical Exam Comments: 11/04/17 22:46 GENERAL: Well-appearing, well-nourished. No apparent distress. HEENT: Normocephalic, atraumatic. PERRL, EOM intact. CARDIOVASCULAR: Normal S1, S2. Regular rate and rhythm. PULMONARY: Clear to auscultation bilaterally. ABDOMEN: Soft, non-distended, non-tender. EXTREMITIES: Normal ROM in all four extremities. No gross deformities. SKIN: Warm, dry. No rash NEUROLOGICAL: No focal neurological deficits. <Bakari Pappas - Last Filed: 11/05/17 00:25> Heart Score/ECG Review - ECG Impressions Comment:: 11/04/17 22:47 Sinus bradycardia Left axis deviation Moderate voltage criteria for LVH may be normal variant Inferior infarct, age undetermined Anterior infarct, age undetermined T wave abnormality, consider lateral ischemia Abnormal ECH <Bakari Pappas - Last Filed: 11/05/17 00:25> ED Treatment Course - LABORATORY CBC & Chemistry Diagram: 11/04/17 22:40 11/04/17 22:40 <Eduardo Dan - Last Filed: 11/05/17 00:21> - LABORATORY CBC & Chemistry Diagram: 11/04/17 22:40 11/04/17 22:40 <Bakari Pappas - Last Filed: 11/05/17 00:25> Medical Decision Making - Medical Decision Making 11/05/17 00:21 scribe noteDrFrancheska Dan: The scribe's documentation has been prepared under my direction and personally reviewed by me in its entirery. I confirm that the note above accurately reflects all work, treatment, procedures, and medical decision making performed by me. <Eduardo Dan - Last Filed: 11/05/17 00:21> - Medical Decision Making 11/05/17 00:24 The patient has been asymptomatic since she presented however, troponin shows 10.7. I contacted [facility] ED and was informed that patients troponins were tracking down there. Her last one on discharge from [facility] was 2.9. Patient remains asymptomatic however, status post catheterization, I will admit for further evaluation. <Bakari Pappas - Last Filed: 11/05/17 00:25> *DC/Admit/Observation/Transfer - Discharge Dispostion Decision to Admit order: Yes <Eduardo Dan - Last Filed: 11/05/17 00:21> - Attestations Scribe Attestion: 11/04/17 22:47 Documentation prepared by Bakari Pappas, acting as medical records auditor for Eduardo Dan DO. <Bakari Pappas - Last Filed: 11/05/17 00:25> Diagnosis at time of Disposition: NSTEMI (non-ST elevated myocardial infarction) - Discharge Dispostion Condition at time of disposition: Stable - Referrals Referrals: Brett Wolf MD [Primary Care Provider] - - Patient Instructions - Post Discharge Activity
[2017-11-04 23:14] LABS: BASO % 0.3 % (0-2.0); EOS % 0.3 % (0-4.5); HEMATOCRIT 28.1 % (32.4-45.2); HEMOGLOBIN 9.1 GM/dL (10.7-15.3); LYMPH % 12.7 % (8-40); MCHC 32.3 g/dl (32.0-36.0); MEAN CELL VOLUME 80.4 fl (80-96); MEAN PLT VOLUME 9.3 fl (7.5-11.1); MONO % 6.7 % (3.8-10.2); PLATELET COUNT 296 K/MM3 (134-434); RDW 17.7 % (11.6-15.6); WHITE BLOOD COUNT 12.6 K/mm3 (4.0-10.0)
[2017-11-04 23:27] LABS: INR 0.97 (0.82-1.09)
[2017-11-04 23:49] LABS: ALBUMIN 3.3 g/dl (3.4-5.0); ANION GAP 7 (8-16); BILIRUBIN,TOTAL 1.3 mg/dL (0.2-1.0); BLOOD UREA NITROGEN 26 mg/dL (7-18); CALCIUM 8.9 mg/dL (8.5-10.1); CHLORIDE 101 mmol/L (98-107); CO2 28 mmol/L (21-32); CREATININE 1.1 mg/dL (0.55-1.02); GLUCOSE,RANDOM 158 mg/dL (74-106); MAGNESIUM 2.1 mg/dL (1.8-2.4); POTASSIUM 4.1 mmol/L (3.5-5.1); SGOT/AST 76 U/L (15-37); SGPT/ALT 36 U/L (12-78); SODIUM 136 mmol/L (136-145); TOT PROT 6.3 g/dl (6.4-8.2)
[2017-11-04 23:52] LABS: ALK PHOS 98 U/L (45-117)
[2017-11-05] MEDS ORDERED: TICAGRELOR 90 MG TABLET PO ONE (00:32)
[2017-11-05] MEDS ORDERED: TICAGRELOR 90 MG TABLET PO SCH ×2 (00:35→10:00)
[2017-11-05] MEDS ORDERED: TICAGRELOR 90 MG TABLET PO STA (00:37)
--- NOTE | 2017-11-05 04:20 | PN ---
Teaching Attending Note Name of Resident: Rico Christie ATTENDING PHYSICIAN STATEMENT I saw and evaluated the patient. I reviewed the resident's note and discussed the case with the resident. I agree with the resident's findings and plan as documented. SUBJECTIVE: Patient is a 77 year old man with a past medical history of NIDDM, CAD, STEMI (s /p cath & stents x3), HTN, hyperlipidemia, and discharged from [facility] today after cardiac catheterization 2 days ago, now presents with chest pain, dizziness, and abdominal discomfort for 1 day. The patient states that she was discharged from [facility] today and began to experience her symptoms once she got home this afternoon. She has decreased appetite, nausea, and vomiting but denies syncope, headache or shortness of breath. Chest pain resolved in the ER but her troponin was 10 - the snap attacher said to just watch her and not start anticoagulation. Patient on Brilinta and asprin. OBJECTIVE: Alert and in no acute distress. Vital Signs Period Temp Pulse Resp BP Sys/Pabon Pulse Ox Last 24 Hr 97.6 F-98.1 F 47-60 18-18 112-115/55-65 98-99 HEENT: No Jaundice, eye redness or discharge, PERRLA, EOMI. Normocephalic, atraumatic. External ears are normal and hearing is grossly intact. No nasal discharge. Neck: Supple, nontender. No palpable adenopathy or thyromegaly. No JVD Chest: Good effort. Clear to auscultation and percussion. Heart: Regular. No S3, rub or murmur Abdomen: Not distended, soft, nontender and no HSM. No rebound or guarding. Normoactive bowel sounds. Ext: Right groin ecchymosis at site of cardiac cath access. Peripheral pulses intact. No leg edema. Skin: Warm and dry. No petechiae, rash or ecchymosis. Neuro: Alert. Oriented x3. CN 2-12 grossly intact. Sensation grossly intact in all four extremities and DTR are symmetric. Home Medications Medication Instructions Recorded Aspirin 81 mg PO DAILY 11/04/17 Atorvastatin Ca [Lipitor] 80 mg PO HS 11/04/17 Duloxetine HCl [Cymbalta] 30 mg PO BID 11/04/17 Ergocalciferol (Vitamin D2) 50,000 unit PO WEEKLY 11/04/17 [Vitamin D2] Glimepiride [Amaryl -] 4 mg PO BID 11/04/17 Isosorbide Mononitrate [Imdur -] 120 mg PO DAILY 11/04/17 Methimazole [Tapazole -] 10 mg PO DAILY 11/04/17 Metoprolol Succinate [Toprol Xl] 100 mg PO DAILY 11/04/17 Nitroglycerin 0.4 mg SL PRN 11/04/17 Ranolazine [Ranexa] 1,000 mg PO BID 11/04/17 Sitagliptin Phosphate [Januvia] 100 mg PO DAILY 11/04/17 Spironolactone [Aldactone] 25 mg PO DAILY 11/04/17 Ticagrelor [Brilinta] 90 mg PO BID 11/04/17 Valsartan [Diovan] 160 mg PO BID 11/04/17 Abnormal Lab Results 11/04/17 11/04/17 22:40 22:40 WBC 12.6 H D RBC 3.50 L Hgb 9.1 L D Hct 28.1 L D RDW 17.7 H Anion Gap 7 L BUN 26 H Creatinine 1.1 H Random Glucose 158 H Total Bilirubin 1.3 H D AST 76 H Creatine Kinase 226 H CK-MB (CK-2) 6.16 H Troponin I 10.70 H* Total Protein 6.3 L Albumin 3.3 L ASSESSMENT AND PLAN: 1. NSTEMI? - Her EKG shows T wave inversion in AVL, AF and V3 to V6, slighly better than the on from 3 days ago when she was in our ER. However elevated troponin may be due to stent placement post cath. She is now painfree. Will montior on telemetry and will be seen by cardiology. Will continue her cardiac medications. 2. Groin Ecchymosis - Monitor closely and follow CBC. 3. Leukocytosis - may be due to stress. Will check urinalysis to rule out infection. No indication for antibiotics at this time. 4. Anemia - May reflect recent blood loss during cath. Check stool guaiac and iron studies and treat with iron if deficient. 5. JUVENAL - May be due to dehydration. If it fails to correct with liberal oral fluids, ten will do basic nephrologic work up. Avoid NSAIDS and aminoglycosides. 6. DVT prophylaxis - Heparin 5000u sq tid. 7. Advance directives - Full code
--- NOTE | 2017-11-05 04:25 | HP ---
CHIEF COMPLAINT: Chest pain, dizziness PCP: Dr. Wolf HISTORY OF PRESENT ILLNESS: Patient is primarily Farsi speaking and demented. history taken from medical record and with the help of [employer] site interpreter #[id number] The patient is a 77 yo f w/ PMH DM, CAD, STEMI s/p stenting, dementia, HTN who comes into the ED c/o a 1 day history of chest pain as well as dizziness for the past 1 day. The patient was recently discharged from [facility] yesterday aftera 2 days stay for cardiac cath. Later in the afternoon, the patient began to experience 10/10 chest pain behind her left breast. The patient states that the pain was sharp in nature, did not radiate, and got better once she laid down. The episode lasted approx 10 minutes and resolved spontaneously. These symptoms were associated with SOB, nausea and two episodes of vomiting which was yellow in color. During the interview, the patient states that her symptoms have since resolved. The patient denies syncope, headache, abdominal pain. ER course was notable for: (1) Troponin 10.7, WBC 12.6, Hb 9.1 (2) (3) PAST MEDICAL HISTORY: HTN Dementia HLD Hypothyroidism Diabetes CAD PAST SURGICAL HISTORY: cardiac cath Social History: Smoking: denies Alcohol: denies Drugs: denies Family History: non-contributory Allergies No Known Allergies Allergy (Verified 11/04/17 22:07) HOME MEDICATIONS: Home Medications Medication Instructions Recorded Aspirin 81 mg PO DAILY 11/04/17 Atorvastatin Ca [Lipitor] 80 mg PO HS 11/04/17 Ergocalciferol (Vitamin D2) 50,000 unit PO WEEKLY 11/04/17 [Vitamin D2] Glimepiride [Amaryl -] 2 mg PO BID 11/04/17 Isosorbide Mononitrate [Imdur -] 120 mg PO DAILY 11/04/17 Nitroglycerin 0.4 mg SL PRN 11/04/17 Ticagrelor [Brilinta] 90 mg PO BID 11/04/17 Valsartan [Diovan] 160 mg PO BID 11/04/17 Allopurinol [Zyloprim -] 100 mg PO DAILY 11/05/17 Amlodipine Besylate 5 mg PO DAILY 11/05/17 Levothyroxine [Synthroid -] 25 mcg PO DAILY 11/05/17 Sitagliptin Phosphate [Januvia] 50 mg PO DAILY 11/05/17 REVIEW OF SYSTEMS CONSTITUTIONAL: Absent: fever, chills, diaphoresis, generalized weakness, malaise, loss of appetite, weight change HEENT: Absent: rhinorrhea, nasal congestion, throat pain, throat swelling, difficulty swallowing, mouth swelling, ear pain, eye pain, visual changes CARDIOVASCULAR: Absent: syncope, irregular heart rate, lightheadedness, peripheral edema RESPIRATORY: Absent: cough, dyspnea with exertion, orthopnea, wheezing, stridor, hemoptysis GASTROINTESTINAL: Absent: abdominal pain, abdominal distension, nausea, vomiting, diarrhea, constipation, melena, hematochezia GENITOURINARY: Absent: dysuria, frequency, urgency, hesitancy, hematuria, flank pain, genital pain MUSCULOSKELETAL: Absent: myalgia, arthralgia, joint swelling, back pain, neck pain SKIN: Absent: rash, itching, pallor HEMATOLOGIC/IMMUNOLOGIC: Absent: easy bleeding, easy bruising, lymphadenopathy, frequent infections ENDOCRINE: Absent: unexplained weight gain, unexplained weight loss, heat intolerance, cold intolerance NEUROLOGIC: Absent: headache, focal weakness or paresthesias, dizziness, unsteady gait, seizure, mental status changes, bladder or bowel incontinence PSYCHIATRIC: Absent: anxiety, depression, suicidal or homicidal ideation, hallucinations. PHYSICAL EXAMINATION Vital Signs - 24 hr 11/04/17 11/05/17 11/05/17 22:07 02:24 04:16 Temperature 97.6 F 98.1 F Pulse Rate 47 L Pulse Rate [ 60 Left Radial] Respiratory 18 18 Rate Blood Pressure 115/65 Blood Pressure 112/55 [Left Arm] O2 Sat by Pulse 99 98 98 Oximetry (%) GENERAL: Awake, alert, oriented to self only, in no acute distress. (patient at b/l per family) HEAD: Normal with no signs of trauma. EYES: Pupils equal, round and reactive to light, extraocular movements intact, sclera anicteric, conjunctiva clear. No lid lag. EARS, NOSE, THROAT: oropharynx clear without exudates. Moist mucous membranes. NECK: Normal range of motion, supple without lymphadenopathy, JVD, or masses. LUNGS: Breath sounds equal, clear to auscultation bilaterally. No wheezes, and no crackles. No accessory muscle use. HEART: Regular rate and rhythm, normal S1 and S2 without murmur, rub or gallop. ABDOMEN: Soft, nontender, not distended, normoactive bowel sounds, no guarding, no rebound, no masses. No hepatomegaly or splenomegaly. LOWER EXTREMITIES: 2+ pulses, warm, well-perfused. No calf tenderness. No peripheral edema. NEUROLOGICAL: Cranial nerves II-X intact. Normal speech. Strength 5/5 in all 4 limbs. sensation preserved in all dermatomes PSYCHIATRIC: Cooperative. Good eye contact. Appropriate mood and affect. SKIN: Warm, dry, normal turgor, no rashes or lesions noted, normal capillary refill. Laboratory Results - last 24 hr 11/04/17 11/04/17 11/04/17 22:40 22:40 22:40 WBC 12.6 H D RBC 3.50 L Hgb 9.1 L D Hct 28.1 L D MCV 80.4 MCH 26.0 MCHC 32.3 RDW 17.7 H Plt Count 296 MPV 9.3 D Absolute Neuts (auto) 10.1 Neutrophils % 80.0 D Lymphocytes % 12.7 D Monocytes % 6.7 Eosinophils % 0.3 D Basophils % 0.3 Nucleated RBC % 0 PT with INR 11.00 INR 0.97 Sodium 136 Potassium 4.1 Chloride 101 Carbon Dioxide 28 Anion Gap 7 L BUN 26 H Creatinine 1.1 H Creat Clearance w eGFR 48.29 Random Glucose 158 H Calcium 8.9 Magnesium 2.1 Total Bilirubin 1.3 H D AST 76 H ALT 36 Alkaline Phosphatase 98 Creatine Kinase 226 H Creatine Kinase Index 2.7 CK-MB (CK-2) 6.16 H Troponin I 10.70 H* Total Protein 6.3 L Albumin 3.3 L ASSESSMENT/PLAN: The patient is a 77 yo f w/ PMH DM, CAD, STEMI s/p stenting who comes into the ED c/o a 2 day history of CP after recent cardiac cath at [facility]. #chest pain and tropinemia, possibly 2/2 residual from cath vs new infarct -ekg with minimal changes since 10/26 -CP has since resoved -spoke w/ Dr. Mccarthy, in call for Dr. Kessler; recommended close monitoring and rpt tropes in AM , continuation with current AC and close monitoring -cardiology consult for Dr. Kessler -EKG and trop in am #Leukocytosis possibly reactive to recent procedure vs infection -will obtain UA r/o UTI -trend WBC #FEN -no fluids indicated -lytes WNL, replete PRN -diabetic diet #Prophy -SCDs #Dispo -admit telemetry Visit type - Emergency Visit Emergency Visit: Yes ED Registration Date: 11/05/17 Care time: The patient presented to the Emergency Department on the above date and was hospitalized for further evaluation of their emergent condition. - New Patient This patient is new to me today: Yes Date on this admission: 11/05/17 - Critical Care Critical Care patient: No Hospitalist Screening - Colonoscopy Questionnaire Colonoscopy Questionnaire: Colonoscopy Questionnaire - Patient: 50 - 75 years old and never had a screening colonoscopy: Unknown History of colon or rectal polyps, or CA: Unknown History of IBD, Crohn's disease or UC: Unknown History of abdominal radiation therapy as a child: Unknown - Relative: 1 with colon or rectal CA, or polyps at age 60 or younger: Unknown Colon or rectal CA diagnosed at age 45 or younger: Unknown Multiple relatives with colon or rectal CA: Unknown - Outcome: Screening Result: Negative Screen
[2017-11-05] MEDS ORDERED: NITROGLYCERIN SUBLINGUAL 1/150 0.4 MG TAB SL PRN (04:30)
[2017-11-05] MEDS: LEVOTHYROXINE NA 25 MCG TABLET (FP) PO SCH (07:13)
[2017-11-05] MEDS: INSULIN SLIDING SCALE (NOVOLOG) 1 VIAL SQ SCH ×4 (07:13→22:33)
[2017-11-05 07:29] LABS: INR 0.96 (0.82-1.09); PROTHROMBIN TIME (PATIENT) 10.8 SEC (9.7-13.0)
[2017-11-05 07:58] LABS: ALBUMIN 3.5 g/dl (3.4-5.0); ANION GAP 11 (8-16); BLOOD UREA NITROGEN 29 mg/dL (7-18); CALCIUM 9.3 mg/dL (8.5-10.1); CHLORIDE 100 mmol/L (98-107); CO2 26 mmol/L (21-32); CREATININE 1.1 mg/dL (0.55-1.02); GLUCOSE,RANDOM 117 mg/dL (74-106); MAGNESIUM 2.1 mg/dL (1.8-2.4); PHOSPHOROUS 4.7 mg/dL (2.5-4.9); POTASSIUM 3.9 mmol/L (3.5-5.1); SGOT/AST 68 U/L (15-37); SGPT/ALT 36 U/L (12-78); SODIUM 137 mmol/L (136-145)
[2017-11-05 08:02] LABS: ALK PHOS 104 U/L (45-117); BILIRUBIN,TOTAL 1.5 mg/dL (0.2-1.0); TOT PROT 6.7 g/dl (6.4-8.2)
[2017-11-05] MEDS: ISOSORBIDE MONONITRATE 60 MG TAB.SR.24H (FP) PO SCH (10:12)
[2017-11-05] MEDS: ALLOPURINOL 100 MG TABLET (FP) PO SCH (10:12)
[2017-11-05] MEDS: ASPIRIN 81 MG CHEWABLE TABLETS PO SCH (10:12)
[2017-11-05] MEDS: amLODIPine BESYLATE 5 MG TABLET (FP) PO SCH (10:12)
[2017-11-05] MEDS: VALSARTAN 160 MG TABLET (UD) PO SCH ×2 (10:12→22:32)
[2017-11-05] MEDS: TICAGRELOR 90 MG TABLET PO SCH ×2 (10:12→22:38)
--- NOTE | 2017-11-05 11:46 | EKG ---
Test Reason : Blood Pressure : / mmHG Vent. Rate : 052 BPM Atrial Rate : 052 BPM P-R Int : 148 ms QRS Dur : 088 ms QT Int : 498 ms P-R-T Axes : 068 -49 -50 degrees QTc Int : 463 ms SINUS BRADYCARDIA LEFT AXIS DEVIATION MODERATE VOLTAGE CRITERIA FOR LVH, MAY BE NORMAL VARIANT INFERIOR INFARCT (CITED ON OR BEFORE 04-NOV-2017) ANTERIOR INFARCT (CITED ON OR BEFORE 06-JUL-2017) ABNORMAL ECG WHEN COMPARED WITH ECG OF 04-NOV-2017 22:08, NO SIGNIFICANT CHANGE WAS FOUND Confirmed by ALLA THOMAS MD ([id number]) on 11/05/2017 11:46:37 AM Referred By: RADHA PERES DR Confirmed By:ALLA THOMAS MD
--- NOTE | 2017-11-05 11:53 | EKG ---
Test Reason : Blood Pressure : / mmHG Vent. Rate : 047 BPM Atrial Rate : 047 BPM P-R Int : 168 ms QRS Dur : 070 ms QT Int : 534 ms P-R-T Axes : 065 -47 -52 degrees QTc Int : 472 ms SINUS BRADYCARDIA LEFT AXIS DEVIATION MODERATE VOLTAGE CRITERIA FOR LVH, MAY BE NORMAL VARIANT INFERIOR INFARCT , AGE UNDETERMINED ANTERIOR INFARCT (CITED ON OR BEFORE 06-JUL-2017) T WAVE ABNORMALITY, CONSIDER LATERAL ISCHEMIA ABNORMAL ECG WHEN COMPARED WITH ECG OF 28-OCT-2017 12:19, SIGNIFICANT CHANGES HAVE OCCURRED Confirmed by ALLA THOMAS MD ([id number]) on 11/05/2017 11:52:51 AM Referred By: Confirmed By:ALLA THOMAS MD
--- NOTE | 2017-11-05 13:16 | PN ---
Progress Note, Physician Chief Complaint: patient seen in ER says her chest pain in much less - Current Medication List Current Medications: Active Medications Allopurinol (Zyloprim -) 100 mg PO DAILY [facility] Last Admin: 11/05/17 10:12 Dose: 100 mg Amlodipine Besylate (Norvasc -) 5 mg PO DAILY [facility] Last Admin: 11/05/17 10:12 Dose: 5 mg Aspirin (Asa -) 81 mg PO DAILY [facility] Last Admin: 11/05/17 10:12 Dose: 81 mg Atorvastatin Calcium (Lipitor -) 80 mg PO [facility] Insulin Aspart (Novolog Vial Sliding Scale -) 1 vial SQ ACHS [facility]; Protocol Last Admin: 11/05/17 12:11 Dose: Not Given Isosorbide Mononitrate (Imdur -) 120 mg PO DAILY [facility] Last Admin: 11/05/17 10:12 Dose: 120 mg Levothyroxine Sodium (Synthroid -) 25 mcg PO DAILY@0700 [facility] Last Admin: 11/05/17 07:13 Dose: Not Given Nitroglycerin (Nitrostat -) 0.4 mg SL Q5M PRN PRN Reason: ANGINA Ticagrelor (Brilinta -) 90 mg PO BID [facility] Last Admin: 11/05/17 10:12 Dose: 90 mg Valsartan (Diovan -) 160 mg PO BID [facility] Last Admin: 11/05/17 10:12 Dose: 160 mg - Objective Vital Signs: Vital Signs Temperature 98.4 F 11/05/17 09:00 Pulse Rate 55 L 11/05/17 09:00 Respiratory Rate 18 11/05/17 09:00 Blood Pressure 163/61 11/05/17 09:00 O2 Sat by Pulse Oximetry (%) 100 11/05/17 05:28 Constitutional: Yes: Calm Cardiovascular: Yes: Regular Rate and Rhythm, S1, S2 Respiratory: Yes: CTA Bilaterally Gastrointestinal: Yes: Normal Bowel Sounds, Soft Edema: No Neurological: Yes: Alert, Oriented Labs: CBC, BMP 11/04/17 22:40 11/05/17 06:00 INR, PTT INR 0.96 (0.82-1.09) 11/05/17 06:00 Problem List - Problems (1) NSTEMI (non-ST elevated myocardial infarction) Assessment/Plan: h/o of recent stent at [facility] telemonitoring trend troponin brilinta,aspirin and lipitor Code(s): I21.4 - NON-ST ELEVATION (NSTEMI) MYOCARDIAL INFARCTION (2) Abnormal EKG Assessment/Plan: serial ekg t wave inversion noted in lateral leads Code(s): R94.31 - ABNORMAL ELECTROCARDIOGRAM [ECG] [EKG] (3) Diabetes mellitus Assessment/Plan: bgm sliding scale hga1c Code(s): E11.9 - TYPE 2 DIABETES MELLITUS WITHOUT COMPLICATIONS Qualifiers: Diabetes mellitus type: type 2 (4) Leukocytosis Assessment/Plan: secondary to stress will monitior Code(s): D72.829 - ELEVATED WHITE BLOOD CELL COUNT, UNSPECIFIED (5) Hypothyroid Assessment/Plan: on synthroid check tsh,free t4 Code(s): E03.9 - HYPOTHYROIDISM, UNSPECIFIED
--- NOTE | 2017-11-05 15:10 | CON.CARD ---
Consult Consult Specialty:: Cardiology Referred by:: Jyothi Maradiaga Reason for Consultation:: Chest pain - History of Present Illness Chief Complaint: Chest pain History of Present Illness: 77 year old female with a pmhx of dm, htn, hld, CAD, with recent STEMI at [facility] s/p cath demonstrating 100% thrombotic occlusion of mRCA s/p LEAD INGOT MOLDER/ 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 She was discharged and presented to [facility] on the same day with chest pain under her left breast that was non radiating and now resolved. Also with some lower abdominal discomfort and with R groin pain. Patient now has no chest pain or sob. Comfortable except c/o R groin pain. 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 No: Story's Disease, Marlin's Disease, Diabetes Insipidus, Diabetes Mellitus, Hyperparathyroidism, Hypothyroidism, Osteopenia, SIADH, Other - Past Surgical History Past Surgical History: Yes: Stent - Alcohol/Substance Use Hx Alcohol Use: No History of Substance Use: reports: None - Smoking History Smoking history: Never smoked Have you smoked in the past 12 months: No Aproximately how many cigarettes per day: 0 - Social History Usual Living Arrangement: With Spouse ADL: Family Assistance Occupation: retired History of Recent Travel: No Home Medications - Allergies Allergies/Adverse Reactions: Allergies Allergy/AdvReac Type Severity Reaction Status Date / Time No Known Allergies Allergy Verified 11/04/17 22:07 - Home Medications Home Medications: Ambulatory Orders Aspirin 81 mg PO DAILY 11/04/17 Atorvastatin Ca [Lipitor] 80 mg PO HS 11/04/17 Ergocalciferol (Vitamin D2) [Vitamin D2] 50,000 unit PO WEEKLY 11/04/17 Glimepiride [Amaryl -] 2 mg PO BID 11/04/17 Isosorbide Mononitrate [Imdur -] 120 mg PO DAILY 11/04/17 Nitroglycerin 0.4 mg SL PRN 11/04/17 Ticagrelor [Brilinta] 90 mg PO BID 11/04/17 Valsartan [Diovan] 160 mg PO BID 11/04/17 Allopurinol [Zyloprim -] 100 mg PO DAILY 11/05/17 Amlodipine Besylate 5 mg PO DAILY 11/05/17 Levothyroxine [Synthroid -] 25 mcg PO DAILY 11/05/17 Sitagliptin Phosphate [Januvia] 50 mg PO DAILY 11/05/17 Vital Signs: Vital Signs Temperature 98.4 F 11/05/17 09:00 Pulse Rate 55 L 11/05/17 09:00 Respiratory Rate 18 11/05/17 09:00 Blood Pressure 163/61 11/05/17 09:00 O2 Sat by Pulse Oximetry (%) 100 11/05/17 05:28 Constitutional: Yes: No Distress Neck: Yes: Supple Respiratory: Yes: CTA Bilaterally Gastrointestinal: Yes: Soft Cardiovascular: Yes: Regular Rate and Rhythm JVD: No Carotid Bruit: No PMI: Non-Displaced Heart Sounds: Yes: S1, S2 Murmur: No: Systolic Murmur Extremities: Yes: Other (R groin ecchymosis and swelling and tenderness) Edema: No - Other Data Labs, Other Data: CBC, BMP 11/04/17 22:40 11/05/17 06:00 INR, PTT INR 0.96 (0.82-1.09) 11/05/17 06:00 Troponin, BNP 11/04/17 11/05/17 22:40 06:00 Troponin I 10.70 H* 10.80 H* Troponin, BNP 11/04/17 11/05/17 22:40 06:00 Troponin I 10.70 H* 10.80 H* Imaging - Results Chest X-ray: Report Reviewed EKG: Image Reviewed Problem List - Problems (1) CAD (coronary artery disease) Code(s): I25.10 - ATHSCL HEART DISEASE OF [place] CORONARY ARTERY W/O ANG PCTRS Qualifiers: Coronary Disease-Associated Artery/Lesion type: [place] artery [place] vs. transplanted heart: [place] heart Associated angina: without angina Qualified Code(s): I25.10 - Atherosclerotic heart disease of [place] coronary artery without angina pectoris Assessment/Plan 77 year old female with a pmhx of dm, htn, hld, CAD, with recent STEMI at [facility] s/p cath demonstrating 100% thrombotic occlusion of mRCA s/p LEAD INGOT MOLDER/ 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 She was discharged and presented to [facility] on the same day with chest pain under her left breast that was non radiating and now resolved. Also with some lower abdominal discomfort and with R groin pain. Patient now has no chest pain or sob. Comfortable except c/o R groin pain. 1) Chest pain/CAD Patient with recent STEMI and cath at [facility]. Stent to RCA. -CK yesterday was 600's and here today is 200s. EKG: inferior infarct pattern and lateral TWI -Currently chest pain free. Would monitor on tele for 24 hours. Continue aspirin/brillinta/statin. Not on bblocker given resting HR 47bpm. Enzymes are trending down from yesterday. Has noted right groin ecchymosis/swelling/tenderness so would get a vascular duplex to evaluate. Hgb stable as was 9.3 yesterday at [facility].
[2017-11-05] MEDS: ATORVASTATIN CA 80 MG TABLET (FP) PO SCH (22:32)
[2017-11-06] MEDS: INSULIN SLIDING SCALE (NOVOLOG) 1 VIAL SQ SCH ×4 (06:10→22:20)
[2017-11-06] MEDS: LEVOTHYROXINE NA 25 MCG TABLET (FP) PO SCH (06:24)
[2017-11-06 07:06] LABS: BASO % 0.5 % (0-2.0); EOS % 1.2 % (0-4.5); HEMATOCRIT 23.9 % (32.4-45.2); HEMOGLOBIN 8.1 GM/dL (10.7-15.3); LYMPH % 26.5 % (8-40); MCHC 33.8 g/dl (32.0-36.0); MEAN CELL VOLUME 79.8 fl (80-96); MEAN PLT VOLUME 9.3 fl (7.5-11.1); MONO % 8.9 % (3.8-10.2); NEUT % 62.9 % (42.8-82.8); PLATELET COUNT 241 K/MM3 (134-434); WHITE BLOOD COUNT 9.6 K/mm3 (4.0-10.0)
[2017-11-06 07:19] LABS: ANION GAP 9 (8-16); BLOOD UREA NITROGEN 30 mg/dL (7-18); CHLORIDE 102 mmol/L (98-107); CO2 26 mmol/L (21-32); GLUCOSE,RANDOM 103 mg/dL (74-106); POTASSIUM 3.5 mmol/L (3.5-5.1); SGOT/AST 40 U/L (15-37); SODIUM 137 mmol/L (136-145)
[2017-11-06 07:32] LABS: ALK PHOS 85 U/L (45-117); BILIRUBIN,TOTAL 1.6 mg/dL (0.2-1.0); CALCIUM 8.6 mg/dL (8.5-10.1); SGPT/ALT 26 U/L (12-78); TOT PROT 5.8 g/dl (6.4-8.2)
[2017-11-06] MEDS ORDERED: PT OWN MED DRAWER 7, Y5N ONE ×2 (09:39→22:11)
[2017-11-06] MEDS: ISOSORBIDE MONONITRATE 60 MG TAB.SR.24H (FP) PO SCH (09:42)
[2017-11-06] MEDS: ASPIRIN 81 MG CHEWABLE TABLETS PO SCH (09:43)
[2017-11-06] MEDS: VALSARTAN 160 MG TABLET (UD) PO SCH ×2 (09:43→22:20)
[2017-11-06] MEDS: TICAGRELOR 90 MG TABLET PO SCH ×2 (09:43→22:20)
[2017-11-06] MEDS: amLODIPine BESYLATE 5 MG TABLET (FP) PO SCH (09:43)
[2017-11-06] MEDS: ALLOPURINOL 100 MG TABLET (FP) PO SCH (09:43)
--- NOTE | 2017-11-06 11:45 | PN ---
Progress Note, Physician Chief Complaint: EVENTS NOTED AND REVIEWED PATIENT C/O UNSTEADY GAIT CHEST PAIN - Current Medication List Current Medications: Active Medications Allopurinol (Zyloprim -) 100 mg PO DAILY [facility] Last Admin: 11/06/17 09:43 Dose: 100 mg Amlodipine Besylate (Norvasc -) 5 mg PO DAILY [facility] Last Admin: 11/06/17 09:43 Dose: 5 mg Aspirin (Asa -) 81 mg PO DAILY [facility] Last Admin: 11/06/17 09:43 Dose: 81 mg Atorvastatin Calcium (Lipitor -) 80 mg PO HS [facility] Last Admin: 11/05/17 22:32 Dose: 80 mg Insulin Aspart (Novolog Vial Sliding Scale -) 1 vial SQ ACHS [facility]; Protocol Last Admin: 11/06/17 06:10 Dose: Not Given Isosorbide Mononitrate (Imdur -) 120 mg PO DAILY [facility] Last Admin: 11/06/17 09:42 Dose: 120 mg Levothyroxine Sodium (Synthroid -) 25 mcg PO DAILY@0700 [facility] Last Admin: 11/06/17 06:24 Dose: 25 mcg Nitroglycerin (Nitrostat -) 0.4 mg SL Q5M PRN PRN Reason: ANGINA Ticagrelor (Brilinta -) 90 mg PO BID [facility] Last Admin: 11/06/17 09:43 Dose: 90 mg Valsartan (Diovan -) 160 mg PO BID [facility] Last Admin: 11/06/17 09:43 Dose: 160 mg - Objective Vital Signs: Vital Signs Temperature 98.4 F 11/06/17 06:00 Pulse Rate 68 11/06/17 06:00 Respiratory Rate 18 11/06/17 06:00 Blood Pressure 120/64 11/06/17 06:00 O2 Sat by Pulse Oximetry (%) 98 11/05/17 21:30 Constitutional: Yes: Mild Distress Eyes: Yes: WNL HENT: Yes: WNL Neck: Yes: WNL Cardiovascular: Yes: WNL Respiratory: Yes: WNL Gastrointestinal: Yes: WNL Genitourinary: Yes: WNL Musculoskeletal: Yes: Muscle Weakness Extremities: Yes: WNL Edema: No Peripheral Pulses WNL: Yes Integumentary: Yes: WNL Wound/Incision: Yes: Clean/Dry Neurological: Yes: Pre-Existing Deficit ...Motor Strength: LLE, RLE Psychiatric: Yes: WNL Labs: CBC, BMP 11/06/17 05:30 11/06/17 05:30 INR, PTT INR 0.96 (0.82-1.09) 11/05/17 06:00 Problem List - Problems (1) NSTEMI (non-ST elevated myocardial infarction) Code(s): I21.4 - NON-ST ELEVATION (NSTEMI) MYOCARDIAL INFARCTION (2) Abnormal EKG Code(s): R94.31 - ABNORMAL ELECTROCARDIOGRAM [ECG] [EKG] (3) Anxiety Code(s): F41.9 - ANXIETY DISORDER, UNSPECIFIED (4) Diabetes mellitus Code(s): E11.9 - TYPE 2 DIABETES MELLITUS WITHOUT COMPLICATIONS Qualifiers: Diabetes mellitus type: type 2 Assessment/Plan NSTEMI CARDIOLOGY F/U ON TELE NO ALARMS TROPONINS TRENDING DOWN MONITOR LFT'S/LIPID PANEL BGM CHECKS ON SSI PT EVAL WILL NEED SNF
--- NOTE | 2017-11-06 15:06 | CONSULT ---
Consult Consult Specialty:: hematology -Oncology Referred by:: Dr. 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 No: Pablo's Disease, Marlin's Disease, Diabetes Insipidus, Diabetes Mellitus, Hyperparathyroidism, Hypothyroidism, Osteopenia, SIADH, Other - Past Surgical History Past Surgical History: Yes: Stent - Alcohol/Substance Use Hx Alcohol Use: No History of Substance Use: reports: None - Smoking History Smoking history: Never smoked Have you smoked in the past 12 months: No Aproximately how many cigarettes per day: 0 - Social History Usual Living Arrangement: With Spouse ADL: Family Assistance Occupation: retired Place of : [employer] [employer] (error - not born in [place]) Came to [place]year[place] Born in [place] and came to -26 years earlier History of Recent Travel: No Home Medications - Allergies Allergies/Adverse Reactions: Allergies Allergy/AdvReac Type Severity Reaction Status Date / Time No Known Allergies Allergy Verified 11/04/17 22:07 - Home Medications Home Medications: Ambulatory Orders Aspirin 81 mg PO DAILY 11/04/17 Atorvastatin Ca [Lipitor] 80 mg PO HS 11/04/17 Ergocalciferol (Vitamin D2) [Vitamin D2] 50,000 unit PO WEEKLY 11/04/17 Glimepiride [Amaryl -] 2 mg PO BID 11/04/17 Isosorbide Mononitrate [Imdur -] 120 mg PO DAILY 11/04/17 Nitroglycerin 0.4 mg SL PRN 11/04/17 Ticagrelor [Brilinta] 90 mg PO BID 11/04/17 Valsartan [Diovan] 160 mg PO BID 11/04/17 Allopurinol [Zyloprim -] 100 mg PO DAILY 11/05/17 Amlodipine Besylate 5 mg PO DAILY 11/05/17 Levothyroxine [Synthroid -] 25 mcg PO DAILY 11/05/17 Sitagliptin Phosphate [Januvia] 50 mg PO DAILY 11/05/17 Family Disease History - Family Disease History Family History: Unable to Obtain Review of Systems - Review of Systems Constitutional: reports: Weakness Eyes: denies: Blurred Vision, Double Vision HENT: denies: Difficult Swallowing, Epistaxis, Throat Pain Neck: denies: Stiffness, Swollen Glands, Tenderness Cardiovascular: reports: Chest Pain Respiratory: reports: Exercise Intolerance, SOB, SOB on Exertion. denies: Cough Gastrointestinal: reports: Abdominal Pain, Constipation Breasts: reports: No Symptoms Reported Musculoskeletal: reports: Back Pain Neurological: reports: No Symptoms Endocrine: reports: No Symptoms Hematology/Lymphatic: reports: No Symptoms Psychiatric: reports: No Symptoms Physical Exam Vital Signs: Vital Signs Temperature 98.4 F 11/06/17 06:00 Pulse Rate 68 11/06/17 06:00 Respiratory Rate 18 11/06/17 06:00 Blood Pressure 120/64 11/06/17 06:00 O2 Sat by Pulse Oximetry (%) 98 11/05/17 21:30 Constitutional: Yes: Mild Distress Eyes: Yes: PERRL. No: Ptosis, Sclera Icterus HENT: Yes: Normocephalic. No: Hoarseness, Thrush, Tonsillar Exudate Neck: Yes: Trachea Midline. No: Lymphadenopathy, Tenderness, Thyromegaly Cardiovascular: Yes: Regular Rate and Rhythm Respiratory: Yes: Regular, CTA Bilaterally Gastrointestinal: Yes: Normal Bowel Sounds, Soft. No: Hepatomegaly, Splenomegaly, Tenderness, Tenderness, Rebound Breast(s): Yes: WNL, Left, Right Musculoskeletal: Yes: Back Pain, Muscle Weakness Extremities: Yes: WNL. 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 In 10/02 Fe++ saturation ---> 8% Ferritin ---> 9.5 both suggestive of iron deficiency. Current serum FE++ level normal. Current fall in Hct may reflect hydration state post cath Will obtain stool guaics. IN view of STEMI , timing of GI work up in future will need be assessed. This especially in view of ASA and Brilinta therapy. Will check for celiac disease, and obtain hemogobin electrophoresis. In view of fall of Hct, will do screening for hemolysis as well. Code(s): D64.9 - ANEMIA, UNSPECIFIED (3) NSTEMI (non-ST elevated myocardial infarction) Code(s): I21.4 - NON-ST ELEVATION (NSTEMI) MYOCARDIAL INFARCTION (4) CAD (coronary artery disease) Code(s): I25.10 - ATHSCL HEART DISEASE OF [place] CORONARY ARTERY W/O ANG PCTRS Qualifiers: Coronary Disease-Associated Artery/Lesion type: [place] artery [place] vs. transplanted heart: [place] heart Associated angina: without angina Qualified Code(s): I25.10 - Atherosclerotic heart disease of [place] coronary artery without angina pectoris (5) Chest pain Code(s): R07.9 - CHEST PAIN, UNSPECIFIED Qualifiers: (6) Hypertension Code(s): I10 - ESSENTIAL (PRIMARY) HYPERTENSION (7) Type 2 diabetes mellitus with diabetic nephropathy Code(s): E11.21 - TYPE 2 DIABETES MELLITUS WITH DIABETIC NEPHROPATHY Qualifiers: Diabetes mellitus automation lead insulin use: unspecified mcc insulin use status Qualified Code(s): E11.21 - Type 2 diabetes mellitus with diabetic nephropathy Assessment/Plan Likely component of FE++ deficiency based upon prior labs. For screening for additional etiologies.
--- NOTE | 2017-11-06 15:32 | PN ---
Progress Note, Physician Chief Complaint: No chest pain today No events on tele +epigastric discomfort with palpation History of Present Illness: 77 year old female with a pmhx of dm, htn, hld, CAD, with recent STEMI at [facility] s/p cath demonstrating 100% thrombotic occlusion of mRCA s/p ANESTHESIOLOGY TECHNOLOGIST/ 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 She was discharged and presented to [facility] on the same day with chest pain under her left breast that was non radiating and now resolved. Also with some lower abdominal discomfort and with R groin pain. Patient now has no chest pain or sob. Comfortable except c/o R groin pain. - Current Medication List Current Medications: Active Medications Allopurinol (Zyloprim -) 100 mg PO DAILY [facility] Last Admin: 11/06/17 09:43 Dose: 100 mg Amlodipine Besylate (Norvasc -) 5 mg PO DAILY [facility] Last Admin: 11/06/17 09:43 Dose: 5 mg Aspirin (Asa -) 81 mg PO DAILY [facility] Last Admin: 11/06/17 09:43 Dose: 81 mg Atorvastatin Calcium (Lipitor -) 80 mg PO HS [facility] Last Admin: 11/05/17 22:32 Dose: 80 mg Insulin Aspart (Novolog Vial Sliding Scale -) 1 vial SQ [facility]; Protocol Last Admin: 11/06/17 12:25 Dose: 2 units Isosorbide Mononitrate (Imdur -) 120 mg PO DAILY [facility] Last Admin: 11/06/17 09:42 Dose: 120 mg Levothyroxine Sodium (Synthroid -) 25 mcg PO DAILY@0700 [facility] Last Admin: 11/06/17 06:24 Dose: 25 mcg Nitroglycerin (Nitrostat -) 0.4 mg SL Q5M PRN PRN Reason: ANGINA Ticagrelor (Brilinta -) 90 mg PO BID [facility] Last Admin: 11/06/17 09:43 Dose: 90 mg Valsartan (Diovan -) 160 mg PO BID [facility] Last Admin: 11/06/17 09:43 Dose: 160 mg - Objective Vital Signs: Vital Signs Temperature 98.4 F 11/06/17 06:00 Pulse Rate 68 11/06/17 06:00 Respiratory Rate 18 11/06/17 06:00 Blood Pressure 120/64 11/06/17 06:00 O2 Sat by Pulse Oximetry (%) 98 11/05/17 21:30 Constitutional: Yes: No Distress Neck: Yes: Supple Cardiovascular: Yes: Regular Rate and Rhythm, S1, S2. No: JVD Respiratory: Yes: CTA Bilaterally Gastrointestinal: Yes: Tenderness, Epigastrium Edema: No (R groin softer/less tende) Labs: CBC, BMP 11/06/17 05:30 11/06/17 05:30 INR, PTT INR 0.96 (0.82-1.09) 11/05/17 06:00 Problem List - Problems (1) CAD (coronary artery disease) Code(s): I25.10 - ATHSCL HEART DISEASE OF [place] CORONARY ARTERY W/O ANG PCTRS Qualifiers: Coronary Disease-Associated Artery/Lesion type: [place] artery [place] vs. 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 She was discharged and presented to [facility] on the same day with chest pain under her left breast that was non radiating and now resolved. Also with some lower abdominal discomfort and with R groin pain. Patient now has no chest pain or sob. Comfortable except c/o R groin pain. 1) Chest pain/CAD Patient with recent STEMI and cath at [facility]. Stent to RCA. -CK trended down to normal EKG: inferior infarct pattern and lateral TWI -Currently chest pain free still. Continue aspirin/brillinta/statin. Not on bblocker given resting darin R groin duplex with no evidence of pseudoaneurysm No further cardiac work up Would repeat h/h tonight and trend as patient with Hgb 8.1 today and mild epigastric tenderness.
[2017-11-06 17:44] LABS: BASO % 0.4 % (0-2.0); EOS % 0.9 % (0-4.5); HEMATOCRIT 25.2 % (32.4-45.2); HEMOGLOBIN 8.3 GM/dL (10.7-15.3); LYMPH % 19.4 % (8-40); MCH 26.7 pg (25.7-33.7); MCHC 32.9 g/dl (32.0-36.0); MEAN CELL VOLUME 81.1 fl (80-96); MEAN PLT VOLUME 9.3 fl (7.5-11.1); NEUT % 70.3 % (42.8-82.8); PLATELET COUNT 281 K/MM3 (134-434); RDW 17.4 % (11.6-15.6); WHITE BLOOD COUNT 10.4 K/mm3 (4.0-10.0)
--- NOTE | 2017-11-06 19:20 | CONSULT ---
Consult - text type - Consultation Consultation Note: NEUROLOGY CONSULTATION is greatly appreciated: This 77 yo RH female lives with her who is "very sick." H/O HTN, Chol, hypothyroidism, DM, CAD, S/P OH, s/p stents and recent cardiac cath is readmitted with chest pain and elevated CK. Maintained on: Aspirin 81, atorvastatin, Ergocalciferol, Glimepiride, Isosorbide , Nitroglycerin, Ticagrelor, Valsartan, Allopurinol, Amlodipine, L-thyroxine, Sitagliptin Neurology consultation requested for unsteady gait and dizziness. Patient c/o "sqeezing" in her feet for "some time." LEONIDES: Neck supple. -head trauma. - SLR DP pulses intact. NEURO: Awake, alert, frightened. MS/Speech Nl CN: II-XII: Normal Motor: No drift or tremor. No cogwheeling. Normal strength. Absent AJ 's. Toes downgoing. Coordination: No FTN dystaxia Sensory: Decreased vibration in both feet. Romberg + Gait: Shuffling, unsteady. IMP: Non-focal exam Diabetic Peripheral Neuropathy. SUGGEST: Check B12 PT for gait training with walker Out patient neuro f/u for EMG/NCS. Thank you very much, Luis Alberto Stewart MD
[2017-11-06] MEDS ORDERED: INSULIN (NOVOLOG) ASPART 100 UNITS/ML 10ML VIAL ONE (22:12)
[2017-11-06] MEDS: ATORVASTATIN CA 80 MG TABLET (FP) PO SCH (22:20)
[2017-11-07] MEDS: INSULIN SLIDING SCALE (NOVOLOG) 1 VIAL SQ SCH ×4 (06:29→21:32)
[2017-11-07] MEDS: LEVOTHYROXINE NA 25 MCG TABLET (FP) PO SCH (06:37)
[2017-11-07 08:07] LABS: BASO % 0.5 % (0-2.0); EOS % 1.1 % (0-4.5); HEMATOCRIT 26.3 % (32.4-45.2); HEMOGLOBIN 8.7 GM/dL (10.7-15.3); LYMPH % 28.7 % (8-40); MCH 26.6 pg (25.7-33.7); MCHC 33.2 g/dl (32.0-36.0); MEAN CELL VOLUME 80.3 fl (80-96); MEAN PLT VOLUME 9.4 fl (7.5-11.1); MONO % 8.2 % (3.8-10.2); NEUT % 61.5 % (42.8-82.8); PLATELET COUNT 286 K/MM3 (134-434); RBC 3.27 M/mm3 (3.60-5.2); RDW 17.6 % (11.6-15.6); RETICULOCYTES 2.57 % (0.5-1.5); WHITE BLOOD COUNT 10.4 K/mm3 (4.0-10.0)
[2017-11-07 08:54] LABS: CHOLESTEROL 124 mg/dL (50-200); HDL CHOLESTEROL 37 mg/dL (40-60); LDH 339 U/L (84-246); TRIGLYCERIDES 165 mg/dL (35-160)
[2017-11-07] MEDS: amLODIPine BESYLATE 5 MG TABLET (FP) PO SCH (09:39)
[2017-11-07] MEDS: ISOSORBIDE MONONITRATE 60 MG TAB.SR.24H (FP) PO SCH (09:39)
[2017-11-07] MEDS: ASPIRIN 81 MG CHEWABLE TABLETS PO SCH (09:39)
[2017-11-07] MEDS: ALLOPURINOL 100 MG TABLET (FP) PO SCH (09:40)
[2017-11-07] MEDS: TICAGRELOR 90 MG TABLET PO SCH ×2 (09:40→21:32)
[2017-11-07] MEDS: VALSARTAN 160 MG TABLET (UD) PO SCH ×2 (09:40→21:32)
[2017-11-07 10:53] LABS: BASO % 0.5 % (0-2.0); EOS % 0.7 % (0-4.5); HEMATOCRIT 25.5 % (32.4-45.2); HEMOGLOBIN 8.5 GM/dL (10.7-15.3); MCH 26.9 pg (25.7-33.7); MCHC 33.4 g/dl (32.0-36.0); MEAN CELL VOLUME 80.6 fl (80-96); MEAN PLT VOLUME 8.9 fl (7.5-11.1); MONO % 7.3 % (3.8-10.2); NEUT % 75.5 % (42.8-82.8); PLATELET COUNT 260 K/MM3 (134-434); RBC 3.16 M/mm3 (3.60-5.2); RDW 18.1 % (11.6-15.6); WHITE BLOOD COUNT 8.1 K/mm3 (4.0-10.0)
[2017-11-07 11:27] LABS: ANION GAP 10 (8-16); BILIRUBIN,TOTAL 1.9 mg/dL (0.2-1.0); BLOOD UREA NITROGEN 26 mg/dL (7-18); CALCIUM 8.4 mg/dL (8.5-10.1); CHLORIDE 102 mmol/L (98-107); CO2 26 mmol/L (21-32); CREATININE 1.1 mg/dL (0.55-1.02); GLUCOSE,RANDOM 204 mg/dL (74-106); POTASSIUM 3.9 mmol/L (3.5-5.1); SGOT/AST 35 U/L (15-37); SGPT/ALT 27 U/L (12-78); SODIUM 138 mmol/L (136-145)
[2017-11-07 11:30] LABS: ALK PHOS 94 U/L (45-117)
--- NOTE | 2017-11-07 11:53 | PN ---
Progress Note, Physician History of Present Illness: no cp groin pain - Current Medication List Current Medications: Active Medications Allopurinol (Zyloprim -) 100 mg PO DAILY [facility] Last Admin: 11/07/17 09:40 Dose: 100 mg Amlodipine Besylate (Norvasc -) 5 mg PO DAILY [facility] Last Admin: 11/07/17 09:39 Dose: 5 mg Aspirin (Asa -) 81 mg PO DAILY [facility] Last Admin: 11/07/17 09:39 Dose: 81 mg Atorvastatin Calcium (Lipitor -) 80 mg PO HS [facility] Last Admin: 11/06/17 22:20 Dose: 80 mg Insulin Aspart (Novolog Vial Sliding Scale -) 1 vial SQ [facility]; Protocol Last Admin: 11/07/17 06:29 Dose: Not Given Isosorbide Mononitrate (Imdur -) 120 mg PO DAILY [facility] Last Admin: 11/07/17 09:39 Dose: 120 mg Levothyroxine Sodium (Synthroid -) 25 mcg PO DAILY@0700 [facility] Last Admin: 11/07/17 06:37 Dose: 25 mcg Nitroglycerin (Nitrostat -) 0.4 mg SL Q5M PRN PRN Reason: ANGINA Ticagrelor (Brilinta -) 90 mg PO BID [facility] Last Admin: 11/07/17 09:40 Dose: 90 mg Valsartan (Diovan -) 160 mg PO BID [facility] Last Admin: 11/07/17 09:40 Dose: 160 mg - Objective Vital Signs: Vital Signs Temperature 98.1 F 11/07/17 09:00 Pulse Rate 88 11/07/17 09:00 Respiratory Rate 20 11/07/17 09:00 Blood Pressure 135/66 11/07/17 09:00 O2 Sat by Pulse Oximetry (%) 98 11/07/17 09:00 Cardiovascular: Yes: S1, S2 Respiratory: Yes: Regular, CTA Bilaterally Gastrointestinal: Yes: Normal Bowel Sounds, Soft, Other (groin with echymosis) Labs: CBC, BMP 11/07/17 10:40 INR, PTT INR 0.96 (0.82-1.09) 11/05/17 06:00 Assessment/Plan - Problems (1) NSTEMI (non-ST elevated myocardial infarction) Assessment/Plan: h/o of [facility] tele monitoring trend troponin brilinta,aspirin and lipitor Code(s): I21.4 - NON-ST ELEVATION (NSTEMI) MYOCARDIAL INFARCTION (2) Abnormal EKG Assessment/Plan: serial ekg t wave inversion noted in lateral leads Code(s): R94.31 - ABNORMAL ELECTROCARDIOGRAM [ECG] [EKG] (3) Diabetes mellitus Assessment/Plan: bgm sliding scale hga1c Code(s): E11.9 - TYPE 2 DIABETES MELLITUS WITHOUT COMPLICATIONS Qualifiers: Diabetes mellitus type: type 2 (4) Leukocytosis Assessment/Plan: secondary to stress will monitior Code(s): D72.829 - ELEVATED WHITE BLOOD CELL COUNT, UNSPECIFIED (5) Hypothyroid Assessment/Plan: on synthroid check tsh,free t4 Code(s): E03.9 - HYPOTHYROIDISM, UNSPECIFIED
[2017-11-07] MEDS: POLYETHYLENE GLYCOL 3350 119 GM BTL PO SCH (21:32)
[2017-11-07] MEDS: ATORVASTATIN CA 80 MG TABLET (FP) PO SCH (21:32)
[2017-11-07 23:02] LABS: URINE APPEARANCE CLEAR; URINE BILIRUBIN NEGATIVE (<2.0 mg/dL); URINE COLOR LTYELLOW; URINE GLUCOSE (UA) NEGATIVE (NEGATIVE); URINE KETONE NEGATIVE (NEGATIVE); URINE LEUK ESTERASE NEGATIVE (NEGATIVE); URINE NITRITE NEGATIVE (NEGATIVE); URINE UROBILINOGEN 4.0 E.U/dl mg/dL (0.2-1.0)
[2017-11-07 23:03] LABS: URINE PROTEIN 1+ (NEGATIVE)
[2017-11-07 23:23] LABS: EPI CELLS RARE /HPF (FEW)
[2017-11-08] MEDS: INSULIN SLIDING SCALE (NOVOLOG) 1 VIAL SQ SCH ×4 (06:25→22:16)
[2017-11-08] MEDS: LEVOTHYROXINE NA 25 MCG TABLET (FP) PO SCH (06:27)
[2017-11-08 07:07] LABS: BASO % 0.4 % (0-2.0); EOS % 1.1 % (0-4.5); HEMATOCRIT 24.8 % (32.4-45.2); HEMOGLOBIN 8.4 GM/dL (10.7-15.3); LYMPH % 22.9 % (8-40); MCH 27.4 pg (25.7-33.7); MEAN CELL VOLUME 80.7 fl (80-96); MEAN PLT VOLUME 9.1 fl (7.5-11.1); MONO % 8.8 % (3.8-10.2); NEUT % 66.8 % (42.8-82.8); PLATELET COUNT 254 K/MM3 (134-434); RBC 3.08 M/mm3 (3.60-5.2); RDW 17.5 % (11.6-15.6); WHITE BLOOD COUNT 10.4 K/mm3 (4.0-10.0)
[2017-11-08 07:21] LABS: ALBUMIN 2.9 g/dl (3.4-5.0); ANION GAP 9 (8-16); BLOOD UREA NITROGEN 26 mg/dL (7-18); CALCIUM 8.2 mg/dL (8.5-10.1); CHLORIDE 105 mmol/L (98-107); CO2 24 mmol/L (21-32); GLUCOSE,RANDOM 128 mg/dL (74-106); POTASSIUM 3.8 mmol/L (3.5-5.1); SODIUM 138 mmol/L (136-145)
[2017-11-08 07:28] LABS: ALK PHOS 100 U/L (45-117); BILIRUBIN,TOTAL 2.1 mg/dL (0.2-1.0); SGOT/AST 34 U/L (15-37); SGPT/ALT 26 U/L (12-78); TOT PROT 5.8 g/dl (6.4-8.2)
[2017-11-08] MEDS ORDERED: FUROSEMIDE 40 MG/4 ML INJECTABLE VIAL IVPUSH ONE (10:00)
[2017-11-08] MEDS ORDERED: PT OWN MED DRAWER 7, Y5N ONE (10:03)
[2017-11-08] MEDS: ASPIRIN 81 MG CHEWABLE TABLETS PO SCH (10:08)
[2017-11-08] MEDS: amLODIPine BESYLATE 5 MG TABLET (FP) PO SCH (10:09)
[2017-11-08] MEDS: ALLOPURINOL 100 MG TABLET (FP) PO SCH (10:09)
[2017-11-08] MEDS: TICAGRELOR 90 MG TABLET PO SCH ×2 (10:09→22:15)
[2017-11-08] MEDS: ISOSORBIDE MONONITRATE 60 MG TAB.SR.24H (FP) PO SCH (10:09)
[2017-11-08] MEDS: VALSARTAN 160 MG TABLET (UD) PO SCH ×2 (10:09→22:15)
[2017-11-08] MEDS: POLYETHYLENE GLYCOL 3350 119 GM BTL PO SCH ×2 (10:10→22:16)
--- NOTE | 2017-11-08 11:35 | PN ---
Progress Note, Physician History of Present Illness: no cp groin pain - Current Medication List Current Medications: Active Medications Allopurinol (Zyloprim -) 100 mg PO DAILY [facility] Last Admin: 11/08/17 10:09 Dose: 100 mg Amlodipine Besylate (Norvasc -) 5 mg PO DAILY [facility] Last Admin: 11/08/17 10:09 Dose: 5 mg Aspirin (Asa -) 81 mg PO DAILY [facility] Last Admin: 11/08/17 10:08 Dose: 81 mg Atorvastatin Calcium (Lipitor -) 80 mg PO HS [facility] Last Admin: 11/07/17 21:32 Dose: 80 mg Insulin Aspart (Novolog Vial Sliding Scale -) 1 vial SQ ACHS [facility]; Protocol Last Admin: 11/08/17 06:25 Dose: Not Given Isosorbide Mononitrate (Imdur -) 120 mg PO DAILY [facility] Last Admin: 11/08/17 10:09 Dose: 120 mg Levothyroxine Sodium (Synthroid -) 25 mcg PO DAILY@0700 [facility] Last Admin: 11/08/17 06:27 Dose: 25 mcg Nitroglycerin (Nitrostat -) 0.4 mg SL Q5M PRN PRN Reason: ANGINA Polyethylene Glycol (Miralax (For Daily Use) -) 17 gm PO BID [facility] Last Admin: 11/08/17 10:10 Dose: 17 gm Ticagrelor (Brilinta -) 90 mg PO BID [facility] Last Admin: 11/08/17 10:09 Dose: 90 mg Valsartan (Diovan -) 160 mg PO BID [facility] Last Admin: 11/08/17 10:09 Dose: 160 mg - Objective Vital Signs: Vital Signs Temperature 98.9 F 11/08/17 09:00 Pulse Rate 88 11/08/17 09:00 Respiratory Rate 20 11/08/17 09:00 Blood Pressure 116/51 11/08/17 09:00 O2 Sat by Pulse Oximetry (%) 98 11/08/17 09:00 Cardiovascular: Yes: S1, S2 Respiratory: Yes: Regular, CTA Bilaterally Gastrointestinal: Yes: Normal Bowel Sounds, Soft Labs: CBC, BMP 11/08/17 05:30 11/08/17 05:30 INR, PTT INR 0.96 (0.82-1.09) 11/05/17 06:00 Assessment/Plan - Problems (1) NSTEMI (non-ST elevated myocardial infarction) Assessment/Plan: h/o of recent stent at [facility] tele monitoring trend troponin brilinta,aspirin and lipitor Code(s): I21.4 - NON-ST ELEVATION (NSTEMI) MYOCARDIAL INFARCTION (2) Abnormal EKG Assessment/Plan: serial ekg t wave inversion noted in lateral leads Code(s): R94.31 - ABNORMAL ELECTROCARDIOGRAM [ECG] [EKG] (3) Diabetes mellitus Assessment/Plan: bgm sliding scale hga1c Code(s): E11.9 - TYPE 2 DIABETES MELLITUS WITHOUT COMPLICATIONS Qualifiers: Diabetes mellitus type: type 2 (4) Leukocytosis Assessment/Plan: secondary to stress will monitior Code(s): D72.829 - ELEVATED WHITE BLOOD CELL COUNT, UNSPECIFIED (5) Hypothyroid Assessment/Plan: on synthroid check tsh,free t4 Code(s): E03.9 - HYPOTHYROIDISM, UNSPECIFIED (6) Anemia Assessment/Plan: Prbc follow labs
[2017-11-08] MEDS: ATORVASTATIN CA 80 MG TABLET (FP) PO SCH (22:15)
--- NOTE | 2017-11-09 00:56 | CONSULT ---
Consult Consult Specialty:: endocrine Referred by:: dr.annabi garcia Reason for Consultation:: diabetes mellitus - History of Present Illness Chief Complaint: chest pain History of Present Illness: 77 year old female with a pmhx of dm, hypothyroidism,hyperlipidemia,and htn, CAD , with recent STEMI at [facility] s/p cath demonstrating 100% thrombotic occlusion of mRCA s/p MANAGER HOSPITALITY/stenting of mRCA,admitted for chest pain weakness, nausea,and difficulty walking. 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 No: [place]'s Disease, [place]'s Disease, Diabetes Insipidus, Diabetes Mellitus, Hyperparathyroidism, Hypothyroidism, Osteopenia, SIADH, Other - Past Surgical History Past Surgical History: Yes: Stent - Alcohol/Substance Use Hx Alcohol Use: No History of Substance Use: reports: None - Smoking History Smoking history: Never smoked Have you smoked in the past 12 months: No Aproximately how many cigarettes per day: 0 - Social History Usual Living Arrangement: With Spouse ADL: Family Assistance Occupation: retired History of Recent Travel: No Home Medications - Allergies Allergies/Adverse Reactions: Allergies Allergy/AdvReac Type Severity Reaction Status Date / Time No Known Allergies Allergy Verified 11/04/17 22:07 - Home Medications Home Medications: Ambulatory Orders Aspirin 81 mg PO DAILY 11/04/17 Atorvastatin Ca [Lipitor] 80 mg PO HS 11/04/17 Ergocalciferol (Vitamin D2) [Vitamin D2] 50,000 unit PO WEEKLY 11/04/17 Glimepiride [Amaryl -] 2 mg PO BID 11/04/17 Isosorbide Mononitrate [Imdur -] 120 mg PO DAILY 11/04/17 Nitroglycerin 0.4 mg SL PRN 11/04/17 Ticagrelor [Brilinta] 90 mg PO BID 11/04/17 Valsartan [Diovan] 160 mg PO BID 11/04/17 Allopurinol [Zyloprim -] 100 mg PO DAILY 11/05/17 Amlodipine Besylate 5 mg PO DAILY 11/05/17 Levothyroxine [Synthroid -] 25 mcg PO DAILY 11/05/17 Sitagliptin Phosphate [Januvia] 50 mg PO DAILY 11/05/17 Review of Systems - Review of Systems Constitutional: reports: Lethargy, Weakness Eyes: reports: Blurred Vision HENT: reports: No Symptoms Neck: reports: No Symptoms Cardiovascular: reports: Shortness of Breath Respiratory: reports: Exercise Intolerance, SOB on Exertion Gastrointestinal: reports: Bloating, Constipation, Nausea Genitourinary: reports: No Symptoms Breasts: reports: No Symptoms Reported Musculoskeletal: reports: Joint Swelling, Muscle Pain, Muscle Cramps Endocrine: reports: Unexplained Weight Loss Physical Exam Vital Signs: Vital Signs Temperature 98.9 F 11/09/17 00:21 Pulse Rate 90 11/09/17 00:21 Respiratory Rate 20 11/09/17 00:21 Blood Pressure 115/62 11/09/17 00:21 O2 Sat by Pulse Oximetry (%) 99 11/08/17 20:28 Constitutional: Yes: Anxious Eyes: Yes: EOM Intact HENT: Yes: Normocephalic Neck: Yes: Trachea Midline Cardiovascular: Yes: Regular Rate and Rhythm Respiratory: Yes: CTA Bilaterally Gastrointestinal: Yes: Soft, Tenderness, Epigastrium ...Rectal Exam: Yes: Deferred Renal/: Yes: WNL Breast(s): Yes: WNL Musculoskeletal: Yes: Muscle Pain, Muscle Weakness Edema: No Neurological: Yes: Alert, Oriented Labs: CBC, BMP 11/08/17 05:30 11/08/17 05:30 Problem List - Problems (1) Anemia, unspecified Code(s): D64.9 - ANEMIA, UNSPECIFIED (2) Hypothyroid Code(s): E03.9 - HYPOTHYROIDISM, UNSPECIFIED (3) NSTEMI (non-ST elevated myocardial infarction) Code(s): I21.4 - NON-ST ELEVATION (NSTEMI) MYOCARDIAL INFARCTION (4) Unspecified deficiency anemia Code(s): D53.9 - NUTRITIONAL ANEMIA, UNSPECIFIED (5) Abnormal EKG Code(s): R94.31 - ABNORMAL ELECTROCARDIOGRAM [ECG] [EKG] (6) Abnormal LFTs Code(s): R94.5 - ABNORMAL RESULTS OF LIVER FUNCTION STUDIES (7) Acute gout Code(s): M10.9 - GOUT, UNSPECIFIED Qualifiers: Gout site: foot Encounter type: initial encounter Laterality: right (8) Acute kidney injury superimposed on CKD Code(s): N17.9 - ACUTE KIDNEY FAILURE, UNSPECIFIED; N18.9 - CHRONIC KIDNEY DISEASE, UNSPECIFIED Assessment/Plan Current Active Problems Anemia, unspecified (Acute) Hypothyroid (Acute) NSTEMI (non-ST elevated myocardial infarction) (Acute) Unspecified deficiency anemia (Acute) Abnormal Lab Results 11/08/17 11/08/17 11/08/17 05:30 05:30 08:56 WBC 10.4 H RBC 3.08 L Hgb 8.4 L Hct 24.8 L RDW 17.5 H BUN 26 H Random Glucose 128 H Calcium 8.2 L Total Bilirubin 2.1 H Troponin I 1.99 H* Total Protein 5.8 L Albumin 2.9 L Crossmatch See Detail Laboratory Results - last 24 hr 11/08/17 11/08/17 11/08/17 05:30 05:30 06:06 WBC 10.4 H RBC 3.08 L Hgb 8.4 L Hct 24.8 L MCV 80.7 MCH 27.4 MCHC 34.0 RDW 17.5 H Plt Count 254 MPV 9.1 Absolute Neuts (auto) 6.9 Neutrophils % 66.8 Lymphocytes % 22.9 D Monocytes % 8.8 Eosinophils % 1.1 Basophils % 0.4 Nucleated RBC % 0 Sodium 138 Potassium 3.8 Chloride 105 Carbon Dioxide 24 Anion Gap 9 BUN 26 H Creatinine 1.0 Creat Clearance w eGFR 53.91 POC Glucometer 140 Random Glucose 128 H Calcium 8.2 L Total Bilirubin 2.1 H AST 34 ALT 26 Alkaline Phosphatase 100 Creatine Kinase 125 Troponin I 1.99 H* Total Protein 5.8 L Albumin 2.9 L Blood Type Antibody Screen Crossmatch 11/08/17 11/08/17 11/08/17 08:56 12:05 16:47 WBC RBC Hgb Hct MCV MCH MCHC RDW Plt Count MPV Absolute Neuts (auto) Neutrophils % Lymphocytes % Monocytes % Eosinophils % Basophils % Nucleated RBC % Sodium Potassium Chloride Carbon Dioxide Anion Gap BUN Creatinine Creat Clearance w eGFR POC Glucometer 253 192 Random Glucose Calcium Total Bilirubin AST ALT Alkaline Phosphatase Creatine Kinase Troponin I Total Protein Albumin Blood Type B POSITIVE Antibody Screen Negative Crossmatch See Detail 11/08/17 21:11 WBC RBC Hgb Hct MCV MCH MCHC RDW Plt Count MPV Absolute Neuts (auto) Neutrophils % Lymphocytes % Monocytes % Eosinophils % Basophils % Nucleated RBC % Sodium Potassium Chloride Carbon Dioxide Anion Gap BUN Creatinine Creat Clearance w eGFR POC Glucometer 181 Random Glucose Calcium Total Bilirubin AST ALT Alkaline Phosphatase Creatine Kinase Troponin I Total Protein Albumin Blood Type Antibody Screen Crossmatch plan: bgm qid novolog scale doses nutrition diet and calorie adjustment gi evaluation glimiperide 2 mg daily synthroid 25mcg daily atorvastatin 80mg daily
[2017-11-09 06:06] LABS: SERUM IRON SATURATION 11 % (15-55); TOTAL IRON BINDING CAPACITY 323 ug/dL (250-450); UIBC 287 ug/dL (118-369)
[2017-11-09] MEDS: INSULIN SLIDING SCALE (NOVOLOG) 1 VIAL SQ SCH ×4 (06:31→21:58)
[2017-11-09] MEDS: LEVOTHYROXINE NA 25 MCG TABLET (FP) PO SCH (06:33)
[2017-11-09] MEDS: GLIMEPIRIDE 2 MG TABLET (FP) PO SCH (06:33)
[2017-11-09] MEDS ORDERED: PT OWN MED DRAWER 7, Y5N ONE ×2 (09:31→21:41)
[2017-11-09] MEDS: ALLOPURINOL 100 MG TABLET (FP) PO SCH (09:34)
[2017-11-09] MEDS: amLODIPine BESYLATE 5 MG TABLET (FP) PO SCH (09:34)
[2017-11-09] MEDS: ASPIRIN 81 MG CHEWABLE TABLETS PO SCH (09:34)
[2017-11-09] MEDS: ISOSORBIDE MONONITRATE 60 MG TAB.SR.24H (FP) PO SCH (09:34)
[2017-11-09] MEDS: VALSARTAN 160 MG TABLET (UD) PO SCH ×2 (09:34→21:59)
[2017-11-09] MEDS: TICAGRELOR 90 MG TABLET PO SCH ×2 (09:34→21:59)
[2017-11-09] MEDS: POLYETHYLENE GLYCOL 3350 119 GM BTL PO SCH ×2 (10:57→21:59)
--- NOTE | 2017-11-09 12:20 | PN ---
Progress Note, Physician Chief Complaint: patient seen and examined and no chest pain complaining of pain in feet when she walks spoke to niece on the phone explained the need for Rehab - Current Medication List Current Medications: Active Medications Allopurinol (Zyloprim -) 100 mg PO DAILY [facility] Last Admin: 11/09/17 09:34 Dose: 100 mg Amlodipine Besylate (Norvasc -) 5 mg PO DAILY [facility] Last Admin: 11/09/17 09:34 Dose: Not Given Aspirin (Asa -) 81 mg PO DAILY [facility] Last Admin: 11/09/17 09:34 Dose: 81 mg Atorvastatin Calcium (Lipitor -) 80 mg PO HS [facility] Last Admin: 11/08/17 22:15 Dose: 80 mg Glimepiride (Amaryl -) 2 mg PO DAILY@0700 [facility] Last Admin: 11/09/17 06:33 Dose: 2 mg Insulin Aspart (Novolog Vial Sliding Scale -) 1 vial SQ [facility]; Protocol Last Admin: 11/09/17 11:52 Dose: 2 units Isosorbide Mononitrate (Imdur -) 120 mg PO DAILY [facility] Last Admin: 11/09/17 09:34 Dose: 120 mg Levothyroxine Sodium (Synthroid -) 25 mcg PO DAILY@0700 [facility] Last Admin: 11/09/17 06:33 Dose: 25 mcg Nitroglycerin (Nitrostat -) 0.4 mg SL Q5M PRN PRN Reason: ANGINA Polyethylene Glycol (Miralax (For Daily Use) -) 17 gm PO BID [facility] Last Admin: 11/09/17 10:57 Dose: 17 gm Ticagrelor (Brilinta -) 90 mg PO BID [facility] Last Admin: 11/09/17 09:34 Dose: 90 mg Valsartan (Diovan -) 160 mg PO BID [facility] Last Admin: 11/09/17 09:34 Dose: Not Given - Objective Vital Signs: Vital Signs Temperature 98.7 F 11/09/17 08:56 Pulse Rate 83 11/09/17 08:56 Respiratory Rate 20 11/09/17 08:56 Blood Pressure 97/46 11/09/17 08:56 O2 Sat by Pulse Oximetry (%) 99 11/08/17 20:28 Constitutional: Yes: Calm Cardiovascular: Yes: Regular Rate and Rhythm, S1, S2 Respiratory: Yes: CTA Bilaterally, Diminished (at bases) Gastrointestinal: Yes: Normal Bowel Sounds, Soft Extremities: Yes: Other (right groin ecchymosis slight tenderness on palpation) Edema: No Neurological: Yes: Alert, Oriented Labs: CBC, BMP 11/08/17 05:30 11/08/17 05:30 INR, PTT INR 0.96 (0.82-1.09) 11/05/17 06:00 Problem List - Problems (1) NSTEMI (non-ST elevated myocardial infarction) Assessment/Plan: h/o of recent stent at [facility] right groin arterial duplex done which showed normal triphasic wave form, scattered atheromatous plaques no significant stenosis telemonitoring trend troponin- down brilinta,aspirin and lipitor Code(s): I21.4 - NON-ST ELEVATION (NSTEMI) MYOCARDIAL INFARCTION (2) Abnormal EKG Assessment/Plan: serial ekg t wave inversion noted in lateral leads Code(s): R94.31 - ABNORMAL ELECTROCARDIOGRAM [ECG] [EKG] (3) Diabetes mellitus Assessment/Plan: bgm sliding scale hga1c 7.4 on amaryl endocirne saw patient Code(s): E11.9 - TYPE 2 DIABETES MELLITUS WITHOUT COMPLICATIONS Qualifiers: Diabetes mellitus type: type 2 (4) Leukocytosis Assessment/Plan: secondary to stress will monitior Code(s): D72.829 - ELEVATED WHITE BLOOD CELL COUNT, UNSPECIFIED (5) Hypothyroid Assessment/Plan: on synthroid 25mcg check tsh,free t4 noted Code(s): E03.9 - HYPOTHYROIDISM, UNSPECIFIED (6) Hypotension Assessment/Plan: patient low BP medications held cardiology follow up Code(s): I95.9 - HYPOTENSION, UNSPECIFIED Assessment/Plan spoke with niece she wants STR placment dietary consult ordered for poor po intake,
[2017-11-09] MEDS: ATORVASTATIN CA 80 MG TABLET (FP) PO SCH (21:59)
[2017-11-10 00:08] LABS: GLIADIN ANTIBODY IGA 4 units (0-19); GLIADIN ANTIBODY IGG 2 units (0-19); TRANSGLUTAMINASE IGG < 2 U/mL (0-5)
[2017-11-10] MEDS: INSULIN SLIDING SCALE (NOVOLOG) 1 VIAL SQ SCH ×4 (06:17→21:30)
[2017-11-10] MEDS: LEVOTHYROXINE NA 25 MCG TABLET (FP) PO SCH (06:20)
[2017-11-10] MEDS ORDERED: PT OWN MED DRAWER 7, Y5N ONE (08:32)
--- NOTE | 2017-11-10 10:17 | PN ---
Progress Note, Physician Chief Complaint: patient seen and examined today complaining of numbness of toes and pain in both great toes and squeezing pain in both feet she says yesterday she was having pain in her feet squeezing but it was not such great intensity - Current Medication List Current Medications: Active Medications Allopurinol (Zyloprim -) 100 mg PO DAILY [facility] Last Admin: 11/09/17 09:34 Dose: 100 mg Amlodipine Besylate (Norvasc -) 5 mg PO DAILY [facility] Last Admin: 11/09/17 09:34 Dose: Not Given Aspirin (Asa -) 81 mg PO DAILY [facility] Last Admin: 11/09/17 09:34 Dose: 81 mg Atorvastatin Calcium (Lipitor -) 80 mg PO HS [facility] Last Admin: 11/09/17 21:59 Dose: 80 mg Glimepiride (Amaryl -) 2 mg PO DAILY@0700 [facility] Last Admin: 11/09/17 06:33 Dose: 2 mg Insulin Aspart (Novolog Vial Sliding Scale -) 1 vial SQ [facility]; Protocol Last Admin: 11/10/17 06:17 Dose: Not Given Isosorbide Mononitrate (Imdur -) 120 mg PO DAILY [facility] Last Admin: 11/09/17 09:34 Dose: 120 mg Levothyroxine Sodium (Synthroid -) 25 mcg PO DAILY@0700 [facility] Last Admin: 11/10/17 06:20 Dose: 25 mcg Nitroglycerin (Nitrostat -) 0.4 mg SL Q5M PRN PRN Reason: ANGINA Polyethylene Glycol (Miralax (For Daily Use) -) 17 gm PO BID [facility] Last Admin: 11/09/17 21:59 Dose: 17 gm Ticagrelor (Brilinta -) 90 mg PO BID [facility] Last Admin: 11/09/17 21:59 Dose: 90 mg Valsartan (Diovan -) 160 mg PO BID [facility] Last Admin: 11/09/17 21:59 Dose: 160 mg - Objective Vital Signs: Vital Signs Temperature 98.8 F 11/10/17 05:48 Pulse Rate 79 11/10/17 05:48 Respiratory Rate 18 11/10/17 05:48 Blood Pressure 123/61 11/10/17 05:48 O2 Sat by Pulse Oximetry (%) 98 11/09/17 21:00 Constitutional: Yes: Mild Distress Neck: Yes: Trachea Midline Cardiovascular: Yes: Regular Rate and Rhythm, S1, S2 Respiratory: Yes: Diminished (at bases) Gastrointestinal: Yes: Normal Bowel Sounds, Soft Extremities: Yes: Other (DP pulse felt in both feet tenderness of great toe bilaterally slight decreased sensation in other four toes) Edema: No Neurological: Yes: Alert, Oriented Labs: CBC, BMP 11/08/17 05:30 11/08/17 05:30 INR, PTT INR 0.96 (0.82-1.09) 11/05/17 06:00 Problem List - Problems (1) Pain in both feet Assessment/Plan: most likely maybe secondary to neuropathy will start neurontin repeat labs electrolytes and uric acid level neurology Follow up today pulse felt are stron in both feet and patient had arterial duplex done earlier in this admission Code(s): M79.671 - PAIN IN RIGHT FOOT; M79.672 - PAIN IN LEFT FOOT (2) NSTEMI (non-ST elevated myocardial infarction) Assessment/Plan: h/o of recent stent at [facility] right groin arterial duplex done which showed normal triphasic wave form, scattered atheromatous plaques no significant stenosis telemonitoring trend troponin- down - will repeat labs today brilinta,aspirin and lipitor Code(s): I21.4 - NON-ST ELEVATION (NSTEMI) MYOCARDIAL INFARCTION (3) Abnormal EKG Assessment/Plan: serial ekg t wave inversion noted in lateral leads Code(s): R94.31 - ABNORMAL ELECTROCARDIOGRAM [ECG] [EKG] (4) Diabetes mellitus Assessment/Plan: bgm sliding scale hga1c 7.4 on amaryl endocrine saw patient Code(s): E11.9 - TYPE 2 DIABETES MELLITUS WITHOUT COMPLICATIONS Qualifiers: Diabetes mellitus type: type 2 (5) Leukocytosis Assessment/Plan: secondary to stress- sergio repeat labs will monitior Code(s): D72.829 - ELEVATED WHITE BLOOD CELL COUNT, UNSPECIFIED (6) Hypothyroid Assessment/Plan: on synthroid 25mcg check tsh,free t4 noted Code(s): E03.9 - HYPOTHYROIDISM, UNSPECIFIED (7) Hypotension Assessment/Plan: patient low BP medications held cardiology follow up Code(s): I95.9 - HYPOTENSION, UNSPECIFIED
[2017-11-10] MEDS ORDERED: GABAPENTIN 100 MG CAPSULE (FP) PO ONE (10:19)
[2017-11-10] MEDS: ALLOPURINOL 100 MG TABLET (FP) PO SCH (10:54)
[2017-11-10] MEDS: ISOSORBIDE MONONITRATE 60 MG TAB.SR.24H (FP) PO SCH (10:54)
[2017-11-10] MEDS: VALSARTAN 160 MG TABLET (UD) PO SCH ×2 (10:54→21:29)
[2017-11-10] MEDS: ASPIRIN 81 MG CHEWABLE TABLETS PO SCH (10:54)
[2017-11-10] MEDS: TICAGRELOR 90 MG TABLET PO SCH ×2 (10:54→22:20)
[2017-11-10] MEDS: amLODIPine BESYLATE 5 MG TABLET (FP) PO SCH (10:55)
[2017-11-10] MEDS: POLYETHYLENE GLYCOL 3350 119 GM BTL PO SCH ×2 (10:55→21:29)
[2017-11-10 10:58] LABS: BASO % 0.7 % (0-2.0); EOS % 1.3 % (0-4.5); HEMATOCRIT 29.1 % (32.4-45.2); HEMOGLOBIN 9.8 GM/dL (10.7-15.3); LYMPH % 13.8 % (8-40); MCH 27.4 pg (25.7-33.7); MCHC 33.7 g/dl (32.0-36.0); MEAN CELL VOLUME 81.4 fl (80-96); MEAN PLT VOLUME 8.9 fl (7.5-11.1); MONO % 8.3 % (3.8-10.2); NEUT % 75.9 % (42.8-82.8); PLATELET COUNT 279 K/MM3 (134-434); RBC 3.57 M/mm3 (3.60-5.2); RDW 17.6 % (11.6-15.6); WHITE BLOOD COUNT 9.6 K/mm3 (4.0-10.0)
[2017-11-10 11:27] LABS: ALBUMIN 2.8 g/dl (3.4-5.0); ALK PHOS 134 U/L (45-117); ANION GAP 9 (8-16); BLOOD UREA NITROGEN 22 mg/dL (7-18); CALCIUM 8.4 mg/dL (8.5-10.1); CHLORIDE 104 mmol/L (98-107); CO2 26 mmol/L (21-32); CREATININE 1.1 mg/dL (0.55-1.02); GLUCOSE,RANDOM 154 mg/dL (74-106); POTASSIUM 3.5 mmol/L (3.5-5.1); SGOT/AST 34 U/L (15-37); SGPT/ALT 28 U/L (12-78); SODIUM 139 mmol/L (136-145); TOT PROT 5.9 g/dl (6.4-8.2); URIC ACID 6.7 mg/dL (2.6-7.2)
--- NOTE | 2017-11-10 14:51 | PN ---
Progress Note (short form) - Note Progress Note: pt seen and examined. feels tired Constitutional: Yes:no Distress Eyes: Yes: PERRL. No: Ptosis, Sclera Icterus HENT: Yes: Normocephalic. No: Hoarseness, Thrush, Tonsillar Exudate Neck: Yes: Trachea Midline. No: Lymphadenopathy, Tenderness, Thyromegaly Cardiovascular: Yes: Regular Rate and Rhythm Respiratory: Yes: Regular, CTA Bilaterally Gastrointestinal: Yes: Normal Bowel Sounds, Soft. No: Hepatomegaly, Splenomegaly, Tenderness, Tenderness, Rebound Extremities: Yes: WNL. No: Calf Tenderness, Cold, Cyanosis Last Vital Signs Temp Pulse Resp BP Pulse Ox 98.5 F 82 20 110/54 98 11/10/17 14:00 11/10/17 14:00 11/10/17 14:00 11/10/17 14:00 11/09/17 21:00 CBC, BMP 11/10/17 10:40 11/10/17 10:40 Current Medications Generic Name Dose Route Start Last Admin Trade Name Dewayneq PRN Reason Stop Dose Admin Allopurinol 100 mg 11/05/17 10:00 11/10/17 10:54 Zyloprim - PO 100 mg DAILY [facility] Administration Amlodipine Besylate 5 mg 11/05/17 10:00 11/10/17 10:55 Norvasc - PO 5 mg DAILY [facility] Administration Aspirin 81 mg 11/05/17 10:00 11/10/17 10:54 Asa - PO 81 mg DAILY [facility] Administration Atorvastatin Calcium 80 mg 11/05/17 22:00 11/09/17 21:59 Lipitor - PO 80 mg HS [facility] Administration Gabapentin 100 mg 11/10/17 18:00 Neurontin - PO TID [facility] Glimepiride 2 mg 11/09/17 07:00 11/09/17 06:33 Amaryl - PO 2 mg DAILY@0700 [facility] Administration Insulin Aspart 1 vial 11/05/17 07:00 11/10/17 12:06 Novolog Vial Sliding Scale - SQ Not Given ACHS [facility] Protocol Isosorbide Mononitrate 120 mg 11/05/17 10:00 11/10/17 10:54 Imdur - PO 120 mg DAILY [facility] Administration Levothyroxine Sodium 25 mcg 11/05/17 07:00 11/10/17 06:20 Synthroid - PO 25 mcg DAILY@0700 [facility] Administration Nitroglycerin 0.4 mg 11/05/17 04:30 Nitrostat - SL Q5M PRN ANGINA Polyethylene Glycol 17 gm 11/07/17 22:00 11/10/17 10:55 Miralax (For Daily Use) - PO Not Given BID [facility] Ticagrelor 90 mg 11/05/17 10:00 11/10/17 10:54 Brilinta - PO 90 mg BID [facility] Administration Valsartan 160 mg 11/05/17 10:00 11/10/17 10:54 Diovan - PO 160 mg BID [facility] Administration anemia multifactorail- part of Fe def too Iron sat of 11 for venofer oral iron upon dc no hemolysis re-order FOBT negative celiac disease pending hemogobin electrophoresis. Stable/improving groin hematoma GI w/u IP/OP
[2017-11-10] MEDS ORDERED: IRON SUCROSE INJECTION 200 MG in SODIUM CHLORIDE 90 ML IVPB ONE (15:00)
[2017-11-10] MEDS: GABAPENTIN 100 MG CAPSULE (FP) PO SCH ×3 (16:30→21:29)
--- NOTE | 2017-11-10 21:03 | PN ---
Progress Note (short form) - Note Progress Note: NEUROLOGY FOLLOW-UP: Events reviewed. Patient examined. B12 level=>700. Patient complains of shooting pains in her feet. She also complains of anxiety, feeling depressed and is overwhelmed about caring for her sick at home. EXAM unchanged. Sig for absent AJ's, Decreased vibration in the feet and unsteady, shuffling gait. Also, she appears withdrawn and on the verge of tears. IMP: Diabetic peripheral neuropathy with neuropathy pain Depression and anxiety. SUGGEST: Increase gabapentin to 200 mg PO q 8 hrs x 1 week then 300 mg PO q8Hrs. Add nortriptyline 10 mg PO q HS Check orthostatic BP's Add paroxetine 10 mg PO q AM VNS for Home health aide. Thank you very much, Luis Alberto Stewart MD
[2017-11-10] MEDS: ATORVASTATIN CA 80 MG TABLET (FP) PO SCH (21:29)
[2017-11-10] MEDS ORDERED: NORTRIPTYLINE HCL 10 MG CAPSULE PO SCH (22:00)
--- NOTE | 2017-11-10 23:58 | PN ---
Progress Note, Physician Chief Complaint: feels weak,poor appetite History of Present Illness: dm type 2,hypothyroid,cad sp cardiac stenting,diabetic neuropathy - Current Medication List Current Medications: Active Medications Allopurinol (Zyloprim -) 100 mg PO DAILY [facility] Last Admin: 11/10/17 10:54 Dose: 100 mg Amlodipine Besylate (Norvasc -) 5 mg PO DAILY [facility] Last Admin: 11/10/17 10:55 Dose: 5 mg Aspirin (Asa -) 81 mg PO DAILY [facility] Last Admin: 11/10/17 10:54 Dose: 81 mg Atorvastatin Calcium (Lipitor -) 80 mg PO HS [facility] Last Admin: 11/10/17 21:29 Dose: 80 mg Gabapentin (Neurontin -) 200 mg PO TID [facility] Last Admin: 11/10/17 21:29 Dose: 200 mg Glimepiride (Amaryl -) 2 mg PO DAILY@0700 [facility] Last Admin: 11/09/17 06:33 Dose: 2 mg Insulin Aspart (Novolog Vial Sliding Scale -) 1 vial SQ ACHS [facility]; Protocol Last Admin: 11/10/17 21:30 Dose: 4 units Isosorbide Mononitrate (Imdur -) 120 mg PO DAILY [facility] Last Admin: 11/10/17 10:54 Dose: 120 mg Levothyroxine Sodium (Synthroid -) 25 mcg PO DAILY@0700 [facility] Last Admin: 11/10/17 06:20 Dose: 25 mcg Nitroglycerin (Nitrostat -) 0.4 mg SL Q5M PRN PRN Reason: ANGINA Nortriptyline HCl (Pamelor -) 10 mg PO [facility] Paroxetine HCl (Paxil -) 10 mg PO DAILY [facility] Polyethylene Glycol (Miralax (For Daily Use) -) 17 gm PO BID [facility] Last Admin: 11/10/17 21:29 Dose: Not Given Ticagrelor (Brilinta -) 90 mg PO BID [facility] Last Admin: 11/10/17 22:20 Dose: 90 mg Valsartan (Diovan -) 160 mg PO BID [facility] Last Admin: 11/10/17 21:29 Dose: 160 mg - Objective Vital Signs: Vital Signs Temperature 98.9 F 11/10/17 22:00 Pulse Rate 90 11/10/17 22:00 Respiratory Rate 18 11/10/17 22:00 Blood Pressure 122/62 11/10/17 22:00 O2 Sat by Pulse Oximetry (%) 96 11/10/17 21:00 Constitutional: Yes: Anxious Eyes: Yes: EOM Intact HENT: Yes: Normocephalic Neck: Yes: Trachea Midline Cardiovascular: Yes: Regular Rate and Rhythm Respiratory: Yes: CTA Bilaterally Gastrointestinal: Yes: Normal Bowel Sounds ...Rectal Exam: Yes: Deferred Genitourinary: Yes: WNL Breast(s): Yes: WNL Musculoskeletal: Yes: Back Pain, Joint Stiffness Extremities: Yes: WNL Edema: No Peripheral Pulses WNL: Yes Neurological: Yes: Alert, Oriented Labs: CBC, BMP 11/10/17 10:40 11/10/17 10:40 INR, PTT INR 0.96 (0.82-1.09) 11/05/17 06:00 Problem List - Problems (1) Anemia, unspecified Code(s): D64.9 - ANEMIA, UNSPECIFIED Qualifiers: Anemia type: B12 deficiency Vitamin B12 deficiency anemia type: intrinsic factor deficiency Qualified Code(s): D51.0 - Vitamin B12 deficiency anemia due to intrinsic factor deficiency (2) Hypothyroid Code(s): E03.9 - HYPOTHYROIDISM, UNSPECIFIED (3) NSTEMI (non-ST elevated myocardial infarction) Code(s): I21.4 - NON-ST ELEVATION (NSTEMI) MYOCARDIAL INFARCTION (4) Unspecified deficiency anemia Code(s): D53.9 - NUTRITIONAL ANEMIA, UNSPECIFIED (5) Abnormal EKG Code(s): R94.31 - ABNORMAL ELECTROCARDIOGRAM [ECG] [EKG] (6) Abnormal LFTs Code(s): R94.5 - ABNORMAL RESULTS OF LIVER FUNCTION STUDIES (7) Acute gout Code(s): M10.9 - GOUT, UNSPECIFIED Qualifiers: Gout site: foot Encounter type: initial encounter Laterality: right (8) Acute kidney injury superimposed on CKD Code(s): N17.9 - ACUTE KIDNEY FAILURE, UNSPECIFIED; N18.9 - CHRONIC KIDNEY DISEASE, UNSPECIFIED Assessment/Plan Abnormal Lab Results 11/10/17 11/10/17 11/10/17 10:40 10:40 10:40 RBC 3.57 L Hgb 9.8 L Hct 29.1 L D RDW 17.6 H BUN 22 H Creatinine 1.1 H Random Glucose 154 H Calcium 8.4 L Total Bilirubin 3.0 H Alkaline Phosphatase 134 H D Troponin I 0.40 H Total Protein 5.9 L Albumin 2.8 L Current Active Problems diabetes mellitus hyperglycemia Anemia, unspecified (Acute) Hypotension (Acute) Hypothyroid (Acute) NSTEMI (non-ST elevated myocardial infarction) (Acute) Pain in both feet (Acute) Unspecified deficiency anemia (Acute) Current Medications Generic Name Dose Route Start Last Admin Trade Name Freq PRN Reason Stop Dose Admin Allopurinol 100 mg 11/05/17 10:00 11/10/17 10:54 Zyloprim - PO 100 mg DAILY [facility] Administration Amlodipine Besylate 5 mg 11/05/17 10:00 11/10/17 10:55 Norvasc - PO 5 mg DAILY [facility] Administration Aspirin 81 mg 11/05/17 10:00 11/10/17 10:54 Asa - PO 81 mg DAILY [facility] Administration Atorvastatin Calcium 80 mg 11/05/17 22:00 11/10/17 21:29 Lipitor - PO 80 mg HS [facility] Administration Gabapentin 200 mg 11/10/17 22:00 11/10/17 21:29 Neurontin - PO 200 mg TID [facility] Administration Glimepiride 2 mg 11/09/17 07:00 11/09/17 06:33 Amaryl - PO 2 mg DAILY@0700 [facility] Administration Insulin Aspart 1 vial 11/05/17 07:00 11/10/17 21:30 Novolog Vial Sliding Scale - SQ 4 units ACHS [facility] Administration Protocol Isosorbide Mononitrate 120 mg 11/05/17 10:00 11/10/17 10:54 Imdur - PO 120 mg DAILY [facility] Administration Levothyroxine Sodium 25 mcg 11/05/17 07:00 11/10/17 06:20 Synthroid - PO 25 mcg DAILY@0700 [facility] Administration Nitroglycerin 0.4 mg 11/05/17 04:30 Nitrostat - SL Q5M PRN ANGINA Nortriptyline HCl 10 mg 11/11/17 22:00 Pamelor - PO HS [facility] Paroxetine HCl 10 mg 11/11/17 10:00 Paxil - PO DAILY [facility] Polyethylene Glycol 17 gm 11/07/17 22:00 11/10/17 21:29 Miralax (For Daily Use) - PO Not Given BID [facility] Ticagrelor 90 mg 11/05/17 10:00 11/10/17 22:20 Brilinta - PO 90 mg BID [facility] Administration Valsartan 160 mg 11/05/17 10:00 11/10/17 21:29 Diovan - PO 160 mg BID [facility] Administration plan: continue bgm with coverage glimiperide 2mg bid januvia 50mg daily
[2017-11-11] MEDS: INSULIN SLIDING SCALE (NOVOLOG) 1 VIAL SQ SCH ×2 (06:11→11:57)
[2017-11-11] MEDS: LEVOTHYROXINE NA 25 MCG TABLET (FP) PO SCH (06:11)
[2017-11-11] MEDS: GABAPENTIN 100 MG CAPSULE (FP) PO SCH ×2 (06:11→15:00)
[2017-11-11] MEDS: GLIMEPIRIDE 2 MG TABLET (FP) PO SCH (07:33)
[2017-11-11] MEDS ORDERED: PARoxetine HCL 10 MG TABLET (FP) PO SCH (10:00)
[2017-11-11] MEDS ORDERED: FUROSEMIDE 40 MG/4 ML INJECTABLE VIAL ONE (10:24)
[2017-11-11] MEDS: POLYETHYLENE GLYCOL 3350 119 GM BTL PO SCH (10:38)
[2017-11-11] MEDS: ASPIRIN 81 MG CHEWABLE TABLETS PO SCH (10:38)
[2017-11-11] MEDS: ALLOPURINOL 100 MG TABLET (FP) PO SCH (10:38)
[2017-11-11] MEDS: VALSARTAN 160 MG TABLET (UD) PO SCH (10:38)
[2017-11-11] MEDS: amLODIPine BESYLATE 5 MG TABLET (FP) PO SCH (10:38)
[2017-11-11] MEDS: ISOSORBIDE MONONITRATE 60 MG TAB.SR.24H (FP) PO SCH (10:38)
[2017-11-11] MEDS: TICAGRELOR 90 MG TABLET PO SCH (10:39)
--- NOTE | 2017-11-11 11:11 | DS ---
Physical Examination Vital Signs: Vital Signs Temperature 98.9 F 11/11/17 06:00 Pulse Rate 86 11/11/17 06:00 Respiratory Rate 18 11/11/17 06:00 Blood Pressure 105/46 11/11/17 06:00 O2 Sat by Pulse Oximetry (%) 96 11/10/17 21:00 Constitutional: Yes: Mild Distress Eyes: Yes: WNL HENT: Yes: WNL Neck: Yes: WNL Cardiovascular: Yes: WNL Respiratory: Yes: WNL Gastrointestinal: Yes: WNL Renal/: Yes: WNL Musculoskeletal: Yes: Muscle Weakness Extremities: Yes: WNL Edema: No Peripheral Pulses WNL: Yes Integumentary: Yes: WNL Wound/Incision: Yes: Clean/Dry Neurological: Yes: Pre-Existing Deficit, Unsteady Gait ...Motor Strength: LLE, RLE Psychiatric: Yes: WNL Labs: CBC, BMP 11/10/17 10:40 11/10/17 10:40 Discharge Summary Reason For Visit: NSTEMI Current Active Problems Anemia, unspecified (Acute) Hypotension (Acute) Hypothyroid (Acute) NSTEMI (non-ST elevated myocardial infarction) (Acute) Pain in both feet (Acute) Unspecified deficiency anemia (Acute) Procedures: Principal: transfusion/monitored telemetry Hospital Course: admitted for weakness, cad, chest pain, anemia, weakness of leg treated with transfusions and iron iv, pt needed for snf Condition: Stable - Instructions Diet, Activity, Other Instructions: as tolerated cardiac diet Referrals: Brett Wolf MD [Primary Care Provider] - Disposition: [facility] - Home Medications Comprehensive Discharge Medication List: Ambulatory Orders Aspirin 81 mg PO DAILY 11/04/17 Atorvastatin Ca [Lipitor] 80 mg PO HS 11/04/17 Ergocalciferol (Vitamin D2) [Vitamin D2] 50,000 unit PO WEEKLY 11/04/17 Glimepiride [Amaryl -] 2 mg PO BID 11/04/17 Isosorbide Mononitrate [Imdur -] 120 mg PO DAILY 11/04/17 Nitroglycerin 0.4 mg SL PRN 11/04/17 Ticagrelor [Brilinta] 90 mg PO BID 11/04/17 Valsartan [Diovan] 160 mg PO BID 11/04/17 Allopurinol [Zyloprim -] 100 mg PO DAILY 11/05/17 Amlodipine Besylate 5 mg PO DAILY 11/05/17 Levothyroxine [Synthroid -] 25 mcg PO DAILY 11/05/17 Sitagliptin Phosphate [Januvia] 50 mg PO DAILY 11/05/17
[2017-11-11] MEDS ORDERED: SODIUM CHLORIDE 1,000 ML IV SCH (11:15)
[2017-11-11 15:22] VITALS: BP 96/57; PULSE 82; TEMP 98.2
[2017-11-11] MEDS ORDERED: PT OWN MED DRAWER 7, Y5N ONE (15:27)
[2017-11-11 16:39] LABS: HGB SOLUBILITY Negative (Negative); Hgb C 0 % (0.0); Hgb F 0 % (0.0-2.0); Hgb S 0 % (0.0)
[2017-11-11] MEDS ORDERED: NORTRIPTYLINE HCL 10 MG CAPSULE PO SCH (22:00)
== END 2017-11-11 15:21 | DRG 281 ==
LOC: JER 21:57 → JERBED 11-05 00:19 → UNDOADMIN 11-05 00:53 → J4W 11-05 21:10
PROVIDERS: ADMIT Internal Medicine; ATTEND Family Medicine
PROC: 30233N1 Transfusion of Nonautologous Red Blood Cells into Peripheral Vein, Percutaneous Approach (ICD-10-PCS; principal; 2017-11-08)
DX: I25.110 Atherosclerotic heart disease of native coronary artery with unstable angina pectoris (principal); I21.3 ST elevation (STEMI) myocardial infarction of unspecified site; L76.32 Postprocedural hematoma of skin and subcutaneous tissue following other procedure; E11.9 Type 2 diabetes mellitus without complications; E78.5 Hyperlipidemia, unspecified; I10 Essential (primary) hypertension; F03.90 Unspecified dementia, unspecified severity, without behavioral disturbance, psychotic disturbance, mood disturbance, and anxiety; D72.829 Elevated white blood cell count, unspecified; E03.9 Hypothyroidism, unspecified; D50.0 Iron deficiency anemia secondary to blood loss (chronic); E11.40 Type 2 diabetes mellitus with diabetic neuropathy, unspecified; F41.8 Other specified anxiety disorders; D53.9 Nutritional anemia, unspecified; M79.671 Pain in right foot; M79.672 Pain in left foot; R26.81 Unsteadiness on feet; Y83.8 Other surgical procedures as the cause of abnormal reaction of the patient, or of later complication, without mention of misadventure at the time of the procedure; M54.5 Low back pain; Z95.5 Presence of coronary angioplasty implant and graft; Z87.442 Personal history of urinary calculi
CPT/HCPCS: 36415; 36430; 71045-TC-FY; 80053; 80061; 81003; 81015; 82550; 82553; 82607; 82728; 82784; 82962; 83010; 83021; 83036; 83516; 83540; 83550; 83615; 83721; 83735; 84100; 84439; 84443; 84484; 84550; 85025; 85044; 85610; 85660; 86850; 86900; 86901; 86922; 93005; 93010; 93926-TC; 97116-GP; 97161-GP; 99285-25; J1756; P9038; P9058

== ENCOUNTER 2017-12-08 19:22 | Observation (INO) | payer OTHER ==
[2017-12-08 19:37] VITALS: BMI 23.3
--- NOTE | 2017-12-08 20:02 | PDOC ---
History of Present Illness <Delfina Kim - Last Filed: 12/08/17 21:46> - General History Source: Patient, Family Exam Limitations: No Limitations <Zabrina Larson - Last Filed: 12/08/17 22:17> - General Chief Complaint: Syncope/Near Syncope Stated Complaint: SYNCOPE Time Seen by Provider: 12/08/17 19:35 - History of Present Illness Initial Comments: This is a 77 YOF with h/o CAD (s/p stent one month ago), NSTEMI (admitted in the end of October 2017 here at [facility]), IDDM, HTN, and HLD who was BIBA for an episode of apparent pre-syncope at home just DOCK GUARD to the ED. Family notes that she was walking at home and her legs became very weak, and she seemed to be losing her balance, so they grabbed her to prevent her from falling. They deny any injuries and deny that she suffered any type of traumatic fall. She reportedly did not lose consciousness and denies any additional symptoms. She was discharged from a 3-week stay at a rehab facility about 2-3 days ago and has seemed increasingly generally weak since that time, but tonight is acutely worse. She has been unable to walk since the incident. (Zabrina Larson) Past History <Delfina Kim - Last Filed: 12/08/17 21:46> - Past Medical History Anemia: No Asthma: No Cancer: No (verified 11/09) Cardiac Disorders: Yes (angina, CAD,CATH WITH STENT, STEMI, 2 cardiac stents) CVA: No COPD: No CHF: No Diabetes: Yes GI Disorders: Yes (GERD) HTN: Yes Hypercholesterolemia: Yes Kidney Stones: Yes Thyroid Disease: Yes - Surgical History Abdominal Surgery: Yes Appendectomy: No Cardiac Surgery: No Neurologic Surgery: No - Immunization History Immunization Up to Date: Yes - Suicide/Smoking/Psychosocial Hx Smoking Status: No Smoking History: Never smoked Have you smoked in the past 12 months: No Number of Cigarettes Smoked Daily: 0 Information on smoking cessation initiated: No Hx Alcohol Use: No Drug/Substance Use Hx: No Substance Use Type: None Hx Substance Use Treatment: No <Zabrina Larson - Last Filed: 12/08/17 22:17> - Past Medical History Allergies/Adverse Reactions: Allergies Allergy/AdvReac Type Severity Reaction Status Date / Time No Known Allergies Allergy Verified 12/08/17 20:42 Home Medications: Ambulatory Orders Aspirin 81 mg PO DAILY 11/04/17 Atorvastatin Ca [Lipitor] 80 mg PO HS 11/04/17 Ergocalciferol (Vitamin D2) [Vitamin D2] 50,000 unit PO WEEKLY 11/04/17 Glimepiride [Amaryl -] 2 mg PO BID 11/04/17 Isosorbide Mononitrate [Imdur -] 120 mg PO DAILY 11/04/17 Nitroglycerin 0.4 mg SL PRN 11/04/17 Ticagrelor [Brilinta -] 90 mg PO BID 11/04/17 Valsartan [Diovan] 160 mg PO BID 11/04/17 Allopurinol [Zyloprim -] 100 mg PO DAILY 11/05/17 Amlodipine Besylate 5 mg PO DAILY 11/05/17 Levothyroxine [Synthroid -] 25 mcg PO DAILY 11/05/17 Sitagliptin Phosphate [Januvia] 50 mg PO DAILY 11/05/17 Gabapentin [Neurontin -] 200 mg PO TID capsule 11/11/17 Nortriptyline HCl [Pamelor -] 10 mg PO HS capsule 11/11/17 Paroxetine HCl [Paxil -] 10 mg PO DAILY tablet 11/11/17 Cardiac Specific PMH - Complaint Specific PMHX Angina: No Cardiac Stent: Yes Pulmonary Embolus: No <Zabrina Larson - Last Filed: 12/08/17 22:17> Review of Systems - Review of Systems Able to Perform ROS?: Yes Constitutional: Yes: Weakness. No: Chills, Fever, Unexplained wgt Loss HEENTM: No: Nose Congestion, Throat Pain Respiratory: No: Cough, Shortness of Breath Cardiac (ROS): No: Chest Pain, Palpitations ABD/GI: No: Constipated, Diarrhea, Nausea, Vomiting : No: Burning, Dysuria Musculoskeletal: No: Back Pain, Neck Pain Integumentary: No: Bruising, Rash Neurological: Yes: Weakness (BLE). No: Headache, Numbness, Tingling, Dizziness Endocrine: No: Unexplained Weight Gain, Unexplained Weight Loss <Zabrina Larson - Last Filed: 12/08/17 22:17> *Physical Exam - Physical Exam General Appearance: Yes: Nourished, Appropriately Dressed, Other (comfortable and well appearing elderly female answering questions appropriately, accompanied by and son who aid in translation although the patient does speak basic Serbian). No: Apparent Distress HEENT: positive: EOMI, BONNIE, Normal Voice, Hearing Grossly Normal. negative: Scleral Icterus (R), Scleral Icterus (L), Nasal Congestion Neck: positive: Trachea midline, Supple. negative: Tender, Rigid Respiratory/Chest: positive: Lungs Clear, Normal Breath Sounds. negative: Respiratory Distress, Crackles, Rhonchi, Stridor, Wheezing Cardiovascular: positive: Regular Rhythm, Regular Rate, S1, S2, Murmur (2/6 systolic). negative: Edema, JVD Gastrointestinal/Abdominal: positive: Normal Bowel Sounds, Soft. negative: Tender, Organomegaly, Pulsatile Mass, Guarding Musculoskeletal: positive: Normal Inspection. negative: Decreased Range of Motion, Vertebral Tenderness Extremity: positive: Normal Capillary Refill, Normal Inspection, Normal Range of Motion. negative: Tender, Cyanosis Integumentary: positive: Normal Color, Dry, Warm. negative: Erythema, Rash, Bruising Neurologic: positive: freight booker II-XII NML intact, Fully Oriented, Alert, Normal Mood/ Affect, Normal Response, Motor Strength 5/5, Finger to Nose (normal). negative : EOM Palsy, Facial Droop, Numbness, Sensory Deficit, Confused, Disoriented <Zabrina Larson - Last Filed: 12/08/17 22:17> - Vital Signs Last Vital Signs Temp Pulse Resp BP Pulse Ox 98.3 F 86 18 113/58 95 12/08/17 19:35 12/08/17 20:50 12/08/17 19:35 12/08/17 19:35 12/08/17 20:50 ED Treatment Course - LABORATORY CBC & Chemistry Diagram: 12/08/17 20:00 12/08/17 20:00 <Delfina Kim - Last Filed: 12/08/17 21:46> - LABORATORY CBC & Chemistry Diagram: 12/08/17 20:00 12/08/17 20:00 <Zabrina Larson - Last Filed: 12/08/17 22:17> - ADDITIONAL ORDERS Additional order review: Laboratory Results 12/08/17 12/08/17 12/08/17 20:24 20:20 20:00 PT with INR INR PTT (Actin FS) Sodium Potassium Chloride Carbon Dioxide Anion Gap BUN Creatinine Creat Clearance w eGFR POC Glucometer 173.51265 Random Glucose Calcium Total Bilirubin AST ALT Alkaline Phosphatase Creatine Kinase Troponin I B-Natriuretic Peptide Total Protein Albumin Urine Color Ltyellow Urine Appearance Clear Urine pH 5.0 Ur Specific [place] 1.012 Urine Protein 1+ H Urine Glucose (UA) Negative Urine Ketones Negative Urine Blood Negative Urine Nitrite Negative Urine Bilirubin Negative Urine Urobilinogen Negative Ur Leukocyte Esterase Negative Urine WBC (Auto) 4 Urine RBC (Auto) None Ur Epithelial Cells Rare Urine Mucus Rare Blood Type B POSITIVE Antibody Screen Negative 12/08/17 12/08/17 20:00 20:00 PT with INR 10.40 INR 0.92 PTT (Actin FS) 29.1 Sodium 140 Potassium 3.8 Chloride 105 Carbon Dioxide 24 Anion Gap 11 BUN 31 H Creatinine 1.2 H Creat Clearance w eGFR 43.68 POC Glucometer Random Glucose 173 H Calcium 9.1 Total Bilirubin 0.9 D AST 25 ALT 43 Alkaline Phosphatase 135 H Creatine Kinase 113 Troponin I 0.02 B-Natriuretic Peptide 612.73 H Total Protein 6.4 Albumin 3.5 Urine Color Urine Appearance Urine pH Ur Specific [place] Urine Protein Urine Glucose (UA) Urine Ketones Urine Blood Urine Nitrite Urine Bilirubin Urine Urobilinogen Ur Leukocyte Esterase Urine WBC (Auto) Urine RBC (Auto) Ur Epithelial Cells Urine Mucus Blood Type Antibody Screen 12/08/17 12/08/17 20:24 20:00 RBC 3.70 MCV 85.7 MCHC 33.3 RDW 18.7 H MPV 9.1 Neutrophils % 67.1 Lymphocytes % 21.1 D Monocytes % 8.8 Eosinophils % 2.2 Basophils % 0.8 POC Glucometer 173.50382 - RADIOLOGY Radiology Studies Ordered: Category Date Time Status HEAD CT WITHOUT CONTRAST [CT] Stat CT Scan 12/08/17 22:07 Ordered CHEST X-RAY PORTABLE* [RAD] Stat Radiology 12/08/17 19:39 Taken Medical Decision Making <Delfina Kim - Last Filed: 12/08/17 21:46> <Zabrina Larson - Last Filed: 12/08/17 22:17> - Medical Decision Making Pt p/w fatigue and generalized weakness. Initial Vital Signs Temp Pulse Resp BP Pulse Ox 98.3 F 88 18 113/58 100 12/08/17 19:35 12/08/17 19:35 12/08/17 19:35 12/08/17 19:35 12/08/17 19:35 Exam: As noted in Physical Exam section. DDX IBNLT: anemia (e.g. from GIB, menorrhagia, other blood loss), hypothyroidism , hyperparathyroidism, Parkinsons disease, CVA, HIV, cancer (jen OXYGEN THERAPIST neoplasm) , medications/drugs (any sedative e.g. EtOH or withdrawal from a stimulant, methyldopa, clonidine, beta blockers, Haldol, prochlorperaine, metocloperamide, long-term steroid use, IFN-alpha), psychiatric (depression, dysthymia, bipolar disorder, adjustment disorder with depressed mood, premenstrual dysphoric disorder). W/U ordered: CBCD CMP Mg Phos TSH Cardiac panel BNP UA UCx EKG CXR TX ordered: IVF EKG: Reviewed; results as noted in ECG Review section. CXR: Nothing acute Laboratory Tests 12/08/17 12/08/17 12/08/17 20:00 20:00 20:00 WBC 7.7 RBC 3.70 Hgb 10.6 L Hct 31.7 L MCV 85.7 MCH 28.6 MCHC 33.3 RDW 18.7 H Plt Count 264 MPV 9.1 Absolute Neuts (auto) 5.1 Neutrophils % 67.1 Lymphocytes % 21.1 D Monocytes % 8.8 Eosinophils % 2.2 Basophils % 0.8 Nucleated RBC % 0 PT with INR 10.40 INR 0.92 PTT (Actin FS) 29.1 Sodium 140 Potassium 3.8 Chloride 105 Carbon Dioxide 24 Anion Gap 11 BUN 31 H Creatinine 1.2 H Creat Clearance w eGFR 43.68 POC Glucometer Random Glucose 173 H Calcium 9.1 Total Bilirubin 0.9 D AST 25 ALT 43 Alkaline Phosphatase 135 H Creatine Kinase 113 Troponin I 0.02 B-Natriuretic Peptide 612.73 H Total Protein 6.4 Albumin 3.5 Urine Color Urine Appearance Urine pH Ur Specific [place] Urine Protein Urine Glucose (UA) Urine Ketones Urine Blood Urine Nitrite Urine Bilirubin Urine Urobilinogen Ur Leukocyte Esterase Urine WBC (Auto) Urine RBC (Auto) Ur Epithelial Cells Urine Mucus Blood Type Antibody Screen 12/08/17 12/08/17 12/08/17 20:00 20:20 20:24 WBC RBC Hgb Hct MCV MCH MCHC RDW Plt Count MPV Absolute Neuts (auto) Neutrophils % Lymphocytes % Monocytes % Eosinophils % Basophils % Nucleated RBC % PT with INR INR PTT (Actin FS) Sodium Potassium Chloride Carbon Dioxide Anion Gap BUN Creatinine Creat Clearance w eGFR POC Glucometer 173.72395 Random Glucose Calcium Total Bilirubin AST ALT Alkaline Phosphatase Creatine Kinase Troponin I B-Natriuretic Peptide Total Protein Albumin Urine Color Ltyellow Urine Appearance Clear Urine pH 5.0 Ur Specific [place] 1.012 Urine Protein 1+ H Urine Glucose (UA) Negative Urine Ketones Negative Urine Blood Negative Urine Nitrite Negative Urine Bilirubin Negative Urine Urobilinogen Negative Ur Leukocyte Esterase Negative Urine WBC (Auto) 4 Urine RBC (Auto) None Ur Epithelial Cells Rare Urine Mucus Rare Blood Type B POSITIVE Antibody Screen Negative Reassessment: Exam unchanged Vital Signs Temperature 98.3 F 12/08/17 19:35 Pulse Rate 86 12/08/17 20:50 Respiratory Rate 18 12/08/17 19:35 Blood Pressure 113/58 12/08/17 19:35 O2 Sat by Pulse Oximetry (%) 95 12/08/17 20:50 ADMIT The Pt is unsafe for discharge at this time. They require further hospital observation, workup, and treatment. Microblog sent to [facility] for admission. Spoke with [facility] ([employer] Delfina Holcomb); in agreement patient to be placed to Tele Obs. Head CT order placed. Decision to Admit order placed to Dr. Maradiaga. (Zabrina Larson) *DC/Admit/Observation/Transfer <Delfina Kim - Last Filed: 12/08/17 21:46> - Discharge Dispostion Decision to Admit order: Yes <Zabrina Larson - Last Filed: 12/08/17 22:17> Diagnosis at time of Disposition: Pre-syncope, Generalized weakness, JUVENAL (acute kidney injury) Anemia Qualifiers: Anemia type: unspecified type Qualified Code(s): D64.9 - Anemia, unspecified - Discharge Dispostion Condition at time of disposition: Guarded Decision to Admit order Date/Time: Decision to Admit Order Category Date Time Status Decision to Admit to Hospital Routine Admission 12/08/17 22:02 Ordered - Referrals Referrals: Brett Wolf MD [Primary Care Provider] - - Patient Instructions - Post Discharge Activity
[2017-12-08 20:15] LABS: BASO % 0.8 % (0-2.0); EOS % 2.2 % (0-4.5); HEMATOCRIT 31.7 % (32.4-45.2); HEMOGLOBIN 10.6 GM/dL (10.7-15.3); LYMPH % 21.1 % (8-40); MCH 28.6 pg (25.7-33.7); MCHC 33.3 g/dl (32.0-36.0); MEAN CELL VOLUME 85.7 fl (80-96); MEAN PLT VOLUME 9.1 fl (7.5-11.1); MONO % 8.8 % (3.8-10.2); NEUT % 67.1 % (42.8-82.8); PLATELET COUNT 264 K/MM3 (134-434); RDW 18.7 % (11.6-15.6); WHITE BLOOD COUNT 7.7 K/mm3 (4.0-10.0)
[2017-12-08 20:28] LABS: INR 0.92 (0.82-1.09); PROTHROMBIN TIME (PATIENT) 10.4 SEC (9.7-13.0)
[2017-12-08 20:30] LABS: ACTIVATED PTT 29.1 SECONDS (25.2-36.5)
[2017-12-08 20:36] LABS: URINE APPEARANCE CLEAR; URINE BILIRUBIN NEGATIVE (<2.0 mg/dL); URINE COLOR LTYELLOW; URINE GLUCOSE (UA) NEGATIVE (NEGATIVE); URINE KETONE NEGATIVE (NEGATIVE); URINE LEUK ESTERASE NEGATIVE (NEGATIVE); URINE NITRITE NEGATIVE (NEGATIVE); URINE UROBILINOGEN NEGATIVE mg/dL (0.2-1.0)
[2017-12-08 20:38] LABS: ALBUMIN 3.5 g/dl (3.4-5.0); ANION GAP 11 (8-16); BILIRUBIN,TOTAL 0.9 mg/dL (0.2-1.0); BLOOD UREA NITROGEN 31 mg/dL (7-18); CALCIUM 9.1 mg/dL (8.5-10.1); CHLORIDE 105 mmol/L (98-107); CO2 24 mmol/L (21-32); CREATININE 1.2 mg/dL (0.55-1.02); GLUCOSE,RANDOM 173 mg/dL (74-106); POTASSIUM 3.8 mmol/L (3.5-5.1); SGOT/AST 25 U/L (15-37); SGPT/ALT 43 U/L (12-78); SODIUM 140 mmol/L (136-145); TOT PROT 6.4 g/dl (6.4-8.2)
[2017-12-08 20:39] LABS: URINE PROTEIN 1+ (NEGATIVE)
[2017-12-08 20:41] LABS: ALK PHOS 135 U/L (45-117); N-TERMINAL BNP 612.73 pg/ml (5-450)
[2017-12-08 20:42] LABS: EPI CELLS RARE /HPF (FEW); URINE MUCUS RARE
--- NOTE | 2017-12-08 21:21 | PDOC ---
Attending Attestation - Resident Resident Name: Zabrina Larson - ED Attending Attestation I have performed the following: I have examined & evaluated the patient, The case was reviewed & discussed with the resident, I agree w/resident's findings & plan, Exceptions are as noted - HPI HPI: 12/08/17 21:12 77 yo female recently d/c from snf for rehabilatation after she has a NSTEMI in October. After he IN she was very weak and spoent 3 weeeks at the SNF for rehab 3 days ago she she was discharged from the nursing facility and sent home, and since that time she has decompensated and required help ambulating today. She denies any constitutional symptoms such as chest pain, shortness of breath, fever or chills or cough or vomiting or abdominal pain 12/08/17 21:46 - Physicial Exam PE: 12/08/17 21:56 Well-nourished well-developed 77-year-old female in no acute distress. Head normocephalic/atraumatic. Eyes PERRLA, EOMI Neck no bruits, no JVD. Lungs are clear to auscultation bilaterally CVS is regular rate and rhythm S1, S2, + systolic murmur Abdomen is soft, nontender. Extremities no pitting edema, no erythema. Skin warm and dry. Psych appropriate. Neuro alert and focused, motor strength 5 over 5 bilaterally ,she is able to lift her legs off the bed and hold them without any problems. However, the family reports that while she was trying to ambulate, she felt like her legs are going to give out - Medical Decision Making 12/09/17 02:21 admit to tele
--- NOTE | 2017-12-08 22:09 | HP ---
CHIEF COMPLAINT: Dizziness, Weakness, Unsteady Gait PCP: Dr. Wolf HISTORY OF PRESENT ILLNESS: This is a 77 y/o woman with a PMHx of HTN, HLD, Hypothyroidism, DM, CAD, s/p [place] ([place]) Stents (RCA), Cardiac Cath. Who presents to the ED with family c/o dizziness, weakness and unsteady gait. 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 Patient reports recent admission for 3 weeks at a [facility] facility post [place], d/c 3 days ago to home. Patient reports falling at home today onto her buttocks secondary to increased weakness to her lower extremities, denies head injury. Patient reports that since being home she has been feeling dizzy, weak and unable to ambulate with her walker. She denies chest pain, palpitations, SOB. Patient denies blurred vision, numbness, tinnitus. ER course was notable for: (1) CT Brain- No acute ICH (2) EKG- SR with occasional PVCs, infarct age undetermined, anterolateral infarct age undetermined (3) Trop < 0.02 (4) BUN 31, Cr 1.2 Recent Travel: None PAST MEDICAL HISTORY: See HPI PAST SURGICAL HISTORY: See HPI Social History: Smoking: Never Alcohol: None Drugs: None Lives with family Family History: Non-contributory Allergies No Known Allergies Allergy (Verified 12/08/17 20:42) HOME MEDICATIONS: Home Medications Medication Instructions Recorded Aspirin 81 mg PO DAILY 11/04/17 Atorvastatin Ca [Lipitor] 80 mg PO HS 11/04/17 Ergocalciferol (Vitamin D2) 50,000 unit PO WEEKLY 11/04/17 [Vitamin D2] Glimepiride [Amaryl -] 2 mg PO BID 11/04/17 Isosorbide Mononitrate [Imdur -] 120 mg PO DAILY 11/04/17 Nitroglycerin 0.4 mg SL PRN 11/04/17 Ticagrelor [Brilinta -] 90 mg PO BID 11/04/17 Valsartan [Diovan] 160 mg PO BID 11/04/17 Allopurinol [Zyloprim -] 100 mg PO DAILY 11/05/17 Amlodipine Besylate 5 mg PO DAILY 11/05/17 Levothyroxine [Synthroid -] 25 mcg PO DAILY 11/05/17 Sitagliptin Phosphate [Januvia] 50 mg PO DAILY 11/05/17 Gabapentin [Neurontin -] 200 mg PO TID capsule 11/11/17 Nortriptyline HCl [Pamelor -] 10 mg PO HS capsule 11/11/17 Paroxetine HCl [Paxil -] 10 mg PO DAILY tablet 11/11/17 REVIEW OF SYSTEMS CONSTITUTIONAL: generalized weakness Absent: fever, chills, diaphoresis, malaise, loss of appetite, weight change HEENT: Absent: rhinorrhea, nasal congestion, throat pain, throat swelling, difficulty swallowing, mouth swelling, ear pain, eye pain, visual changes CARDIOVASCULAR: syncope, lightheadedness, Absent: chest pain, palpitations, irregular heart rate, peripheral edema RESPIRATORY: Absent: cough, shortness of breath, dyspnea with exertion, orthopnea, wheezing, stridor, hemoptysis GASTROINTESTINAL: Absent: abdominal pain, abdominal distension, nausea, vomiting, diarrhea, constipation, melena, hematochezia GENITOURINARY: Absent: dysuria, frequency, urgency, hesitancy, hematuria, flank pain, genital pain MUSCULOSKELETAL: Absent: myalgia, arthralgia, joint swelling, back pain, neck pain SKIN: Absent: rash, itching, pallor HEMATOLOGIC/IMMUNOLOGIC: Absent: easy bleeding, easy bruising, lymphadenopathy, frequent infections ENDOCRINE: Absent: unexplained weight gain, unexplained weight loss, heat intolerance, cold intolerance NEUROLOGIC: dizziness,unsteady gait Absent: headache, focal weakness or paresthesias, seizure, mental status changes , bladder or bowel incontinence PSYCHIATRIC: Absent: anxiety, depression, suicidal or homicidal ideation, hallucinations. PHYSICAL EXAMINATION Vital Signs - 24 hr 12/08/17 12/08/17 19:35 20:50 Temperature 98.3 F Pulse Rate 88 86 Respiratory 18 Rate Blood Pressure 113/58 O2 Sat by Pulse 100 95 Oximetry (%) GENERAL: Awake, alert, and fully oriented, in no acute distress. HEAD: Normal with no signs of trauma. EYES: Pupils equal, round and reactive to light, extraocular movements intact, sclera anicteric, conjunctiva clear. No lid lag. EARS, NOSE, THROAT: Ears normal, nares patent, oropharynx clear without exudates. Moist mucous membranes. NECK: Normal range of motion, supple without lymphadenopathy, JVD, or masses. LUNGS: Breath sounds equal, clear to auscultation bilaterally. No wheezes, and no crackles. No accessory muscle use. HEART: Regular rate and rhythm, normal S1 and S2 with no rub or gallop. Grade 2/ 6 Systolic murmur ABDOMEN: Soft, nontender, not distended, normoactive bowel sounds, no guarding, no rebound, no masses. No hepatomegaly or splenomegaly. MUSCULOSKELETAL: Normal range of motion at all joints. No bony deformities or tenderness. No CVA tenderness. UPPER EXTREMITIES: 2+ pulses, warm, well-perfused. No cyanosis. No clubbing. No peripheral edema. LOWER EXTREMITIES: 2+ pulses, warm, well-perfused. No calf tenderness. No peripheral edema. NEUROLOGICAL: Cranial nerves II-XII intact. Normal speech. Gait not observed. PSYCHIATRIC: Cooperative. Good eye contact. Appropriate mood and affect. SKIN: Warm, dry, normal turgor, no rashes or lesions noted, normal capillary refill. Laboratory Results - last 24 hr 12/08/17 12/08/17 12/08/17 20:00 20:00 20:00 WBC 7.7 RBC 3.70 Hgb 10.6 L Hct 31.7 L MCV 85.7 MCH 28.6 MCHC 33.3 RDW 18.7 H Plt Count 264 MPV 9.1 Absolute Neuts (auto) 5.1 Neutrophils % 67.1 Lymphocytes % 21.1 D Monocytes % 8.8 Eosinophils % 2.2 Basophils % 0.8 Nucleated RBC % 0 PT with INR 10.40 INR 0.92 PTT (Actin FS) 29.1 Sodium 140 Potassium 3.8 Chloride 105 Carbon Dioxide 24 Anion Gap 11 BUN 31 H Creatinine 1.2 H Creat Clearance w eGFR 43.68 POC Glucometer Random Glucose 173 H Calcium 9.1 Total Bilirubin 0.9 D AST 25 ALT 43 Alkaline Phosphatase 135 H Creatine Kinase 113 Troponin I 0.02 B-Natriuretic Peptide 612.73 H Total Protein 6.4 Albumin 3.5 Urine Color Urine Appearance Urine pH Ur Specific [place] Urine Protein Urine Glucose (UA) Urine Ketones Urine Blood Urine Nitrite Urine Bilirubin Urine Urobilinogen Ur Leukocyte Esterase Urine WBC (Auto) Urine RBC (Auto) Ur Epithelial Cells Urine Mucus Blood Type Antibody Screen 12/08/17 12/08/17 12/08/17 20:00 20:20 20:24 WBC RBC Hgb Hct MCV MCH MCHC RDW Plt Count MPV Absolute Neuts (auto) Neutrophils % Lymphocytes % Monocytes % Eosinophils % Basophils % Nucleated RBC % PT with INR INR PTT (Actin FS) Sodium Potassium Chloride Carbon Dioxide Anion Gap BUN Creatinine Creat Clearance w eGFR POC Glucometer 173.29935 Random Glucose Calcium Total Bilirubin AST ALT Alkaline Phosphatase Creatine Kinase Troponin I B-Natriuretic Peptide Total Protein Albumin Urine Color Ltyellow Urine Appearance Clear Urine pH 5.0 Ur Specific [place] 1.012 Urine Protein 1+ H Urine Glucose (UA) Negative Urine Ketones Negative Urine Blood Negative Urine Nitrite Negative Urine Bilirubin Negative Urine Urobilinogen Negative Ur Leukocyte Esterase Negative Urine WBC (Auto) 4 Urine RBC (Auto) None Ur Epithelial Cells Rare Urine Mucus Rare Blood Type B POSITIVE Antibody Screen Negative ASSESSMENT/PLAN: 77 y/o woman placed in Tele Observation for Presyncope, Dizziness and Generalized Weakness for further evaluation of their emergent condition. Plan: Syncope -Tele Observation - Cardiac monitoring - Serial Enzymes - Appreciate Cardiology consult - Carotid Doppler-pending - Echo done 10/09/17-LVSF normal, EF 50%, mild MR, mild TR, mild , no pericardial effusion, will defer to cardiology - Monitor CBC, BMP - Fall Precautions Dizziness/Generalized Weakness/Unsteady Gait - Likely secondary to arrhythmia vs tumor vs dehydration vs medication - CT Brain- neg ICH - Appreciate Neurology consult - PT eval - Fall Precautions - Will hold Gabapentin for now - Monitor vitals - Monitor CBC, BMP Hypertension - stable - Monitor BP - Continue home meds with parameters - Monitor renal function CAD - stable - s/p stent, cardiac cath - Continue home meds - EKG reviewed Hyperlipidemia - Continue home med Hypothyroid - TSH level - Continue home med Diabetes Mellitus - stable - BGMs - Continue home meds - Monitor renal function FEN - PO fluids as tolerated - Replete lytes prn - Low Na, Diabetic Diet DVT ppx - OOB - SCDs - Consider AC if LOS > 48hrs Code Status: Full Code Dispo: Tele Observation Problem List - Problem (1) Pre-syncope Code(s): R55 - SYNCOPE AND COLLAPSE (2) Generalized weakness Code(s): R53.1 - WEAKNESS (3) JUVENAL (acute kidney injury) Code(s): N17.9 - ACUTE KIDNEY FAILURE, UNSPECIFIED (4) Anemia, unspecified Code(s): D64.9 - ANEMIA, UNSPECIFIED Qualifiers: Anemia type: unspecified type Qualified Code(s): D64.9 - Anemia, unspecified (5) CAD (coronary artery disease) Code(s): I25.10 - ATHSCL HEART DISEASE OF [place] CORONARY ARTERY W/O ANG PCTRS Qualifiers: Coronary Disease-Associated Artery/Lesion type: unspecified vessel or lesion type Associated angina: angina presence unspecified (6) Anxiety Code(s): F41.9 - ANXIETY DISORDER, UNSPECIFIED (7) Hypertension Code(s): I10 - ESSENTIAL (PRIMARY) HYPERTENSION (8) Hyperthyroidism Code(s): E05.90 - THYROTOXICOSIS, UNSP WITHOUT THYROTOXIC CRISIS OR STORM Visit type - Emergency Visit Emergency Visit: Yes ED Registration Date: 12/08/17 Care time: The patient presented to the Emergency Department on the above date and was hospitalized for further evaluation of their emergent condition. - New Patient This patient is new to me today: Yes Date on this admission: 12/08/17 - Critical Care Critical Care patient: No Hospitalist Screening - Colonoscopy Questionnaire Colonoscopy Questionnaire: Colonoscopy Questionnaire - Patient: 50 - 75 years old and never had a screening colonoscopy: Unknown History of colon or rectal polyps, or CA: Unknown History of IBD, Crohn's disease or UC: Unknown History of abdominal radiation therapy as a child: Unknown - Relative: 1 with colon or rectal CA, or polyps at age 60 or younger: Unknown Colon or rectal CA diagnosed at age 45 or younger: Unknown Multiple relatives with colon or rectal CA: Unknown - Outcome: Screening Result: Negative Screen
[2017-12-09 06:18] LABS: BASO % 0.9 % (0-2.0); EOS % 3.7 % (0-4.5); HEMATOCRIT 30.9 % (32.4-45.2); HEMOGLOBIN 10.4 GM/dL (10.7-15.3); LYMPH % 28.1 % (8-40); MCH 28.5 pg (25.7-33.7); MCHC 33.6 g/dl (32.0-36.0); MEAN CELL VOLUME 84.9 fl (80-96); MEAN PLT VOLUME 8.7 fl (7.5-11.1); MONO % 9.9 % (3.8-10.2); NEUT % 57.4 % (42.8-82.8); PLATELET COUNT 265 K/MM3 (134-434); RBC 3.64 M/mm3 (3.60-5.2); RDW 18.4 % (11.6-15.6); WHITE BLOOD COUNT 6.4 K/mm3 (4.0-10.0)
[2017-12-09 06:42] LABS: ANION GAP 9 (8-16); BLOOD UREA NITROGEN 28 mg/dL (7-18); CHLORIDE 109 mmol/L (98-107); CO2 25 mmol/L (21-32); CREATININE 0.9 mg/dL (0.55-1.02); GLUCOSE,RANDOM 73 mg/dL (74-106); MAGNESIUM 2.3 mg/dL (1.8-2.4); PHOSPHOROUS 4.5 mg/dL (2.5-4.9); POTASSIUM 3.7 mmol/L (3.5-5.1); SODIUM 143 mmol/L (136-145)
[2017-12-09] MEDS: LEVOTHYROXINE NA 25 MCG TABLET (FP) PO SCH (07:00)
[2017-12-09] MEDS: sitaGLIPtin PHOSPHATE 50 MG TABLET PO SCH (07:00)
[2017-12-09] MEDS ORDERED: LEVOTHYROXINE NA 25 MCG TABLET (FP) ONE (07:04)
[2017-12-09] MEDS ORDERED: sitaGLIPtin PHOSPHATE 50 MG TABLET ONE (07:05)
[2017-12-09] MEDS: ALLOPURINOL 100 MG TABLET (FP) PO SCH (10:00)
[2017-12-09] MEDS: amLODIPine BESYLATE 5 MG TABLET (FP) PO SCH (10:00)
[2017-12-09] MEDS: ASPIRIN 81 MG CHEWABLE TABLETS PO SCH (10:00)
[2017-12-09] MEDS: TICAGRELOR 90 MG TABLET PO SCH ×2 (10:00→21:04)
[2017-12-09] MEDS: LOSARTAN POTASSIUM 50 MG TABLET (FP) PO SCH ×2 (10:00→21:04)
[2017-12-09] MEDS: ISOSORBIDE MONONITRATE 60 MG TAB.SR.24H (FP) PO SCH (10:00)
--- NOTE | 2017-12-09 10:02 | PN ---
Progress Note, Physician Chief Complaint: dizziness, weakness, fall at home History of Present Illness: NAD Awaiting Cardiology and neurology consult U/S carotid results pending - Current Medication List Current Medications: Active Medications Allopurinol (Zyloprim -) 100 mg PO DAILY [facility] Amlodipine Besylate (Norvasc -) 5 mg PO DAILY [facility] Aspirin (Asa -) 81 mg PO DAILY [facility] Atorvastatin Calcium (Lipitor -) 80 mg PO HS [facility] Insulin Aspart (Novolog Vial Sliding Scale -) 1 vial SQ TIDAC [facility]; Protocol Isosorbide Mononitrate (Imdur -) 120 mg PO DAILY [facility] Levothyroxine Sodium (Synthroid -) 25 mcg PO DAILY@0700 [facility] Last Admin: 12/09/17 07:00 Dose: 25 mcg Losartan Potassium (Cozaar -) 50 mg PO BID [facility] Nortriptyline HCl (Pamelor -) 10 mg PO HS [facility] Sitagliptin Phosphate (Januvia -) 50 mg PO DAILY@0700 [facility] Last Admin: 12/09/17 07:00 Dose: 50 mg Ticagrelor (Brilinta -) 90 mg PO BID [facility] - Objective Vital Signs: Vital Signs Temperature 97.3 F L 12/09/17 07:41 Pulse Rate 79 12/09/17 07:41 Respiratory Rate 20 12/09/17 07:41 Blood Pressure 145/75 12/09/17 07:41 O2 Sat by Pulse Oximetry (%) 100 12/09/17 07:41 Constitutional: Yes: Well Nourished, No Distress, Calm Cardiovascular: Yes: Regular Rate and Rhythm Respiratory: Yes: Regular Gastrointestinal: Yes: Normal Bowel Sounds, Soft Musculoskeletal: Yes: Muscle Weakness Extremities: Yes: WNL Edema: No Peripheral Pulses WNL: Yes Neurological: Yes: Alert, Oriented Psychiatric: Yes: Alert, Oriented Labs: CBC, BMP 12/09/17 06:05 12/09/17 06:05 INR, PTT INR 0.92 (0.82-1.09) 12/08/17 20:00 Problem List - Problems (1) Generalized weakness Assessment/Plan: -Physical therapy -U/S carotid unremarkable -All x-rays, CT head unremarkable -awaiting Neurology and cardiology consult Code(s): R53.1 - WEAKNESS (2) Anemia, unspecified Assessment/Plan: -anemia of chronic disease -workup as outpatient Code(s): D64.9 - ANEMIA, UNSPECIFIED Qualifiers: Anemia type: unspecified type Qualified Code(s): D64.9 - Anemia, unspecified (3) Diabetes mellitus Assessment/Plan: -BGM AC HS -diabetic diet -oral hypoglycemics -RD consult Code(s): E11.9 - TYPE 2 DIABETES MELLITUS WITHOUT COMPLICATIONS Qualifiers: Diabetes mellitus type: type 2 Assessment/Plan see problem list
--- NOTE | 2017-12-09 10:06 | EKG ---
Test Reason : Blood Pressure : / mmHG Vent. Rate : 087 BPM Atrial Rate : 087 BPM P-R Int : 178 ms QRS Dur : 088 ms QT Int : 386 ms P-R-T Axes : 057 -52 -11 degrees QTc Int : 464 ms SINUS RHYTHM WITH OCCASIONAL PREMATURE VENTRICULAR COMPLEXES LEFT AXIS DEVIATION MINIMAL VOLTAGE CRITERIA FOR LVH, MAY BE NORMAL VARIANT INFERIOR INFARCT (CITED ON OR BEFORE 04-NOV-2017) ANTEROLATERAL INFARCT (CITED ON OR BEFORE 07-JUL-2017) ABNORMAL ECG WHEN COMPARED WITH ECG OF 05-NOV-2017 09:45, PREMATURE VENTRICULAR COMPLEXES ARE NOW PRESENT VENT. RATE HAS INCREASED BY 35 BPM QUESTIONABLE CHANGE IN INITIAL FORCES OF LATERAL LEADS T WAVE INVERSION LESS EVIDENT IN INFERIOR LEADS Confirmed by LUPIS DIEGO, ANA ([id number]) on 12/09/2017 10:06:00 AM Referred By: Confirmed By:ANA BAUGH MD
[2017-12-09] MEDS: INSULIN SLIDING SCALE (NOVOLOG) 1 VIAL SQ SCH ×2 (12:15→18:25)
--- NOTE | 2017-12-09 17:12 | CON.CARD ---
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 History was taken when son was present and acted as mechanical service technician. Pt denies any lightheadedness, dizziness, syncope, or near syncope. No chest pain, sob, or palpitations. No pnd, orthopnea or LE edema. 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 No: [place]'s Disease, [place]'s Disease, Diabetes Insipidus, Diabetes Mellitus, Hyperparathyroidism, Hypothyroidism, Osteopenia, SIADH, Other - Past Surgical History Past Surgical History: Yes: Stent - Alcohol/Substance Use Hx Alcohol Use: No History of Substance Use: reports: None - Smoking History Smoking history: Never smoked Have you smoked in the past 12 months: No Aproximately how many cigarettes per day: 0 - Social History Usual Living Arrangement: With Spouse ADL: Family Assistance Occupation: retired History of Recent Travel: No Home Medications - Allergies Allergies/Adverse Reactions: Allergies Allergy/AdvReac Type Severity Reaction Status Date / Time No Known Allergies Allergy Verified 12/08/17 20:42 - Home Medications Home Medications: Ambulatory Orders Aspirin 81 mg PO DAILY 11/04/17 Atorvastatin Ca [Lipitor] 80 mg PO HS 11/04/17 Ergocalciferol (Vitamin D2) [Vitamin D2] 50,000 unit PO WEEKLY 11/04/17 Glimepiride [Amaryl -] 2 mg PO BID 11/04/17 Isosorbide Mononitrate [Imdur -] 120 mg PO DAILY 11/04/17 Nitroglycerin 0.4 mg SL PRN 11/04/17 Ticagrelor [Brilinta -] 90 mg PO BID 11/04/17 Valsartan [Diovan] 160 mg PO BID 11/04/17 Allopurinol [Zyloprim -] 100 mg PO DAILY 11/05/17 Amlodipine Besylate 5 mg PO DAILY 11/05/17 Levothyroxine [Synthroid -] 25 mcg PO DAILY 11/05/17 Sitagliptin Phosphate [Januvia] 50 mg PO DAILY 11/05/17 Gabapentin [Neurontin -] 200 mg PO TID capsule 11/11/17 Nortriptyline HCl [Pamelor -] 10 mg PO HS capsule 11/11/17 Paroxetine HCl [Paxil -] 10 mg PO DAILY tablet 11/11/17 Family Disease History - Family Disease History Family History: Denies Review of Systems - Review of Systems Constitutional: reports: Weakness. denies: No Symptoms, Chills, Diaphoresis, Fever, Lethargy, Loss of Appetite, Malaise, Night Sweats, Unintentional Wgt. Loss, Other Eyes: denies: No Symptoms, Blind Spots, Blurred Vision, Double Vision, Eye Pain , Floaters, Photophobia, Recent Change in Vision, Other HENT: denies: No Symptoms, Difficult Swallowing, Ear Discharge, Ear Pain, Epistaxis, Gingival Bleeding, Hearing Loss, Mouth Swelling, Nasal Congestion, Ocular Prosthesis, Throat Pain, Toothache, Ringing in Ears, Other Neck: denies: No Symptoms, Decreased ROM, Lumps, Pain on Movement, Stiffness, Swollen Glands, Tenderness, Other Cardiovascular: denies: No Symptoms, Chest Pain, Edema, Palpitations, Shortness of Breath, Other Respiratory: denies: No Symptoms, Cough, Exercise Intolerance, Hemoptysis, Orthopnea, PND, Snoring, SOB, SOB on Exertion, Wheezing, Other Gastrointestinal: denies: No Symptoms, Abdominal Pain, Bloating, Constipation, Diarrhea, Dysphagia, Indigestion, Melena, Nausea, Rectal Bleeding, Vomiting, Vomiting Blood, Other Genitourinary: denies: No Symptoms, Burning, Discharge, Dysuria, Flank Pain, Frequency, Hematuria, Incontinence, Lesions, Menses, Pain, Testicular Mass, Testicular Pain, Testicular Swelling, Urgency, Vaginal Bleeding, Other Breasts: denies: No Symptoms Reported, See HPI, Breast Implants, Discharge from Nipple, Lumps, Pain, Skin Changes, Other Musculoskeletal: reports: Muscle Weakness. denies: No Symptoms, Back Pain, Crepitus, Decreased ROM, Extremity Pain, Joint Pain, Joint Swelling, Muscle Pain , Muscle Cramps, Other Integumentary: denies: No Symptoms, Blister, Bruising, Change in Color, Eczema, Erythema, Incision, Lesions, Lump, Pallor, Pruritis, Rash, Wound, Other Neurological: reports: Unsteady Gait, Weakness. denies: No Symptoms, Change in LOC, Change in Speech, Confusion, Dizziness, Headache, Incoordination, Numbness , Parasthesia, Pre-Existing Deficit, Seizure, Syncope, Tremors, Other Endocrine: denies: No Symptoms, Excessive Sweating, Flushing, Increased Hunger, Increased Thirst, Intolerance to Cold, Intolerance to Heat, Unexplained Weight Gain, Unexplained Weight Loss, Other Hematology/Lymphatic: denies: No Symptoms, Easily Bruised, Excessive Bleeding, Swollen Glands, Other Psychiatric: denies: No Symptoms, Altered Sleep Pattern, Anxiety, Depression, Hallucinations, Panic, Paranoia, Suicidal, Other - Risk Factors Known Risk Factors: Yes: Prior MD /Emb Stroke Vital Signs: Vital Signs Temperature 98.2 F 12/09/17 15:44 Pulse Rate 74 12/09/17 15:44 Respiratory Rate 18 12/09/17 15:44 Blood Pressure 127/66 12/09/17 15:44 O2 Sat by Pulse Oximetry (%) 98 12/09/17 15:44 Constitutional: Yes: Well Nourished, No Distress, Calm Eyes: Yes: WNL, Conjunctiva Clear, EOM Intact, PERRL HENT: Yes: WNL, Atraumatic, Normocephalic Neck: Yes: WNL, Supple, Trachea Midline Respiratory: Yes: WNL, Regular, CTA Bilaterally. No: Rales, Rhonchi, Wheezes Gastrointestinal: Yes: WNL, Normal Bowel Sounds, Soft. No: Distention, Tenderness Renal/: Yes: WNL Cardiovascular: Yes: Regular Rate and Rhythm. No: Bradycardia, Tachycardia, Pulse Irregular, Gallop, Rub, Varicosities JVD: No PMI: Non-Displaced Heart Sounds: Yes: S1, S2. No: Split S2, S3, S4, Clicks, Gallop, Rub, Bruit Murmur: No: Systolic Murmur, Diastolic Murmur Musculoskeletal: Yes: WNL Extremities: Yes: WNL Edema: No Peripheral Pulses WNL: Yes Peripheral Pulses: 2+ Left Doralis Pedis, 2+ Right Dorsalis Pedis Integumentary: Yes: WNL Neurological: Yes: WNL, Alert, Oriented Psychiatric: Yes: WNL, Alert, Oriented - Other Data Labs, Other Data: CBC, BMP 12/09/17 06:05 12/09/17 06:05 INR, PTT INR 0.92 (0.82-1.09) 12/08/17 20:00 Troponin, BNP 12/08/17 12/09/17 12/09/17 20:00 02:10 06:05 Troponin I 0.02 0.03 0.02 B-Natriuretic Peptide 612.73 H 12/09/17 08:45 Troponin I Cancelled B-Natriuretic Peptide Troponin, BNP 12/08/17 12/09/17 12/09/17 20:00 02:10 06:05 Troponin I 0.02 0.03 0.02 B-Natriuretic Peptide 612.73 H 12/09/17 08:45 Troponin I Cancelled B-Natriuretic Peptide ekg-sinus rhythm inferior infarct possible anterolateral infarct, no acute ST changes Echo: Report Reviewed Prior Cardiac Procedures: Cardiac Catheterization, PTCA with Stent Imaging - Results Chest X-ray: Report Reviewed, Image Reviewed EKG: Report Reviewed, Image Reviewed Other: Report Reviewed Assessment/Plan 77 year old female with a pmhx of dm, htn, hld, CAD, with h/o IWSTEMI s/p cath at [facility] demonstrating 100% thrombotic occlusion of mRCA s/p NURSE RECEPTIONIST/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 History was taken when son was present and acted as mechanical service technician. Pt denies any lightheadedness, dizziness, syncope, or near syncope. No chest pain, sob, or palpitations. No pnd, orthopnea or LE edema. weakness in legs -history as per pt and confirmed by her family no syncope or near syncope no dizziness or palpitations -can check orthostatic vital signs -some evidence of intravascular depletion given elevated bun/creat ratio -no additional inpatient cardiac work up is needed at this time -pt should have close cardiology fup as outpatient CAD with h/o IWSTEMI and stents -no current concerning symptoms, no chest pain or sob -cont home medical regimen -close outpt fup Please call with any additional questions.
[2017-12-09] MEDS: NORTRIPTYLINE HCL 10 MG CAPSULE PO SCH (21:05)
[2017-12-09] MEDS: ATORVASTATIN CA 80 MG TABLET (FP) PO SCH (21:05)
[2017-12-10] MEDS: INSULIN SLIDING SCALE (NOVOLOG) 1 VIAL SQ SCH ×3 (06:13→16:57)
[2017-12-10] MEDS: LEVOTHYROXINE NA 25 MCG TABLET (FP) PO SCH (06:13)
[2017-12-10] MEDS: sitaGLIPtin PHOSPHATE 50 MG TABLET PO SCH (08:30)
[2017-12-10] MEDS: ALLOPURINOL 100 MG TABLET (FP) PO SCH (09:15)
[2017-12-10] MEDS: ASPIRIN 81 MG CHEWABLE TABLETS PO SCH (09:15)
[2017-12-10] MEDS: LOSARTAN POTASSIUM 50 MG TABLET (FP) PO SCH ×2 (09:15→21:04)
[2017-12-10] MEDS: TICAGRELOR 90 MG TABLET PO SCH ×2 (09:15→21:05)
[2017-12-10] MEDS: amLODIPine BESYLATE 5 MG TABLET (FP) PO SCH (09:16)
[2017-12-10] MEDS: ISOSORBIDE MONONITRATE 60 MG TAB.SR.24H (FP) PO SCH (09:16)
--- NOTE | 2017-12-10 09:21 | PN ---
Progress Note, Physician Chief Complaint: AWAKE ALERT EVENTS REVIEWED C/O LEG WEAKNESS AND UNSTEADY GAIT - Current Medication List Current Medications: Active Medications Allopurinol (Zyloprim -) 100 mg PO DAILY [facility] Last Admin: 12/10/17 09:15 Dose: 100 mg Amlodipine Besylate (Norvasc -) 5 mg PO DAILY [facility] Last Admin: 12/10/17 09:16 Dose: 5 mg Aspirin (Asa -) 81 mg PO DAILY [facility] Last Admin: 12/10/17 09:15 Dose: 81 mg Atorvastatin Calcium (Lipitor -) 80 mg PO [facility] Last Admin: 12/09/17 21:05 Dose: 80 mg Insulin Aspart (Novolog Vial Sliding Scale -) 1 vial SQ TIDAC [facility]; Protocol Last Admin: 12/10/17 06:13 Dose: Not Given Isosorbide Mononitrate (Imdur -) 120 mg PO DAILY [facility] Last Admin: 12/10/17 09:16 Dose: 120 mg Levothyroxine Sodium (Synthroid -) 25 mcg PO DAILY@0700 [facility] Last Admin: 12/10/17 06:13 Dose: 25 mcg Losartan Potassium (Cozaar -) 50 mg PO BID [facility] Last Admin: 12/10/17 09:15 Dose: 50 mg Nortriptyline HCl (Pamelor -) 10 mg PO [facility] Last Admin: 12/09/17 21:05 Dose: 10 mg Sitagliptin Phosphate (Januvia -) 50 mg PO DAILY@0700 [facility] Last Admin: 12/10/17 08:30 Dose: 50 mg Ticagrelor (Brilinta -) 90 mg PO BID [facility] Last Admin: 12/10/17 09:15 Dose: 90 mg - Objective Vital Signs: Vital Signs Temperature 98.4 F 12/10/17 08:51 Pulse Rate 87 12/10/17 08:51 Respiratory Rate 18 12/10/17 08:51 Blood Pressure 147/72 12/10/17 08:51 O2 Sat by Pulse Oximetry (%) 99 12/09/17 21:18 Constitutional: Yes: Mild Distress Eyes: Yes: WNL HENT: Yes: WNL Neck: Yes: WNL Cardiovascular: Yes: WNL Respiratory: Yes: WNL Gastrointestinal: Yes: WNL Genitourinary: Yes: WNL Musculoskeletal: Yes: Muscle Weakness Extremities: Yes: WNL Edema: No Peripheral Pulses WNL: Yes Integumentary: Yes: WNL Wound/Incision: Yes: Clean/Dry Neurological: Yes: Unsteady Gait, Weakness ...Motor Strength: LLE, RLE Psychiatric: Yes: Other Labs: CBC, BMP 12/09/17 06:05 12/09/17 06:05 INR, PTT INR 0.92 (0.82-1.09) 12/08/17 20:00 Problem List - Problems (1) Anemia, unspecified Code(s): D64.9 - ANEMIA, UNSPECIFIED Qualifiers: Anemia type: unspecified type Qualified Code(s): D64.9 - Anemia, unspecified (2) CAD (coronary artery disease) Code(s): I25.10 - ATHSCL HEART DISEASE OF [place] CORONARY ARTERY W/O ANG PCTRS Qualifiers: Coronary Disease-Associated Artery/Lesion type: unspecified vessel or lesion type Associated angina: angina presence unspecified (3) Generalized weakness Code(s): R53.1 - WEAKNESS (4) Pre-syncope Code(s): R55 - SYNCOPE AND COLLAPSE Assessment/Plan PT AND NEUROLOGY EVAL FALL RISKS LABS REVIEWED MAY NEED EXTENSIVE ACUTE REHAB DC PLANNING FOR DISCHARGE AT SNF
[2017-12-10] MEDS ORDERED: PT OWN MED DRAWER 7, Y5N ONE (21:03)
[2017-12-10] MEDS: ATORVASTATIN CA 80 MG TABLET (FP) PO SCH (21:04)
[2017-12-10] MEDS: NORTRIPTYLINE HCL 10 MG CAPSULE PO SCH (21:05)
--- NOTE | 2017-12-10 22:22 | CONSULT ---
Consult - text type - Consultation Consultation Note: NEUROLOGY CONSULTATION is greatly appreciated: This 77 yo RH woman with PMH of HTN, DM, Chol and ASHD is recently s/p MN and in patient rehab x 3 weeks. Just D/C'ed to home where she cares for an ill . maintained on: Allopurinol; Amlodipine; Aspirin 81 mg; Atorvastatin; Insulin; Isosorbide; Levothyroxine; Losartan; Nortriptyline 10 mg; Januvia; and Ticagrelor. Admitted now with weakness and unsteady gait. Seen by me in the past with chronic "squeezing" pains in her feet attributed to diabetic neuropathy. Now denies pain and feels "better." LEONIDES: Thin, no bruits, cor reg. NEURO: Awake, alert. MS/speech appear to be normal but ? withdrawn/depressed? CN II-XII: normal without nystagmus Motor: No drift. Normal strength, tone and bulk. Absent AJ's. Toes downgoing Coord: No FTN dystaxia. Sensory: Decreased vibration to the ankles. Romberg + Gait: Sl wide-based and shortened strides IMP: Non-focal exam sig for a moderate, presumably diabetic, peripheral neuropathy. Post-MN depression? SUGGEST: check B12 Check orthostatic BP's Neuro f/u for EMG/NCS PT for gait training with walker. academic services coordinator/ home safety check. Consider possible antidepressant Rx. Thank you very much, Luis Alberto Stewart MD
[2017-12-11] MEDS: sitaGLIPtin PHOSPHATE 50 MG TABLET PO SCH (06:03)
[2017-12-11] MEDS: INSULIN SLIDING SCALE (NOVOLOG) 1 VIAL SQ SCH (06:03)
[2017-12-11] MEDS: LEVOTHYROXINE NA 25 MCG TABLET (FP) PO SCH (06:03)
--- NOTE | 2017-12-11 08:29 | DS ---
Physical Examination Vital Signs: Vital Signs Temperature 98.0 F 12/11/17 06:00 Pulse Rate 84 12/11/17 06:00 Respiratory Rate 20 12/11/17 06:00 Blood Pressure 141/78 12/11/17 06:00 O2 Sat by Pulse Oximetry (%) 99 12/10/17 20:23 Findings/Remarks: This is a 77 y/o woman with a PMHx of HTN, HLD, Hypothyroidism, DM, CAD, s/p [place] ([facility]) Stents (RCA), Cardiac Cath. Who presents to the ED with family c/o dizziness, weakness and unsteady gait. Patient speaks Assyrian, language line # [id number], timber killer- Edward used. Patient reports recent admission for 3 weeks at a [facility]illed [facility]hab facility post NV, d/c 3 days ago to home. Patient reports falling at home today onto her buttocks secondary to increased weakness to her lower extremities, denies head injury. Patient reports that since being home she has been feeling dizzy, weak and unable to ambulate with her walker. She denies chest pain, palpitations, SOB. Patient denies blurred vision, numbness, tinnitus. ER course was notable for: (1) CT Brain- No acute ICH (2) EKG- SR with occasional PVCs, infarct age undetermined, anterolateral infarct age undetermined (3) Trop < 0.02 (4) BUN 31, Cr 1.2 Constitutional: Yes: Well Nourished, No Distress, Calm Cardiovascular: Yes: Regular Rate and Rhythm Respiratory: Yes: Regular Gastrointestinal: Yes: Normal Bowel Sounds, Soft Musculoskeletal: Yes: WNL, Muscle Weakness Extremities: Yes: WNL Edema: No Peripheral Pulses WNL: Yes Neurological: Yes: Alert, Oriented Psychiatric: Yes: Alert, Oriented Labs: CBC, BMP 12/09/17 06:05 12/09/17 06:05 Discharge Summary Reason For Visit: ANEMIA/PRE-SYNCOPE/ACUTE KIDNEY SUPERIMPOSE ON Current Active Problems JUVENAL (acute kidney injury) (Acute) Anemia, unspecified (Acute) CAD (coronary artery disease) (Acute) Generalized weakness (Acute) Pre-syncope (Acute) Condition: Stable - Instructions Diet, Activity, Other Instructions: Need EMG out patient Follow up with PCP and Neurology outpatient Referrals: Luis Alberto Stewart MD [Staff Physician] - Brett Wolf MD [Primary Care Provider] - Disposition: VNS/HOME HEALTH CARE - Home Medications Comprehensive Discharge Medication List: Ambulatory Orders Aspirin 81 mg PO DAILY 11/04/17 Atorvastatin Ca [Lipitor] 80 mg PO HS 11/04/17 Ergocalciferol (Vitamin D2) [Vitamin D2] 50,000 unit PO WEEKLY 11/04/17 Glimepiride [Amaryl -] 2 mg PO BID 11/04/17 Isosorbide Mononitrate [Imdur -] 120 mg PO DAILY 11/04/17 Nitroglycerin 0.4 mg SL PRN 11/04/17 Ticagrelor [Brilinta -] 90 mg PO BID 11/04/17 Allopurinol [Zyloprim -] 100 mg PO DAILY 11/05/17 Amlodipine Besylate 5 mg PO DAILY 11/05/17 Levothyroxine [Synthroid -] 25 mcg PO DAILY 11/05/17 Sitagliptin Phosphate [Januvia] 50 mg PO DAILY 11/05/17 Gabapentin [Neurontin -] 200 mg PO TID capsule 11/11/17 Nortriptyline HCl [Pamelor -] 10 mg PO HS capsule 11/11/17 Paroxetine HCl [Paxil -] 10 mg PO DAILY tablet 11/11/17 Losartan Potassium [Cozaar -] 50 mg PO BID #30 tablet 12/11/17
[2017-12-11] MEDS: ISOSORBIDE MONONITRATE 60 MG TAB.SR.24H (FP) PO SCH (09:32)
[2017-12-11] MEDS: amLODIPine BESYLATE 5 MG TABLET (FP) PO SCH (09:32)
[2017-12-11] MEDS: LOSARTAN POTASSIUM 50 MG TABLET (FP) PO SCH (09:32)
[2017-12-11] MEDS: ASPIRIN 81 MG CHEWABLE TABLETS PO SCH (09:32)
[2017-12-11] MEDS: ALLOPURINOL 100 MG TABLET (FP) PO SCH (09:32)
[2017-12-11] MEDS: TICAGRELOR 90 MG TABLET PO SCH (09:32)
[2017-12-11 09:37] VITALS: BP 152/76; PULSE 80; TEMP 97.9
== END 2017-12-11 11:00 | disposition home health service (06) ==
LOC: JER 19:22 → JERBED 23:53 → J4S 12-09 16:33
PROVIDERS: ADMIT Internal Medicine; ATTEND Internal Medicine Endocrinology, Diabetes & Metabolism
DX: R55 Syncope and collapse (principal); M62.81 Muscle weakness (generalized); N17.9 Acute kidney failure, unspecified; D64.9 Anemia, unspecified; I10 Essential (primary) hypertension; I25.119 Atherosclerotic heart disease of native coronary artery with unspecified angina pectoris; I25.2 Old myocardial infarction; E11.9 Type 2 diabetes mellitus without complications; E78.5 Hyperlipidemia, unspecified; E03.9 Hypothyroidism, unspecified; K21.9 Gastro-esophageal reflux disease without esophagitis; Z79.82 Long term (current) use of aspirin; Z79.84 Long term (current) use of oral hypoglycemic drugs; Z87.442 Personal history of urinary calculi; Z95.5 Presence of coronary angioplasty implant and graft
CPT/HCPCS: 36415; 70450-TC; 71045-TC-FY; 72220-TC-FY; 73590-TC-RT-FY; 80048; 80053; 80061; 81003; 81015; 82550; 82607; 82962; 83036; 83721; 83735; 83880; 84100; 84439; 84443; 84484; 85025; 85610; 85730; 86850; 86900; 86901; 87086; 93005; 93010; 93880-TC; 97116-GP; 97161-GP; 99285-25; G0378

== ENCOUNTER 2019-03-19 16:52 | Emergency (ER) | payer OTHER ==
[2019-03-19 17:02] VITALS: BMI 25.2
--- NOTE | 2019-03-19 17:45 | PDOC ---
History of Present Illness - General Chief Complaint: Bone Injury Stated Complaint: FALL Time Seen by Provider: 03/19/19 17:37 History Source: Patient, Old Records Exam Limitations: No Limitations - History of Present Illness Initial Comments: 03/19/19 17:59 HISTORY OF PRESENT ILLNESS: Is a 78-year-old woman presents to the emergency department for evaluation of left shoulder pain status post trip and fall last night. Patient her state the left the house when she got up to use the restroom, she turned and tripped over a piece of furniture falling onto her left arm. She denies any head trauma or loss of consciousness. came home approximately 1 hour or after leaving the house patient was sitting in the chair at that time. found out about the fall and gave the patient Tylenol 3 which had been prescribed by her primary doctor. Patient woke up this morning and had worsening pain but decided to take Tylenol 3 again. Patient reported minimal pain relief not so she is here for evaluation. No recent travel or sick contacts. PAST MEDICAL HISTORY: CAD, [place] with 2 stents, GERD, NIDDM, hypertension, hyperlipidemia, hypothyroidism, kidney stones SURGICAL HISTORY: Denies ALLERGIES: No known drug allergies REVIEW OF SYSTEMS General/Constitutional: Denies fever or chills. Denies weakness, weight change. HEENT: Denies change in vision. Denies ear pain or discharge. Denies sore throat. Cardiovascular: Denies chest pain or shortness of breath. Respiratory: Denies cough, wheezing, or hemoptysis. Gastrointestinal: Denies nausea, vomiting, diarrhea or constipation. Denies rectal bleeding. Genitourinary: Denies dysuria, frequency, or change in urination. Musculoskeletal: See HPI Skin and breasts: Denies rash or easy bruising. Neurologic: Denies headache, vertigo, loss of consciousness, or loss of sensation. Psychiatric: Denies depression or anxiety. Endocrine: Denies increased thirst. Denies abnormal weight change. Hematologic/Lymphatic: Denies anemia, easy bleeding, or history of blood clots. Allergic/Immunologic: Denies hives or skin allergy. Denies latex allergy. PHYSICAL EXAM General Appearance: Well-appearing, appropriately dressed. No apparent distress , no intoxication. HEENT: EOMI, PERRLA, normal ENT inspection, normal voice, TMs normal, pharynx normal. No conjunctival pallor. No photophobia, scleral icterus. Normocephalic, atraumatic. Neck: Supple. Trachea midline. No tenderness, rigidity, carotid bruit, stridor , lymphadenopathy, or thyromegaly. Respiratory/Chest: Lungs CTAB. No shortness of breath, chest tenderness, respiratory distress, accessory muscle use. No crackles, rales, rhonchi, stridor , wheezing, dullness Cardiovascular: RRR. S1, S2. No JVD, murmur, bradycardia, tachycardia. Vascular Pulses: Dorsalis-Pedis (R): 2+, Dorsalis-Pedis (L): 2+ Gastrointestinal/Abdominal: Normal bowel sounds. Abdomen soft, non-distended. No tenderness or rebound tenderness. No organomegaly, pulsatile mass, guarding, hernia, hepatomegaly, splenomegaly. Lymphatic: No adenopathy, tenderness. Musculoskeletal/Extremities: Normal inspection. Normal capillary refill. Pelvis Stable. No CVA tenderness. No tenderness to extremities, pedal edema, swelling, erythema or deformity. Decreased range of motion of the left shoulder with abduction and circumduction. 2+ radial pulses present bilaterally. Full sensation distal to injury noted. Integumentary: Appropriate color, dry, warm. No cyanosis, erythema, jaundice or rash Neurologic: indigo vat tender cloth II-XII intact. Fully oriented, alert. Appropriate mood/affect. Motor strength 5/5. No appreciable EOM palsy, facial droop or sensory deficit. Past History - Past Medical History Allergies/Adverse Reactions: Allergies Allergy/AdvReac Type Severity Reaction Status Date / Time No Known Allergies Allergy Verified 03/19/19 17:01 Home Medications: Ambulatory Orders Aspirin 81 mg PO DAILY 11/04/17 Atorvastatin Ca [Lipitor] 80 mg PO HS 11/04/17 Ergocalciferol (Vitamin D2) [Vitamin D2] 50,000 unit PO WEEKLY 11/04/17 Glimepiride [Amaryl -] 2 mg PO BID 11/04/17 Isosorbide Mononitrate [Imdur -] 120 mg PO DAILY 11/04/17 Nitroglycerin 0.4 mg SL PRN 11/04/17 Ticagrelor [Brilinta -] 90 mg PO BID 11/04/17 Allopurinol [Zyloprim -] 100 mg PO DAILY 11/05/17 Amlodipine Besylate 5 mg PO DAILY 11/05/17 Levothyroxine [Synthroid -] 25 mcg PO DAILY 11/05/17 Sitagliptin Phosphate [Januvia] 50 mg PO DAILY 11/05/17 Gabapentin [Neurontin -] 200 mg PO TID capsule 11/11/17 Nortriptyline HCl [Pamelor -] 10 mg PO HS capsule 11/11/17 Paroxetine HCl [Paxil -] 10 mg PO DAILY tablet 11/11/17 Losartan Potassium [Cozaar -] 50 mg PO BID #30 tablet 12/11/17 Anemia: No Asthma: No Cancer: No (verified 11/09) Cardiac Disorders: Yes (angina, CAD,CATH WITH STENT, STEMI, 2 cardiac stents) CVA: No COPD: No CHF: No Diabetes: Yes GI Disorders: Yes (GERD) HTN: Yes Hypercholesterolemia: Yes Kidney Stones: Yes Thyroid Disease: Yes - Surgical History Abdominal Surgery: Yes Appendectomy: No Cardiac Surgery: No Neurologic Surgery: No - Immunization History Immunization Up to Date: Yes - Psycho Social/Smoking Cessation Hx Smoking Status: No Smoking History: Never smoked Have you smoked in the past 12 months: No Number of Cigarettes Smoked Daily: 0 Hx Alcohol Use: No Drug/Substance Use Hx: No Substance Use Type: None Hx Substance Use Treatment: No *Physical Exam - Vital Signs Last Vital Signs Temp Pulse Resp BP Pulse Ox 98.4 F 60 18 107/55 L 99 03/19/19 16:58 03/19/19 16:58 03/19/19 16:58 03/19/19 16:58 03/19/19 16:58 ED Treatment Course - RADIOLOGY Radiology Studies Ordered: Category Date Time Status CHEST PA & LAT [RAD] Stat Radiology 03/19/19 17:44 Ordered SHOULDER-LEFT [RAD] Stat Radiology 03/19/19 17:44 Ordered Medical Decision Making - Medical Decision Making 03/19/19 18:02 A/P: 78-year-old woman with left shoulder pain status post trip and fall Chest x-ray Left shoulder x-ray Percocet 1 tablet Reassess 03/19/19 18:37 X-ray of the left shoulder as read by me: No acute fractures or dislocations are present. AC joint is well approximated. Questionable scapular erosion seen on the internal and external rotation views. Not seen on chest x-ray. Chest x-rays read by me: angle sharp. Cardiac silhouette is within normal limits. No focal infiltrates or consolidations are present. No pneumothorax is seen. Sling Discharge home with orthopedic follow-up. Discharge - Discharge Information Problems reviewed: Yes Clinical Impression/Diagnosis: Shoulder pain, left Qualifiers: Chronicity: acute Qualified Code(s): M25.512 - Pain in left shoulder Condition: Stable Disposition: HOME - Admission No - Follow up/Referral Referrals: Adalberto Mccormick MD [Staff Physician] - - Patient Discharge Instructions Additional Instructions: Take Tylenol or Motrin as needed for pain. Follow manufacturers instructions for appropriate dosage. Use sling on your left shoulder to help the muscles relax. Apply ice for 20 minutes and removed for at least 20 minutes before reapplying the ice. You've been given the number for an orthopedist. Call to schedule an appointment for follow-up within 2 days. Return to emergency department for discoloration of the fingers, numbness or tingling to the fingers, worsening pain, or any other concerns. Thank you very much for choosing us to provide your emergent healthcare needs. - Post Discharge Activity
[2019-03-19 19:28] VITALS: BP 112/67; PULSE 65; TEMP 98.2
== END 2019-03-19 19:00 | disposition home or self-care (01) ==
LOC: JER 16:52
DX: S49.82XA Other specified injuries of left shoulder and upper arm, initial encounter (principal); M25.512 Pain in left shoulder; W01.0XXA Fall on same level from slipping, tripping and stumbling without subsequent striking against object, initial encounter; Y93.89 Activity, other specified; Y92.038 Other place in apartment as the place of occurrence of the external cause; Y99.8 Other external cause status; I25.10 Atherosclerotic heart disease of native coronary artery without angina pectoris; I10 Essential (primary) hypertension; Z95.5 Presence of coronary angioplasty implant and graft; I25.2 Old myocardial infarction; E11.9 Type 2 diabetes mellitus without complications; Z79.84 Long term (current) use of oral hypoglycemic drugs; E78.00 Pure hypercholesterolemia, unspecified; E03.9 Hypothyroidism, unspecified; K21.9 Gastro-esophageal reflux disease without esophagitis; Z87.442 Personal history of urinary calculi
CPT/HCPCS: 71046-TC-FY; 73030-TC-LT-FY; 99282-25

== ENCOUNTER 2019-03-20 08:36 | Inpatient (IN) | payer OTHER ==
[2019-03-20] MEDS ORDERED: SODIUM CHLORIDE 0.9% 1000 ML INFUS.BAG IV ONE (09:37)
[2019-03-20] MEDS ORDERED: ACETAMINOPHEN 1000 MG/100 ML VIAL (NON FORMULARY) IVPB ONE (09:37)
[2019-03-20] MEDS ORDERED: ACETAMINOPHEN INJECTION 100 ML IVPB ONE (09:48)
[2019-03-20 09:53] LABS: BASO % 0.7 % (0-2.0); EOS % 0.6 % (0-4.5); HEMATOCRIT 33.4 % (32.4-45.2); HEMOGLOBIN 11.6 GM/dL (10.7-15.3); LYMPH % 11.6 % (8-40); MCH 29.9 pg (25.7-33.7); MCHC 34.8 g/dl (32.0-36.0); MEAN CELL VOLUME 85.8 fl (80-96); MEAN PLT VOLUME 9.2 fl (7.5-11.1); MONO % 4.7 % (3.8-10.2); NEUT % 82.4 % (42.8-82.8); PLATELET COUNT 297 K/MM3 (134-434); RBC 3.89 M/mm3 (3.60-5.2); RDW 15.5 % (11.6-15.6); WHITE BLOOD COUNT 12.6 K/mm3 (4.0-10.0)
--- NOTE | 2019-03-20 09:53 | PDOC ---
Documentation entered by Jasmeet Beck SCRIBE, acting as scribe for Kaleigh Gaona DO. Kaleigh Gaona, : This documentation has been prepared by the Kiran ulloa Daniel, SCRIBE, under my direction and personally reviewed by me in its entirety. I confirm that the documentation accurately reflects all work, treatment, procedures, and medical decision making performed by me. History of Present Illness - General Chief Complaint: Injury Stated Complaint: FALL Time Seen by Provider: 03/20/19 09:12 History Source: Patient, Spouse Exam Limitations: No Limitations - History of Present Illness Initial Comments: 03/20/19 09:58 The patient is a 78 year old female with a past medical history of diabetes, HTN , HLD, hypothyroidism, CAD, and [place] s/p 2 stents here today for evaluation s/p fall. The patient reports that she fell this morning in the kitchen and is unsure of why she fell or the side she landed on. She denies any head strike or loss of consciousness. She notes pain in her left lateral hip. Patient notes frequent falls (last fall yesterday, presented to the ER with left shoulder pain ) and is unsure of the cause. Patient denies headache, lightheadedness. Denies fever, chills. Denies chest pain, shortness of breath. Denies nausea, vomiting, diarrhea, abdominal pain. Allergies: NKA PCP: Brett Acosta Solo Musician phone used: [phone] Past History - Past Medical History Allergies/Adverse Reactions: Allergies Allergy/AdvReac Type Severity Reaction Status Date / Time No Known Allergies Allergy Verified 03/19/19 17:01 Home Medications: Ambulatory Orders Aspirin 81 mg PO DAILY 11/04/17 Atorvastatin Ca [Lipitor] 80 mg PO HS 11/04/17 Ergocalciferol (Vitamin D2) [Vitamin D2] 50,000 unit PO WEEKLY 11/04/17 Glimepiride [Amaryl -] 2 mg PO BID 11/04/17 Isosorbide Mononitrate [Imdur -] 120 mg PO DAILY 11/04/17 Nitroglycerin 0.4 mg SL PRN 11/04/17 Ticagrelor [Brilinta -] 90 mg PO BID 11/04/17 Allopurinol [Zyloprim -] 100 mg PO DAILY 11/05/17 Amlodipine Besylate 5 mg PO DAILY 11/05/17 Levothyroxine [Synthroid -] 25 mcg PO DAILY 11/05/17 Sitagliptin Phosphate [Januvia] 50 mg PO DAILY 11/05/17 Gabapentin [Neurontin -] 200 mg PO TID capsule 11/11/17 Nortriptyline HCl [Pamelor -] 10 mg PO HS capsule 11/11/17 Paroxetine HCl [Paxil -] 10 mg PO DAILY tablet 11/11/17 Losartan Potassium [Cozaar -] 50 mg PO BID #30 tablet 12/11/17 Anemia: No Asthma: No Cancer: No (verified 11/09) Cardiac Disorders: Yes (angina, CAD,CATH WITH STENT, STEMI, 2 cardiac stents) CVA: No COPD: No CHF: No Diabetes: Yes GI Disorders: Yes (GERD) HTN: Yes Hypercholesterolemia: Yes Kidney Stones: Yes Thyroid Disease: Yes - Surgical History Abdominal Surgery: Yes Appendectomy: No Cardiac Surgery: No Neurologic Surgery: No - Immunization History Immunization Up to Date: Yes - Psycho Social/Smoking Cessation Hx Smoking Status: No Smoking History: Unknown if ever smoked Have you smoked in the past 12 months: No Number of Cigarettes Smoked Daily: 0 Information on smoking cessation initiated: No Hx Alcohol Use: No Drug/Substance Use Hx: No Substance Use Type: None Hx Substance Use Treatment: No Review of Systems - Review of Systems Able to Perform ROS?: Yes Comments:: 03/20/19 09:58 GENERAL/CONSTITUTIONAL: No fever or chills. No weakness. HEAD, EYES, EARS, NOSE AND THROAT: No change in vision. No ear pain or discharge. No sore throat. GASTROINTESTINAL: No nausea, vomiting, diarrhea or constipation. GENITOURINARY: No dysuria, frequency, or change in urination. CARDIOVASCULAR: No chest pain or shortness of breath. RESPIRATORY: No cough, wheezing, or hemoptysis. MUSCULOSKELETAL: +left hip pain. No neck or back pain. SKIN: No rash NEUROLOGIC: No headache, vertigo, loss of consciousness, or change in strength/ sensation. ENDOCRINE: No increased thirst. No abnormal weight change. HEMATOLOGIC/LYMPHATIC: No anemia, easy bleeding, or history of blood clots. ALLERGIC/IMMUNOLOGIC: No hives or skin allergy. *Physical Exam - Vital Signs Last Vital Signs Temp Pulse Resp BP Pulse Ox 99.0 F 96 H 16 134/66 99 03/20/19 08:55 03/20/19 08:55 03/20/19 08:55 03/20/19 08:55 03/20/19 08:55 - Physical Exam Comments: 03/20/19 09:59 Constitutional: Awake, alert, oriented. No acute distress. Head: Normocephalic. Atraumatic Eyes: PERRL. EOMI. Conjunctivae are not pale. ENT: Mucous membranes are moist and intact. Posterior pharynx without exudates or erythema. Uvula midline. Neck: Supple. Full ROM. No lymphadenopathy. Cardiovascular: Regular rate. Regular rhythm. S1, S2 regular. Distal pulses are 2+ and symmetric. Pulmonary/Chest: No evidence of respiratory distress. Clear to auscultation bilaterally No wheezing, rales or rhonchi. Abdominal: Soft and non-distended. There is no tenderness. No rebound, guarding or rigidity. No organomegaly. No palpable masses. Good bowel sounds. Back: No CVA tenderness. Musculoskeletal: +left hip tenderness. No edema. No cyanosis. No clubbing. No calf tenderness. Radial/pedal pulses are intact and 2+ bilaterally Skin: Skin is warm and dry. No petechiae. No purpura. Neurological: Alert and oriented to person, place, and time. Cranial nerves II -XII are grossly intact. Normal speech. Strength is grossly symmetric. No sensory deficits. Psychiatric: Good eye contact. Normal interaction, affect and behavior. Heart Score/ECG Review - ECG Intrepretation Comment:: 03/20/19 10:05 sinus at 63 w 1st degree av block, L axis, q waves inferiorly and anteriorly which are age indeterminate, t wave inversions inferior leads which are unchanged from prior ekg 2018 ED Treatment Course - LABORATORY CBC & Chemistry Diagram: 03/20/19 09:15 03/20/19 09:15 - ADDITIONAL ORDERS Additional order review: Laboratory Results 03/20/19 08:49 POC Glucometer 155 03/20/19 08:49 POC Glucometer 155 - RADIOLOGY Radiology Studies Ordered: Category Date Time Status HEAD CT WITHOUT CONTRAST [CT] Stat CT Scan 03/20/19 09:36 Ordered CHEST - PA [RAD] Stat Radiology 03/20/19 09:36 Ordered HIP & PELVIS-LEFT [RAD] Stat Radiology 03/20/19 09:36 Ordered Medical Decision Making - Medical Decision Making 03/20/19 09:51 a/p: 78yo female with a fall this am this morning in the kitchen after drinking water -denies loc -unsure what made her fall -denies lightheaded or dizziness, denies cp - states she also fell 3 days ago with L shoulder pain -FROM of ue -pt with pain to the L hip -internally rotated extended L hip, +log roll +pulses to LE -ttp along L hip -pt on brilinta - poor historian, will send for ct head, hip/pelvis xray -suspect L hip fx with poss dislocation -will send preop labs and labs for fall -will monitor and reassess -no c/t/l spine ttp 03/20/19 10:36 L hip intertroch fx - call placed to Dr. Linda/Jace PMD dr. acosta -will call Dr. Arora - covering dr. Montgomery 03/20/19 10:38 cxr clear mildly elevated wbc, suspect from stress reaction/pain no uti labs reviewed pt currently in ct 03/20/19 10:51 case discussed with PA covering ortho - will see patient in consult today ok to feed the patient today 03/20/19 11:21 no acute findings on head ct 03/20/19 11:[address] Schaefer who accepts pt to service Discharge - Discharge Information Problems reviewed: Yes Clinical Impression/Diagnosis: Fall, Closed left hip fracture Condition: Guarded - Admission Yes - Follow up/Referral Referrals: Carmen Arora MD [Primary Care Provider] - - Patient Discharge Instructions - Post Discharge Activity
[2019-03-20 10:01] LABS: EPI CELLS 0.5 /HPF (0-5/HPF); HYALINE CASTS 1 /lpf (0-8); URINE APPEARANCE CLEAR; URINE BACTERIA 2.7 /hpf (NEGATIVE); URINE BILIRUBIN NEGATIVE (NEGATIVE); URINE COLOR YELLOW; URINE GLUCOSE (UA) NEGATIVE (NEGATIVE); URINE KETONE NEGATIVE (NEGATIVE); URINE LEUK ESTERASE NEGATIVE (NEGATIVE); URINE NITRITE NEGATIVE (NEGATIVE); URINE PROTEIN 1+ (NEGATIVE); URINE RBC 1 /hpf (0-4); URINE WBC 0 /hpf (0-5)
[2019-03-20 10:16] LABS: INR 0.87 (0.83-1.09); PROTHROMBIN TIME (PATIENT) 10.2 SEC (9.7-13.0)
[2019-03-20 10:18] LABS: ACTIVATED PTT 28.6 SECONDS (25.2-36.5)
[2019-03-20 10:27] LABS: ALBUMIN 3.6 g/dl (3.4-5.0); ALK PHOS 113 U/L (45-117); ANION GAP 8 MMOL/L (8-16); BILIRUBIN,TOTAL 0.8 mg/dL (0.2-1); BLOOD UREA NITROGEN 21.4 mg/dL (7-18); CALCIUM 9.3 mg/dL (8.5-10.1); CHLORIDE 102 mmol/L (98-107); CO2 28 mmol/L (21-32); CREATININE 1.2 mg/dL (0.55-1.3); GLUCOSE,RANDOM 151 mg/dL (74-106); MAGNESIUM 1.9 mg/dL (1.8-2.4); N-TERMINAL BNP 227.4 pg/ml (5-450); POTASSIUM 3.7 mmol/L (3.5-5.1); SGOT/AST 22 U/L (15-37); SGPT/ALT 22 U/L (13-61); SODIUM 138 mmol/L (136-145); TOT PROT 6.9 g/dl (6.4-8.2)
[2019-03-20] MEDS ORDERED: ONDANSETRON *ODT* 4 MG TABLET SL PRN (14:20)
[2019-03-20] MEDS ORDERED: morphine CARPU-JECT 2 MG/1 ML DISP.SYRIN IM PRN (14:20)
--- NOTE | 2019-03-20 14:21 | PN ---
Progress Note, Physician Chief Complaint: S/P FALL HIP FRACTURE History of Present Illness: The patient is a 78 year old female with a past medical history of diabetes, HTN , HLD, hypothyroidism, CAD, and [place] s/p 2 stents here today for evaluation s/p fall. The patient reports that she fell this morning in the kitchen and is unsure of why she fell or the side she landed on. She denies any head strike or loss of consciousness. She notes pain in her left lateral hip. Patient notes frequent falls (last fall yesterday, presented to the ER with left shoulder pain ) and is unsure of the cause. - Current Medication List Current Medications: Active Medications Heparin Sodium (Porcine) (Heparin -) 5,000 unit SQ BID KENYON - Objective Vital Signs: Vital Signs Temperature 98.6 F 03/20/19 12:58 Pulse Rate 65 03/20/19 12:58 Respiratory Rate 16 03/20/19 12:58 Blood Pressure 150/67 03/20/19 12:58 O2 Sat by Pulse Oximetry (%) 95 03/20/19 12:58 Constitutional: Yes: Mild Distress Cardiovascular: Yes: Regular Rate and Rhythm Respiratory: Yes: Regular Gastrointestinal: Yes: WNL Genitourinary: Yes: WNL Musculoskeletal: Yes: Muscle Weakness ...Motor Strength: LLE, RLE Psychiatric: Yes: WNL Labs: CBC, BMP 03/20/19 09:15 03/20/19 09:15 INR, PTT INR 0.87 (0.83-1.09) 03/20/19 09:15 Problem List - Problems (1) Closed left hip fracture Code(s): S72.002A - FRACTURE OF UNSP PART OF NECK OF LEFT FEMUR, INIT (2) Fall Code(s): W19.XXXA - UNSPECIFIED FALL, INITIAL ENCOUNTER (3) Anxiety Code(s): F41.9 - ANXIETY DISORDER, UNSPECIFIED Assessment/Plan CARDIOLOGY CLEARANCE NEEDED S/P CARDIAC STENT BRILLINTA AND ASA ON HOLD MONITOR BGM DVT PROPHYLAXIS HEPARIN SQ TID WILL NEED SNF PLACEMENT
[2019-03-20 14:45] VITALS: BMI 23.6
--- NOTE | 2019-03-20 16:22 | CON.ORTH ---
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 No: [place]'s Disease, [place]'s Disease, Diabetes Insipidus, Diabetes Mellitus, Hyperparathyroidism, Hypothyroidism, Osteopenia, SIADH, Other - Past Surgical History Past Surgical History: Yes: Stent - Alcohol/Substance Use Hx Alcohol Use: No History of Substance Use: reports: None - Smoking History Smoking history: Never smoked Have you smoked in the past 12 months: No Aproximately how many cigarettes per day: 0 - Social History Usual Living Arrangement: With Spouse ADL: Family Assistance Occupation: retired History of Recent Travel: No Home Medications - Allergies Allergies/Adverse Reactions: Allergies Allergy/AdvReac Type Severity Reaction Status Date / Time No Known Allergies Allergy Verified 03/19/19 17:01 - Home Medications Home Medications: Ambulatory Orders Aspirin 81 mg PO DAILY 11/04/17 Atorvastatin Ca [Lipitor] 80 mg PO HS 11/04/17 Ergocalciferol (Vitamin D2) [Vitamin D2] 50,000 unit PO WEEKLY 11/04/17 Glimepiride [Amaryl -] 2 mg PO BID 11/04/17 Isosorbide Mononitrate [Imdur -] 120 mg PO DAILY 11/04/17 Nitroglycerin 0.4 mg SL PRN 11/04/17 Ticagrelor [Brilinta -] 90 mg PO BID 11/04/17 Allopurinol [Zyloprim -] 100 mg PO DAILY 11/05/17 Amlodipine Besylate 5 mg PO DAILY 11/05/17 Levothyroxine [Synthroid -] 25 mcg PO DAILY 11/05/17 Sitagliptin Phosphate [Januvia] 50 mg PO DAILY 11/05/17 Gabapentin [Neurontin -] 200 mg PO TID capsule 11/11/17 Nortriptyline HCl [Pamelor -] 10 mg PO HS capsule 11/11/17 Paroxetine HCl [Paxil -] 10 mg PO DAILY tablet 11/11/17 Losartan Potassium [Cozaar -] 50 mg PO BID #30 tablet 12/11/17 Physical Exam for Ortho Vital Signs: Vital Signs Temperature 98.0 F 03/20/19 14:33 Pulse Rate 74 03/20/19 14:33 Respiratory Rate 20 03/20/19 14:33 Blood Pressure 136/61 03/20/19 14:33 O2 Sat by Pulse Oximetry (%) 98 03/20/19 14:52 Constitutional: Yes: Well Nourished, No Distress Labs: CBC, BMP 03/20/19 09:15 03/20/19 09:15 INR, PTT INR 0.87 (0.83-1.09) 03/20/19 09:15 - Lower Extremity Hip: Yes: Left, Decreased ROM, Leg Externally Rotated, Leg Shortened, Pain, Swelling, Other (nvi) Imaging - Results X-ray: Image Reviewed Assessment/Plan 78 year old female with a past medical history of diabetes, HTN, HLD, hypothyroidism, CAD, and [place] s/p 2 stents here today for evaluation s/p fall. The patient reports that she fell this morning in the kitchen and is unsure of why she fell or the side she landed on. She denies any head strike or loss of consciousness. She notes pain in her left lateral hip. Denies and numbness/ tingling. a/p- left displaced IT fx Risks and benefits were d/w pt and fmaily (via phone) in detail OR for left IM gamma nail Tentatively for tomorrow afternoon pending clearance surgical clearance NPO after midnight d/w Dr. Mccormick
[2019-03-20] MEDS: MORPHINE SULFATE 2 MG/ML VIAL IM PRN (17:39)
[2019-03-20] MEDS: ACETAMINOPHEN 325 MG TABLET (FP) PO PRN (19:27)
[2019-03-20] MEDS ORDERED: PT OWN MED DRAWER 7, Y5N ONE (21:21)
[2019-03-20] MEDS: INSULIN SLIDING SCALE (NOVOLOG) 1 VIAL SQ SCH (21:44)
[2019-03-20] MEDS: HEPARIN NA (PORCINE) 5,000 UNITS/ML 1ML VIAL SQ SCH (21:45)
[2019-03-20] MEDS: GABAPENTIN 100 MG CAPSULE (FP) PO SCH (21:47)
[2019-03-20] MEDS ORDERED: NORTRIPTYLINE HCL 10 MG CAPSULE PO SCH (22:00)
[2019-03-21] MEDS: GABAPENTIN 100 MG CAPSULE (FP) PO SCH ×3 (06:23→21:16)
[2019-03-21] MEDS: INSULIN SLIDING SCALE (NOVOLOG) 1 VIAL SQ SCH ×3 (06:24→21:18)
[2019-03-21] MEDS: ACETAMINOPHEN 325 MG TABLET (FP) PO PRN (06:25)
[2019-03-21] MEDS ORDERED: sitaGLIPtin PHOSPHATE 50 MG TABLET PO SCH (07:00)
[2019-03-21] MEDS ORDERED: GLIMEPIRIDE 2 MG TABLET (FP) PO SCH (07:00)
[2019-03-21] MEDS ORDERED: LEVOTHYROXINE NA 25 MCG TABLET (FP) PO SCH (07:00)
[2019-03-21 07:33] LABS: HEMATOCRIT 32.2 % (32.4-45.2); HEMOGLOBIN 10.9 GM/dL (10.7-15.3); MCH 28.7 pg (25.7-33.7); MCHC 33.8 g/dl (32.0-36.0); MEAN CELL VOLUME 84.8 fl (80-96); MEAN PLT VOLUME 9.2 fl (7.5-11.1); PLATELET COUNT 283 K/MM3 (134-434); RBC 3.79 M/mm3 (3.60-5.2); RDW 15.2 % (11.6-15.6); WHITE BLOOD COUNT 10.2 K/mm3 (4.0-10.0)
[2019-03-21] MEDS ORDERED: PT OWN MED DRAWER 7, Y5N ONE ×2 (07:35→10:08)
[2019-03-21 08:23] LABS: ALBUMIN 3.3 g/dl (3.4-5.0); BILIRUBIN,TOTAL 1.2 mg/dL (0.2-1); BLOOD UREA NITROGEN 13.7 mg/dL (7-18); CALCIUM 9.1 mg/dL (8.5-10.1); CREATININE 0.9 mg/dL (0.55-1.3); POTASSIUM 3.5 mmol/L (3.5-5.1); TOT PROT 6.6 g/dl (6.4-8.2)
--- NOTE | 2019-03-21 08:31 | PN ---
Progress Note (short form) - Note Progress Note: Ortho Pt seen and examined- awaiting clearance for OR Selected Entries 03/21/19 07:42 Temperature 99 F Pulse Rate 85 Respiratory 20 Rate Blood Pressure 130/72 Laboratory Tests 03/20/19 03/21/19 09:15 06:50 WBC 10.2 H Hgb 10.9 Hct 32.2 L Plt Count 283 INR 0.87 PTT (Actin FS) 28.6 LLE- + shortened and ER, + ttp, decr rom, nvi a/p Awaiting cardio clearance NPO OR today if cleared d/w Dr. Mccormick
--- NOTE | 2019-03-21 09:44 | CON.PULM ---
Consult Consult Specialty:: PULMONARY Referred by:: Dr Schaefer Reason for Consultation:: preop clearance - History of Present Illness Chief Complaint: fall History of Present Illness: 78yo female with h/o HTN, hyperlipidemia, hypothyroidism, CAD who was admitted s /p fall. Found to have a left hip fracture, scheduled for surgery. She denies shortness of breath, cough or wheezing. She has stairs at home which she can climb without difficulty. She denies history of asthma or COPD. She is a never smoker. No prior surgeries or anesthesia. 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 No: [place]'s Disease, Marlin's Disease, Diabetes Insipidus, Diabetes Mellitus, Hyperparathyroidism, Hypothyroidism, Osteopenia, SIADH, Other - Past Surgical History Past Surgical History: Yes: Stent - Alcohol/Substance Use Hx Alcohol Use: No History of Substance Use: reports: None - Smoking History Smoking history: Never smoked Have you smoked in the past 12 months: No Aproximately how many cigarettes per day: 0 - Social History Usual Living Arrangement: With Spouse ADL: Family Assistance Occupation: retired History of Recent Travel: No Home Medications - Allergies Allergies/Adverse Reactions: Allergies Allergy/AdvReac Type Severity Reaction Status Date / Time No Known Allergies Allergy Verified 03/19/19 17:01 - Home Medications Home Medications: Ambulatory Orders Aspirin 81 mg PO DAILY 11/04/17 Atorvastatin Ca [Lipitor] 80 mg PO HS 11/04/17 Ergocalciferol (Vitamin D2) [Vitamin D2] 50,000 unit PO WEEKLY 11/04/17 Glimepiride [Amaryl -] 2 mg PO BID 11/04/17 Isosorbide Mononitrate [Imdur -] 120 mg PO DAILY 11/04/17 Nitroglycerin 0.4 mg SL PRN 11/04/17 Ticagrelor [Brilinta -] 90 mg PO BID 11/04/17 Allopurinol [Zyloprim -] 100 mg PO DAILY 11/05/17 Amlodipine Besylate 5 mg PO DAILY 11/05/17 Levothyroxine [Synthroid -] 25 mcg PO DAILY 11/05/17 Sitagliptin Phosphate [Januvia] 50 mg PO DAILY 11/05/17 Gabapentin [Neurontin -] 200 mg PO TID capsule 11/11/17 Nortriptyline HCl [Pamelor -] 10 mg PO HS capsule 11/11/17 Paroxetine HCl [Paxil -] 10 mg PO DAILY tablet 11/11/17 Losartan Potassium [Cozaar -] 50 mg PO BID #30 tablet 12/11/17 Review of Systems - Review of Systems Constitutional: denies: Chills, Fever, Weakness Eyes: denies: Recent Change in Vision HENT: denies: Nasal Congestion, Throat Pain Neck: denies: Stiffness, Tenderness Cardiovascular: denies: Chest Pain, Shortness of Breath Respiratory: denies: Cough, Hemoptysis, SOB on Exertion, Wheezing Gastrointestinal: denies: Abdominal Pain, Nausea, Vomiting Genitourinary: denies: Dysuria, Hematuria Neurological: denies: Dizziness, Headache Endocrine: denies: Unexplained Weight Loss Physical Exam Vital Sings: Vital Signs Temperature 99 F 03/21/19 07:42 Pulse Rate 85 03/21/19 07:42 Respiratory Rate 20 03/21/19 07:42 Blood Pressure 130/72 03/21/19 07:42 O2 Sat by Pulse Oximetry (%) 98 03/20/19 14:52 Constitutional: Yes: Calm Eyes: Yes: Conjunctiva Clear, EOM Intact HENT: Yes: Atraumatic, Normocephalic Neck: Yes: Supple, Trachea Midline Cardiovascular: Yes: Regular Rate and Rhythm Respiratory: Yes: Diminished (decreased breath sounds at the bases) ...Clubbing: No Gastrointestinal: Yes: Normal Bowel Sounds, Soft. No: Tenderness Extremities: Yes: External Rotation (left leg), Shortened (left leg) Edema: No Labs: CBC, BMP 03/21/19 06:50 03/21/19 06:50 Imaging - Results Chest X-ray: Report Reviewed, Image Reviewed (no infiltrates) Assessment/Plan s/p Fall Left Hip Fracture CAD HTN Hyperlipidemia Hypothyroidism - pt without shortness of breath or dyspnea on exertion, no history of asthma/ COPD/smoking - there are no pulmonary contraindications for planned surgery - DVT prophylaxis Thank you for this consult Enio Torres MD
[2019-03-21] MEDS ORDERED: ALLOPURINOL 100 MG TABLET (FP) PO SCH (10:00)
[2019-03-21] MEDS ORDERED: PARoxetine HCL 10 MG TABLET PO SCH (10:00)
[2019-03-21] MEDS ORDERED: amLODIPine BESYLATE 5 MG TABLET (FP) PO SCH (10:00)
[2019-03-21] MEDS ORDERED: ISOSORBIDE MONONITRATE 30 MG TAB.SR.24H (FP) PO SCH (10:00)
[2019-03-21] MEDS ORDERED: LOSARTAN POTASSIUM 50 MG TABLET (FP) PO SCH (10:00)
--- NOTE | 2019-03-21 10:11 | EKG ---
Test Reason : Blood Pressure : / mmHG Vent. Rate : 063 BPM Atrial Rate : 063 BPM P-R Int : 206 ms QRS Dur : 058 ms QT Int : 418 ms P-R-T Axes : 039 -47 002 degrees QTc Int : 427 ms NORMAL SINUS RHYTHM LEFT AXIS DEVIATION MODERATE VOLTAGE CRITERIA FOR LVH, MAY BE NORMAL VARIANT INFERIOR INFARCT (CITED ON OR BEFORE 04-NOV-2017) ANTERIOR INFARCT (CITED ON OR BEFORE 06-JUL-2017) ABNORMAL ECG WHEN COMPARED WITH ECG OF 08-DEC-2017 19:37, PREMATURE VENTRICULAR COMPLEXES ARE NO LONGER SEEN VENT. RATE HAS DECREASED Confirmed by ALEJANDRA DIEGO, JARRET ([id number]) on 03/21/2019 10:10:59 AM Referred By: Confirmed By:JARRET ROBERTS MD
--- NOTE | 2019-03-21 10:13 | PN ---
Progress Note, Physician Chief Complaint: S/p Fall Left Hip Fracture History of Present Illness: Previous notes and events reviewed awake and alert NAD complain of mild pain to left hip eval by ortho and will go to OR for L IM gamma nail placement~will need cardiology clearance due to stent placement - Current Medication List Current Medications: Active Medications Acetaminophen (Tylenol -) 650 mg PO Q6H PRN PRN Reason: PAIN LEVEL 1-5 Last Admin: 03/21/19 06:25 Dose: 650 mg Allopurinol (Zyloprim -) 100 mg PO DAILY [facility] Amlodipine Besylate (Norvasc -) 5 mg PO DAILY [facility] Gabapentin (Neurontin -) 200 mg PO TID [facility] Last Admin: 03/21/19 06:23 Dose: 200 mg Glimepiride (Amaryl -) 2 mg PO DAILY@0700 [facility] Last Admin: 03/21/19 06:24 Dose: 2 mg Heparin Sodium (Porcine) (Heparin -) 5,000 unit SQ BID [facility] Last Admin: 03/20/19 21:45 Dose: 5,000 unit Insulin Aspart (Novolog Vial Sliding Scale -) 1 vial SQ ACHS [facility]; Protocol Last Admin: 03/21/19 06:24 Dose: Not Given Isosorbide Mononitrate (Imdur -) 30 mg PO DAILY [facility] Levothyroxine Sodium (Synthroid -) 25 mcg PO DAILY@0700 [facility] Last Admin: 03/21/19 06:24 Dose: 25 mcg Losartan Potassium (Cozaar -) 50 mg PO DAILY [facility] Morphine Sulfate (Morphine Sulfate) 2 mg IM Q6H PRN PRN Reason: PAIN LEVEL 6-10 Last Admin: 03/20/19 17:39 Dose: 2 mg Nortriptyline HCl (Pamelor -) 10 mg PO HS [facility] Last Admin: 03/20/19 21:47 Dose: 10 mg Ondansetron HCl (Zofran Odt -) 4 mg SL Q6H PRN PRN Reason: NAUSEA AND/OR VOMITING Paroxetine HCl (Paxil -) 10 mg PO DAILY [facility] Sitagliptin Phosphate (Januvia -) 50 mg PO DAILY@0700 [facility] Last Admin: 03/21/19 06:24 Dose: 50 mg - Objective Vital Signs: Vital Signs Temperature 99 F 03/21/19 07:42 Pulse Rate 85 03/21/19 07:42 Respiratory Rate 20 03/21/19 07:42 Blood Pressure 130/72 03/21/19 07:42 O2 Sat by Pulse Oximetry (%) 98 03/20/19 14:52 Constitutional: Yes: No Distress, Calm Eyes: Yes: Conjunctiva Clear HENT: Yes: Atraumatic Cardiovascular: Yes: Regular Rate and Rhythm Respiratory: Yes: Regular, CTA Bilaterally Gastrointestinal: Yes: Normal Bowel Sounds, Soft Musculoskeletal: Yes: Muscle Weakness Extremities: Yes: WNL Edema: No Neurological: Yes: Alert, Oriented Psychiatric: Yes: Alert, Oriented Labs: CBC, BMP 03/21/19 06:50 03/21/19 06:50 INR, PTT INR 0.87 (0.83-1.09) 03/20/19 09:15 - ....Imaging X-ray: Report Reviewed Problem List - Problems (1) Closed left hip fracture Assessment/Plan: -Ortho on board -NPO -IV hydration -eval by pulm and cleared from pulmonary for surgery -NEEDS CARDIOLOGY CLEARANCE FOR SURGERY DUE TO STENT PLACEMENT -for OR for L IM gamma nail placement after cleared by all services -pain control -PT -Hip and Pelvic Xray shows acute left femoral intertrochanteric fracture Code(s): S72.002A - FRACTURE OF UNSP PART OF NECK OF LEFT FEMUR, INIT (2) Fall Assessment/Plan: -Ortho on board -pain control -PT -Hip and Pelvic Xray shows acute left femoral intertrochanteric fracture -fall risk precaution Code(s): W19.XXXA - UNSPECIFIED FALL, INITIAL ENCOUNTER (3) JUVENAL (acute kidney injury) Assessment/Plan: -BUN/Cr 13.7/0.9 -monitor renal function Code(s): N17.9 - ACUTE KIDNEY FAILURE, UNSPECIFIED (4) CHF (congestive heart failure) Assessment/Plan: -daily weights -fluid restrictions -strict I&Os Code(s): I50.9 - HEART FAILURE, UNSPECIFIED Qualifiers: Qualified Code(s): I50.9 - Heart failure, unspecified (5) Diabetes mellitus Assessment/Plan: -BGM ACHS -ISS -Fede Goddard Code(s): E11.9 - TYPE 2 DIABETES MELLITUS WITHOUT COMPLICATIONS Qualifiers: Diabetes mellitus type: type 2 (6) Hypertension Assessment/Plan: -Norvasc, Imdur, Cozaar -low Na diet Code(s): I10 - ESSENTIAL (PRIMARY) HYPERTENSION (7) Hypothyroid Assessment/Plan: -Levothyroxine Code(s): E03.9 - HYPOTHYROIDISM, UNSPECIFIED (8) CAD (coronary artery disease) Assessment/Plan: -Brilinta and Aspirin on hold for OR Code(s): I25.10 - ATHSCL HEART DISEASE OF [place] CORONARY ARTERY W/O ANG PCTRS Qualifiers: Coronary Disease-Associated Artery/Lesion type: unspecified vessel or lesion type Associated angina: angina presence unspecified Assessment/Plan see problem list dvt ppx
[2019-03-21] MEDS: HEPARIN NA (PORCINE) 5,000 UNITS/ML 1ML VIAL SQ SCH (10:14)
[2019-03-21] MEDS: MORPHINE SULFATE 2 MG/ML VIAL IM PRN (13:31)
--- NOTE | 2019-03-21 13:57 | CON.CARD ---
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 She now presents with a fall and sustained hip fracture. According to the daughter, the patient was found by her on the kitchen floor in the program host. It is unclear whether there was LOC. Presently she has no cardiac complaints. EKG 03/20/19 NSR with an old inferior OR and anterior OR, no acute changes. Last Echocardiogram 2016, normal LV function. 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 No: Carrie's Disease, [place]'s Disease, Diabetes Insipidus, Diabetes Mellitus, Hyperparathyroidism, Hypothyroidism, Osteopenia, SIADH, Other - Past Surgical History Past Surgical History: Yes: Stent - Alcohol/Substance Use Hx Alcohol Use: No History of Substance Use: reports: None - Smoking History Smoking history: Never smoked Have you smoked in the past 12 months: No Aproximately how many cigarettes per day: 0 - Social History Usual Living Arrangement: With Spouse ADL: Family Assistance Occupation: retired History of Recent Travel: No Home Medications - Allergies Allergies/Adverse Reactions: Allergies Allergy/AdvReac Type Severity Reaction Status Date / Time No Known Allergies Allergy Verified 03/19/19 17:01 - Home Medications Home Medications: Ambulatory Orders Aspirin 81 mg PO DAILY 11/04/17 Atorvastatin Ca [Lipitor] 80 mg PO HS 11/04/17 Ergocalciferol (Vitamin D2) [Vitamin D2] 50,000 unit PO WEEKLY 11/04/17 Glimepiride [Amaryl -] 2 mg PO BID 11/04/17 Isosorbide Mononitrate [Imdur -] 120 mg PO DAILY 11/04/17 Nitroglycerin 0.4 mg SL PRN 11/04/17 Ticagrelor [Brilinta -] 90 mg PO BID 11/04/17 Allopurinol [Zyloprim -] 100 mg PO DAILY 11/05/17 Amlodipine Besylate 5 mg PO DAILY 11/05/17 Levothyroxine [Synthroid -] 25 mcg PO DAILY 11/05/17 Sitagliptin Phosphate [Januvia] 50 mg PO DAILY 11/05/17 Gabapentin [Neurontin -] 200 mg PO TID capsule 11/11/17 Nortriptyline HCl [Pamelor -] 10 mg PO HS capsule 11/11/17 Paroxetine HCl [Paxil -] 10 mg PO DAILY tablet 11/11/17 Losartan Potassium [Cozaar -] 50 mg PO BID #30 tablet 12/11/17 Vital Signs: Vital Signs Temperature 98.3 F 03/21/19 08:45 Pulse Rate 81 03/21/19 08:45 Respiratory Rate 18 03/21/19 08:45 Blood Pressure 161/75 03/21/19 08:45 O2 Sat by Pulse Oximetry (%) 98 03/20/19 14:52 Constitutional: Yes: No Distress HENT: Yes: WNL Neck: Yes: WNL Respiratory: Yes: CTA Bilaterally Gastrointestinal: Yes: Soft Cardiovascular: Yes: Regular Rate and Rhythm (No MRHG) JVD: No Extremities: Yes: External Rotation Edema: No Neurological: Yes: Alert, Oriented - Other Data Labs, Other Data: CBC, BMP 03/21/19 06:50 03/21/19 06:50 INR, PTT INR 0.87 (0.83-1.09) 03/20/19 09:15 Assessment/Plan 77 year old female with a PMH of dm, htn, hld, CAD, with h/o IWSTEMI s/p cath at [facility] demonstrating 100% thrombotic occlusion of mRCA s/p YARD PIPE GRADER/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 She now presents with a fall and sustained hip fracture. According to the daughter, the patient was found by her on the kitchen floor in the program host. It is unclear whether there was LOC. Presently she has no cardiac complaints. EKG 03/20/19 NSR with an old inferior OR and anterior OR, no acute changes. Last Echocardiogram 2016, normal LV function. Trops neg x 1 BNP not elevated Nuk 11/28/16 Apical scarring and otherwise NL perfusion. Echo 10/09/17 Apical and anteroapical hypokinesis. PreOP Eval: There are no direct cardiac contraindications to surgery. The benefits outweigh the risks. Recommendations: CAD Hold ASA and Brilinta for now. When safe from a surgical standpoint, restart ASA, but I do not see a need to restart Brilinta since stents were in 2017. Continue IMDUR Continue STATIN HTN Would treat pain as needed Continue amlodipine 5 mg daily Would increase to amlodipine 7.5 mg daily if BP remains elevated Continue Losartan 50 Will follow with you.
[2019-03-21] MEDS ORDERED: PROPOFOL 20 ML ONE (15:17)
[2019-03-21] MEDS ORDERED: SUCCINYLCHOLINE CHLORIDE 200 MG/10 ML SYRINGE ONE (15:17)
[2019-03-21] MEDS ORDERED: ceFAZolin SODIUM 1 GM VIAL ONE (15:18)
[2019-03-21] MEDS ORDERED: KETOROLAC TROMETHAMINE 30 MG/1 ML VIAL ONE (15:18)
[2019-03-21] MEDS ORDERED: DEXAMETHASONE SOD PHOSPHATE 4 MG/1 ML VIAL ONE (15:18)
[2019-03-21] MEDS ORDERED: ONDANSETRON 4 MG/2 ML VIAL IVPUSH PRN (17:21)
--- NOTE | 2019-03-21 17:44 | SPEC ---
DATE OF OPERATION: 03/21/2019 PREOPERATIVE DIAGNOSIS: Left intertrochanteric hip fracture. POSTOPERATIVE DIAGNOSIS: Left intertrochanteric hip fracture. PROCEDURE: Left Gamma nailing. SURGICAL ATTENDING: Luis Alberto Linda MD ANESTHESIA: General with LMA. CLOSURE: A short 125-degree Gamma nail with appropriate interlocks, No. 1 Vicryl fascia, 2-0 subcutaneous, kristina to skin. ESTIMATED BLOOD LOSS: 100 mL. COMPLICATIONS: None. CONDITION: To recovery in stable condition. DESCRIPTION OF THE PROCEDURE: The patient was taken to the operating room on March 21, 2019. IV Kefzol was administered prophylactically prior to the case. Anesthesia was administered by the anesthesiologist. The patient was then fastened to the fracture table with all prominences well padded. Excellent reduction of the fracture was confirmed in AP and lateral plane by use of fluoroscopy. The left hip area was then prepped and draped in the usual sterile fashion by use of a shower curtain. A small 2-cm longitudinal incision over the tip of the greater trochanter was incised, hemostasis achieved using Bovie cautery. Sharp dissection was carried through the fascia. A guidewire was drilled from the tip of the greater trochanter into the intramedullary canal past the fracture. This was directed by fluoroscopy in both the AP and lateral plane. This was overreamed with a proximal reamer. A short Gamma nail was then malleted down into place. Using the outrigger and a small stab incision laterally, a guidewire was drilled from the lateral aspect of the femur, through the chase, through the neck into the femoral head. Proper placement was confirmed in the AP and lateral plane by using the image intensifier. The guidewire was measured for length, reamed with a triple reamer, and then screwed with the appropriate-sized lag screw. With the traction removed, the compression device was used to compress the fracture. A set screw was placed from above in the dynamic fashion. Again using the outrigger and through a small stab incision distally, a distal hole was drilled, depth gauged and screwed with the appropriate length locking screw in the static hole. The outrigger was removed. The x-rays in the AP and lateral plane revealed excellent position of the hardware with excellent reduction of the fracture. All incisions were irrigated out with copious amounts of irrigation. The fascia was closed in 0 Vicryl, 2-0 subcutaneous, and kristina to the skin. Sterile pressure dressing was applied, patient awakened from anesthesia and transferred to recovery in stable condition. No complications. Estimated blood loss negligible. Ye [id number]
[2019-03-21] MEDS ORDERED: ONDANSETRON *ODT* 4 MG TABLET SL PRN (17:59)
[2019-03-21] MEDS ORDERED: MORPHINE SULFATE 2 MG/ML VIAL IM PRN (17:59)
[2019-03-21] MEDS: NORTRIPTYLINE HCL 10 MG CAPSULE PO SCH (21:16)
[2019-03-22] MEDS ORDERED: CEFAZOLIN 2 GM/D5W 2 GM/50 ML ML IVPB SCH (00:01)
[2019-03-22] MEDS: CEFAZOLIN 2 GM/D5W 2 GM/50 ML ML IVPB SCH ×2 (00:09→09:04)
[2019-03-22] MEDS: GABAPENTIN 100 MG CAPSULE (FP) PO SCH ×3 (05:57→21:59)
[2019-03-22] MEDS: GLIMEPIRIDE 2 MG TABLET (FP) PO SCH (06:02)
[2019-03-22] MEDS: sitaGLIPtin PHOSPHATE 50 MG TABLET PO SCH (06:02)
[2019-03-22] MEDS: LEVOTHYROXINE NA 25 MCG TABLET (FP) PO SCH (06:03)
[2019-03-22] MEDS: INSULIN SLIDING SCALE (NOVOLOG) 1 VIAL SQ SCH ×4 (06:33→22:03)
[2019-03-22 07:32] LABS: HEMATOCRIT 26.7 % (32.4-45.2); MCH 28.7 pg (25.7-33.7); MCHC 33.7 g/dl (32.0-36.0); MEAN CELL VOLUME 85.1 fl (80-96); MEAN PLT VOLUME 9.5 fl (7.5-11.1); PLATELET COUNT 267 K/MM3 (134-434); RBC 3.14 M/mm3 (3.60-5.2); RDW 15.6 % (11.6-15.6); WHITE BLOOD COUNT 13.6 K/mm3 (4.0-10.0)
[2019-03-22 07:57] LABS: ALBUMIN 2.9 g/dl (3.4-5.0); BILIRUBIN,TOTAL 0.6 mg/dL (0.2-1); BLOOD UREA NITROGEN 25.8 mg/dL (7-18); CALCIUM 8.8 mg/dL (8.5-10.1); CREATININE 1.7 mg/dL (0.55-1.3); POTASSIUM 3.8 mmol/L (3.5-5.1); TOT PROT 5.9 g/dl (6.4-8.2)
[2019-03-22] MEDS: ENOXAPARIN NA (PORCINE) 40 MG/0.4 ML DISP.SYRIN SQ SCH (09:10)
[2019-03-22] MEDS: PARoxetine HCL 10 MG TABLET PO SCH (09:10)
[2019-03-22] MEDS: LOSARTAN POTASSIUM 50 MG TABLET (FP) PO SCH (09:11)
[2019-03-22] MEDS: amLODIPine BESYLATE 5 MG TABLET (FP) PO SCH (09:11)
[2019-03-22] MEDS: ALLOPURINOL 100 MG TABLET (FP) PO SCH (09:11)
[2019-03-22] MEDS: ISOSORBIDE MONONITRATE 30 MG TAB.SR.24H (FP) PO SCH (09:11)
[2019-03-22] MEDS ORDERED: ENOXAPARIN NA (PORCINE) 40 MG/0.4 ML DISP.SYRIN SQ SCH (10:00)
--- NOTE | 2019-03-22 10:51 | PN ---
Progress Note (short form) - Note Progress Note: PULMONARY s/p left hip gamma nail without reported complications. Denies shortness of breath or chest pain. Vital Signs Period Temp Pulse Resp BP Sys/Pabon Pulse Ox Last 24 Hr 98 F-99.5 F 79-99 12-105 96-126/50-68 95-98 Gen: NAD at rest Heart: RRR Lung: decreased breath sounds at the bases Abd: soft, nontender Ext: no edema, dressings clean CBC, BMP 03/22/19 06:55 03/22/19 06:55 Active Medications Acetaminophen (Tylenol -) 650 mg PO Q6H PRN PRN Reason: PAIN LEVEL 1-5 Allopurinol (Zyloprim -) 100 mg PO DAILY [facility] Last Admin: 03/22/19 09:11 Dose: 100 mg Amlodipine Besylate (Norvasc -) 5 mg PO DAILY [facility] Last Admin: 03/22/19 09:11 Dose: 5 mg Enoxaparin Sodium (Lovenox -) 40 mg SQ DAILY [facility] Last Admin: 03/22/19 09:10 Dose: 40 mg Fentanyl (Sublimaze Injection -) 25 mcg IVPUSH [id number] PRN PRN Reason: PAIN-PACU ORDER X 4 DOSES ONLY Gabapentin (Neurontin -) 200 mg PO TID [facility] Last Admin: 03/22/19 05:57 Dose: 200 mg Glimepiride (Amaryl -) 2 mg PO DAILY@0700 [facility] Last Admin: 03/22/19 06:02 Dose: 2 mg Insulin Aspart (Novolog Vial Sliding Scale -) 1 vial SQ [facility]; Protocol Last Admin: 03/22/19 06:33 Dose: 4 units Isosorbide Mononitrate (Imdur -) 30 mg PO DAILY [facility] Last Admin: 03/22/19 09:11 Dose: 30 mg Levothyroxine Sodium (Synthroid -) 25 mcg PO DAILY@0700 [facility] Last Admin: 03/22/19 06:03 Dose: 25 mcg Losartan Potassium (Cozaar -) 50 mg PO DAILY [facility] Last Admin: 03/22/19 09:11 Dose: 50 mg Morphine Sulfate (Morphine Sulfate) 2 mg IM Q6H PRN PRN Reason: PAIN LEVEL 6-10 Nortriptyline HCl (Pamelor -) 10 mg PO HS [facility] Last Admin: 03/21/19 21:16 Dose: 10 mg Ondansetron HCl (Zofran Injection) 4 mg IVPUSH Q6H PRN PRN Reason: NAUSEA AND/OR VOMITING Ondansetron HCl (Zofran Odt -) 4 mg SL Q6H PRN PRN Reason: NAUSEA AND/OR VOMITING Paroxetine HCl (Paxil -) 10 mg PO DAILY [facility] Last Admin: 03/22/19 09:10 Dose: 10 mg Sitagliptin Phosphate (Januvia -) 50 mg PO DAILY@0700 [facility] Last Admin: 03/22/19 06:02 Dose: 50 mg A/P s/p Fall Left Hip Fracture CAD HTN Hyperlipidemia Hypothyroidism - pain control - incentive spirometry - rehab/PT - DVT prophylaxis
[2019-03-22] MEDS ORDERED: INSULIN (NOVOLOG) ASPART 100 UNITS/ML 10ML VIAL ONE ×2 (11:17→20:52)
--- NOTE | 2019-03-22 11:52 | PN ---
Progress Note, Physician History of Present Illness: seen and examined today in nad. tolerated surgery well from a cardiac standpoint with no complications. no new complaints currently. - Current Medication List Current Medications: Active Medications Acetaminophen (Tylenol -) 650 mg PO Q6H PRN PRN Reason: PAIN LEVEL 1-5 Allopurinol (Zyloprim -) 100 mg PO DAILY [facility] Last Admin: 03/22/19 09:11 Dose: 100 mg Amlodipine Besylate (Norvasc -) 5 mg PO DAILY [facility] Last Admin: 03/22/19 09:11 Dose: 5 mg Enoxaparin Sodium (Lovenox -) 40 mg SQ DAILY [facility] Last Admin: 03/22/19 09:10 Dose: 40 mg Fentanyl (Sublimaze Injection -) 25 mcg IVPUSH [id number] PRN PRN Reason: PAIN-PACU ORDER X 4 DOSES ONLY Gabapentin (Neurontin -) 200 mg PO TID [facility] Last Admin: 03/22/19 05:57 Dose: 200 mg Glimepiride (Amaryl -) 2 mg PO DAILY@0700 [facility] Last Admin: 03/22/19 06:02 Dose: 2 mg Insulin Aspart (Novolog Vial Sliding Scale -) 1 vial SQ ACHS [facility]; Protocol Last Admin: 03/22/19 11:29 Dose: 4 units Isosorbide Mononitrate (Imdur -) 30 mg PO DAILY [facility] Last Admin: 03/22/19 09:11 Dose: 30 mg Levothyroxine Sodium (Synthroid -) 25 mcg PO DAILY@0700 [facility] Last Admin: 03/22/19 06:03 Dose: 25 mcg Losartan Potassium (Cozaar -) 50 mg PO DAILY [facility] Last Admin: 03/22/19 09:11 Dose: 50 mg Morphine Sulfate (Morphine Sulfate) 2 mg IM Q6H PRN PRN Reason: PAIN LEVEL 6-10 Nortriptyline HCl (Pamelor -) 10 mg PO HS [facility] Last Admin: 03/21/19 21:16 Dose: 10 mg Ondansetron HCl (Zofran Injection) 4 mg IVPUSH Q6H PRN PRN Reason: NAUSEA AND/OR VOMITING Ondansetron HCl (Zofran Odt -) 4 mg SL Q6H PRN PRN Reason: NAUSEA AND/OR VOMITING Paroxetine HCl (Paxil -) 10 mg PO DAILY [facility] Last Admin: 03/22/19 09:10 Dose: 10 mg Sitagliptin Phosphate (Januvia -) 50 mg PO DAILY@0700 [facility] Last Admin: 03/22/19 06:02 Dose: 50 mg - Objective Vital Signs: Vital Signs Temperature 98.1 F 03/22/19 10:00 Pulse Rate 82 03/22/19 10:00 Respiratory Rate 20 03/22/19 10:00 Blood Pressure 123/50 L 03/22/19 10:00 O2 Sat by Pulse Oximetry (%) 98 03/22/19 09:00 Constitutional: Yes: No Distress, Calm Eyes: Yes: Conjunctiva Clear, EOM Intact HENT: Yes: Atraumatic, Normocephalic Neck: Yes: Supple, Trachea Midline Cardiovascular: Yes: Regular Rate and Rhythm, S1, S2. No: Bradycardia, Tachycardia, Pulse Irregular, Bruit, JVD, Gallop, Murmur, Rub, S3, S4, Varicosities Respiratory: Yes: Regular, CTA Bilaterally. No: Rales, Rhonchi, SOB, Wheezes Gastrointestinal: Yes: Normal Bowel Sounds, Soft. No: Distention, Tenderness ...Rectal Exam: Yes: WNL Genitourinary: Yes: WNL Breast(s): Yes: WNL Musculoskeletal: Yes: WNL Edema: No Peripheral Pulses WNL: Yes Peripheral Pulses: Left Doralis Pedis: 2+, Right Dorsalis Pedis: 2+ Neurological: Yes: Alert, Oriented Psychiatric: Yes: Alert, Oriented Labs: CBC, BMP 03/22/19 06:55 03/22/19 06:55 INR, PTT INR 0.87 (0.83-1.09) 03/20/19 09:15 - ....Imaging Chest X-ray: Report Reviewed, Image Reviewed EKG: Report Reviewed, Image Reviewed Other: Report Reviewed, Image Reviewed Assessment/Plan 78 year old female with a PMH of dm, htn, hld, CAD, with h/o IWSTEMI s/p cath at [facility] demonstrating 100% thrombotic occlusion of mRCA s/p 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 She now presents with a fall and sustained hip fracture. According to the daughter, the patient was found by her on the kitchen floor in the oil spot was[place]. It is unclear whether there was LOC. Presently she has no cardiac complaints. EKG 03/20/19 NSR with an old inferior [place] and anterior [place], no acute changes. Last Echocardiogram 2016, normal LV function. Trops neg x 1 BNP not elevated Nuk 11/28/16 Apical scarring and otherwise NL perfusion. Echo 10/09/17 Apical and anteroapical hypokinesis. PreOP Eval: Pt tolerated procedure well from a cardiac standpoint without cardiac complications. No further cardiac work up needed at this time. Recommendations: CAD Hold ASA and Brilinta for now. When safe from a surgical standpoint, restart ASA, but do not need to restart Brilinta since stents were in 2017. Continue IMDUR Continue STATIN HTN -adequately controlled can cont current regimen for now No further inpatient cardiac work up is needed at this time. Please call with any additional questions. will see as needed.
--- NOTE | 2019-03-22 14:10 | PN ---
Progress Note, Physician Chief Complaint: S/p Fall Left Hip Fracture History of Present Illness: Previous notes and events reviewed awake and alert NAD POD #1 L IM Gamma Nail sts pain is controlled - Current Medication List Current Medications: Active Medications Acetaminophen (Tylenol -) 650 mg PO Q6H PRN PRN Reason: PAIN LEVEL 1-5 Allopurinol (Zyloprim -) 100 mg PO DAILY [facility] Last Admin: 03/22/19 09:11 Dose: 100 mg Amlodipine Besylate (Norvasc -) 5 mg PO DAILY [facility] Last Admin: 03/22/19 09:11 Dose: 5 mg Enoxaparin Sodium (Lovenox -) 40 mg SQ DAILY [facility] Last Admin: 03/22/19 09:10 Dose: 40 mg Fentanyl (Sublimaze Injection -) 25 mcg IVPUSH [id number] PRN PRN Reason: PAIN-PACU ORDER X 4 DOSES ONLY Gabapentin (Neurontin -) 200 mg PO TID [facility] Last Admin: 03/22/19 05:57 Dose: 200 mg Glimepiride (Amaryl -) 2 mg PO DAILY@0700 [facility] Last Admin: 03/22/19 06:02 Dose: 2 mg Insulin Aspart (Novolog Vial Sliding Scale -) 1 vial SQ ACHS [facility]; Protocol Last Admin: 03/22/19 11:29 Dose: 4 units Isosorbide Mononitrate (Imdur -) 30 mg PO DAILY [facility] Last Admin: 03/22/19 09:11 Dose: 30 mg Levothyroxine Sodium (Synthroid -) 25 mcg PO DAILY@0700 [facility] Last Admin: 03/22/19 06:03 Dose: 25 mcg Losartan Potassium (Cozaar -) 50 mg PO DAILY [facility] Last Admin: 03/22/19 09:11 Dose: 50 mg Morphine Sulfate (Morphine Sulfate) 2 mg IM Q6H PRN PRN Reason: PAIN LEVEL 6-10 Nortriptyline HCl (Pamelor -) 10 mg PO HS [facility] Last Admin: 03/21/19 21:16 Dose: 10 mg Ondansetron HCl (Zofran Injection) 4 mg IVPUSH Q6H PRN PRN Reason: NAUSEA AND/OR VOMITING Ondansetron HCl (Zofran Odt -) 4 mg SL Q6H PRN PRN Reason: NAUSEA AND/OR VOMITING Paroxetine HCl (Paxil -) 10 mg PO DAILY [facility] Last Admin: 03/22/19 09:10 Dose: 10 mg Sitagliptin Phosphate (Januvia -) 50 mg PO DAILY@0700 [facility] Last Admin: 03/22/19 06:02 Dose: 50 mg - Objective Vital Signs: Vital Signs Temperature 98.1 F 03/22/19 10:00 Pulse Rate 82 03/22/19 10:00 Respiratory Rate 20 03/22/19 10:00 Blood Pressure 123/50 L 03/22/19 10:00 O2 Sat by Pulse Oximetry (%) 98 03/22/19 09:00 Constitutional: Yes: No Distress, Calm Eyes: Yes: Conjunctiva Clear HENT: Yes: Atraumatic Cardiovascular: Yes: Regular Rate and Rhythm Respiratory: Yes: Regular, CTA Bilaterally Gastrointestinal: Yes: Soft, Hypoactive Bowel Sounds Genitourinary: Yes: [place] Present Musculoskeletal: Yes: Muscle Weakness Extremities: Yes: WNL Edema: No Wound/Incision: Yes: Dressing Dry and Intact Neurological: Yes: Alert, Oriented Psychiatric: Yes: Alert, Oriented Labs: CBC, BMP 03/22/19 06:55 03/22/19 06:55 INR, PTT INR 0.87 (0.83-1.09) 03/20/19 09:15 Microbiology 03/20/19 09:15 Urine - Urine - Catheterized Urine Culture - Final NO GROWTH OBTAINED Problem List - Problems (1) Closed left hip fracture Assessment/Plan: -Ortho on board -IV hydration -POD #1 L IM gamma nail placement -pain control -PT -Hip and Pelvic Xray shows acute left femoral intertrochanteric fracture Code(s): S72.002A - FRACTURE OF UNSP PART OF NECK OF LEFT FEMUR, INIT (2) Fall Assessment/Plan: -Ortho on board -pain control -PT -Hip and Pelvic Xray shows acute left femoral intertrochanteric fracture -fall risk precaution Code(s): W19.XXXA - UNSPECIFIED FALL, INITIAL ENCOUNTER (3) JUVENAL (acute kidney injury) Assessment/Plan: -BUN/Cr 25.8/1.7 -Renal consult -monitor renal function Code(s): N17.9 - ACUTE KIDNEY FAILURE, UNSPECIFIED (4) CHF (congestive heart failure) Assessment/Plan: -daily weights -fluid restrictions -strict I&Os Code(s): I50.9 - HEART FAILURE, UNSPECIFIED Qualifiers: Qualified Code(s): I50.9 - Heart failure, unspecified (5) Diabetes mellitus Assessment/Plan: -BGM ACHS -ISS -Janbryson Amsusi Code(s): E11.9 - TYPE 2 DIABETES MELLITUS WITHOUT COMPLICATIONS Qualifiers: Diabetes mellitus type: type 2 (6) Hypertension Assessment/Plan: -Norvasc, Imdur, Cozaar -low Na diet Code(s): I10 - ESSENTIAL (PRIMARY) HYPERTENSION (7) Hypothyroid Assessment/Plan: -Levothyroxine Code(s): E03.9 - HYPOTHYROIDISM, UNSPECIFIED (8) CAD (coronary artery disease) Assessment/Plan: -Brilinta and Aspirin on hold for OR -will resume Aspirin when safe from surgical standpoint Code(s): I25.10 - ATHSCL HEART DISEASE OF [place] CORONARY ARTERY W/O ANG PCTRS Qualifiers: Coronary Disease-Associated Artery/Lesion type: unspecified vessel or lesion type Associated angina: angina presence unspecified Assessment/Plan see problem list dvt ppx
--- NOTE | 2019-03-22 14:59 | PN ---
Progress Note (short form) - Note Progress Note: Anesthesia Post Op Note Pt awake alert -- reported by nurse to be confused at time Pt denies n/v pak in place Pt to receive PT Pt reports good pain control VSS no apparent anesthesia complications MD Ibrahima
--- NOTE | 2019-03-22 15:14 | PN ---
Progress Note (short form) - Note Progress Note: Ortho Pt seen and examined s/p left IM gamma nail pod #1 Selected Entries 03/22/19 10:00 Temperature 98.1 F Pulse Rate 82 Respiratory 20 Rate Blood Pressure 123/50 L Laboratory Tests 03/22/19 06:55 WBC 13.6 H Hgb 9.0 L Hct 26.7 L D Plt Count 267 dressing c/d/i, calf soft nt nvi a/p PT monitor h/h dvt ppx pain control d/c planning
[2019-03-22] MEDS ORDERED: PT OWN MED DRAWER 7, Y5N ONE (20:41)
[2019-03-22] MEDS: ACETAMINOPHEN 325 MG TABLET (FP) PO PRN (21:57)
[2019-03-22] MEDS: NORTRIPTYLINE HCL 10 MG CAPSULE PO SCH (22:00)
[2019-03-23] MEDS: sitaGLIPtin PHOSPHATE 50 MG TABLET PO SCH (06:06)
[2019-03-23] MEDS: GABAPENTIN 100 MG CAPSULE (FP) PO SCH ×2 (06:07→14:17)
[2019-03-23] MEDS: GLIMEPIRIDE 2 MG TABLET (FP) PO SCH (06:07)
[2019-03-23] MEDS: LEVOTHYROXINE NA 25 MCG TABLET (FP) PO SCH (06:07)
[2019-03-23] MEDS: ACETAMINOPHEN 325 MG TABLET (FP) PO PRN ×2 (06:08→20:01)
[2019-03-23] MEDS: INSULIN SLIDING SCALE (NOVOLOG) 1 VIAL SQ SCH ×3 (06:08→17:25)
[2019-03-23 08:02] LABS: HEMATOCRIT 22.5 % (32.4-45.2); HEMOGLOBIN 7.7 GM/dL (10.7-15.3); MCH 29.2 pg (25.7-33.7); MCHC 34.3 g/dl (32.0-36.0); MEAN CELL VOLUME 85.2 fl (80-96); MEAN PLT VOLUME 9.4 fl (7.5-11.1); PLATELET COUNT 239 K/MM3 (134-434); RBC 2.64 M/mm3 (3.60-5.2); RDW 15.4 % (11.6-15.6); WHITE BLOOD COUNT 10.8 K/mm3 (4.0-10.0)
[2019-03-23 08:53] LABS: ALBUMIN 2.7 g/dl (3.4-5.0); BILIRUBIN,TOTAL 0.6 mg/dL (0.2-1); BLOOD UREA NITROGEN 45.4 mg/dL (7-18); CALCIUM 8.5 mg/dL (8.5-10.1); CREATININE 1.6 mg/dL (0.55-1.3); POTASSIUM 3.5 mmol/L (3.5-5.1); TOT PROT 5.4 g/dl (6.4-8.2)
[2019-03-23] MEDS ORDERED: PT OWN MED DRAWER 7, Y5N ONE (09:04)
[2019-03-23] MEDS: LOSARTAN POTASSIUM 50 MG TABLET (FP) PO SCH (09:09)
[2019-03-23] MEDS: ISOSORBIDE MONONITRATE 30 MG TAB.SR.24H (FP) PO SCH (09:09)
[2019-03-23] MEDS: ALLOPURINOL 100 MG TABLET (FP) PO SCH (09:10)
[2019-03-23] MEDS: ENOXAPARIN NA (PORCINE) 40 MG/0.4 ML DISP.SYRIN SQ SCH (09:10)
[2019-03-23] MEDS: amLODIPine BESYLATE 5 MG TABLET (FP) PO SCH (09:10)
[2019-03-23] MEDS: PARoxetine HCL 10 MG TABLET PO SCH (09:10)
[2019-03-23] MEDS ORDERED: SODIUM PHOSPHATE/NA BIPHOS 133 ML ENEMA PR ONE (11:45)
[2019-03-23] MEDS ORDERED: INSULIN (NOVOLOG) ASPART 100 UNITS/ML 10ML VIAL ONE (11:47)
--- NOTE | 2019-03-23 11:54 | DS ---
Physical Examination Vital Signs: Vital Signs Temperature 97.5 F L 03/23/19 07:55 Pulse Rate 73 03/23/19 07:55 Respiratory Rate 18 03/23/19 07:55 Blood Pressure 109/51 L 03/23/19 07:55 O2 Sat by Pulse Oximetry (%) 98 03/22/19 09:00 Findings/Remarks: Laboratory Results - last 24 hr 03/22/19 03/22/19 03/23/19 16:48 20:40 06:05 WBC RBC Hgb Hct MCV MCH MCHC RDW Plt Count MPV Sodium Potassium Chloride Carbon Dioxide Anion Gap BUN Creatinine Est GFR (CKD-EPI)AfAm Est GFR (CKD-EPI)NonAf POC Glucometer 157 129 104 Random Glucose Calcium Total Bilirubin AST ALT Alkaline Phosphatase Total Protein Albumin 03/23/19 03/23/19 03/23/19 07:07 07:07 11:39 WBC 10.8 H RBC 2.64 L Hgb 7.7 L Hct 22.5 L D MCV 85.2 MCH 29.2 MCHC 34.3 RDW 15.4 Plt Count 239 MPV 9.4 Sodium 135 L Potassium 3.5 Chloride 102 Carbon Dioxide 26 Anion Gap 7 L BUN 45.4 H Creatinine 1.6 H Est GFR (CKD-EPI)AfAm 35.65 Est GFR (CKD-EPI)NonAf 30.76 POC Glucometer 266 Random Glucose 97 Calcium 8.5 Total Bilirubin 0.6 AST 108 H ALT 27 Alkaline Phosphatase 132 H Total Protein 5.4 L Albumin 2.7 L Active Medications Generic Name Dose Route Start Last Admin Trade Name Freq PRN Reason Stop Dose Admin Acetaminophen 650 mg 03/21/19 17:59 03/23/19 06:08 Tylenol - PO 650 mg Q6H PRN Administration PAIN LEVEL 1-5 Allopurinol 100 mg 03/22/19 10:00 03/23/19 09:10 Zyloprim - PO 100 mg DAILY [facility] Administration Amlodipine Besylate 5 mg 03/22/19 10:00 03/23/19 09:10 Norvasc - PO 5 mg DAILY [facility] Administration Enoxaparin Sodium 40 mg 03/22/19 10:00 03/23/19 09:10 Lovenox - SQ 40 mg DAILY [facility] Administration Fentanyl 25 mcg 03/21/19 17:21 Sublimaze Injection - IVPUSH [id number] PRN PAIN-PACU ORDER X 4 DOSES ONLY Gabapentin 200 mg 03/21/19 22:00 03/23/19 06:07 Neurontin - PO 200 mg TID [facility] Administration Glimepiride 2 mg 03/22/19 07:00 03/23/19 06:07 Amaryl - PO 2 mg DAILY@0700 [facility] Administration Insulin Aspart 1 vial 03/21/19 22:00 03/23/19 06:08 Novolog Vial Sliding Scale - SQ Not Given ACHS [facility] Protocol Isosorbide Mononitrate 30 mg 03/22/19 10:00 03/23/19 09:09 Imdur - PO 30 mg DAILY [facility] Administration Levothyroxine Sodium 25 mcg 03/22/19 07:00 03/23/19 06:07 Synthroid - PO 25 mcg DAILY@0700 [facility] Administration Losartan Potassium 50 mg 03/22/19 10:00 03/23/19 09:09 Cozaar - PO 50 mg DAILY [facility] Administration Morphine Sulfate 2 mg 03/21/19 17:59 Morphine Sulfate IM Q6H PRN PAIN LEVEL 6-10 Nortriptyline HCl 10 mg 03/21/19 22:00 03/22/19 22:00 Pamelor - PO 10 mg HS [facility] Administration Ondansetron HCl 4 mg 03/21/19 17:21 Zofran Injection IVPUSH Q6H PRN NAUSEA AND/OR VOMITING Ondansetron HCl 4 mg 03/21/19 17:59 Zofran Odt - SL Q6H PRN NAUSEA AND/OR VOMITING Paroxetine HCl 10 mg 03/22/19 10:00 03/23/19 09:10 Paxil - PO 10 mg DAILY [facility] Administration Sitagliptin Phosphate 50 mg 03/22/19 07:00 03/23/19 06:06 Januvia - PO 50 mg DAILY@0700 [facility] Administration Sodium Phosphate 133 ml 03/23/19 11:45 Fleet Adult Rectal Enema - MS 03/23/19 11:46 ONCE ONE Microbiology 03/20/19 09:15 Urine - Urine - Catheterized Urine Culture - Final NO GROWTH OBTAINED Constitutional: Yes: No Distress, Calm Eyes: Yes: Conjunctiva Clear HENT: Yes: Atraumatic Cardiovascular: Yes: Regular Rate and Rhythm Respiratory: Yes: Regular, CTA Bilaterally Gastrointestinal: Yes: Normal Bowel Sounds, Soft Musculoskeletal: Yes: Muscle Weakness Extremities: Yes: WNL Edema: No Wound/Incision: Yes: Dressing Dry and Intact (some serosanguinous drainage noted on dressing) Neurological: Yes: Alert, Oriented Psychiatric: Yes: Alert, Oriented Labs: CBC, BMP 03/23/19 07:07 03/23/19 07:07 Discharge Summary Problems reviewed: Yes Reason For Visit: CLOSED FRACTURE OF LEFT HIP Current Active Problems Closed left hip fracture (Acute) Fall (Acute) Hospital Course: Patient is a 78 y/o female with past medical history of DM, HTN, HLD, CAD, hx of NSTEMI s/p cath at [facility] with 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 Patient presented to ER s/p fall at home. Xray showed acute left femoral intertrochanteric fracture. Orthopedic consult placed and she underwent L IM gamma nail placement. Tolerated surgery well. Patient will be discharged to SNF for aggressive PT. Condition: Guarded - Instructions Diet, Activity, Other Instructions: follow up with PMD in 1 week follow up with Orthopedic KELLY Linda for L hip fracture Follow up with [facility] as scheduled continue with med regimen as prescribed return to ER if develop severe pain, respiratory distress, chest pain can restart aspirin and brillinta Referrals: Carmen Arora MD [Primary Care Provider] - Hilario Sierra PA [Physician Astrobiologist] - Ramakrishna Beckman MD [Staff Physician] - - Home Medications Comprehensive Discharge Medication List: Ambulatory Orders Aspirin 81 mg PO DAILY 11/04/17 Atorvastatin Ca [Lipitor] 80 mg PO HS 11/04/17 Ergocalciferol (Vitamin D2) [Vitamin D2] 50,000 unit PO WEEKLY 11/04/17 Glimepiride [Amaryl -] 2 mg PO BID 11/04/17 Nitroglycerin 0.4 mg SL PRN 11/04/17 Ticagrelor [Brilinta -] 90 mg PO BID 11/04/17 Allopurinol [Zyloprim -] 100 mg PO DAILY 11/05/17 Amlodipine Besylate 5 mg PO DAILY 11/05/17 Levothyroxine [Synthroid -] 25 mcg PO DAILY 11/05/17 Sitagliptin Phosphate [Januvia] 50 mg PO DAILY 11/05/17 Gabapentin [Neurontin -] 200 mg PO TID capsule 11/11/17 Nortriptyline HCl [Pamelor -] 10 mg PO HS capsule 11/11/17 Paroxetine HCl [Paxil -] 10 mg PO DAILY tablet 11/11/17 Losartan Potassium [Cozaar -] 50 mg PO BID #30 tablet 12/11/17 Isosorbide Mononitrate [Imdur -] 30 mg PO DAILY tab.sr.24h 03/23/19 Polyethylene Glycol 3350 [Miralax (For Daily Use) -] 17 gm PO DAILY #1 bottle
--- NOTE | 2019-03-23 12:40 | PN ---
Progress Note (short form) - Note Progress Note: PULMONARY Denies shortness of breath or chest pain. Vital Signs Period Temp Pulse Resp BP Sys/Pabon Pulse Ox Last 24 Hr 97.5 F-98.9 F 73-89 18-20 91-109/49-54 Gen: NAD at rest Heart: RRR Lung: decreased breath sounds at the bases Abd: soft, nontender Ext: no edema, dressings clean CBC, BMP 03/23/19 07:07 03/23/19 07:07 Active Medications Acetaminophen (Tylenol -) 650 mg PO Q6H PRN PRN Reason: PAIN LEVEL 1-5 Last Admin: 03/23/19 06:08 Dose: 650 mg Allopurinol (Zyloprim -) 100 mg PO DAILY [facility] Last Admin: 03/23/19 09:10 Dose: 100 mg Amlodipine Besylate (Norvasc -) 5 mg PO DAILY [facility] Last Admin: 03/23/19 09:10 Dose: 5 mg Enoxaparin Sodium (Lovenox -) 40 mg SQ DAILY [facility] Last Admin: 03/23/19 09:10 Dose: 40 mg Fentanyl (Sublimaze Injection -) 25 mcg IVPUSH [id number] PRN PRN Reason: PAIN-PACU ORDER X 4 DOSES ONLY Gabapentin (Neurontin -) 200 mg PO TID [facility] Last Admin: 03/23/19 06:07 Dose: 200 mg Glimepiride (Amaryl -) 2 mg PO DAILY@0700 [facility] Last Admin: 03/23/19 06:07 Dose: 2 mg Insulin Aspart (Novolog Vial Sliding Scale -) 1 vial SQ [facility]; Protocol Last Admin: 03/23/19 11:52 Dose: 4 units Isosorbide Mononitrate (Imdur -) 30 mg PO DAILY [facility] Last Admin: 03/23/19 09:09 Dose: 30 mg Levothyroxine Sodium (Synthroid -) 25 mcg PO DAILY@0700 [facility] Last Admin: 03/23/19 06:07 Dose: 25 mcg Losartan Potassium (Cozaar -) 50 mg PO DAILY [facility] Last Admin: 03/23/19 09:09 Dose: 50 mg Morphine Sulfate (Morphine Sulfate) 2 mg IM Q6H PRN PRN Reason: PAIN LEVEL 6-10 Nortriptyline HCl (Pamelor -) 10 mg PO [facility] Last Admin: 03/22/19 22:00 Dose: 10 mg Ondansetron HCl (Zofran Injection) 4 mg IVPUSH Q6H PRN PRN Reason: NAUSEA AND/OR VOMITING Ondansetron HCl (Zofran Odt -) 4 mg SL Q6H PRN PRN Reason: NAUSEA AND/OR VOMITING Paroxetine HCl (Paxil -) 10 mg PO DAILY [facility] Last Admin: 03/23/19 09:10 Dose: 10 mg Sitagliptin Phosphate (Januvia -) 50 mg PO DAILY@0700 [facility] Last Admin: 03/23/19 06:06 Dose: 50 mg A/P s/p Fall Left Hip Fracture CAD HTN Hyperlipidemia Hypothyroidism - pain control - incentive spirometry - rehab/PT - DVT prophylaxis
[2019-03-23 20:32] VITALS: BP 113/59; PULSE 96; TEMP 99.2
[2019-03-25] MEDS ORDERED: Methylnaltrexone Bromide 12 MG/0.6 ML KIT SQ ONE (16:15)
== END 2019-03-23 19:20 | DRG 481 ==
LOC: JER 08:36 → JERBED 10:37 → J8W 14:18
PROVIDERS: ADMIT Family Medicine; ATTEND Family Medicine
PROC: 0QS704Z Reposition Left Upper Femur with Internal Fixation Device, Open Approach (ICD-10-PCS; principal; 2019-03-21 16:30)
DX: S72.142A Displaced intertrochanteric fracture of left femur, initial encounter for closed fracture (principal); N17.9 Acute kidney failure, unspecified; E11.9 Type 2 diabetes mellitus without complications; E78.5 Hyperlipidemia, unspecified; I25.10 Atherosclerotic heart disease of native coronary artery without angina pectoris; K21.9 Gastro-esophageal reflux disease without esophagitis; I44.0 Atrioventricular block, first degree; E03.9 Hypothyroidism, unspecified; I11.0 Hypertensive heart disease with heart failure; I50.9 Heart failure, unspecified; F41.9 Anxiety disorder, unspecified; M54.5 Low back pain; N20.0 Calculus of kidney; Z95.5 Presence of coronary angioplasty implant and graft; W18.39XA Other fall on same level, initial encounter; Y92.098 Other place in other non-institutional residence as the place of occurrence of the external cause
CPT/HCPCS: 36415; 70450-TC; 71045-TC-FY; 73523-TC-FY; 74019-TC-FY; 76000-TC-FY; 80048; 80053; 81003; 82550; 82553; 82962; 83735; 83880; 84484; 85025; 85027; 85610; 85730; 86850; 86900; 86901; 87086; 93005; 93010; 94010; 94760; 97116-GP; 97162-GP; 99284-25; J0131; J1644; J7030